=== PATIENT | male | born 1965 | race Caucasian/White ===

== ENCOUNTER 2018-08-31 18:12 | Emergency (ER) | payer BC, SELFPAY ==
[2018-08-31 18:13] VITALS: BP 162/109; PULSE 82; RESP 14; TEMP 36.7; O2SAT 95; BMI 36.6
[2018-08-31 18:22] VITALS: BP 170/96; PULSE 80; RESP 16; O2SAT 96
--- NOTE | 2018-08-31 18:32 | CT_ITS ---
STUDY: CT ABDOMEN AND PELVIS WITHOUT CONTRAST REASON FOR EXAM: Male, 53 years old. Right flank pain, history of kidney stones RADIATION DOSAGE (If Supplied By Facility): CTDIvol = ( 23.56 ) mGy, DLP = ( 1394.97 ) mGycm TECHNIQUE: Transaxial images were obtained from the dome of the diaphragm to the symphysis pubis without oral contrast, and without intravenous contrast. Sagittal and coronal images were reconstructed. Individualized dose optimization techniques were used for this CT. COMPARISON: Prior comparison studies are not available for review at this time. FINDINGS: The visualized lung bases are unremarkable. The visualized portions of the heart are within normal limits. Normal liver. Normal gallbladder and extrahepatic biliary system. Normal spleen. Normal pancreas. Normal bilateral adrenal glands. There are calcifications of each kidney with the largest on the left side measuring up to 6.4 mm. No hydronephrosis or urinary calculi. Mild periureteral stranding on the right side. Normal visualized stomach. Normal small intestine. Normal colon. The appendix is visualized and appears normal. Normal abdominal aorta. Normal inferior vena cava. Normal retroperitoneum. There is a calculus layering dependently in the urinary bladder on axial image 150 measuring 3.6 mm. Normal abdominal wall. Normal osseous structures. CT/Abdomen/Pelvis without Cont IMPRESSION: 1. Urinary bladder calculus (3.6 mm) likely passed from the right ureter. No hydronephrosis. Electronically Signed: Osmin Chris MD at 19:29 EST , Service support ,
[2018-08-31 18:43] LABS: Bacteria 0 SEEN /hpf (None Seen); Red Blood Cells-Urine 0 SEEN /hpf (0-5); Squamous Epithelial Cells - UA 0 SEEN /hpf (0-5)
[2018-08-31 18:49] LABS: Color, Urine Yellow (Yellow); Glucose, Dipstick Normal (Normal); Ketone-Dipstick 5 mg/dl (Negative); Leukocyte Esterase-Dipstick 25 /ul (Negative); Nitrite-Dipstick Negative (Negative); Occult Blood-Urine 150 /ul (Negative); Protein-Dipstick 15 mg/dl (Negative); Urine Bilirubin Dipstick Negative (Negative); Urine Clarity Clear (Clear); Urine Urobilinogen Normal (Normal)
[2018-08-31 18:56] LABS: White Blood Cells 0-5 SEEN /hpf (0-5)
[2018-08-31 18:57] LABS: Mucous, Urine 1+ /hpf (<or=2+)
--- NOTE | 2018-08-31 19:42 | ED.VISSUMM ---
- ER Visit Summary Date of Service: 08/31/18 Chief Complaint: Right flank pain History of Present Illness: The patient is a 53 M who presents with right flank pain that began approximately 2-1/2 hours prior to arrival. Patient states he has a history of kidney stones and states this feels similar to prior kidney stones. Patient denies any dysuria or hematuria. Patient denies any nausea or vomiting. Patient denies any diarrhea, melena, or hematochezia. Patient does admit to some urinary urgency. Patient denies any fevers or chills. Patient states he did take 20 mg of Toradol prior to arrival. Physical Examination: Vital signs are stable. Patient is afebrile. Patient is in no acute distress. Oral mucosa is pink and moist. Neck is supple. Trachea is midline. There is no JVD noted. Heart was regular rate and rhythm. Lungs are clear and equal bilaterally. Abdomen is soft. Bowel sounds are normal. There is no tenderness. There is no flank or CVA tenderness noted. Cranial nerves II through XII are intact. There are no focal motor or sensory deficits noted. The remaining physical exam is within normal limits. Test Results: Urinalysis showed leukocyte esterase of 25, occult blood 150, and ketones of 5. There were no white blood cells or red blood cells noted. CT scan of the abdomen and pelvis shows a calculus in the urinary bladder but no ureteral calculus. Emergency Department Course and Treatment: Patient felt better on reevaluation. Patient was instructed to follow-up with his primary care physician in 5-7 days. Patient was instructed to strain his urine. Patient was instructed to take Toradol that he has at home as needed for pain. Patient understood and was agreeable with the plan. All questions were answered. Disposition: Discharged home Impression: Urolithiasis This note was generated with [employer] dictation software. It may contain incorrect words, spelling, and punctuation that were not noted in review of the chart prior to signing ED Disposition - Plan for ED Patient: Disposition: Home or Assisted Living Chief Complaint: Flank Pain Diagnosis: Urolithiasis Instructions: ED Stone Renal W Colic Referrals: Mynor Robertson MD [Primary Care Provider] -
[2018-08-31 20:01] VITALS: PULSE 82; RESP 14; O2SAT 95
== END 2018-08-31 20:02 | disposition home or self-care (01) ==
PROVIDERS: Emergency Provider Emergency Medicine; Family Provider Family Medicine; PCP Family Medicine
DX: N21.0 Calculus in bladder (principal); Z87.442 Personal history of urinary calculi
CPT/HCPCS: 74176; 81001; 99282

== ENCOUNTER → 2019-04-07 | Outpatient (CLI) | payer BC, SELFPAY ==
[2019-04-07 13:15] LABS: ALB/GLOB Ratio 1.2 RATIO (0.9-2.4); AST(SGOT) 18 U/L (15-37); Alanine Aminotransfer ALT/SGPT 30 U/L (16-61); Albumin, Serum 3.5 g/dL (3.2-5.0); Alkaline Phosphatase 84 U/L (45-117); Anion Gap 9 (5-15); BUN 24 mg/dL (7-18); BUN/Creat Ratio 26.5 RATIO (10-20); Calcium,Total 8.6 mg/dL (8.5-10.1); Chloride 109 mmol/L (98-107); Cholesterol 194 mg/dL (200); EST Glomerular Filtration Rate 93 mL/min (>60); Est Glom Filt Rate - Afr Amer 112 mL/min (>60); Glucose 103 mg/dL (74-106); High Density Lipoprotein 57 mg/dL; Potassium 4.2 mmol/L (3.5-5.1); Protein, Total 6.5 g/dL (6.4-8.2); Sodium Level 144 mmol/L (136-145); Thyroid Stim Hormone (TSH) 1.18 uIU/mL (0.358-3.74); Triglycerides 127 mg/dL; Very Low Density Lipoprotein 25 mg/dL (5-40)
== END | disposition home or self-care (01) ==
LOC: MFPLAB 10:43
PROVIDERS: Family Provider Family Medicine; PCP Family Medicine; Referring Provider Family Medicine; Visit Provider Family Medicine
DX: Z00.00 Encounter for general adult medical examination without abnormal findings (principal); E66.9 Obesity, unspecified
CPT/HCPCS: 36415; 80053; 80061; 84153; 84443; G0103

== ENCOUNTER → 2020-04-11 09:20 | Outpatient (CLI) | payer BC, SELFPAY ==
--- NOTE | 2020-04-11 09:24 | RAD_ITS ---
STUDY: X-RAY - PELVIS AND RIGHT HIP REASON FOR EXAM: Male, 55 years old. right hip pain for years-not getting any better, no injury TECHNIQUE: 3 views of the pelvis and hip. COMPARISON: None. FINDINGS: There is a non-specific bowel gas pattern. Normal visualized soft tissue structures. Normal bilateral iliac wings, sacroiliac joints and visualized sacrum. Normal bilateral superior and inferior pubic rami. Normal pubic symphysis. Normal bilateral ischial tuberosities. Normal visualized femoral head. Normal acetabulum. Normal hip joint. RAD/HIP, UNI W/ Pelvis 2-3 Views IMPRESSION: Normal x-ray examination of the pelvis and hip. Electronically Signed: Jared Dickey MD at 9:44 EDT , Service support ,
[2020-04-11 12:45] LABS: ALB/GLOB Ratio 1.3 RATIO (0.9-2.4); AST(SGOT) 22 U/L (15-37); Alanine Aminotransfer ALT/SGPT 33 U/L (16-61); Albumin, Serum 3.9 g/dL (3.2-5.0); Alkaline Phosphatase 73 U/L (45-117); Anion Gap 5 (5-15); BUN 20 mg/dL (7-18); BUN/Creat Ratio 20.1 RATIO (10-20); Calcium,Total 8.3 mg/dL (8.5-10.1); Chloride 107 mmol/L (98-107); Cholesterol 194 mg/dL (200); Creatinine, Serum 0.99 mg/dL (0.70-1.30); EST Glomerular Filtration Rate 83 mL/min (>60); Est Glom Filt Rate - Afr Amer 100 mL/min (>60); Globulin 2.9 g/dL (2.2-4.2); Glucose 89 mg/dL (74-106); High Density Lipoprotein 60 mg/dL; Protein, Total 6.8 g/dL (6.4-8.2); Sodium Level 140 mmol/L (136-145); Triglycerides 88 mg/dL; Very Low Density Lipoprotein 18 mg/dL (5-40)
== END ==
PROVIDERS: PCP Family Medicine; Referring Provider Family Medicine; Visit Provider Family Medicine
DX: Z00.00 Encounter for general adult medical examination without abnormal findings (principal); N20.0 Calculus of kidney; M25.551 Pain in right hip
CPT/HCPCS: 36415; 73502; 80053; 80061

== ENCOUNTER → 2020-04-19 08:51 | Outpatient (CLI) | payer BC, SELFPAY ==
--- NOTE | 2020-04-19 08:55 | US_ITS ---
STUDY: RENAL ULTRASOUND - COMPLETE REASON FOR EXAM: Male, 55 years old. Left flank pain. Question kidney stone. TECHNIQUE: Ultrasound evaluation of the kidneys was performed with real-time and static ortiz-scale imaging. COMPARISON: CT the abdomen and pelvis, 08/31/2018. FINDINGS: RIGHT KIDNEY: Normal location of the right kidney, which is normal in size. The right kidney measures 12.4 cm. There is a normal cortex of the right kidney. The renal cortex measures 2.2 cm. There is no right renal mass or cyst. There is scattered area of hyperechogenicity within the central sinus fat. The possibility of small nonobstructing calculi in considered. The largest area measures 1.6 x 1.1 x 0.5 cm in lies in the mid to lower kidney. There is no right hydronephrosis. DISTAL RIGHT URETER: There is non-visualization of the distal right ureter. There is no demonstrated right ureterovesical junction calculus. There is no demonstrated right ureteral jet. LEFT KIDNEY: Normal location of the left kidney, which is normal in size. The left kidney measures 12.8 cm. There is a normal cortex of the left kidney. The renal cortex measures 1.3 cm. There is no left renal mass or cyst. There is focal area of hyperechogenicity within the central sinus fat. Question nonobstructing renal calculi. The largest area measures 0.7 x 1.5 x 0.6 cm and lies in the lower pole of the left kidney.. There is mild hydronephrosis of the left kidney. DISTAL LEFT URETER: There is non-visualization of the distal left ureter. There is no demonstrated left ureterovesical junction calculus. There is no demonstrated left ureteral jet. BLADDER: The distended urinary bladder has a volume of 122 ml. There is a normal wall thickness of the distended urinary bladder. There is no demonstrated mass within the urinary bladder. There are no demonstrated bladder calculi. US/Kidney and Bladder IMPRESSION: 1. Focal areas of hyperechogenicity within the bilateral central sinus fat suggesting nonobstructing renal calculi. Diffuse renal calculi are seen throughout both kidneys on the prior CT. 2. Mild left hydronephrosis. 3. Normal urinary bladder. The ureteral jets were not visualized. Electronically Signed: Omar Gautam DO at 17:04 EDT Tel [phone], Service support ,
== END ==
PROVIDERS: PCP Family Medicine; Referring Provider Family Medicine; Visit Provider Family Medicine
DX: N20.0 Calculus of kidney (principal)
CPT/HCPCS: 76770

== ENCOUNTER → 2020-04-22 | Outpatient (CLI) | payer BC, SELFPAY | END | disposition home or self-care (01) | LOC: LABSPEC 15:15 | PROVIDERS: PCP Family Medicine; Referring Provider Family Medicine; Visit Provider Family Medicine | DX: N20.0 Calculus of kidney (principal) | CPT/HCPCS: 82360 ==

== ENCOUNTER 2020-05-16 19:10 | Emergency (ER) | payer BC, SELFPAY ==
[2020-05-16 19:10] VITALS: BP 179/99; PULSE 84; RESP 17; TEMP 35.6; O2SAT 94; BMI 39.8
--- NOTE | 2020-05-16 20:26 | CT_ITS ---
STUDY: CT ABDOMEN AND PELVIS WITHOUT CONTRAST REASON FOR EXAM: Male, 55 years old. Left flank pain. History of kidney stones. RADIATION DOSAGE (If Supplied By Facility): CTDIvol = ( 14.76 ) mGy, DLP = ( 753.59 ) mGycm TECHNIQUE: Transaxial images were obtained from the dome of the diaphragm to the symphysis pubis without oral contrast, and without intravenous contrast. Sagittal and coronal images were reconstructed. Individualized dose optimization techniques were used for this CT. COMPARISON: CT of the abdomen and pelvis, 08/31/2018. Renal ultrasound, 04/19/2020. FINDINGS: The visualized lung bases are unremarkable. The visualized portions of the heart are within normal limits. Normal liver. Normal gallbladder and extrahepatic biliary system. Normal spleen. Normal pancreas. Normal bilateral adrenal glands. The right kidney is of normal size and cortical thickness. There are multiple renal cysts. The largest, in the mid kidney, measures 6 mm. No visualized mass or cyst. There is no hydronephrosis. Normal right ureter. There is mild stranding of the left perinephric fat. The kidney is mildly enlarged when compared to the right with normal cortical thickness. There are multiple nonobstructing renal calculi. The largest, in the lower pole, measures 9 mm. There is mild hydronephrosis and ureteral dilatation to the pelvic side wall where there is nonobstructing 7 mm calculus (image 139, series 1002) the distal left ureter is unremarkable. Normal visualized stomach. Normal small intestine. Normal colon. There is non-visualization of the appendix. Normal abdominal aorta. Normal inferior vena cava. Normal retroperitoneum. Normal urinary bladder. The prostate is normal in size. There is a calcification in the mid prostate. There are phleboliths in the pelvis without lymphadenopathy. No free air or free fluid is seen within the peritoneal cavity. Normal abdominal wall. There are diffuse degenerative changes of the visualized lumbar spine. CT/Abdomen/Pelvis without Cont IMPRESSION: 1. Distal left ureteral calculus with moderate obstructive uropathy. 2. Multiple bilateral nonobstructing renal calculi. 3. Absence of the calculus seen within the urinary bladder on the previous study. 4. No other major interval change. Electronically Signed: Omar Gautam DO at 21:17 EDT Tel [phone], Service support ,
[2020-05-16] MEDS: Ondansetron 4 MG/2 ML Vial IV (20:38)
[2020-05-16] MEDS: Morphine 4 MG/ML Syringe IV (20:38)
[2020-05-16 21:30] LABS: Bacteria 0 SEEN /hpf (None Seen); Mucous, Urine 0 SEEN /hpf (<or=2+); Red Blood Cells-Urine 0 SEEN /hpf (0-5); Squamous Epithelial Cells - UA 0 SEEN /hpf (0-5); White Blood Cells 0 SEEN /hpf (0-5)
[2020-05-16 21:45] LABS: Color, Urine Yellow (Yellow); Glucose, Dipstick Normal (Normal); Ketone-Dipstick Negative (Negative); Leukocyte Esterase-Dipstick Negative /ul (Negative); Nitrite-Dipstick Negative (Negative); Occult Blood-Urine Negative /ul (Negative); Protein-Dipstick 30 mg/dl (Negative); Urine Bilirubin Dipstick Negative (Negative); Urine Clarity Sl. Cloudy (Clear); Urine Urobilinogen Normal (Normal)
[2020-05-16 22:03] LABS: Amorphous Sediment 1+
[2020-05-16 22:27] VITALS: RESP 16
--- NOTE | 2020-05-16 22:56 | ED.DEP ---
ED Disposition - Plan for ED Patient: Prescriptions: Oxycodone HCl/Acetaminophen [Percocet 5/325] 1 tablet PO Q6H PRN PRN 3 Days #12 tablet PRN Reason: Pain Ondansetron [Zofran Odt] 4 mg PO Q8H PRN PRN #10 tablet PRN Reason: Nausea Referrals: Mynor Robertson MD [Primary Care Provider] - Sanford Jacobs MD [STAFF PHYSICIAN] -
--- NOTE | 2020-05-16 23:04 | ED.RN ---
[facility] pharmacy bringing prescription meds to waiting room.
--- NOTE | 2020-05-16 23:50 | ED.DCSUM_ITS ---
- ER Visit Summary Date of Service: 05/16/20 Chief Complaint: Left flank pain History of Present Illness: The patient is a 55 M presenting with left flank pain. Patient states this started today suddenly at 3:30 PM. He states it feels similar to his previous kidney stones. He tried ibuprofen and Tylenol at home with minimal improvement. He complains of left lower back pain. He denies urinary complaints. Denies nausea or vomiting. Denies fever. Physical Examination: Vitals are stable. Patient is afebrile. Alert no acute distress. HEENT exam is unremarkable. Lungs are clear and equal bilaterally. Heart is regular rate and rhythm. Abdomen is soft nontender nondistended. No guarding or rebound Back: Left CVA tenderness Extremities are unremarkable. Skin is warm and dry. No rash Remainder of exam is unremarkable. Emergency Department Course and Treatment: Patient given morphine, Zofran IV. Urinalysis shows 0 white cells, [address] abdomen pelvis shows distal left ureteral calculus with moderate obstructive uropathy. Multiple bilateral nonobstructing renal calculi. Absence of the calculus seen within the urinary bladder on the previous study. No other major interval change. On reevaluation, patient states his pain has resolved. Discussed with Dr. Jacobs. Patient will follow-up in the office. He is advised to return to the ED for worsening complaints. He was given prescription for Percocet and Zofran. Disposition: Discharge home Impression: Urolithiasis This note was generated with [employer] dictation software. It may contain incorrect words, spelling, and punctuation that were not noted in review of the chart prior to signing ED Disposition - Plan for ED Patient: Disposition: Home or Assisted Living Prescriptions: Oxycodone HCl/Acetaminophen [Percocet 5/325] 1 tab PO Q6H PRN PRN 3 Days #12 tab PRN Reason: Pain Prescription Printed Ondansetron [Zofran Odt] 4 mg PO Q8H PRN PRN #10 tab PRN Reason: Nausea Prescription Printed Referrals: Mynor Robertson MD [Primary Care Provider] - Sanford Jacobs MD [STAFF PHYSICIAN] -
== END 2020-05-16 23:05 | disposition home or self-care (01) ==
LOC: ED 20:30
PROVIDERS: Emergency Provider Emergency Medicine; PCP Family Medicine
DX: N20.2 Calculus of kidney with calculus of ureter (principal); N13.9 Obstructive and reflux uropathy, unspecified; Z79.899 Other long term (current) drug therapy; Z87.442 Personal history of urinary calculi
CPT/HCPCS: 74176; 81001; 96374; 96375; 99283; A4216; J2405

== ENCOUNTER → 2020-05-17 14:05 | Outpatient (CLI) | payer BC, SELFPAY ==
[2020-05-16 19:10] VITALS: BMI 39.8
--- NOTE | 2020-05-17 14:16 | EKG12_ITS ---
Test Reason : PRE-OP Blood Pressure : / mmHG Vent. Rate : 105 BPM Atrial Rate : 105 BPM P-R Int : 158 ms QRS Dur : 092 ms QT Int : 338 ms P-R-T Axes : 041 016 018 degrees QTc Int : 446 ms Sinus tachycardia Otherwise normal ECG Confirmed by SEGUN HARPER, VITOR ([id number]), brands editor DARY ARCOS ([id number]) on 05/18/2020 1:06:45 PM Referred By: Sanford Jacobs Confirmed By:VITOR CAST MD
[2020-05-17 15:02] LABS: Hematocrit 44.6 % (40-54); Hemoglobin 14.9 g/dL (13.0-16.5); Mean Corp Hgb Conc 33.4 g/dL (32-36); Mean Corpuscular Hgb 30.6 pg (27.0-32.0); Mean Corpuscular Volume 91.6 fL (80-94); Platelet Count 213 K/mm3 (150-450); RBC Distribution Width CV 12.2 % (11.6-14.6); RBC Distribution Width SD 41.1 fl (35.1-43.9); Red Blood Count 4.87 M/mm3 (4.6-6.2); White Blood Count 8.5 K/mm3 (4.4-11.0)
[2020-05-17 15:24] LABS: AST(SGOT) 27 U/L (15-37); Alanine Aminotransfer ALT/SGPT 39 U/L (16-61); Albumin, Serum 3.7 g/dL (3.2-5.0); Alkaline Phosphatase 82 U/L (45-117); Anion Gap 7 (5-15); BUN 27 mg/dL (7-18); BUN/Creat Ratio 17.3 RATIO (10-20); Calcium,Total 8.5 mg/dL (8.5-10.1); Chloride 110 mmol/L (98-107); Creatinine, Serum 1.56 mg/dL (0.70-1.30); EST Glomerular Filtration Rate 49 mL/min (>60); Est Glom Filt Rate - Afr Amer 60 mL/min (>60); Globulin 3.6 g/dL (2.2-4.2); Glucose 116 mg/dL (74-106); Protein, Total 7.3 g/dL (6.4-8.2); Sodium Level 141 mmol/L (136-145)
== END ==
PROVIDERS: PCP Family Medicine; Referring Provider Urology; Visit Provider Urology
DX: I51.9 Heart disease, unspecified (principal)
CPT/HCPCS: 36415; 80053; 85027; 87635; 93005; U0003

== ENCOUNTER 2020-06-03 05:32 | Day surgery (SDC) | payer BC, SELFPAY ==
[2020-06-03 05:55] VITALS: BP 163/96; PULSE 92; RESP 16; TEMP 36.6; O2SAT 97; BMI 37.8
[2020-06-03] MEDS: Lactated Ringers 1,000 ML 100 ML IV (06:18)
--- NOTE | 2020-06-03 07:30 | CALC_PTH ---
PATIENT: YONY ROBERTSON [place] [facility] [place][id number] AGE/SX: 55/M ROOM: RE06/03/[address]: Dr. Sanford Jacobs MD : 1965 BED: DIS: 06/03/2020 SPEC #: [id number] RECD: 06/03/20 09:14 STATUS: BOLIVAR PEDRITO #: [id number] DAYO: 06/03/20 07:[address]: Sanford Jacobs DEPT: SURGICAL PATHOLOGY RECD BY: Scarlet Lundberg ENTERED: 06/03/20 12:45 SP TYPE: Calculi OTHR DR: Dr. Mynor Robertson MD Tissues: CALCULI Procedures: Surgery Specimen Level I HEADER OPERATION: Cysto, ureteroscopy, laser, stent PRE-OP DIAGNOSIS: Left ureteral calculus TISSUE SUBMITTED: Left ureteral calculi GROSS DIAGNOSIS Fragments of stone, clinically left ureteral calculi, submitted for analysis. UMU:pavan 06/03/20 COMMENT The calculus is submitted in its entirety for chemical stone analysis. The results from this study will be reported separately. GROSS DESCRIPTION Received in fixative is one container labeled with the patient's name and designated left ureteral calculi. The specimen consists of multiple irregular fragments of brownish-black stone that in aggregate measure 0.3 x 0.3 x 0.1 cm. The entire specimen is submitted for stone analysis. / UMU:pavan 06/03/20 CPT: 94391
--- NOTE | 2020-06-03 08:38 | PCM.HP.STD ---
Problem List (1) Left ureteral calculus Status: Acute History of Present Illness Date of Admission: 06/03/20 Chief Complaint: Left ureteral and renal calculi The patient is a 55 year old male who has an obstructing stone in distal left ureter also has a stone in the upper pole of the left kidney plan to proceed with laser lithotripsy and treatment of stones. Past Medical History Past Medical History (Chronic Problems): Chronic Problems History of supraventricular tachycardia (Chronic) Allergies No Known Allergies Allergy (Verified 05/25/20 15:01) Home Medications: Ambulatory Orders Medication Instructions Recorded Ciprofloxacin [Cipro] 500 mg PO BID #6 tab 06/03/20 Doterra 06/03/20 Oxycodone HCl/Acetaminophen 1 tablet PO Q4H PRN PRN 5 Days #20 06/03/20 [Percocet 5/325] tablet Valarian Root 06/03/20 Vitamin B Complex 1 ea PO 06/03/20 Vitamin D3/Vitamin K2 (Mk4) 06/03/20 Surgical History: arthroscopy, knee Smoking Status: Never smoker Tobacco Use: Non-smoker Review of Systems Constitutional: Denies: Chills, Fever, Weight Change HEENT: Denies: Head Aches, Sinus Congestion, Sinus Drainage Cardiovascular: Denies: Chest Pain, Palpitations Respiratory: Denies: Cough, Shortness of breath at rest, Sputum production Gastrointestinal: Denies: Abdominal Pain, Nausea, Vomiting Genitourinary: Denies: Dysuria Musculoskeletal: Denies: Joint Pain, Joint Tenderness Skin: Denies: Rash, Wounds Neurological: Denies: Numbness, Tingling, Focal weakness Psychiatric: Denies: Anxiety, Depression, Homicidal Ideations, Suicidal Ideations Hematologic/ Lymphatic: Denies: Easy Bruising, Easy Bleeding VTE Information - Inpt Only VTE Present on Admission: No VTE Mechan Device Prophylaxis: SCD's Patient Problems: Active and Suspected Problems Left ureteral calculus (Acute) - Physical Exam Vitals/I&O's: Vital Signs Temp Pulse Resp BP Pulse Ox 97.9 F 92 16 163/96 H 97 06/03/20 05:55 06/03/20 05:55 06/03/20 05:55 06/03/20 05:55 06/03/20 05:55 Oxygen Delivery Method Room Air Weight: 123.2 kg Body Mass Index (BMI) 37.8 Intake and Output for Last 24 Hours 06/01/20 06/02/20 06/03/20 23:59 23:59 23:59 Intake Total 115 / 115 Balance 115 / 115 General: Alert, Oriented x3, Cooperative HEENT: Atraumatic, PERRLA, EOMI, Normocephalic Neck: Supple, No JVD, Negative Carotid Bruits Lungs: Clear to auscultation, Normal air movement Cardiovascular: Regular rate, No murmurs Abdomen: Bowel Sounds Present, Soft, Non Tender Extremities: No edema, Capillary Refill Less than 3 Seconds Skin: No rashes, No breakdown Musculoskeletal: No Tenderness to Palpation of Joints or Extremities Neurological: Cranial nerves II-XII grossly intact Psych/Mental Status: Normal Affect, Appropriate Current Medications Hydrocodone Bitart/Acetaminophen ([place] 5mg-325mg) 1 - 2 tablet PO Q6H PRN PRN PRN Reason: Pain Score 1-5/10 Lactated Ringer's () 1,000 mls @ 100 mls/hr IV .Q10H WILLIE Last Admin: 06/03/20 06:18 Dose: 100 mls/hr Documented by: Ketorolac Tromethamine (Toradol (Bkc)) 15 mg IV X1 ONE Stop: 06/03/20 08:35 Metoclopramide HCl (Reglan) 10 mg IV X1 PRN PRN Reason: NAUSEA/VOMITING Ondansetron HCl (Zofran) 4 mg IV X1 PRN PRN Reason: NAUSEA Oxycodone HCl (Oxyir) 5 - 10 mg PO Q6H PRN PRN PRN Reason: Pain Score 4-10/10 Assessment/Plan All Active Problems Left ureteral calculus (Acute) Plan for left ureteroscopy laser and stent.
--- NOTE | 2020-06-03 08:39 | DCINST_ITS ---
Discharge Diet: No Restrictions Discharge Activity: Return to Normal Activity, May Not Drive - for 2 days. Additional Activity Instructions:: Please be aware that pain medications may cause nausea. You should typically eat light foods as you take your pain medication. Pain medication may cause constipation, if this is a problem for you, please discuss with your doctor. Allergies/Adverse Reactions: Allergies No Known Allergies Allergy (Verified 05/25/20 15:01) Medications to take at Discharge Ciprofloxacin [Cipro] 500 mg PO BID #6 tab 06/03/20 Doterra 06/03/20 Oxycodone HCl/Acetaminophen [Percocet 5/325] 1 tablet PO Q4H PRN PRN 5 Days #20 tablet 06/03/20 Valarian Root 06/03/20 Vitamin B Complex 1 ea PO 06/03/20 Vitamin D3/Vitamin K2 (Mk4) 06/03/20 The following prescriptions were given: Ciprofloxacin [Cipro] 500 mg PO BID #6 tab Transmission Status: Pending to [facility] Oxycodone HCl/Acetaminophen [Percocet 5/325] 1 tablet PO Q4H PRN PRN 5 Days #20 tablet PRN Reason: Pain Transmission Status: Received by [facility] Primary Care Physician: Mynor Robertson MD [Primary Care Provider] - Test Results: Test results from this visit will be discussed in further detail at your follow- up appointment, if applicable. Please Follow Up With: Sanford Jacobs MD When: in 2 weeks, please call to make an appointment to remove stent
--- NOTE | 2020-06-03 08:40 | OP.PCM_ITS ---
Problem List (1) Left ureteral calculus Status: Acute Report of Operation Date of Procedure: 06/03/20 Pre-Operative Diagnosis: Left ureteral and renal calculi Post-Operative Diagnosis: The same Surgery/Procedure Performed:: Cystoscopy balloon dilation of the left ureter, left ureteroscopy laser of stone in the left ureter and left ureteroscopy and laser of stone in the left kidney 2 different locations. Left retrograde pyelogram and interpretation fluoroscopic images. Description of Surgical Findings:: 55-year-old male was taken back to the operating room after smooth induction of general anesthesia he was placed in dorsolithotomy position. The penis and testicles were prepped and draped in usual sterile fashion. We then went into the bladder with a 21 Brazilian rigid cystourethroscope, I advanced a Glidewire up the left ureter. I advanced a second Glidewire up the left ureter as a safety wire. I then advanced a 15 Brazilian balloon dilator with a 10 cm and advance it up to the stone and balloon dilated the distal left ureter as it was stenotic and narrowed. I then went over the working wire with the flexible ureteroscope was able to get to the stone and started lasering the stone in the distal left ureter it was a fairly large stone as I was lasering the stone stone broke up with a little pieces start coming down the ureter once I got the stone broke up with little pieces then it was very difficult to laser further at the stone was so distal to the ureter it was hard to use a flexible ureteroscope so at this point I left the safety wire in place I backed out with the flexible ureteroscope and I went with a SlimLine ureteroscope went up the ureter and then lasered the stones one by 1 as they were passed into the bladder were quite way up the ureter. Finally had laser that distal stone and most of the fragments are passed into the bladder. I put a wire back up through this ureteroscope up to the left kidney and then over the wire I went in with a flexible ureteroscope went all the way to the kidney inspected lower pole midpole and upper pole the kidney and found the stone in the upper pole the kidney a second location of the different stone. In this point I lasered the stone again with a 200 ?m laser fiber and lasered the stone and little tiny pieces using laser energy fibers of 20 Hz and 0.4 J and dusting the stone little tiny pieces after this large stone was dusted little tiny pieces then I performed a retrograde pyelogram see contrast in the kidney contrast drain in the kidney no extravasation of contrast. I then worked my way down the ureter and out the bladder there were a lot of stone fragments in the bladder these were drained out and a fragment was sent off as a specimen. I then went back into the bladder over the safety wire and there was a safety wire which was in the entire case I placed a stent it was a 6 Brazilian by 26 cm stent left the stent in place will leave the stent in for 2 weeks the lateral these fragments passing a lot of fragments in the kidney and the ureter. Patient will follow-up for cystoscopy stent removal in the office in about 10 to 14 days. Type of Anesthesia:: General Drains: stent L - Admit VTE Documentation VTE Present on Admission: No VTE Mechan Device Prophylaxis: SCD's
[2020-06-03 08:46] VITALS: BP 140/100; BP 163/96; PULSE 90; RESP 16; TEMP 36.5; O2SAT 96
[2020-06-03] MEDS: Ketorolac 15 MG/ML Vial IV (08:59)
[2020-06-03 09:01] VITALS: BP 144/98; BP 163/96; PULSE 77; RESP 18; O2SAT 96
[2020-06-03 09:09] VITALS: BP 139/97; BP 163/96; PULSE 81; RESP 18; TEMP 36.2; O2SAT 96
[2020-06-03 09:53] VITALS: BP 133/86; BP 163/96; PULSE 76; RESP 16; TEMP 36.1; O2SAT 94
[2020-06-17 09:58] LABS: Ca Oxalate, Monohydrate 100; Source LEFT URETER
== END 2020-06-03 10:30 | disposition home or self-care (01) ==
LOC: SDC 05:32 → AC 05:33
PROVIDERS: Anesthesiology; PCP Family Medicine; Referring Provider Urology; Visit Provider Urology
PROC: 0TJ98ZZ Inspection of Ureter, Via Natural or Artificial Opening Endoscopic (ICD-10-PCS; CPT 52352; principal; 2020-06-03 07:20)
DX: N20.2 Calculus of kidney with calculus of ureter (principal); Z11.59 Encounter for screening for other viral diseases; M19.90 Unspecified osteoarthritis, unspecified site; Z79.899 Other long term (current) drug therapy
CPT/HCPCS: 52356; 76000; 82360; 87635; 88300; C9803; J7120; C1726; C1769; C2617; J2405; U0003

== ENCOUNTER → 2020-06-13 08:08 | Outpatient (CLI) | payer BC, SELFPAY ==
[2020-06-03 05:55] VITALS: BMI 37.8
--- NOTE | 2020-06-13 08:09 | RAD_ITS ---
STUDY: X-RAY - ABDOMEN/PELVIS REASON FOR EXAM: Male, 55 years old. LEFT SIDE KIDNEY STONE/STENT TECHNIQUE: Single AP view of the abdomen / pelvis. COMPARISON: Comparison is made with prior study dated 04/23/2016. FINDINGS: There is an unremarkable bowel gas pattern. A left-sided double-J stent catheter is seen with the proximal tip in the left renal pelvis and the distal tip in the left side of the bladder. Multiple bilateral intrarenal calculi. There is a 7.1 mm x 2 mm calculus in the distal portion of the left ureter just proximal to the ureterovesical junction. There are calcified phleboliths in the pelvis. Normal visualized osseous structures. RAD/Abdomen Single View IMPRESSION: Left-sided double-J stent catheter is in situ. There is evidence of a 7.1 mm x 2 mm calculus in the distal portion of the left ureter just proximal to the ureterovesical junction. Multiple bilateral intrarenal calculi. Electronically Signed: Lio Lagunas, at 13:06 EDT , Service support ,
== END ==
PROVIDERS: PCP Family Medicine; Referring Provider Urology; Visit Provider Urology
DX: N20.0 Calculus of kidney (principal)
CPT/HCPCS: 74018

== ENCOUNTER → 2020-07-18 16:42 | Outpatient (CLI) | payer BC, SELFPAY | PROVIDERS: PCP Family Medicine; Visit Provider Nurse Practitioner Family | DX: U07.1 COVID-19 (principal) | CPT/HCPCS: 87633; 87635; U0003 ==

== ENCOUNTER → 2020-08-05 15:26 | Outpatient (CLI) | payer BC, SELFPAY ==
--- NOTE | 2020-08-05 15:28 | RAD_ITS ---
STUDY: X-RAY CHEST REASON FOR EXAM: Male, 55 years old. recent covid, sob now again TECHNIQUE: PA and lateral views of the chest. COMPARISON: 05/22/2013 FINDINGS: Poor inspiration with some bibasilar atelectasis. There is no demonstrated pleural abnormality. Normal size heart. Normal mediastinum and wilmer. Normal visualized pulmonary arteries. Normal visualized aortic arch and descending thoracic aorta. Normal visualized thoracic spine. Normal visualized ribs, clavicles, and shoulders. There is no demonstrated abnormality of the visualized soft tissue structures of the upper abdomen. RAD/Chest PA and Lateral IMPRESSION: Poor inspiration with some bibasilar atelectasis. Electronically Signed: Pierce Briscoe MD at 15:50 EST Tel , Service support ,
== END ==
PROVIDERS: PCP Family Medicine; Referring Provider Family Medicine; Visit Provider Family Medicine
DX: J15.9 Unspecified bacterial pneumonia (principal)
CPT/HCPCS: 71046; 87633

== ENCOUNTER → 2021-08-01 08:17 | Outpatient (CLI) | payer BC, SELFPAY ==
--- NOTE | 2021-08-01 08:31 | RAD_ITS ---
STUDY: X-RAY - ABDOMEN/PELVIS REASON FOR EXAM: Male, 56 years old. Renal calculi. One year follow-up. History of kidney stones. TECHNIQUE: Two AP supine views of the abdomen and pelvis. COMPARISON: 06/13/2020 FINDINGS: The lung bases are not included. There is an unremarkable bowel gas pattern. There is no demonstrated free abdominal air. The visualized liver and spleen are grossly normal in size and morphology. There is absence of the left ureteral stent present on the prior study. Again seen are at least 3 small calcifications within the left kidney which appear unchanged. Stable calcifications are also seen in the right kidney. The kidneys appear grossly normal in size. Phleboliths are seen in the pelvis. The left distal ureteral calculus , seen on the prior study is no longer present. Normal visualized osseous structures. RAD/Abdomen Single View IMPRESSION: 1. Absence of the left ureteral stent in distal ureteral calculus seen on the prior study. 2. Stable bilateral renal calculi. Electronically Signed: Omar Gautam DO at 22:42 EST Tel [phone], Service support ,
== END ==
PROVIDERS: PCP Family Medicine; Referring Provider Urology; Visit Provider Urology
DX: N20.0 Calculus of kidney (principal)
CPT/HCPCS: 74018

== ENCOUNTER → 2023-09-26 | Outpatient (CLI) | payer BC, SELFPAY ==
--- NOTE | 2023-09-26 15:07 | RAD_ITS ---
STUDY: X-RAY - ABDOMEN/PELVIS REASON FOR EXAM: Male, 58 years old. KIDNEY CALCULUS TECHNIQUE: Single AP view of the abdomen / pelvis. COMPARISON: None. FINDINGS: Lung bases not included in the [id number]. There is an unremarkable bowel gas pattern. There is no demonstrated free abdominal air. There are multiple calcifications projecting over the bilateral kidneys scattered within the upper middle and lower poles, largest on the right measuring 6.7 mm and largest on the left measuring 5.6 mm, unchanged in the interval. Otherwise the visualized liver, spleen and kidneys are grossly normal in size and morphology. There are calcified phleboliths in the pelvis. Degenerative disease of the spine, bilateral SI joints and right hip. There is a left-sided hip prosthesis in place. RAD/Abdomen Single View IMPRESSION: Unchanged calcifications projecting over the kidneys, likely renal stones. Electronically Signed: Pita Hayes MD at 16:52 EST ,
[2023-09-26 15:49] LABS: PSA,Total - Annual Screen 0.83 ng/mL (0.00-4.00)
--- OUTSIDE RECORDS SUMMARY | 2023-09-26 17:26 | XMS RPT_ITS | CCD ---
Author Name Unknown Address [address] [place] [address] Organization [facility] Care Team Providers Care Hadoop Engineer Name Role Phone Cristian Robertson Primary Care Provider Cristian Robertson MD Primary Care Provider Jaky CAMPOS, Nikhil Unavailable Unavailable Netta Hoff MD Unavailable Grater EQUIPMENT OPERATOR WAGE HAND.Hubert MCMILLAN Unavailable Cristian Robertson MD Primary Care Provider Netta Hoff MD Unavailable Grater EQUIPMENT OPERATOR WAGE HAND.DEYANIRA, Hubert Unavailable Sissen PSS, Nikhil Unavailable Unavailable Netta Hoff MD Unavailable Cristian Robertson MD Primary Care Provider Cristian Robertson MD Primary Care Provider Netta Hoff MD Unavailable Grater EQUIPMENT OPERATOR WAGE HAND.DEYANIRA Hubert Unavailable Giulia RODRIGUES, Carlene Unavailable Cristian Robertson MD Primary Care Provider Sissen PSS, Nikhil Unavailable Unavailable Netta Hoff MD Unavailable Grater EQUIPMENT OPERATOR WAGE HAND.DEYANIRA, Hubert Unavailable Giulia RODRIGUES, Carlene Unavailable Cristian Robertson MD Primary Care Provider CRISTIAN ROBERTSON Primary Care Unavailable SURACE, NETTA Referring Unavailable ROBERTSON, CRISTIAN A Primary Care Unavailable GRATER, HUBERT Referring Unavailable ROBERTSON, CRISTIAN A Primary Care Unavailable SURACE, NETTA Attending Unavailable SURACE, NETTA Referring Unavailable ROBERTSON, CRISTIAN A Primary Care Unavailable SURACE, NETTA Attending Unavailable ROBERTSON, CRISTIAN A Primary Care Unavailable SURACE, NETTA Attending Unavailable ROBERTSON, CRISTIAN A Primary Care Unavailable GRATER, HUBERT Attending Unavailable ROBERTSON, CRISTIAN A Primary Care Unavailable GRATER, HUBERT Referring Unavailable ROBERTSON, CRISTIAN A Primary Care Unavailable MINAL LEIVA Referring Unavailable GRATER, HUBERT Referring Unavailable ROBERTSON, CRISTIAN A Primary Care Unavailable GRATER, HUBERT Referring Unavailable ROBERTSON, CRISTIAN A Primary Care Unavailable ROBERTSON, CRISTIAN A Primary Care Unavailable GRATER, HUBERT Referring Unavailable JO MCKEON Consulting Unavailable SURACE, NETTA Attending Unavailable SURACE, NETTA Admitting Unavailable ROBERTSON, CRISTIAN A Primary Care Unavailable ROBERTSON, CRISTIAN A Primary Care Unavailable SURACE, NETTA A Referring Unavailable Medications Current Medications Medication Drug Class(es) Dates Sig (Normalized) Sig (Original) docusate sodium 100 mg oral capsule (16 sources) Start: 06-26-2022 End: 07-26-2022 take 1 capsule by mouth every twelve hours as needed docusate sodium (COLACE) 100 mg capsule Take 1 capsule by mouth twice daily as needed for constipation. 60 capsule 0 06/26/2022 07/26/2022 Active Completed/Discontinued Medications Medication Drug Class(es) Dates Sig (Normalized) Sig (Original) acetaminophen 500 mg oral tablet (20 sources) Start: 06-26-2022 take 2 tablets by mouth every eight hours as needed acetaminophen (TYLENOL) 500 mg tablet Take 2 tablets by mouth every 8 hours as needed for pain. 90 tablet 0 06/26/2022 Active Problems Active Problems Problem Classification Problem Date Documented Date Episodic/Chronic Cardiac dysrhythmias (20 sources) Supraventricular tachycardia; Translations: [Supraventricular tachycardia] Onset: 06-06-2012 11-13-2021 Chronic Osteoarthritis (20 sources) Arthropathy of joint of hand; Translations: [Primary osteoarthritis, unspecified hand] Onset: 07-31-2021 Chronic Other connective tissue disease (20 sources) History of total knee arthroplasty; Translations: [Presence of right artificial knee joint] Onset: 12-11-2021 Chronic Other connective tissue disease (1 source) Hip joint prosthesis present; Translations: [Presence of left artificial hip joint] Chronic Other connective tissue disease (2 sources) History of total hip arthroplasty; Translations: [Presence of left artificial hip joint] Chronic Other connective tissue disease (1 source) History of repair of hip joint; Translations: [Presence of left artificial hip joint] Chronic Other connective tissue disease (2 sources) Presence of left artificial hip joint; Translations: [S/P total left hip arthroplasty] Onset: 06-08-2022 Chronic Other connective tissue disease (1 source) Pain of left hand; Translations: [Pain in left hand] Episodic Other connective tissue disease (1 source) Tendonitis of left wrist; Translations: [Other enthesopathies, not elsewhere classified] Episodic Other connective tissue disease (1 source) Pain of left thigh; Translations: [Pain in left thigh] 05-02-2023 Episodic Other nervous system disorders (13 sources) Neuropathy; Translations: [Polyneuropathy, unspecified] Chronic Other non-traumatic joint disorders (1 source) Pain in right knee; Translations: [Pain in right knee] Episodic Other non-traumatic joint disorders (2 sources) Pain in right knee; Translations: [Pain in joint, lower leg] Episodic Other non-traumatic joint disorders (6 sources) Hip pain; Translations: [Pain in unspecified hip] Episodic Other non-traumatic joint disorders (2 sources) Pain in left knee; Translations: [Pain in joint, lower leg] Onset: 05-02-2023 04-10-2023 Episodic Other nutritional; endocrine; and metabolic disorders (20 sources) Body mass index 30+ - obesity; Translations: [Body mass index (BMI) 39.0-39.9, adult] Onset: 11-13-2021 11-13-2021 Chronic Other screening for suspected conditions (not mental disorders or infectious disease) (2 sources) Patient encounter status; Translations: [Encounter for observation for other suspected diseases and conditions ruled out] 05-02-2023 Episodic Residual codes; unclassified (2 sources) Pain; Translations: [Pain, unspecified] Episodic Sprains and strains (1 source) Sprain of lateral collateral ligament of knee; Translations: [Sprain of lateral collateral ligament of right knee, initial encounter] Episodic Unclassified (1 source) S/P Robotic L KASSIE Onset: 10-18-2022 Past or Other Problems Problem Classification Problem Date Documented Da te Episodic/Chronic Other non-traumatic joint disorders (20 sources) Stiffness of right knee; Translations: [Stiffness of right knee, not elsewhere classified] Onset: 12-11-2021 12-11-2021 Episodic Other non-traumatic joint disorders (2 sources) Pain in left hip; Translations: [Pain in left hip] Onset: 05-15-2022 Episodic Results Test Name Value Interpretation Reference Range Facil ity Vital Signs Date Time Vital Sign Value Performing Clinician Faci lity 05-02-2023 09:49-0400 Body height 177.8 cm Netta Hoff MD Work Phone: [facility] 05-02-2023 09:49-0400 Body weight 110.22 kg Netta Hoff MD Work Phone: [facility] 07-13-2022 15:11-0400 Body temperature 98.4 [degF] Carlene Platt PT Work Phone: [facility] 07-13-2022 15:11-0400 Diastolic blood pressure 80 mm[Hg] Carlene Platt PT Work Phone: [facility] 07-13-2022 15:11-0400 Heart rate 92 /min Carlene Platt PT Work Phone: [facility] 07-13-2022 15:11-0400 Respiratory rate 16 /min Carlene Platt PT Work Phone: [facility] 07-13-2022 15:11-0400 SaO2% (BldA) [Mass fraction] 96 % Carlene Platt PT Work Phone: [facility] 07-13-2022 15:11-0400 Systolic blood pressure 148 mm[Hg] Carlene Platt PT Work Phone: [facility] 07-11-2022 15:18-0400 Diastolic blood pressure 86 mm[Hg] Victorina Aria DAIRY TESTER Work Phone: [facility] 07-11-2022 15:18-0400 Heart rate 92 /min Victorina Aria DAIRY TESTER Work Phone: [facility] 07-11-2022 15:18-0400 SaO2% (BldA) [Mass fraction] 97 % Victorina Aria DAIRY TESTER Work Phone: [facility] 07-11-2022 15:18-0400 Systolic blood pressure 146 mm[Hg] Victorina Aria DAIRY TESTER Work Phone: [facility] 07-11-2022 14:47-0400 Body temperature 98.2 [degF] Victorina Aria DAIRY TESTER Work Phone: [facility] 07-11-2022 14:47-0400 Respiratory rate 18 /min Victorina Aria DAIRY TESTER Work Phone: [facility] 07-10-2022 12:48-0400 Body height 175.3 cm Hubert Grater EQUIPMENT OPERATOR WAGE HAND.[employer] Work Phone: [facility] 07-10-2022 12:48-0400 Body weight 119.75 kg Hubert Grater EQUIPMENT OPERATOR WAGE HAND.[employer] Work Phone: [facility] 07-04-2022 12:15-0400 Body temperature 98.01 [degF] Carlene Platt PT Work Phone: [facility] 07-04-2022 12:15-0400 Diastolic blood pressure 96 mm[Hg] Carlene Platt PT Work Phone: [facility] 07-04-2022 12:15-0400 Heart rate 108 /min Carlene Platt PT Work Phone: [facility] 07-04-2022 12:15-0400 Respiratory rate 16 /min Carlene Platt PT Work Phone: [facility] 07-04-2022 12:15-0400 SaO2% (BldA) [Mass fraction] 99 % Carlene Platt PT Work Phone: [facility] 07-04-2022 12:15-0400 Systolic blood pressure 140 mm[Hg] Carlene Platt PT Work Phone: [facility] 07-02-2022 08:45-0400 Body temperature 98.71 [degF] Victorina Aria DAIRY TESTER Work Phone: [facility] 07-02-2022 08:45-0400 Diastolic blood pressure 88 mm[Hg] Victorina Aria DAIRY TESTER Work Phone: [facility] 07-02-2022 08:45-0400 Heart rate 97 /min Victorina Aria DAIRY TESTER Work Phone: [facility] 07-02-2022 08:45-0400 Respiratory rate 18 /min Victorina Aria DAIRY TESTER Work Phone: [facility] 07-02-2022 08:45-0400 SaO2% (BldA) [Mass fraction] 99 % Victorina Aria DAIRY TESTER Work Phone: [facility] 07-02-2022 08:45-0400 Systolic blood pressure 140 mm[Hg] Victorina Aria DAIRY TESTER Work Phone: [facility] 06-27-2022 09:50-0400 Body temperature 97.81 [degF] Carlene Platt PT Work Phone: [facility] 06-27-2022 09:50-0400 Diastolic blood pressure 90 mm[Hg] Carlene Platt PT Work Phone: [facility] 06-27-2022 09:50-0400 Heart rate 80 /min Carlene Platt PT Work Phone: [facility] 06-27-2022 09:50-0400 Respiratory rate 16 /min Carlene Platt PT Work Phone: [facility] 06-27-2022 09:50-0400 SaO2% (BldA) [Mass fraction] 97 % Carlene Platt PT Work Phone: [facility] 06-27-2022 09:50-0400 Systolic blood pressure 148 mm[Hg] Carlene Platt PT Work Phone: [facility] 06-06-2022 15:51-0400 Diastolic blood pressure 94 mm[Hg] Pacc 1 Work Phone: [facility] 06-06-2022 15:51-0400 Systolic blood pressure 142 mm[Hg] Pacc 1 Work Phone: [facility] 06-06-2022 15:03-0400 Body height 177.8 cm Pacc 1 Work Phone: [facility] 06-06-2022 15:03-0400 Body temperature 98.49 [degF] Pacc 1 Work Phone: [facility] 06-06-2022 15:03-0400 Body weight 119.75 kg Pacc 1 Work Phone: [facility] 06-06-2022 15:03-0400 Heart rate 97 /min Pacc 1 Work Phone: [facility] 06-06-2022 15:03-0400 Respiratory rate 18 /min Pacc 1 Work Phone: [facility] 06-06-2022 15:03-0400 SaO2% (BldA) [Mass fraction] 97 % Pacc 1 Work Phone: [facility] 02-06-2022 14:14-0400 Body height 177.8 cm Hubert Grater EQUIPMENT OPERATOR WAGE HAND.[employer] Work Phone: [facility] 02-06-2022 14:14-0400 Body weight 95.25 kg Hubert Grater EQUIPMENT OPERATOR WAGE HAND[employer] Work Phone: [facility] 01-18-2022 11:01-0400 Body height 177.8 cm Hubert Grater EQUIPMENT OPERATOR WAGE HAND[employer] Work Phone: [facility] 01-18-2022 11:01-0400 Body weight 95.25 kg Hubert Grater EQUIPMENT OPERATOR WAGE HAND[employer] Work Phone: [facility] 06-30-2021 10:12-0400 Body height 177.8 cm Michell Tabor DO Work Phone: [facility] 06-30-2021 10:0400 Body weight 121.56 kg Michell Tabor DO Work Phone: [facility] Encounters Encounter Date Encounter Type Care Provider Facility Start: 08-27-2023 Refill Hubert Ulloa EQUIPMENT OPERATOR WAGE HAND.[employer] Work Phone: Orthopaedics Procedures Date Procedure Procedure Detail Performing Clinician Start: 07-10-2022 Radex hip unilateral with pelvis 2-3 views Hubert Gratenanci EQUIPMENT OPERATOR WAGE HAND[employer] Work Phone: Start: 06-08-2022 Ct lower extremity w /o contrast material Hubert Ulloa EQUIPMENT OPERATOR WAGE HAND[employer] Work Phone: Start: 06-07-2022 Antibody screen Pacc 1 Work Phone: Start: 06-06-2022 Antibody screen CRISTIAN EMMETT BRADY Plan of Treatment Date Care Activity Detail Author Start: 06-26-2025 DIABETES SCREEN DIABETES SCREEN [facility] Start: 06-26-2025 Diabetes Screening Diabetes Screening [facility] Start: 06-06-2025 DIABETES SCREEN DIABETES SCREEN [facility] Start: 11-23-2024 DIABETES SCREEN DIABETES SCREEN [facility] Start: 04-27-2024 Colonoscopy COLONOSCOPY [facility] Start: 04-27-2024 COLORECTAL CANCER SCREENING COLORECTAL CANCER SCREENING [facility] Start: 04-27-2024 Screening for malignant neoplasm of colon COLORECTAL CANCER SCREENING [facility] Start: 05-24-2023 Influenza vaccination [facility] Start: 09-23-2022 DEPRESSION ASSESSMENT DEPRESSION ASSESSMENT [facility] Start: 05-24-2022 Influenza vaccination [facility] Start: 03-11-2022 Urine microalbumin profile DTaP,Tdap,Td Vaccine (2 - Td or Tdap) [facility] Start: 09-23-2021 DEPRESSION ASSESSMENT DEPRESSION ASSESSMENT [facility] Start: 05-24-2021 Influenza vaccination INFLUENZA (#1) [facility] Start: 2019 PROSTATE CANCER SCREENING DISCUSSION PROSTATE CANCER SCREENING DISCUSSION [facility] Start: 2014 SHINGRIX VACCINE (1 of 2) SHINGRIX VACCINE (1 of 2) [facility] Start: 2009 COLOGUARD (FIT-DNA) COLOGUARD (FIT-DNA) [facility] Start: [address] COLONOGRAPHY [facility] Start: 2009 DIABETES SCREEN DIABETES SCREEN [facility] Start: 2009 FECAL OCCULT BLOOD FECAL OCCULT BLOOD [facility] Start: 2009 SIGMOIDOSCOPY SIGMOIDOSCOPY [facility] Start: 1999 Lipid 1996 panel - Serum or Plasma Lipid Screening [facility] Start: 1999 LIPID SCREEN LIPID SCREEN [facility] Start: 1983 Urine microalbumin profile [facility] Start: 1982 HEPATITIS C SCREENING HEPATITIS C SCREENING [facility] Start: 1982 HIV SCREENING HIV SCREENING [facility] Start: 1976 Adult depression screening assessment DEPRESSION SCREENING [facility] Start: 1976 COVID-19 VACCINE (1) COVID-19 VACCINE (1) [facility] Start: 1969 COVID-19 VACCINE (#1) COVID-19 VACCINE (#1) [facility] Start: 1969 COVID-19 VACCINE (1) COVID-19 VACCINE (1) [facility] Start: 1964 COVID-19 VACCINE (#1) COVID-19 VACCINE (#1) [facility] Start: 1964 HEPATITIS B (1 of 3 - 3-dose series) HEPATITIS B (1 of 3 - 3-dose series) [facility] End: 09-06-2023 Ct lower extremity w/o contrast material CT KNEE WO IVCON LT Radiology Routine Chronic pain of left knee 1 Occurrences starting 08/07/2022 until 09/06/2023 [facility] Work Phone: Payers Date Payer Category Payer Unknown [id number] 2021 Unknown [id number] [id number] 2021 Unknown [id number] 2021 Unknown [id number] Social History Date Type Detail Facility Start: 04-27-2014 End: 06-06-2022 Tobacco smoking status NHIS Never smoker [facility] Start: 04-27-2014 End: 05-02-2023 Alcohol intake Current drinker of alcohol (finding) [facility] Start: 04-08-2014 Alcohol Comment socially/ occa sional glass of wine in the evening [facility] Start: 1965 Sex Assigned At Not on file [facility] Start: 10-14-2021 End: 06-26-2022 Exposure to SARS-CoV-2 (event) Not sure [facility] Start: 04-08-2014 End: 06-06-2022 Tobacco use and exposure Smokeless tobacco non-user [facility] Start: 11-13-2021 History SDOH Alcohol Comment socially/ occasional beer/wine in the evening [facility] Start: 05-25-2022 End: 06-04-2022 Exposure to SARS-CoV-2 (event) Unable to assess [facility] Start: 08-07-2022 End: 05-02-2023 History of Social function [facility] Start: 08-07-2022 End: 05-02-2023 Tobacco use panel [facility] National Score (1-10 0), lower number is lower risk 51 [facility] Medical Equipment Procedure Code Equipment Code Equipment Origin al Text Equipment Identifier Dates Cement Simplex P Bone Radiopaque Full Dose Sterile - [id number] Start: 11-22-2021 Cement Simplex P Bone Radiopaque Full Dose Sterile - [id number] Start: 11-22-2021 Component Triath deedee 5 Femoral Cruciate Retain Cemented Knee Right - [id number] Start: 11-22-2021 Insert Triathlon 5 9mm Tibial Bearing Condylar Stabilize Sterile Knee - [id number] Start: 11-22-2021 Component Triath deedee 38mm 11mm Patellar Asymmetric - [id number] Start: 11-22-2021 Baseplate Triath deedee 5 Tibial Primary Cement Knee - [id number] Start: 11-22-2021 Trident X3 Polyethylene Insert 0deg 36mm Sz [id number] Start: 06-25-2022 Head V40 36mm -2 .5mm Offset Taper Biolox Delta Femoral Hip - [id number] Start: 06-25-2022 Stem Accolade Ii 6 127d Femoral - [id number] Start: 06-25-2022 Screw Trident Ii 6.5mm 25mm Bone Low Profile Hexagonal Sterile - [id number] Start: 06-25-2022 Clinical Notes 06-30-2021 to 06-06-2023 Telephone Encounter - Sharri Madera MA - 06/06/2023 7:56 AM Johnny Ga RT(R) - 05/20/2023 5:00 PM Netta Banerjee MD - 05/02/2023 11:12 AM EDTPatient Instructions Note Date & Type Note Facility 06-06-2023 Miscellaneous Notes Last OV 05/02/2023- [facility] Next OV none scheduled Patient electronically sent a request for the following prescription(s) Requested Prescriptions Pending Prescriptions Disp Refills gabapentin (NEURONTIN) 300 mg capsule 60 capsule 0 Sig: Take 1 capsule by mouth twice daily for 30 days. Patient aware RX will be sent to pharmacy. No need to notify patient. Please review. Sharri Madera MA documented in this encounter [facility] 05-20-2023 Note HNO ID: [id number] Author: Johnny Paz RT(Nanci) Service: ? Author Type: Technologist Type: Progress Notes Filed: 05/20/2023 4:57 PM Note Text: Radiology Service Progress Note PATIENT NAME: Johnny Robertson DATE OF SERVICE: May 20, 2023 TIME: 4:56 PM PATIENT IDENTITY VERIFICATION COMPLETED USING TWO (2) IDENTIFIERS: Name and Date of confirmed by patient verbally. FALL SCREENING: Has the patient had 2 falls in the last year or 1 fall with injury or currently using an Ambulatory Assistive Device (Walker, Cane, Wheelchair, Crutches, etc.)? No PATIENT GENDER DATA: Male PATIENT RELEVANT IMPLANT DATA REVIEWED: Yes RADIOLOGY DEPARTMENT: MR; Exam(s) Completed: Lower MSK: Femur, left PERIPHERAL IV DATA: Not applicable SIGNED BY: RT Dionte(R) May 20, 2023 4:56 PM [facility] 05-20-2023 History of Presen t illness Narrative Radiology Service Progress Note PATIENT NAME: Johnny Robertson DATE OF SERVICE: May 20, 2023 TIME: 4:56 PM PATIENT IDENTITY VERIFICATION COMPLETED USING TWO (2) IDENTIFIERS: Name and Date of confirmed by patient verbally. FALL SCREENING: Has the patient had 2 falls in the last year or 1 fall with injury or currently using an Ambulatory Assistive Device (Walker, Cane, Wheelchair, Crutches, etc.)? No PATIENT GENDER DATA: Male PATIENT RELEVANT IMPLANT DATA REVIEWED: Yes RADIOLOGY DEPARTMENT: MR; Exam(s) Completed: Lower MSK: Femur, left PERIPHERAL IV DATA: Not applicable SIGNED BY: RT Dionte(R) May 20, 2023 4:56 PM documented in this encounter [facility] 05-02-2023 Note HNO ID: [id number] Author: Netta Hoff MD Service: ? Author Type: Physician Type: Progress Notes Filed: 05/02/2023 11:24 AM Note Text: Orthopaedic Office Note: May 02, 2023 11:12 AM Johnny Robertson 58 year old History: Johnny is a 58-year-old man who I previously did a left total hip replacement on approximately 10 months ago. He has been having some ongoing issues with thigh pain. This happens about 60% of the time when he is walking. He is particularly active. He has been doing a lot of weight lifting in the gym. He is here for discussion of this. It does not start up pain. There is no particular activity other than walking that bothers it. He denies any trauma or recent infections. He has no pain at rest or when sleeping. Subjective: See above Updated ROS: No changes Updated Exam: Left lower Extremity Well-healed incision Excellent arcs of motion which are fluid and pain-free No pain with palpation over the front of the thigh Updated Imaging: Well-appearing hip replacement appropriate position alignment Careful examination compared to previous x-rays, no evidence of subsidence Does have bony remodeling around the tip of the stem Assessment and Plan: The long discussion with Johnny about his left hip today. It is very plausible that his pain is secondary to the high levels of activity, exercise, as well as the bony remodeling which certainly is not complete at this point. However, based on his symptoms, I do believe we need to rule out a stress fracture at the tip of the stem. For this reason I have ordered an MRI. I will follow-up with him afterwards via telephone I spent a total of approximately 15 minutes on the date of the service which included preparing to see the patient, [id number] patient care, completing clinical documentation, obtaining and/or reviewing separately obtained history, performing a medically appropriate examination, counseling and educating the patient/family/caregiver, and care coordination (not separately reported). Netta Hoff MD Orthopaedic Surgery [facility] 05-02-2023 Note HNO ID: [id number] Author: Coretta Dixon Tech Service: Radiology Author Type: Biazzi Nitrator Operator Type: Progress Notes Filed: 05/02/2023 9:33 AM Note Text: Radiology Service Progress Note PATIENT NAME: Johnny Robertson DATE OF SERVICE: May 02, 2023 TIME: 9:32 AM PATIENT IDENTITY VERIFICATION COMPLETED USING TWO (2) IDENTIFIERS: Name and Date of confirmed by patient verbally. FALL SCREENING: Has the patient had 2 falls in the last year or 1 fall with injury or currently using an Ambulatory Assistive Device (Walker, Cane, Wheelchair, Crutches, etc.)? No PATIENT GENDER DATA: Male PATIENT RELEVANT IMPLANT DATA REVIEWED: Not Applicable RADIOLOGY DEPARTMENT: General X-ray: Exam(s) Completed: Pelvis X-Ray: Pelvis with Hip Left and Wt. Bearing Lower Extremity X-Ray(s): Knee, AP / Lat / Tunne / Merchant Left and Wt. Bearing PERIPHERAL IV DATA: Not applicable SIGNED BY: Nevin Godwin May 02, 2023 9:32 AM [facility] 05-02-2023 History of Presen t illness Narrative Orthopaedic Office Note: May 02, 2023 11:12 AM Johnny Robertson 58 year old History: Johnny is a 58-year-old man who I previously did a left total hip replacement on approximately 10 months ago. He has been having some ongoing issues with thigh pain. This happens about 60% of the time when he is walking. He is particularly active. He has been doing a lot of weight lifting in the gym. He is here for discussion of this. It does not start up pain. There is no particular activity other than walking that bothers it. He denies any trauma or recent infections. He has no pain at rest or when sleeping. Subjective: See above Updated ROS: No changes Updated Exam: Left lower Extremity Well-healed incision Excellent arcs of motion which are fluid and pain-free No pain with palpation over the front of the thigh Updated Imaging: Well-appearing hip replacement appropriate position alignment Careful examination compared to previous x-rays, no evidence of subsidence Does have bony remodeling around the tip of the stem Assessment and Plan: The long discussion with Johnny about his left hip today. It is very plausible that his pain is secondary to the high levels of activity, exercise, as well as the bony remodeling which certainly is not complete at this point. However, based on his symptoms, I do believe we need to rule out a stress fracture at the tip of the stem. For this reason I have ordered an MRI. I will follow-up with him afterwards via telephone I spent a total of approximately 15 minutes on the date of the service which included preparing to see the patient, [id number] patient care, completing clinical documentation, obtaining and/or reviewing separately obtained history, performing a medically appropriate examination, counseling and educating the patient/family/caregiver, and care coordination (not separately reported). Netta Hoff MD Orthopaedic Surgery documented in this encounter [facility] 12-20-2022 Miscellaneous Notes Spoke with pt He has 1 refill left and will call [facility] to [facility] refilled documented in this encounter [facility] 08-07-2022 Note HNO ID: [id number] Author: Netta Hoff MD Service: ? Author Type: Physician Type: Progress Notes Filed: 08/07/2022 12:14 PM Note Text: Post-op Office Visit Johnny Robertson 57 year old August 07, 2022 11:51 AM Surgery Date: 06/25/22 History: Johnny Robertson Is now 6 weeks out from left /Posterior KASSIE. Post-operative course has been without complication. No readmission/complications Subjective: Patient reports minimal pain. Overall is doing well. weaning ambulatory aid off opioid pain medication At this point left knee is giving him substantial trouble. We previously discussed a knee replacement on that side. He would like to proceed. Objective: Ambulates with slight limp Incision well-approximated, no drainage, normal denise-incisional erythema Arcs of motion at hip are comfortable and fluid Distally DP/PT palpable Distally S/S/SP/DP/T intact at baseline Distally DF/EHL/PF intact at baseline Negative marlin/calf tenderness Left knee exam: Varus alignment, partly correctable Mild effusion Tender palpation medial joint line medial femoral condyle lateral joint line Crepitance with range of motion Painful patellar grind Range of motion is 5 to 110 degrees Xrays: No new today Assessment and Plan: Johnny Robertson Is here for a second post-op appointment, overall doing well -continued ice, rest, and use of non-narcotic analgesia as needed -wean off ambulatory aids -discussed home exercises and therapy -WBAT on operative extremity -reinforced posterior precautions through 8 weeks: avoid extremes of flexion, internal rotation, and adduction -continue ankle pumps and dvt ppx through 4 weeks -discussed driving requirement: 4 weeks post-op, off narcotic pain medication, adequate brake time -Reviewed previously outlined risks and benefits of left knee replacement at long length today. Discussed potential complications, expected outcomes, and recovery. He has done well from a right knee replacement. He would like to proceed at this point and his x-rays and symptoms warrant it. All questions answered and informed consent signed. -discussed red flag symptoms of acutely increasing pain, new erythema, new swelling, drainage, shortness of breath Netta Hoff MD Orthopaedic Surgery [facility] 08-07-[address] order is in, called and scheduled patient. Please watch for order for [place] CT scan and call patient to schedule documented in this encounter [facility] 08-07-2022 History of Presen t illness Narrative Post-op Office Visit Johnny Robertson 57 year old August 07, 2022 11:51 AM Surgery Date: 06/25/22 History: Johnny Robertson Is now 6 weeks out from left /Posterior KASSIE. Post-operative course has been without complication. No readmission/complications Subjective: Patient reports minimal pain. Overall is doing well. weaning ambulatory aid off opioid pain medication At this point left knee is giving him substantial trouble. We previously discussed a knee replacement on that side. He would like to proceed. Objective: Ambulates with slight limp Incision well-approximated, no drainage, normal denise-incisional erythema Arcs of motion at hip are comfortable and fluid Distally DP/PT palpable Distally S/S/SP/DP/T intact at baseline Distally DF/EHL/PF intact at baseline Negative marlin/calf tenderness Left knee exam: Varus alignment, partly correctable Mild effusion Tender palpation medial joint line medial femoral condyle lateral joint line Crepitance with range of motion Painful patellar grind Range of motion is 5 to 110 degrees Xrays: No new today Assessment and Plan: Johnny Robertson Is here for a second post-op appointment, overall doing well -continued ice, rest, and use of non-narcotic analgesia as needed -wean off ambulatory aids -discussed home exercises and therapy -WBAT on operative extremity -reinforced posterior precautions through 8 weeks: avoid extremes of flexion, internal rotation, and adduction -continue ankle pumps and dvt ppx through 4 weeks -discussed driving requirement: 4 weeks post-op, off narcotic pain medication, adequate brake time -Reviewed previously outlined risks and benefits of left knee replacement at long length today. Discussed potential complications, expected outcomes, and recovery. He has done well from a right knee replacement. He would like to proceed at this point and his x-rays and symptoms warrant it. All questions answered and informed consent signed. -discussed red flag symptoms of acutely increasing pain, new erythema, new swelling, drainage, shortness of breath Netta Hoff MD Orthopaedic Surgery documented in this encounter [facility] 07-16-2022 Miscellaneous Notes Addended by: HUBERT ULLOA on: 07/16/2022 02:43 PM Modules accepted: Orders documented in this encounter [facility] 07-13-2022 Miscellaneous Notes SITUATION: only patient present during today's visit. patient reports the following since the last homecare visit: medications/allergies--no changes, no fall. patient reports he is doing well on the cane and is going back and forth based on how he is feeling BACKGROUND: Diagnoses (reason for Home Care): L THR Weight Bearing/Precaution Changes: notified care team WBAT ASSESSMENT: Focus of visit: reassessment /discharge Physical therapy discharged: goals achieved. Functional performance at discharge - bed mobility independent, transfers independent, ambulation independent and stairs independent. Plan of care, goals, and discharge reviewed and agreed upon with patient and/or caregiver. RECOMMENDATION: Patient discharged from home health services. Instructions to include:home exercise program as directed See intervention summary for intervention/education details. documented in this encounter [facility] 07-11-2022 Miscellaneous Notes SITUATION: only patient present during today's visit. patient reports the following since the last homecare visit: medications/allergies--no changes, no fall. patient reports was pleased with progress. Able to do WBAT and use cane. Does notneed to go to OP PT. told him to just continue w/ walking anf=d HEP. BACKGROUND: Diagnoses (reason for Home Care): L THR Weight Bearing/Precaution Changes: notified care team WBAT ASSESSMENT: Focus of visit progression of standig exercises to bilateral abd cane training Plan of care, goals, and visit frequency reviewed and agreed upon with patient and/or caregiver. Current Discharge Plan: independent with home exercise program Anticipate discharge by 07/13/22 RECOMMENDATION: Next visit to focus on PT to see for DC See intervention summary for intervention/education details. documented in this encounter [facility] 07-10-2022 Miscellaneous Notes Message from [employer]: SHARMILA Sun Jul 10, 2022 3:27 PM ----- Message ----- From: Johnny Robertson Sent: 07/10/2022 3:19 PM EDT To: Beverley cSott Renew Rx Subject: Medication Renewal Request Refills have been requested for the following medications: oxyCODONE IR (ROXICODONE) 5 mg immediate release tablet [Hubert Ulloa] Patient Comment: Checked when I got home and am almost out. Preferred pharmacy: [facility] [address] [place] [id number] - [address] - [phone] Delivery method: Pickup documented in this encounter [facility] 07-10-2022 Note HNO ID: [id number] Author: Hubert Ulloa APRN.DEYANIRA Service: ? Author Type: Nurse Practitioner Type: Progress Notes Filed: 07/10/2022 1:24 PM Note Text: Post-op Office Visit Johnny Robertson 57 year old July 10, 2022 12:47 PM Surgery Date:06/25/22 History: Johnny Robertson Is now 2 weeks and 1 day out from Left Anterior-Based/Posterior KASSIE. Post-operative course has been without complication. No readmission/complications Subjective: Patient reports sharp achy pain with movement for the most part around a level 5, no pain at rest. Overall is doing well. Using walker ambulatory aid Oxycodone opioid and Tylenol to help control pain for medication Objective: Ambulates with walker Incision well-approximated, no drainage, normal denise-incisional erythema Full ROM not tested do to early post-operative period, but smaller arcs of motion fluid and comfortable Distally DP/PT palpable Distally S/S/SP/DP/T intact at baseline Distally DF/EHL/PF intact at baseline Negative marlin/calf tenderness Xrays: Well aligned total hip replacement in appropriate position with no evidence of loosening Assessment and Plan: Johnny Robertson Is here for a first post-op appointment, overall doing well -continued ice, rest, and use of non-narcotic analgesia as needed -wean off ambulatory aids -discussed home exercises and therapy -WBAT on operative extremity -reinforced posterior precautions through 8 weeks: avoid extremes of flexion, internal rotation, and adduction -continue ankle pumps and dvt ppx through 4 weeks -discussed driving requirement: off narcotic pain medication, adequate brake time -will see back at 6 week appointment for clinical exam -discussed red flag symptoms of acutely increasing pain, new erythema, new swelling, drainage, shortness of breath Hubert Ulloa APRN.CNP Orthopaedic Surgery [facility] 07-10-2022 Note HNO ID: [id number] Author: KAILA Esposito Service: Radiology Author Type: Technologist Type: Progress Notes Filed: 07/10/2022 1:26 PM Note Text: Radiology Service Progress Note PATIENT NAME: Johnny Robertson DATE OF SERVICE: July 10, 2022 TIME: 1:26 PM PATIENT IDENTITY VERIFICATION COMPLETED USING TWO (2) IDENTIFIERS: Name and Date of confirmed by patient verbally. FALL SCREENING: Has the patient had 2 falls in the last year or 1 fall with injury or currently using an Ambulatory Assistive Device (Walker, Cane, Wheelchair, Crutches, etc.)? Yes, Patient High Risk for Falls What interventions were put in place to prevent falls during this visit? Offered Assistance with Transfers/Clothing and Increased Observations by Caregivers PATIENT GENDER DATA: Male PATIENT RELEVANT IMPLANT DATA REVIEWED: Not Applicable RADIOLOGY DEPARTMENT: General X-ray: Exam(s) Completed: Pelvis X-Ray: Pelvis with Hip Left PERIPHERAL IV DATA: Not applicable SIGNED BY: KAILA Esposito July 10, 2022 1:26 PM [facility] 07-10-2022 History of Presen t illness Narrative Post-op Office Visit Johnny Robertson 57 year old July 10, 2022 12:47 PM Surgery Date:06/25/22 History: Johnny Robertson Is now 2 weeks and 1 day out from Left Anterior-Based/Posterior KASSIE. Post-operative course has been without complication. No readmission/complications Subjective: Patient reports sharp achy pain with movement for the most part around a level 5, no pain at rest. Overall is doing well. Using walker ambulatory aid Oxycodone opioid and Tylenol to help control pain for medication Objective: Ambulates with walker Incision well-approximated, no drainage, normal denise-incisional erythema Full ROM not tested do to early post-operative period, but smaller arcs of motion fluid and comfortable Distally DP/PT palpable Distally S/S/SP/DP/T intact at baseline Distally DF/EHL/PF intact at baseline Negative marlin/calf tenderness Xrays: Well aligned total hip replacement in appropriate position with no evidence of loosening Assessment and Plan: Johnny Robertson Is here for a first post-op appointment, overall doing well -continued ice, rest, and use of non-narcotic analgesia as needed -wean off ambulatory aids -discussed home exercises and therapy -WBAT on operative extremity -reinforced posterior precautions through 8 weeks: avoid extremes of flexion, internal rotation, and adduction -continue ankle pumps and dvt ppx through 4 weeks -discussed driving requirement: off narcotic pain medication, adequate brake time -will see back at 6 week appointment for clinical exam -discussed red flag symptoms of acutely increasing pain, new erythema, new swelling, drainage, shortness of breath Hubert Ulloa APRN.CNP Orthopaedic Surgery documented in this encounter [facility] 07-10-2022 History of Presen t illness Narrative Radiology Service Progress Note PATIENT NAME: Johnny Robertson DATE OF SERVICE: July 10, 2022 TIME: 1:26 PM PATIENT IDENTITY VERIFICATION COMPLETED USING TWO (2) IDENTIFIERS: Name and Date of confirmed by patient verbally. FALL SCREENING: Has the patient had 2 falls in the last year or 1 fall with injury or currently using an Ambulatory Assistive Device (Walker, Cane, Wheelchair, Crutches, etc.)? Yes, Patient High Risk for Falls What interventions were put in place to prevent falls during this visit? Offered Assistance with Transfers/Clothing and Increased Observations by Caregivers PATIENT GENDER DATA: Male PATIENT RELEVANT IMPLANT DATA REVIEWED: Not Applicable RADIOLOGY DEPARTMENT: General X-ray: Exam(s) Completed: Pelvis X-Ray: Pelvis with Hip Left PERIPHERAL IV DATA: Not applicable SIGNED BY: KAILA Esposito July 10, 2022 1:26 PM documented in this encounter [facility] 07-06-2022 Miscellaneous Notes SITUATION: son present during today's visit. patient reports the following since the last homecare visit: medications/allergies--no changes, no fall. patient reports he was pretty sore wed from over doing it with working at desk. Better today. BACKGROUND: Diagnoses (reason for Home Care): LTHA Weight Bearing/Precaution Changes: no changes PWB ASSESSMENT: Focus of visit progression of reps and exercises for HEP. transfers and gait training w/ww to maintain PWB. reports of fatigue after, no increased pain Plan of care, goals, and visit frequency reviewed and agreed upon with patient and/or caregiver. Current Discharge Plan: independent with home exercise program Anticipate discharge by 07/13/22 RECOMMENDATION: Next visit to focus on progress standing exercises per Dr appointment and possibly progression of WB status See intervention summary for intervention/education details. documented in this encounter [facility] 07-05-2022 Note HNO ID: [id number] Author: Angelo Balbuena PT Service: ? Author Type: Physical Therapist Type: Progress Notes Filed: 07/05/2022 11:03 AM Note Text: 07/05/2022 [facility] PHYSICAL THERAPY DISCONTINUANCE OF CARE Plan of Care Period: Start of Care Date: 12/11/21 Last Visit Date: 03/06/2022 Therapy Program: The following is a summary of the interventions provided for this episode of care; Therapeutic exercise, Manual therapy, and Self-detention management Assessment: The following is the goal status: Goals updated on 03/06/2022. Goals for Episode of Care: created on 12/11/21 through 03/13/22 [place] in home exercise program. - Met for knee Patient will decrease pain rating by 2 points to meet minimal clinical important difference for numeric pain rating scale. - Met. Patient will increase active ROM of the Rt. Knee to 0-120 degrees to allow pt to to improve performance of ADLs and to improve gait mechanics / gait Pattern. Partially met. Patient will Improve Timed Up and Go to less than 10 seconds without the use of an assistive device to demonstrate decreased risk of falling and [place].- MET Patient will improve 5 time sit to stand duration to demonstrate improvement in functional lower extremity strength. - MET Normal gait. - Met Reciprocal stair negotiation. - Met Patient will complete ascending and descending of 10-12 stairs with reciprocal pattern mechanics on 6 inch steps. Met Strength symmetry testin% symmetry using any of the following methods: Dynamometer testing. Met Patient will be able to sleep throughout the night without awakening due to R knee pain. Met Added goals 03/06/2022: Independent in home exercise program Patient will demonstrate walking, standing, rising from a chair, and transitional movement with no pain. Patient will improve L hip PROM to WNL to demonstrate decreased pain and improved functional mobility. Based on the most recent progress report, patient was progressing slower than expected toward functional goals based on pain levels and new left hip pain, which has since resulted in a L KASSIE . Reason for Discontinuation of Care: Patient has not returned to therapy or scheduled additional follow-up appointments. Angelo Balbuena PT [facility] 07-04-2022 Miscellaneous Notes SITUATION: no one present during today's visit. patient reports the following since the last homecare visit: medications/allergies--no changes, no fall. patient reports he was ok when he woke up this morning but he sat in on a zoom meeting at work that lasted almost 3 hours and when he got up he was in considerable pain - he just took 2 pain pills prior to my arrival BACKGROUND: Diagnoses (reason for Home Care): LTHA Weight Bearing/Precaution Changes: no changes posterior precaurions, 50% WB ASSESSMENT:Pt was able to increase reps to 15 despite his discomfort . Review and performed exercises for HEP, gait training w/ww maintainig 50% WB. Plan of care, goals, and visit frequency reviewed and agreed upon with patient and/or caregiver. Current Discharge Plan: outpatient rehab Anticipate discharge by 07/22/22 RECOMMENDATION: Next visit to focus on increase reps if able See intervention summary for intervention/education details. documented in this encounter [facility] 07-02-2022 Miscellaneous Notes Removed surgical bandage today. No concerns. Picture obtained and uploaded to chart. Thanks documented in this encounter [facility] 07-02-2022 Miscellaneous Notes SITUATION: son present during today's visit. patient reports the following since the last homecare visit: medications/allergies--no changes, no fall. patient reports he is doing ok, cant sleepvery well. BACKGROUND: Diagnoses (reason for Home Care): LTHA Weight Bearing/Precaution Changes: no changes posterior precaurions, 50% WB ASSESSMENT: Focus of visit bandage removal, no concerns. Review and performed exercises for HEP, gait training w/ww maintainig 50% WB. Plan of care, goals, and visit frequency reviewed and agreed upon with patient and/or caregiver. Current Discharge Plan: outpatient rehab Anticipate discharge by 07/22/22 RECOMMENDATION: Next visit to focus on increase reps if able See intervention summary for intervention/education details. documented in this encounter [facility] 07-02-2022 Miscellaneous Notes OARRS reviewed. Patient has been compliant and taking medication appropriately without evidence of suspicious activity. Will refill rx. Hubert Ulloa APRN.CNP July 02, 2022 7:55 AM Message from [employer]: Refills have been requested for the following medications: oxyCODONE IR (ROXICODONE) 5 mg immediate release tablet [Brennon Bacon] Preferred pharmacy: [facility] [address] [place] [id number] - [address] - [phone] Delivery method: Pickup documented in this encounter [facility] 06-27-2022 Miscellaneous Notes SITUATION: spouse present during today's visit. patient reports im not too bad . BACKGROUND: Diagnoses (reason for Home Care): Pain in left hip [M25.552] s/p ROBOTIC ASSIST ED TOTAL HIP ARTHROPLASTY (Left) on 06/25/2022 PMH: Primary Osteoarthritis of Both Knees Svt (Supraventricular Tachycardia) (Hcc) Bmi 39.0-39.9,Adult Stiffness of Right Knee Status Post Right Knee Replacement 12/13 pt was to have L TKR in Aug 14 but in the meantime his L hip flared up Weight Bearing or Surgical Precautions: 50%wt bearing left posterior precautions dressign removal POD 7 ( 07/04) ASSESSMENT: Patient evaluated by [facility] physical therapy. Reviewed and explained homecare services. Plan of care, goals, and visit frequency developed, reviewed, and agreed upon with patient and/or caregiver. Patient Goal: walk without pain - get my L knee done Patient will benefit from continued physical therapy to address the following deficits: strength, balance, gait, endurance, transfers, stair negotiation and bed mobility. Current Discharge Plan: outpatient rehab. Anticipate discharge by 07/14/22 RECOMMENDATION: Next visit to focus on review hep, gait , transfers Agreeable to PT; See intervention summary for intervention/education details. documented in this encounter [facility] 06-26-2022 Note HNO ID: [id number] Author: Alejandra Pritchett (Well Surveying Engineer) Service: Pharmacy Author Type: ? Type: Plan of Care Filed: 06/27/2022 9:02 AM Note Text: PHARMACY BEDSIDE DELIVERY SERVICE Patient Name: Johnny Robertson The marked outpatient medications were Filled at: [facility] and delivered to the patient's bedside to 274 Medication List START taking these medications docusate sodium 100 mg capsule Commonly known as: COLACE Take 1 capsule by mouth twice daily as needed for constipation. X doxycycline hyclate 100 mg capsule Commonly known as: VIBRAMYCIN Take 1 capsule by mouth every 12 hours 6am/6pm for 13 doses. X meloxicam 15 mg tablet Commonly known as: MOBIC Take 1 tablet by mouth once daily for 14 days. X oxyCODONE IR 5 mg immediate release tablet Commonly known as: ROXICODONE Take 1-2 tablets by mouth every 6 hours as needed for pain. X pantoprazole DR 20 mg tablet Commonly known as: PROTONIX Take 1 tablet by mouth every morning. X polyethylene glycol 3350 17 gram/dose powder Commonly known as: MIRALAX, GLYCOLAX Take 17 g by mouth once daily as needed for constipation for up to 10 days. Dissolve dose in 4 - 8 ounces of liquid and take as directed. X CHANGE how you take these medications VITAMIN C 500 mg tablet Generic drug: ascorbic acid (vitamin C) Take 1 tablet by mouth twice daily for 14 days. What changed: when to take this X CONTINUE taking these medications acetaminophen 500 mg tablet Commonly known as: TYLENOL Take 2 tablets by mouth every 8 hours as needed for pain. X amoxicillin 500 mg capsule Commonly known as: POLYMOX, AMOXIL Take 4 capsules by mouth one hour prior to dental cleaning/procedure aspirin, enteric coated 81 mg EC tablet Commonly known as: ECOTRIN LOW STRENGTH Take 1 tablet by mouth twice daily for 28 days. X cholecalciferol 5,000 unit Tab Commonly known as: VITAMIN D3 MEDICATION, NON-DATABASE MEDICATION, NON-DATABASE MEDICATION, NON-DATABASE MEDICATION, NON-DATABASE MEDICATION, NON-DATABASE MEDICATION, NON-DATABASE MEDICATION, NON-DATABASE melatonin 10 mg Tab VITAMIN B COMPLEX ORAL You might also be taking other medications not listed above. If you have questions about any of your other medications, talk to the person who prescribed them or your Primary Care Provider. STOP taking these medications mupirocin 2 % ointment Commonly known as: BACTROBAN Alejandra Pritchett (Joonto) PAGER: [phone] June 27, 2022 9:02 AM [facility] 06-26-2022 Note HNO ID: [id number] Author: Jo Mckeon MD Service: General Internal Medicine Author Type: Physician Type: Progress Notes Filed: 06/26/2022 11:07 AM Note Text: INPATIENT CONSULT PROGRESS NOTES Patient Name: Johnny Robertson DATE of SERVICE: 06/26/22 TIME of SERVICE: 8:39 CONSULTING SERVICE: Medicine Plan of care discussed with: Provider, RN, Patient. INTERVAL HPI: Uneventful night, pain is fairly controlled. Patient seen and examined: Discussed with RN. Vitals/Meds/Labs/U/O reviewed Alert AND Oriented NO nausea, vomiting YES light headedness With therapy, NO shortness of breathe Dry oral mucosa CVS - RRR Lungs - Clear to auscultation Abdomen - soft,Normal bowel sounds, nontender LLE - Ankle No edema RLE - Ankle No edema MEDICATIONS: Current Facility-Administered Medications Medication Dose Route Frequency scopolamine - VERIFY patch OTHER q 8 H scopolamine - REMOVE PATCH OTHER ONCE melatonin 9 mg tab(s) 9 mg ORAL AT BEDTIME PRN lactated ringers iv infusion 75 mL/hr INTRAVENOUS CONTINUOUS acetaminophen 1,000 mg tab(s) (TYLENOL) 1,000 mg ORAL q 8 H keTORolac 15 mg injection (TORADOL) 15 mg INTRAVENOUS q 6 H oxyCODONE IR 5-10 mg tab(s) (ROXICODONE) 5-10 mg ORAL q 3 H PRN HYDROmorphone 0.2 mg injection (DILAUDID) 0.2 mg INTRAVENOUS q 2 H PRN ondansetron orally disintegrating 4 mg tab(s) (ZOFRAN ODT) 4 mg ORAL q 6 H PRN Or ondansetron (PF) 4 mg injection (ZOFRAN) 4 mg INTRAVENOUS q 6 H PRN polyethylene glycol 3350 17 g packet (MIRALAX, GLYCOLAX) 17 g ORAL DAILY aluminum-magnesium hydroxide-simethicone 200-200-20 mg/5 mL 30 mL (MAALOX,MYLANTA,MAG-AL PLUS) 30 mL ORAL q 2 H PRN ferrous sulfate 325 mg tab(s) 325 mg ORAL DAILY wLUNCH ascorbic acid (vitamin C) 500 mg tab(s) (VITAMIN C) 500 mg ORAL BID w MEALS docusate sodium 100 mg cap(s) (COLACE) 100 mg ORAL BID aspirin, enteric coated 81 mg tab(s) 81 mg ORAL BID NaCl 0.9% iv flush bag 20 mL INTRAVENOUS PRN sodium chloride 0.9 % (flush) 3-5 mL (BD POSIFLUSH) 3-5 mL INTRAVENOUS q 12 H doxycycline hyclate 100 mg cap(s) (VIBRAMYCIN) 100 mg ORAL q 12 H 6a/6p PHYSICAL EXAM: Patient Vitals for the past 24 hrs: BP Temp Temp src Pulse Resp SpO2 Height Weight 06/26/22 0750 121/71 36.5 ?C (97.7 ?F) Axillary 92 16 95 % -- -- 06/26/22 0451 116/62 37 ?C (98.6 ?F) Oral 78 14 94 % -- -- 06/26/22 0017 104/64 36.8 ?C (98.2 ?F) Oral 70 14 97 % -- -- 06/25/222025 132/73 36.8 ?C (98.2 ?F) Oral 79 14 97 % -- -- 06/25/22 1635 127/78 -- Oral (!) 52 20 100 % -- -- 06/25/22 1601 135/71 -- -- (!) 51 20 100 % -- -- 06/25/22 1534 -- -- -- -- -- -- 177 cm (5' 9.69 ) 119.7 kg (264 lb) 06/25/22 1533 133/82 -- Oral (!) 55 16 98 % -- -- 06/25/22 1515 130/86 -- -- 60 16 97 % -- -- 06/25/22 1500 133/93 -- -- 65 14 98 % -- -- 06/25/22 1445 122/64 -- -- 75 20 95 % -- -- 06/25/22 1429 114/76 36 ?C (96.8 ?F) -- 81 23 94 % -- -- Body mass index is 38.22 kg/m?. DATA: CBC: Recent Labs 06/26/22 0614 WBC 6.73 RBC 3.99* HB 12.3* HCT 36.8* PLT 171 MCV 92.2 MCH 30.8 MPV 10.6 Coags: No results for input(s): PT, INR, APTT in the last 24 hours. CMP: Recent Labs 06/26/22 0614 NA 134* K 4.1 CHLOR 103 CO2 25 BUN 17 CREAT 0.83 GLUC 103* CA 7.9* ANION 6* ASSESSMENT AND PLAN: A. OA S/P - Total Hip Unilateral: left,VT prophylaxis with aspirin Continue PT/OT Arrhythmia status post ablation therapy in 2011 Hypertension, IV fluid bolus Possible discharge today Home-going meds reviewed SIGNATURE: Jo Mckeon MD [facility] 06-26-2022 Miscellaneous Notes Welcome Home Call: a. Date and Time: 10:59 AM 06/26/2022 b. Contact name/relationship: patient c. Have you been active with any Home Care company in the last 60 days(such as help with bathing, filling medications, checking your blood pressure) ? No. d. Was patient given Flu shot this Season (After May,): No: Patient refused e. [facility] will be providing your care, are you agreeable to starting these services? yes (yes or no) f. Do you have any upcoming appointments in the next few days, or restrictions to your schedule? No g. Caregiver: Patient is able to manage care independently Please keep our your medications both over the counter and prescribed out for the home care to review, your hospital discharge instructions and write down any questions you might have. In order to maintain a safe environment for our caregivers, [facility] requires any animals or weapons present in the home be located in a secured location. Our clinicians will call you the night before or the morning of the appointment. Their # may come up restricted but they'll leave a VM for you. In case you have any questions or concerns in the meantime, our # is [phone], option 1 Thank you for your time and have a great day. - Patient states No travel or COVID contact and has all DME already BETH Hollingsworth documented in this encounter [facility] 06-26-2022 Note HNO ID: [id number] Author: Brennon Bacon PA-C Service: Orthopaedic Surgery Author Type: Physician Marine Geologist Type: Progress Notes Filed: 06/26/2022 7:56 AM Note Text: POSTOP NOTE ORTHOPAEDIC SURGERY SERVICE DATE: 06/26/2022 SERVICE TIME: 7:55 AM IMPRESSION/PLAN: S/P Procedure(s) (LRB): ROBOTIC ASSISTED TOTAL HIP ARTHROPLASTY (Left) on 06/25/2022 Physical Therapy evaluation PWB 50% LLE Posterior hip precautions DVT prophylaxis: with aspirin, additional anticoagulant is contraindicated due to bleeding risk and Intermittent pneumatic compression device (IPCD) Pain control Case Management for discharge planning Plan of care discussed with: Provider, RN, Patient. Patient Active Hospital Problem List: No active hospital problems. POST OPERATIVE COMPLICATIONS: Complicated by uneventful/none SUBJECTIVE: Patient states that they are comfortable Well Controlled hip pain. Denies incisional pain. OBJECTIVE: VITAL SIGNS: BP 121/71 Pulse 92 Temp 36.5 ?C (97.7 ?F) (Axillary) Resp 16 Ht 177 cm (5' 9.69 ) Wt 119.7 kg (264 lb) SpO2 95% BMI 38.22 kg/m? INTAKE AND OUTPUT: Intake/Output Summary (Last 24 hours) at 06/26/2022 0755 Last data filed at 06/26/2022 0430 Gross per 24 hour Intake 2990 ml Output 1125 ml Net 1865 ml LABS: Hemoglobin Date Value Ref Range Status 06/26/2022 12.3 (L) 13.0 - 17.0 g/dL Final 06/06/2022 15.0 13.0 - 17.0 g/dL Final Hematocrit Date Value Ref Range Status 06/26/2022 36.8 (L) 39.0 - 51.0 % Final 06/06/2022 44.5 39.0 - 51.0 % Final Platelet Count Date Value Ref Range Status 06/26/2022 171 150 - 400 k/uL Final 06/06/2022 240 150 - 400 k/uL Final WBC Date Value Ref Range Status 06/26/2022 6.73 3.70 - 11.00 k/uL Final 06/06/2022 7.19 3.70 - 11.00 k/uL Final Creatinine Date Value Ref Range Status 06/26/2022 0.83 0.73 - 1.22 mg/dL Final 06/06/2022 1.02 0.73 - 1.22 mg/dL Final Potassium Date Value Ref Range Status 06/26/2022 4.1 3.7 - 5.1 mmol/L Final 06/06/2022 4.1 3.7 - 5.1 mmol/L Final VTE Prophylaxis: Active VTE Risk Category Order: 06/25/221529 VTE RISK CATEGORY: SURGICAL HIGH RISK ([place], [place]) Active VTE Medication Orders: Anticoagulant AND Antiplatelet Medications (From admission, onward) Start Dose Route Frequency Last Action Ordered Stop 06/26/22 0900 aspirin, enteric coated 81 mg tab(s) (Surgical Risk Categories) 81 mg ORAL 2 TIMES DAILY Ordered 06/25/22 1529 -- Active VTE Prophylaxis Orders: 06/25/221529 PNEUMATIC COMPRESSION STOCKINGS ([place], [place]) 06/25/221529 ACTIVITY - MOBILIZE PATIENT ([place], [place]) PHYSICAL EXAMINATION: Left Lower Extremity: Dorsalis pedis pulses palpable. Posterior tibial pulses palpable. Dorsi flexion 5/5. Plantar flexion 5/5. Extensor hallucis extension: 5/5. Sensory intact to light touch L1-S1. Dressing clean, dry, and intact. Surgical site no drainage and Silverlon intact. Thigh is not swollen, calf is not tender, no signs of DVT or infection Problem Review and Assessment: Skin and Abdominal Wall: Patient monitored, no new events overnight Cardiovascular and Vascular: Patient monitored, no new events overnight Respiratory: Patient monitored, no new events overnight Endocrine and Metabolic: Patient monitored, no new events overnight Gastrointestinal: Patient monitored, no new events overnight Genitourinary and Nephrology: Patient monitored, no new events overnight Behavioral, Cerebrovascular and Nervous: Patient monitored, no new events overnight Infectious: Patient monitored, no new events overnight DATA: Diagnostic tests reviewed for today's visit: Most recent labs and imaging results. SIGNATURE: Brennon Bacon PA-C PATIENT NAME: Johnny Robertson DATE: June 26, 2022 TIME: 7:55 AM The patient has undergone major orthopedic surgery and participating in therapy. Pain cannot be managed within an average of 30 MED per day. Patient requiring average of higher than 30 MED per day in order to control pain and allow patient to actively and safely participate in therapy and this is the lowest dose consistent with patient's medical condition. Non-narcotic medication options have been discussed. In addition, the patient has been advised of the benefits and risks of the opioid (including the potential for addiction). Patient demonstrated understanding of risks versus benefits. [facility] 06-25-2022 Note HNO ID: [id number] Author: Carol Kearns MD Service: Anesthesiology Author Type: Anesthesiologist Type: Anesthesia Procedure Notes Filed: 06/25/2022 4:34 PM Note Text: ANESTHESIOLOGY PROCEDURE NOTE Spinal Block General Information Procedure Start Time/Medication Administration: 06/25/2022 11:17 AM Patient location during procedure: OR Timeout Performed Pre-procedure: timeout performed Consent Obtained: Yes Patient identity confirmed: arm band and patient Reason for Block: primary surgical anesthetic Staffing SRNA: SO Nuñez Performed by: SO Preparation Sterility Preparation: hand hygiene performed prior to procedure, sterile gloves, drapes, and procedure tray, surgical cap used, mask used, sterile drape used during line insertion, skin prep agent completely dried prior to procedure Sterility Technique Not Completely Performed Due to Extreme Emergency: Yes Site Prep: Betadine Procedure Details Patient Position: sitting Ultrasound Guided: No Monitoring: Pulse Ox, EKG and NIBP Approach: Midline Location: L2-3 Injection Technique: single-shot Needle Needle Type: cutting Needle Gauge: 22 G Needle Length: 3.5 in Needle Insertion Depth: 9 cm Assessment Events: tolerated well Comments 1st attempt at spinal in PACU, Pt vagal, HR 19 - atropine IV, 100% 02, VSS. To OR, monitors on - pt sitting, VSS, sterile prep/drape 3-4, #25 kacey, + CSF, 15mg macaine without incident SIGNATURE: Merry Bro APRN.CRNA PATIENT NAME: Johnny Robertson DATE: June 25, 2022 TIME: 12:09 PM CSN: [id number] [facility] 06-08-2022 Note HNO ID: [id number] Author: RT Anderson(R) Service: Radiology Author Type: Technologist Type: Progress Notes Filed: 06/25/2022 2:52 PM Note Text: Radiology Service Progress Note PATIENT NAME: Johnny Robertson DATE OF SERVICE: June 25, 2022 TIME: 2:51 PM PATIENT IDENTITY VERIFICATION COMPLETED USING TWO (2) IDENTIFIERS: Name and Date of confirmed by patient verbally. FALL SCREENING: Has the patient had 2 falls in the last year or 1 fall with injury or currently using an Ambulatory Assistive Device (Walker, Cane, Wheelchair, Crutches, etc.)? Inpatient: Screened on floor PATIENT GENDER DATA: Male PATIENT RELEVANT IMPLANT DATA REVIEWED: Not Applicable RADIOLOGY DEPARTMENT: General X-ray: Exam(s) Completed: Pelvis X-Ray: Pelvis General AP PERIPHERAL IV DATA: Not applicable SIGNED BY: RT Anderson(R) June 25, 2022 2:51 PM [facility] 06-08-2022 Miscellaneous Notes Radiology Service Progress Note PATIENT NAME: Johnny Robertson DATE OF SERVICE: June 08, 2022 TIME: 3:26 PM PATIENT IDENTITY VERIFICATION COMPLETED USING TWO (2) IDENTIFIERS: Name and Date of confirmed by patient verbally and Name and Date of confirmed by identification band. FALL SCREENING: Has the patient had 2 falls in the last year or 1 fall with injury or currently using an Ambulatory Assistive Device (Walker, Cane, Wheelchair, Crutches, etc.)? No PATIENT GENDER DATA: Male PATIENT RELEVANT IMPLANT DATA REVIEWED: Not Applicable RADIOLOGY DEPARTMENT: CT; Exam(s) Completed: [place] HIP PERIPHERAL IV DATA: Not applicable SIGNED BY: RT Suha(R) June 08, 2022 3:26 PM documented in this encounter [facility] 06-06-2022 Instructions Minal Leiva APRN.[employer] - 06/06/2022 3:23 PM EDT PATIENT PREOPERATIVE INSTRUCTIONS Netta Hoff MD has scheduled you for your procedure at this surgery center: [facility]: [phone] -- [address] [facility] [address]. Please read below carefully for your personalized instructions. Dietary Restrictions: - No solid food after midnight. - You may have 12 ounces of clear liquids (water, clear juices such as apple juice or gatorade, carbonated beverages, clear tea, black coffee, jello) until 2 hours before scheduled arrival at facility. Medications: Unless instructed differently below, stay on all of your medications until your surgery. Approved medications to take the morning of surgery with a sip of water: NONE If you start any new medications after today's visit, please contact the surgeon's office. Blood Thinning Medications: - Stop NSAIDS (Ibuprofen, Advil, Aleve, Motrin, Celebrex, Mobic, etc.) 7 days before surgery, as directed by your surgeon. - Stop Aspirin 7 days before surgery, as directed by your surgeon. - Stop Vitamin E, ALL multi-vitamins, herbals and dietary supplements 7 days before surgery. - You may take Tylenol (Acetaminophen) or any of your pain medications that do not contain aspirin or NSAIDS as needed. Important Reminders: - If you use CPAP/BIPAP, bring the machine with you to the surgery center. - If you are prescribed inhalers for breathing, continue using them. - Candy, mints, and tobacco products are NOT permitted the morning of surgery. - Hearing aids, dentures and glasses may be worn the morning of surgery. - NO jewelry, body piercings, makeup, hairpins or contacts are to be worn the day of surgery. If you develop symptoms such as a fever, cold, or flu, or have other changes to your health within TWO DAYS of scheduled surgery or the morning of surgery, please contact the surgery center above. Personal Belongings: -Please have photo ID and insurance cards. -If you do not have a copy of advance directives on file with us, please bring a copy with you on the day of surgery. - Leave ALL valuables and money at home or with family members. For Outpatient Procedures: - YOU MUST HAVE A RESPONSIBLE HI LIFT OPERATOR TAKE YOU HOME. A NOZZLE WORKER OR VALUE ENGINEER CANNOT BE MADE A RESPONSIBLE HI LIFT OPERATOR. - We recommend that a responsible person stays with you overnight to take care of you. - You cannot stay in a hotel alone after outpatient surgery. You will not be permitted to have your surgery, if you do not have someone to take care of you. Arrival Time for Surgery: - The Surgery Center or hospital where you are having surgery will call the afternoon before surgery (or Saturday for Saturday surgery) with a scheduled arrival time. - If you have not heard by 4 pm, please contact the surgery center above. Please be aware that emergency situations arise, which may delay or change your surgical time. If this happens, we will notify you as soon as possible and regret any inconvenience. If you already have an Advance Directive, please fax a copy to [phone] or email to for it to be added to your chart. If you do not have an Advance Directive, you can find the appropriate form and more information at [email or web address]. We recommend that you complete the Advance Directive form found on the website and bring it with you the day of your surgery. It can be witnessed and scanned into your chart that day. Minal Leiva APRN.CNP documented in this encounter [facility] 06-06-2022 History and physical note Images from the original note were not included. HISTORY AND PHYSICAL EXAMINATION SERVICE DATE: 06/06/2022 SERVICE TIME: 3:22 PM PRIMARY CARE PHYSICIAN: Cristian Robertson MD, MD REASON FOR VISIT: Johnny Robertson is a 57 year old male who is scheduled for Procedure(s): ROBOTIC ASSISTED TOTAL HIP ARTHROPLASTY (Left) at the request of Dr. Netta Hoff for consultation. My final recommendation will be communicated back to the requesting physician by way of shared medical record or letter. Subjective The patient has the following: ACTIVE PROBLEM LIST Primary Osteoarthritis of Both Knees Svt (Supraventricular Tachycardia) (Hcc) Bmi 39.0-39.9,Adult Stiffness of Right Knee Status Post Right Knee Replacement COVID-19 Immunization Status Overdue - COVID-19 VACCINE (1) Overdue - never done No completion, postpone, frequency change, or communication history exists for this topic. CHIEF COMPLAINT: Pre-op exam HPI: AKIRA is a 57 yo seen for PAC due to scheduled above surgery because of OA left hip. 04/17/2022 Dr. Hoff History: Mr. Robertson is status post a right knee replacement that I did for posttraumatic arthritis. He is doing well for that. He has have left knee arthritis as well. However he has had worsening left hip pain over the past couple of months. This is deep groin pain worse with activity he is here for follow-up on that Subjective: Left deep hip pain, primarily in the groin and buttock Updated ROS:No changes Updated Exam: Left lower Extremity Pain with flexion internal rotation and adduction which are limited Positive FADIR Positive Stinchfield Nontender to palpation Updated Imaging: Mild degenerative changes of the left hip Assessment and Plan: Mr. Robertson has a previous x-ray of his left hip that shows only mild degenerative changes, however now he has acute significantly worsening left intra-articular hip pain on exam and with daily functional living. I would like to get an MRI to rule out labral pathology or avascular necrosis. This is ordered today. We will follow-up with him after this is completed. REVIEW OF SYSTEMS: General: No weight loss, malaise or fevers. Neurological: Denies dizziness or lightheadedness Negative for: cerebral palsy, dementia, headaches, multiple sclerosis, Parkinson's disease, peripheral neuropathy, seizures, TIA and strokes. Respiratory: Negative for: asthma, COPD, dyspnea, home oxygen, pneumonia within 6 weeks, tobacco use, URI < 2 weeks and obstructive sleep apnea. Cardiovascular: Positive for: arrhythmia (h/o SVT s/p ablation 2011) Negative for: anticoagulation therapy, atrial fibrillation, CAD, chest pain, CHF, congenital heart defect, DVT/PE, hyperlipidemia, hypertension, recent [place], murmur/valvular heart disease, open heart surgery and valve surgery. GI: Negative for: abdominal pain, dysphagia, GERD, heartburn, hepatitis, irritable bowel syndrome, inflammatory bowel disease, liver disease, nausea, pancreatitis, vomiting and ETOH >2 drinks/day. : Positive for: nephrolithiasis (recurrent, following urology). Negative for: frequent urination, hematuria, renal failure and urinary tract infection. Endocrine: Negative for: diabetes mellitus, hyperthyroidism and hypothyroidism. Hematology: No history of bleeding or clotting disorder. Patient is not taking anti-coagulation or platelet medications. No history of hematological symptoms or problems. Oncology: No history of CA metastasis, chemo within 30 days, or radiotherapy within 90 days. No history of oncological symptoms or problems. Psych: No history of psychiatric symptoms or problems. Musculoskeletal: See HPI +s/p right TKA +chronic left knee pain, pending TKA Skin: Negative for lesions, rash and itching. PAST MEDICAL HISTORY Diagnosis Date Rapid heartbeat PAST SURGICAL HISTORY Procedure Laterality Date APPENDECTOMY HX 1986 COLONOSCOPY FLX DX W/COLLJ SPEC WHEN PFRMD 04/27/2014 normal colonoscopy EGD TRANSORAL BIOPSY SINGLE/MULTIPLE 04/27/2014 H pylori duodenitis, small hiatal hernia KNEE ARTHROSCOPY left PAST SURGICAL HISTORY OF 09/23/2011 heart ablation PAST SURGICAL HISTORY OF 09/23/1990 Right ACL Reconstruction PAST SURGICAL HISTORY OF Right 09/23/2005 Repair torn labrium PAST SURGICAL HISTORY OF N/A Kidney stones PAST SURGICAL HISTORY OF left shoulder arthroscopy TOTAL KNEE REPLACEMENT Right 11/2021 FAMILY HISTORY Problem Relation Age of Onset No Known Problems Mother Alcohol/Drug Father No Known Problems Maternal Grandmother No Known Problems Maternal Grandfather No Known Problems Paternal Grandmother No Known Problems Paternal Grandfather Social History Tobacco Use Smoking status: Never Smokeless tobacco: Never Vaping Use Vaping Use: Never used Substance Use Topics Alcohol use: Yes Comment: socially/ occasional beer/wine in the evening Drug use: No Prior to Admission medications as of 06/06/22 1503 Medication Sig Last Dose Taking amoxicillin (POLYMOX, AMOXIL) 500 mg capsule Take 4 capsules by mouth one hour prior to dental cleaning/procedure Taking Yes acetaminophen (TYLENOL) 500 mg tablet Take 2 tablets by mouth every 8 hours as needed for pain. Taking Yes ascorbic acid, vitamin C, (VITAMIN C) 500 mg tablet Take 1 tablet by mouth twice daily with meals for 27 doses. Yes MEDICATION, NON-DATABASE Take 1 capsule by mouth once daily. John MicroPlex VMz Taking Yes MEDICATION, NON-DATABASE Take 1 capsule by mouth once daily. John Alpha CRS+ Taking Yes MEDICATION, NON-DATABASE Take 1 capsule by mouth once daily. John xEo Terrence Taking Yes MEDICATION, NON-DATABASE Take 1 capsule by mouth twice daily. Kidney C.O.P.- Calcium Oxalate Protector Taking Yes cholecalciferol (VITAMIN D3) 5,000 unit tab Take 5,000 Units by mouth once daily. Taking Yes MEDICATION, NON-DATABASE Take 1 capsule by mouth as needed (any illness). Elderberry Vitamin C + Zinc Taking Yes melatonin 10 mg tab Take 10 mg by mouth every evening. Taking Yes MEDICATION, NON-DATABASE Take 1 capsule by mouth every evening. Valarian Root Taking Yes MEDICATION, NON-DATABASE Take 1 capsule by mouth every evening. Kelya Deep Blue Taking Yes VITAMIN B COMPLEX ORAL Take 1 capsule by mouth once daily. Taking Yes methylPREDNISolone (MEDROL, EDWARD,) 4 mg Dose-Pack As Instructed per package oxyCODONE IR (ROXICODONE) 5 mg immediate release tablet Take 1-2 tablets by mouth every 6 hours as needed for pain. Patient not taking: Reported on 06/06/2022 Not Taking aspirin, enteric coated (ASPIRIN, ENTERIC COATED) 81 mg EC tablet Take 1 tablet by mouth twice daily. Omeprazole (PRILOSEC) 40 mg capsule Take 1 capsule by mouth once daily. Patient not taking: Reported on 06/30/2021 No medication comments found. ALLERGIES No Known Allergies Objective PHYSICAL EXAM: General: alert and oriented (x3) and healthy appearance. Pertinent negatives noted - not distressed. Skin: normal color, no rash or lesions. HEENT: EOM intact and pupils equal round. Pertinent negatives noted - no carotid bruit. Cardiovascular: regular rate and rhythm, normal S1 and S2, no rub, murmurs, or gallop. Respiratory: normal breath sounds, no wheezes or crackles. No chest wall deformity or tenderness. Abdomen: soft. Pertinent negatives noted - not tender. Extremities: no deformity, no edema or tenderness, no joint swelling or clubbing. Neurological: normal cognition and motor skills. Gait normal. No weakness or sensory deficit. PAIN ASSESSMENT: Pain Pain Level: 6 Pain Location: Hip-Left Description: Aching;Dull;Sharp Duration Amount of Time: 3.5 Duration Units: Months Frequency: Continuous Intervention/Comfort measure: Medication VITALS: BP 142/92 Pulse 97 Temp (Src) 98.5 (Temporal) Resp 18 Ht 5' 10 (1.78m) Wt 264 lb (119.8kg) SpO2 97% BMI 37.88 kg/(m^2). Diagnostic tests reviewed for today's visit: Lab Value Units Date High Low HB No results within date range. HCT No results within date range. WBC No results within date range. PLT No results within date range. NA No results within date range. K No results within date range. GLUC No results within date range. BUN No results within date range. CREAT No results within date range. PTSEC No results within date range. INR No results within date range. APTT No results within date range. ALT No results within date range. AST No results within date range. TBILI No results within date range. TSH No results within date range. Lab Value Units Date High Low HCGQT No results within date range. UHCG No results within date range. HCG, BODY* No results within date range. Lab Value Units Date High Low ABORHD No results within date range. ABSCREEN No results within date range. No results found for: HBA1C Recent Results (from the past 8760 hour(s)) ECG COMPLETE Collection Time: 11/13/21 9:48 AM Result Value Ventricular Rate 85 Atrial Rate 85 P-R Interval 160 QRS Duration 98 QT Interval 372 QTC Calculation (Bazett) 442 Calculated P [place] 38 Calculated R [place] 12 Calculated T [place] 14 Impression NORMAL SINUS RHYTHM POSSIBLE LEFT ATRIAL ENLARGEMENT BORDERLINE ECG No results found for this or any previous visit (from the past 74953 hour(s)). Assessment SVT (supraventricular tachycardia) (HCC) Assessment: remote hx, s/p ablation in 2011 with resolution of symptoms Status post right knee replacement Assessment: hx Primary osteoarthritis of both knees Assessment: continues with chronic left knee pain, pending TKA per pt [place] Activity Status Index: METS: Climb a flight of stairs or walk up a hill (5.50 METs) DASI Score: 5.5 Patient denies any chest pain or undue shortness of breath with the above physical activity. Clinical Frailty Scale: 3. Well, with treated comorbid disease STOP-Bang Score: BMI greater than 35 kg/m^2 Patient over 50 years old Male patient Denies snoring loudly Denies feeling tired, fatigued, or sleepy during the daytime Has not been observed to stop breathing or choking/gasping during sleep Denies having high blood pressure Does not have a large neck STOP-Bang Score: 3 [id number] Score: Age: <65 Sex: male CHF history: No Hypertension history: No Stroke/TIA/thromboembolism history: No Vascular disease history: No Diabetes history: No [id number] Score: 0 ARISCAT Score: Age: 51-80 ARISCAT Score: ASA Class: 2 ANESTHESIA FINDINGS: Intubation History: No history of difficult intubation Significant Anesthesia Considerations: none Airway History: No history of difficult airway I - PHYSICAL EVALUATION AIRWAYTracheostomy tube not present Mallampati: I. TM distance: >3 FB. Neck ROM: full ROM without neurological symptoms. Mouth opening: adequate. Short neck: no. Thick neck: yes DENTAL Dental findings: teeth intact. Additional comments: +caps/crowns +few chipped teeth. II - ANESTHESIA PLAN ASA Score: 2 Anesthetic Plan: other Anesthetic plan additional comments: *PACC - anesthesia choice. Informed Consent Anesthetic risks, benefits, alternatives, personnel and consent discussed: yes. Patient / Responsible Democrat agrees to proceed: yes Patient / Surrogate agrees to blood products: Yes Prepared for Surgery: optimally prepared for surgery, pending [see comment]. labs CONSULTS: Patient does not require consults for optimization at this time Planned Anesthetic: other anesthesia choice The Following Tests/Procedures Have Been Initiated: Orders Placed This Encounter >CBC + AUTO DIFF Standing Status: Future Number of Occurrences: 1 Standing Expiration Date: 08/06/2022 >CMP Standing Status: Future Number of Occurrences: 1 Standing Expiration Date: 08/06/2022 Type and Screen, 30 day Standing Status: Future Number of Occurrences: 1 Standing Expiration Date: 08/06/2022 Order Specific Question: [facility] Planned Surgery or Procedure: Answer: Beverley DISCONTD: mupirocin (BACTROBAN) 2 % ointment Sig: Apply 0.5 inch with cotton swab (Q-tip) to each nostril in the morning and evening for 5 days prior to and including day of surgery. Dispense: 22 g Refill: 0 mupirocin (BACTROBAN) 2 % ointment Sig: Apply 0.5 inch with cotton swab (Q-tip) to each nostril in the morning and evening for 5 days prior to and including day of surgery. Dispense: 22 g Refill: 0 Instructions Given to Patient: Instructions located in the after visit summary. Patient given verbal and written preop instructions and voices comprehension and compliance. SIGNATURE: Minal Leiva APRN.CNP PATIENT NAME: Johnny oRbertson DATE: June 06, 2022 TIME: 3:22 PM PAGER/CONTACT #: documented in this encounter [facility] 06-05-2022 Miscellaneous Notes Called and scheduled patient for CT. Thanks Patient is scheduled for a L KASSIE on 06-25-2022. Please call patient and schedule for a CT scan for [place]. Thank you. Sarah Walker Sedc documented in this encounter [facility] 06-05-2022 Miscellaneous Notes TOTAL JOINT COMPLETE CARE PROGRAM PRE-OPERATIVE TEACHING Service Date: 06/05/2022 Service Time: 10:04 AM Date of : 1965 Gender: male Date of Surgery: 06/25/22 Procedure: Left Total Hip Replacement Complete Care Program was discussed with the patient: Marketing Production Specialist Identification: Patient identified a wound care center consultant to help when discharged to home: Home Environment: Home Layout: 2 story, Entry Steps: 3 no rails, Bedroom Location: 1st floor, Bathroom Location: 1st floor, and tub shower. Pt owns walker, crutches. Discussed equipment. Discussed with patient importance of attending joint education class and provided date and times of class: YES paper copy. Patient received Joint Education Binder: Yes Patient plans discharge home with [facility]. SIGNATURE: BETH Lisa PATIENT NAME: Johnny Robertson DATE: June 05, 2022 TIME: 10:04 AM documented in this encounter [facility] 05-22-2022 Miscellaneous Notes Spoke to patient. We will schedule him for Monday, July 11, 2022. I offered him earlier but he couldn't do that date. This will be for a L KASSIE. Sarah Duran documented in this encounter [facility] 05-15-2022 Note HNO ID: [id number] Author: RT Yarelis(R) Service: ? Author Type: Technologist Type: Progress Notes Filed: 05/15/2022 4:15 PM Note Text: Radiology Service Progress Note PATIENT NAME: Johnny Robertson DATE OF SERVICE: May 15, 2022 TIME: 4:10 PM PATIENT IDENTITY VERIFICATION COMPLETED USING TWO (2) IDENTIFIERS: Name and Date of confirmed by patient verbally. FALL SCREENING: Has the patient had 2 falls in the last year or 1 fall with injury or currently using an Ambulatory Assistive Device (Walker, Cane, Wheelchair, Crutches, etc.)? No PATIENT GENDER DATA: Male PATIENT RELEVANT IMPLANT DATA REVIEWED: Not Applicable RADIOLOGY DEPARTMENT: General X-ray: Exam(s) Completed: Pelvis X-Ray: Pelvis General AP PERIPHERAL IV DATA: Not applicable SIGNED BY: RT Yarelis(R) May 15, 2022 4:10 PM [facility] 05-10-2022 Note HNO ID: [id number] Author: Netta Hoff MD Service: ? Author Type: Physician Type: Progress Notes Filed: 05/17/2022 8:05 AM Note Text: This is a telephone appointment for Mr. Robertson He has done well from a right knee replacement. I saw him also for his left hip. He is having significant groin pain. His x-ray showed mild degenerative changes. I obtained an MRI. 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 Have discussed this with him at length. We discussed hip replacement, hip arthroscopy, as well as a hip injection. He is not interested in pursuing an injection is a temporary fix. He has expressed interest in least having a second opinion from my partner who is a sports surgeon and expert hip arthroscopist, Dr. Jose Oliva. I will review the imaging with him. If an appropriate candidate for hip arthroscopy, I will arrange follow-up with my partner. If it is deemed that his arthritis is too far gone for that, we will consider hip arthroplasty. Telephone conversation and documentation approximately 8 minutes. Netta Hoff MD Orthopaedic Surgery [facility] 05-02-2022 Miscellaneous Notes Rx e-scripted Hubert Ulloa APRN.CNP May 02, 2022 3:46 PM documented in this encounter [facility] 04-17-2022 History of Presen t illness Narrative Orthopaedic Office Note: April 17, 2022 1:12 PM Johnny Robertson 57 year old History: Mr. Robertson is status post a right knee replacement that I did for posttraumatic arthritis. He is doing well for that. He has have left knee arthritis as well. However he has had worsening left hip pain over the past couple of months. This is deep groin pain worse with activity he is here for follow-up on that Subjective: Left deep hip pain, primarily in the groin and buttock Updated ROS:No changes Updated Exam: Left lower Extremity Pain with flexion internal rotation and adduction which are limited Positive FADIR Positive [place]inchfield Nontender to palpation Updated Imaging: Mild degenerative changes of the left hip Assessment and Plan: Mr. Robertson has a previous x-ray of his left hip that shows only mild degenerative changes, however now he has acute significantly worsening left intra-articular hip pain on exam and with daily functional living. I would like to get an MRI to rule out labral pathology or avascular necrosis. This is ordered today. We will follow-up with him after this is completed. I spent a total of 15 minutes on the date of the service which included preparing to see the patient, [id number] patient care, completing clinical documentation, obtaining and/or reviewing separately obtained history, performing a medically appropriate examination, counseling and educating the patient/family/caregiver, ordering medications, tests, or procedures and communicating results to the patient/family/caregiver. Netta Hoff MD Orthopaedic Surgery documented in this encounter [facility] 04-17-2022 Miscellaneous Notes Radiology Service Progress Note PATIENT NAME: Johnny Robertson DATE OF SERVICE: April 17, 2022 TIME: 10:53 AM PATIENT IDENTITY VERIFICATION COMPLETED USING TWO (2) IDENTIFIERS: Name and Date of confirmed by patient verbally. FALL SCREENING: Has the patient had 2 falls in the last year or 1 fall with injury or currently using an Ambulatory Assistive Device (Walker, Cane, Wheelchair, Crutches, etc.)? No PATIENT GENDER DATA: Male PATIENT RELEVANT IMPLANT DATA REVIEWED: Not Applicable RADIOLOGY DEPARTMENT: General X-ray: Exam(s) Completed: Lower Extremity X-Ray(s): Knee, AP / Lat / Tunne / Merchant Left PERIPHERAL IV DATA: Not applicable SIGNED BY: RT Aurelio(Nanci) April 17, 2022 10:53 AM documented in this encounter [facility] 02-07-2022 History of Presen t illness Narrative Episode Visit Count: 9 Therapist That Will Oversee The Plan Of Care: Angelo Balbuena Start of Care Date: 12/11/21 REHABILITATION AND SPORTS THERAPY PHYSICAL THERAPY PROGRESS REPORT PLAN OF CARE UPDATE: Assessment: Johnny Robertson demonstrates significant improvement in rising from a chair, standing, walking, stair negotiation, bending, physical activities and recreational activities . He hasprogressed toward goals. Patient continues to present with impairments in overall function and range of motion that interfere with lifting;physical activities;recreational activities;kneeling;heavy exertion . Current prognosis is Excellent due to: current objective clinical presentation;good overall health status;positive past response to therapy;within-session changes;good support system/ coping skills . He will benefit from continued skilled therapy services to meet the updated goals for this plan of care as noted below. Goals updated on 02/06/2022. Goals for Episode of Care: created on 12/11/21 through 03/13/22 [place] in home exercise program. - Currently Met, continuing. Patient will decrease pain rating by 2 points to meet minimal clinical important difference for numeric pain rating scale. - Currently Met, continuing. Patient will increase active ROM of the Rt. Knee to 0-120 degrees to allow pt to to improve performance of ADLs and to improve gait mechanics / gait Pattern. Not Met, Progressing Towards. Patient will Improve Timed Up and Go to less than 10 seconds without the use of an assistive device to demonstrate decreased risk of falling and [place].- MET Patient will improve 5 time sit to stand duration to demonstrate improvement in functional lower extremity strength. - MET Normal gait. - Met Reciprocal stair negotiation. - Met Patient will complete ascending and descending of 10-12 stairs with reciprocal pattern mechanics on 6 inch steps. Met Strength symmetry testin% symmetry using any of the following methods: Dynamometer testing. Met Patient will be able to sleep throughout the night without awakening due to R knee pain. Met Patient Goals: Reciprocal Steps, Prolonged Distance Walking (1 Mile), Greater Mobility, Ballroom Dancing Planned Interventions, Frequency, and Duration: 1 visit, 4 weeks Total Number of Visits Planned: 1 Patient to be seen for Therapeutic exercise (63610);Neuromuscular re-education (17932);Manual therapy (10838);Therapeutic activities (85408);Self-detention management (24765);Gait Training (27226);Patient/Family/Caregiver Education;Body Mechanics Training PLAN FOR NEXT VISIT: [place] SUBJECTIVE: Patient Reason for Visit: Pt overall doing much better. Notes that functionally, he doesn't feel limited anymore. He feels held back by some of the tightness and a mental hesitancy to push it with the prior tweak of the knee a few weeks ago. Functional Limitations: lifting;physical activities;recreational activities;kneeling;heavy exertion Pain: Pain Pain Level: 2 Pain Location: Knee - Right Description: Tightness Frequency: Intermittent PROMIS Scales Higher is Better 12/08/2021 01/08/2022 02/03/2022 Phys Func - Score 24 (severe dysfunction) 34 (moderate dysfunction) 39 (moderate dysfunction) Phys Func - Percentile 0 % 5 % 14 % Social Roles - Score 37 (moderate dysfunction) 48 (within normal limits) 43 (mild dysfunction) Social Role - Percentile 10 % 42 % 24 % GH Physical - Score - - 42.3 (Good) GH Physical - Percentile - - 22 % GH Mental - Score - - 43.5 (Good) GH Mental - Percentile - - 26 % Self-Eff Symptom - Score 41 (Average) 50 (Average) 48 (Average) Self-Eff Symptom - Percentile 18 % 50 % 42 % T-scores: mean of general population = 50. 5 points is clinically meaningfully difference Percentiles provide an indication of how the patient's score ranks in relation to the general population. Higher percentile rankings indicate better function/quality of life. 50th percentile is the average of the general population and indicates half of respondents had a worse score. Lower is Better 12/08/2021 01/08/2022 02/03/2022 Fatigue - Score 64 (moderate) 57 (mild) 51 (within normal limits) Fatigue - Percentile 8 % 24 % 46 % T-scores: mean of general population = 50. 5 points is clinically meaningfully difference Percentiles provide an indication of how the patient's score ranks in relation to the general population. Higher percentile rankings indicate better function/quality of life. 50th percentile is the average of the general population and indicates half of respondents had a worse score. OBJECTIVE MEASURES WITH LEVEL OF FUNCTION: LE AROM R Knee Extension: 3 Degrees R Knee Flexion: 110 Degrees Dynamometer Strength Right Quadriceps Strength (lbs): 79.3 Left Quadriceps Strength (lbs): 76.6 Quad Strength Limb Symmetry Index (%): 103.52 Right Hamstring Strength (lbs): 59.3 Left Hamstring Strength (lbs): 62.7 Hamstring Strength Limb Symmetry Index(%): 94.58 Functional Performance Test Results 5 Times Sit to Stand Test : 7.89 sec TREATMENT: Therapeutic Exercise: 1: SciFit x5 min, setting 15 2: Quad sets x10, 5 sec holds 3: Heel slides x10, 5 sec holds 4: LLLD flexion stretch on therapist arm x3 min 5: SLR 2x20 (no lag noted) 6: Wrote out a walking progression for pt that covers up to 12 weeks worth of progressions 7: Recheck Skilled Intervention: Patient was educated in proper exercise technique and purpose for exercises. Skilled judgment was provided in selection of appropriate interventions. Provided written instruction for home exercise program to facilitate proper performance and compliance. Correct performance of therapeutic exercises was facilitated with verbal, visual and tactile cuing. Billing Therapeutic Exercise Treatment Minutes: 40 Total Treatment Time Minutes (timed/untimed): 40 Angelo Balbuena PT documented in this encounter [facility] 02-06-2022 History of Presen t illness Narrative Post-op Office Visit Johnny Robertson 56 year old February 06, 2022 2:40 PM Surgery Date: 11/22/21 History: Johnny Robertson Is now 10 weeks out from S/P R TKA. Post-operative course has been with minor complication. He was last seen on 01/18/22. He was seen acutely for twisting injury when getting out of his car. He was diagnosed with a LCL strain and placed in a hinged knee brace and provided a hinged knee brace. He reports his pain has resolved. He stopped utilizing the knee brace on Saturday. He is here today for follow up for this issue. Subjective: Patient reports decreasing pain. Overall is doing well. No ambulatory aid No opioid pain medication Objective: Ambulates with none Incision well-approximated, no drainage, normal denise-incisional erythema ROM 0 - 105 Distally DP/PT palpable Distally S/S/SP/DP/T intact at baseline Distally DF/EHL/PF intact at baseline Negative marlin/calf tenderness Xrays: No new today Assessment and Plan: Johnny Robertson Is here for a second post-op appointment, overall doing well -continued ice, rest, and use of non-narcotic analgesia as needed -discussed home exercises and continued therapy -WBAT on operative extremity, okay to d/c hinged knee brace -discussed red flag symptoms of acutely increasing pain, new erythema, new swelling, drainage, shortness of breath - Will see back in April to discuss left total knee arthroplasty. Follow up sooner as needed Hubert Ulloa APRN.CNP February 06, 2022 2:43 PM documented in this encounter [facility] 01-31-2022 History of Presen t illness Narrative Episode Visit Count: 8 Therapist That Will Oversee The Plan Of Care: Angelo Balbuena Start of Care Date: 12/11/21 REHABILITATION AND SPORTS THERAPY PHYSICAL THERAPY TREATMENT NOTE ASSESSMENT: Johnny Robertson tolerated the session with fatigue and expected muscle soreness. He demonstrated improvements in exercise tolerance. The patient will continue to benefit from ongoing skilled physical therapy to progress toward set goals. PLAN FOR NEXT VISIT: Assess addition of mini squats SUBJECTIVE: Patient Reason for Visit: Pt doing well tonight. Knee still has ocassional pain with twisting motions, but much better than last week Pain: Pain Pain Level: 2 Pain Location: Knee - Right Description: Tightness Frequency: Intermittent OBJECTIVE MEASURES WITH LEVEL OF FUNCTION: LE AROM R Knee Extension: 2 Degrees R Knee Flexion: 106 Degrees TREATMENT: Therapeutic Exercise: 1: SciFit x5 min, setting 15 (subjective taken) 2: Quad sets 2x10, 5 sec holds 3: Heel slides 3x10, 5 sec holds 4: LLLD flexion stretch on therapist arm x3 min 5: SLR 2x20 3# ankle weight 6: SLR hip abduction 2x17 3# 7: Step ups onto 1 blue and green step 2x15 on R 8: TRX squats to tolerated depth x10 (L knee pain at bottom of motion) Skilled Intervention: Patient was educated in proper exercise technique and purpose for exercises. Skilled judgment was provided in selection of appropriate interventions. Correct performance of therapeutic exercises was facilitated with verbal, visual and tactile cuing. Manual Therapy: 1: STM to R quad with lacrosse ball x10 min with push to tolerance Skilled Intervention: Manual skills to improve joint mobility, ROM, and decrease pain. Utilized anatomy knowledge of the therapist, and assessment of patient's response to intervention. Billing Therapeutic Exercise Treatment Minutes: 32 Manual TherapyTreatment Minutes: 10 Total Treatment Time Minutes (timed/untimed): 42 Angelo Balbuena PT documented in this encounter [facility] 01-23-2022 History of Presen t illness Narrative Episode Visit Count: 7 Therapist That Will Oversee The Plan Of Care: Angelo Balbuena Start of Care Date: 12/11/21 REHABILITATION AND SPORTS THERAPY PHYSICAL THERAPY TREATMENT NOTE ASSESSMENT: Johnny Robertson tolerated the session with fatigue. He demonstrated improvements in knee range of motion. The patient will continue to benefit from ongoing skilled physical therapy to progress toward set goals and to continue with post-operative protocol . PLAN FOR NEXT VISIT: progress strengthening per tolerance to LCL strain SUBJECTIVE: Patient Reason for Visit: Pt had an intense, sharp pain turning to get out of his truck last week. Rechecked by surgeon and everything looks good, simply strained his LCL Pain: Pain Pain Level: 3 Pain Location: Knee - Right Description: Sore;Aching Frequency: Intermittent OBJECTIVE MEASURES WITH LEVEL OF FUNCTION: LE AROM R Knee Extension: 3 Degrees R Knee Flexion: 104 Degrees TREATMENT: Therapeutic Exercise: 1: SciFit x5 min, setting 14 2: Quad sets 2x10, 5 sec holds 3: Heel slides 3x10, 5 sec holds 4: LLLD flexion stretch on therapist arm x5 min 5: SLR 1x20, 2x15 3# ankle weight 6: SLR hip abduction 1x15, 1x12 3# Skilled Intervention: Patient was educated in proper exercise technique and purpose for exercises. Skilled judgment was provided in selection of appropriate interventions. Provided written instruction for home exercise program to facilitate proper performance and compliance. Correct performance of therapeutic exercises was facilitated with verbal, visual and tactile cuing. Manual Therapy: 1: STM to R quad with foam roller x10 min with push to tolerance Skilled Intervention: Manual skills to improve joint mobility, ROM, and decrease pain. Utilized anatomy knowledge of the therapist, and assessment of patient's response to intervention. Billing Therapeutic Exercise Treatment Minutes: 30 Manual TherapyTreatment Minutes: 10 Total Treatment Time Minutes (timed/untimed): 40 Angelo Balbuena PT documented in this encounter [facility] 01-18-2022 Miscellaneous Notes Addended by: HUBERT ULLOA on: 01/18/2022 12:29 PM Modules accepted: Orders documented in this encounter [facility] 01-18-2022 History of Presen t illness Narrative Post-op Office Visit Johnny Robertson 56 year old January 18, 2022 12:17 PM Surgery Date: 11/22/21 History: Johnny Robertson Is now 8 weeks out from S/P R TKA. Post-operative course has been without complication. He contacted the office yesterday after he reports pivoting to get out of his car and developed sudden onset of lateral knee pain. He is here today for evaluation Subjective: Patient reports increased pain. Overall is doing well. No ambulatory aid Took opioid pain medication yesterday due to severe pain. Objective: Ambulates with walker Incision well-approximated, no drainage, normal denise-incisional erythema ROM 0 - 95 TTP over LCL Distally DP/PT palpable Distally S/S/SP/DP/T intact at baseline Distally DF/EHL/PF intact at baseline Negative marlin/calf tenderness Xrays: X-rays today right total knee arthroplasty in satisfactory position without evidence for loosening or osteolysis. No fractures Assessment and Plan: Johnny Robertson Is here for a second post-op appointment, overall doing well -continued ice, rest, and use of non-narcotic analgesia as needed -discussed home exercises -WBAT on operative extremity - Hinged knee brace for LCL strain - Medrol dose pack for inflammation -discussed red flag symptoms of acutely increasing pain, new erythema, new swelling, drainage, shortness of breath - Will see back in 2-3 weeks Hubert Ulloa APRN.CNP January 18, 2022 12:25 PM documented in this encounter [facility] 01-18-2022 Miscellaneous Notes Radiology Service Progress Note PATIENT NAME: Johnny Robertson DATE OF SERVICE: January 18, 2022 TIME: 10:55 AM PATIENT IDENTITY VERIFICATION COMPLETED USING TWO (2) IDENTIFIERS: Name and Date of confirmed by patient verbally. FALL SCREENING: Has the patient had 2 falls in the last year or 1 fall with injury or currently using an Ambulatory Assistive Device (Walker, Cane, Wheelchair, Crutches, etc.)? No PATIENT GENDER DATA: Male PATIENT RELEVANT IMPLANT DATA REVIEWED: Not Applicable RADIOLOGY DEPARTMENT: General X-ray: Exam(s) Completed: Lower Extremity X-Ray(s): Knee, AP / Lat / Merchant Right PERIPHERAL IV DATA: Not applicable SIGNED BY: RT Aurelio(R) January 18, 2022 10:55 AM documented in this encounter [facility] 01-17-2022 History of Presen t illness Narrative Episode Visit Count: 6 Therapist That Will Oversee The Plan Of Care: Angelo Balbuena Start of Care Date: 12/11/21 REHABILITATION AND SPORTS THERAPY PHYSICAL THERAPY TREATMENT NOTE ASSESSMENT: Johnny Robertson tolerated the session with decreased pain and improved knee range of motion. He demonstrated improvements in knee range of motion and tolerance for exercises today. The patient will continue to benefit from ongoing skilled physical therapy to progress toward set goals. PLAN FOR NEXT VISIT: continue manual as needed for pain relief and to improve range of motion, continue progressing exercises per tolerance SUBJECTIVE: Patient Reason for Visit: Pt a little stiff and sore tonight. Notes some sharp aches from time to time. Pain: Pain Pain Level: 4 Pain Location: Knee - Right Description: Aching;Sharp Frequency: Intermittent OBJECTIVE MEASURES WITH LEVEL OF FUNCTION: LE AROM R Knee Extension: 2 Degrees R Knee Flexion: 102 Degrees TREATMENT: Therapeutic Exercise: 1: SciFit x5 min, setting 14 (Subjective taken and discussed reasons for his pain today) 2: Quad sets 2x10, 5 sec holds 3: Heel slides 3x10, 5 sec holds 4: Long discussion on nightly routine to decrease swelling and improve ROM prior to bed or after long day 5: SLR 2x10 6: Discussed stairs for HEP Skilled Intervention: Patient was educated in proper exercise technique and purpose for exercises. Skilled judgment was provided in selection of appropriate interventions. Provided written instruction for home exercise program to facilitate proper performance and compliance. Correct performance of therapeutic exercises was facilitated with verbal, visual and tactile cuing. Manual Therapy: 1: STM to R quad with foam roller x10 min with push to tolerance 2: Superfifical effleurage x5 min with legs elevated on 2 bolsters Skilled Intervention: Manual skills to improve joint mobility, ROM, and decrease pain. Utilized anatomy knowledge of the therapist, and assessment of patient's response to intervention. Billing Therapeutic Exercise Treatment Minutes: 25 Manual TherapyTreatment Minutes: 15 Total Treatment Time Minutes (timed/untimed): 40 Angelo Balbuena PT documented in this encounter [facility] 01-02-2022 History of Presen t illness Narrative Episode Visit Count: 4 Therapist That Will Oversee The Plan Of Care: Angelo Balbuena Start of Care Date: 12/11/21 REHABILITATION AND SPORTS THERAPY PHYSICAL THERAPY TREATMENT NOTE ASSESSMENT: Johnny Robertson tolerated the session with fatigue, expected muscle soreness and no issues. He demonstrated improvements in knee ROM during initial set progressions. The patient will continue to benefit from ongoing skilled physical therapy to progress toward set goals and to continue with post-operative protocol . PLAN FOR NEXT VISIT: SC -- Progress Rt. Knee strengthening and mobility. Possible light weight on LAQ. SUBJECTIVE: Patient Reason for Visit: Pt. reports complaining of slight sharp ache on the medial knee, with inconsistent reproduction. Morning have been better for the patient with reduction of tightness, throughout the day tightness increases. Morning exercises go the best for the pt. Reports continued trouble sleeping. Has gone without the cane for the past 3 days. Pain: Pain Pain Level: 3 Pain Location: Knee - Right Description: Sore;Aching Frequency: Intermittent Post Treatment Pain Post Treatment Pain Level: No Change Post Treatment Pain Location: Knee - Right Post Treatment Symptoms: Appropriate workout OBJECTIVE MEASURES WITH LEVEL OF FUNCTION: TTP around medial joint line and Semitendinous - Rt. Knee. Knee Observations R Circumference 6 inches above mid-patella (inches): 23 inches R Circumference mid patella (inches): 19 inches R Circumference 6 inches below mid-patella (inches): 17.5 inches LE AROM R Knee Extension: 2 Degrees R Knee Flexion: 97 Degrees (100 degree with strap assist) TREATMENT: Therapeutic Exercise: 1: Supine RLE Quad Set 2x12, 5 sec hold 2: Supine RLE SLR, 3x15 3: Side Lying RLE Hip Abduction, 2x15 4: Supine RLE Heel Slides, 3x12 (strap added for 1 set) 5: Seated LAQ w/ eccentric 3 second count decline: 3x12 6: Seated Knee Ext ISO into physioball - 2x10 7: Seated Knee Flex Iso into physioball - 2x10 9: Sci-Fit x5 minutes (Completed subjective during this time. Used to facilitate ROM improvements) Skilled Intervention: Patient was educated in proper exercise technique and purpose for exercises. Skilled judgment was provided in selection of appropriate interventions. Correct performance of therapeutic exercises was facilitated with verbal, visual and tactile cuing. Billing Therapeutic Exercise Treatment Minutes: 44 Total Treatment Time Minutes (timed/untimed): 44 OG Gibbs Supervising therapist was present and guided the care of the patient for the entire session on this date. All documentation was reviewed and agreed upon. Angelo Balbuena PT documented in this encounter [facility] 12-28-2021 Miscellaneous Notes OARRS reviewed. Patient has been compliant and taking medication appropriately without evidence of suspicious activity. Will refill rx. Hubert Ulloa APRN.CNP December 28, 2021 3:36 PM documented in this encounter [facility] 06-30-2021 History of Presen t illness Narrative Reason for Visit/Chief Complaint Johnny Robertson is a 56 year old male who presents today for a new evaluation of following complaint: Patient presents with: Left Hand - Established Patient, Pain History of Present Illness: PAIN EVALUATION 06/30/2021 1010 Pain Level: 9 Pain Location: L Hand Description: Dull;Sharp Duration Amount of Time: 4 Duration Units: Weeks Frequency: Intermittent Intervention/Comfort measure: Reposition;Relaxation HPI: Johnny Robertson is a 56 year old male presenting today with Left hand pain. Pain history is noted as above. Denies calf pain, numbness, tingling, fever, chills or other constitutional symptoms. Pain started in 06/2019 Previous Treatments: Ice: No Heat: No Brace: No NSAIDs: No Injections: No Surgeries: No Physical Therapy: No Review of Systems: Patient did not have, and does not currently have, any weight loss, malaise, fever, chills, headache, chest pain, chest pressure, palpitations, cough, shortness of breath, orthopnea, paroxsymal nocturnal dyspnea, nausea, vomiting, diarrhea, constipation, melena, hematochezia, urinary difficulties, prolonged bleeding, easily bruising, heat or cold intolerance, new onset joint pain or swelling, new onset extremity weakness or numbness, new onset auditory or visual disturbances, lightheadedness, dizziness, partial loss of consciousness or full loss of consciousness. Current Outpatient Medications on File Prior to Visit Medication Sig aspirin 81 mg chewable tablet Take 81 mg by mouth once daily. Omeprazole (PRILOSEC) 40 mg capsule Take 1 capsule by mouth once daily. (Patient not taking: Reported on 06/30/2021 ) Uatghovjl-Lhkqiuzhg-Mqujauukp (PREVPAC) 500-500-30 mg combo pack Follow package directions. (Patient not taking: Reported on 06/30/2021 ) No current facility-administered medications on file prior to visit. ALLERGIES No Known Allergies Physical Exam: Vitals: Ht 5' 10 (1.78m) Wt 268 lb (121.6kg) BMI 38.45 kg/(m^2). Psych: Pleasant, good affect and mood General Appearance: Well appearing, alert, in no acute distress, well-hydrated, well nourished.. Skin: Skin color, texture, turgor normal, no suspicious rashes or lesions. Peripheral Pulses: Normal. Neurologic: Gait normal. Reflexes normal and symmetric. Sensation grossly intact.. Lymph Nodes: No cervical lymphadenopathy, No supraclavicular lymphadenopathy, No axillary lymphadenopathy. and No inguinal lymphadenopathy.. Respiratory: No recent pulmonary infection, hemoptysis, chronic cough, or shortness of breath at rest Rheumatologic: Joint deformities: Left hand pain Right Hand Exam Right hand exam is normal. Tenderness The patient is experiencing no tenderness. Range of Motion The patient has normal right wrist ROM. Wrist Extension: normal Flexion: normal Pronation: normal Supination: normal Muscle Strength The patient has normal right wrist strength. Tests Phalen s Sign: negative Tinel's sign (median nerve): negative Carlos's test: negative Other Erythema: absent Sensation: normal Pulse: present Left Hand Exam Left hand exam is normal. Tenderness The patient is experiencing no tenderness. Range of Motion The patient has normal left wrist ROM. Wrist Extension: normal Flexion: normal Pronation: normal Supination: normal Muscle Strength The patient has normal left wrist strength. Tests Phalen s Sign: negative Tinel's sign (median nerve): negative Carlos's test: negative Other Erythema: absent Sensation: normal Pulse: present Comments: Neg archer, Uln/rad/med nerves intact Imaging: Last XR Hand/Finger - Impression Only XR HAND GENERAL 3V PA/LAT/OBL LT Exam End: 06/30/2021 9:59 AM (Final result) Impression: IMPRESSION: No acute bony abnormality. 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 Auto Repair Technician: LESLIE Mcfadden.Bogdan Complete Results Assessment and Plan: Impression: Encounter Diagnosis ICD-10-CM 1. 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 Left wrist tendinitis M77.8 3. CMC arthritis M19.049 Last XR Hand/Finger - Impression Only XR HAND GENERAL 3V PA/LAT/OBL LT Exam End: 06/30/2021 9:59 AM (Final result) Impression: IMPRESSION: No acute bony abnormality. 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 Auto Repair Technician: LESLIE Hernandez Complete Results Plan: Ice otc sleeve/ vs brace Nothing on xray today but if cont pain would consider adv imaging Swelling dorsum of hand at wrist joint, would consider injection but patient denies today OT- denies today Today, in detail, through a thorough evaluation, we discussed possible etiologies of pain and our plans for further diagnostic and therapeutic interventions. We discussed strategies for decreasing pain and improving strength, stability and motion. Patient's questions were answered in detailed. Patient verbalizes understanding and agrees with the treatment plan as discussed. Michell Tabor DO documented in this encounter [facility] Pain of left hand- Primary Pain in limb Left wrist tendinitis CMC arthritis Unspecified arthropathy, hand [facility] Diagnosis Status post right knee replacement Primary osteoarthritis of both knees Primary localized osteoarthrosis, lower leg [facility] Diagnosis Status post right knee replacement- Primary Stiffness of right knee [facility] Diagnosis Status post right knee replacement- Primary Stiffness of right knee [facility] Chronic pain of right knee- Primary [facility] Diagnosis Status post right knee replacement- Primary Sprain of lateral collateral ligament of right knee, initial encounter [facility] Diagnosis Status post right knee replacement- Primary Stiffness of right knee [facility] Diagnosis Status post right knee replacement- Primary Stiffness of right knee [facility] Diagnosis Status post right knee replacement- Primary [facility] Diagnosis Status post right knee replacement- Primary Stiffness of right knee [facility] Diagnosis Status post right knee replacement Primary osteoarthritis of both knees Primary localized osteoarthrosis, lower leg documented in this encounter [facility] note* Diagnosis Pain- Primary Generalized pain documented in this encounter [facility] note* Diagnosis Primary osteoarthritis of left hip- Primary Primary localized osteoarthrosis, pelvic region and thigh Pain in hip Pain in joint, pelvic region and thigh [facility] Diagnosis Pain Generalized pain [facility] Diagnosis Pain in left hip- Primary Pain in joint, pelvic region and thigh documented in this encounter [facility] note* Diagnosis Primary osteoarthritis of left hip- Primary Primary localized osteoarthrosis, pelvic region and thigh Pain in left hip Pain in joint, pelvic region and thigh [facility] Diagnosis Pre-operative examination- Primary Preoperative examination, unspecified SVT (supraventricular tachycardia) ([facility]) Other specified cardiac dysrhythmias Status post right knee replacement Primary osteoarthritis of both knees Primary localized osteoarthrosis, lower leg Primary osteoarthritis of left hip Primary localized osteoarthrosis, pelvic region and thigh Pain in left hip Pain in joint, pelvic region and thigh [facility] Diagnosis Presence of left artificial hip joint Hip joint replacement by other means Preop examination Preoperative examination, unspecified Primary osteoarthritis of left hip Primary localized osteoarthrosis, pelvic region and thigh Pain in left hip Pain in joint, pelvic region and thigh [facility] Diagnosis S/P total left hip arthroplasty [facility] Diagnosis Pain in left hip- Primary Pain in joint, pelvic region and thigh [facility] Diagnosis Status post left hip replacement- Primary Hip joint replacement by other means [facility] Diagnosis S/P total left hip arthroplasty [facility] Diagnosis Pain in left hip Pain in joint, pelvic region and thigh [facility] Diagnosis Neuropathy- Primary Mononeuritis of unspecified site [facility] Diagnosis Chronic pain of left knee- Primary Pain in joint, lower leg [facility] Diagnosis Primary osteoarthritis of left knee- Primary Primary localized osteoarthrosis, lower leg Encounter for screening for COVID-19 Primary osteoarthritis of left knee Primary localized osteoarthrosis, lower leg [facility] Diagnosis Neuropathy Mononeuritis of unspecified site Encounter for screening for COVID-19 Primary osteoarthritis of left knee Primary localized osteoarthrosis, lower leg [facility] Diagnosis Neuropathy Mononeuritis of unspecified site [facility] Diagnosis Neuropathy Mononeuritis of unspecified site [facility] Diagnosis Neuropathy Mononeuritis of unspecified site [facility] Diagnosis Left knee pain, unspecified chronicity- Primary Pain in left hip Pain in joint, pelvic region and thigh [facility] Diagnosis Encounter for observation for other suspected diseases and conditions ruled out- Primary Pain of left thigh Pain in limb [facility] Diagnosis Neuropathy Mononeuritis of unspecified site [facility] Diagnosis Encounter for observation for other suspected diseases and conditions ruled out [facility] Diagnosis Neuropathy Mononeuritis of unspecified site [facility] Diagnosis Neuropathy Mononeuritis of unspecified site [facility] Diagnosis Neuropathy Mononeuritis of unspecified site documented in this encounter [facility] home Plan of care note* Visit Details Visit Type -PT SOC Discipline -Physical Therapy Problems Problem Description Start Date Status Goals Interve ntions Medication Education Disciplines: Skilled Services 06/27/2022 Active 1 goal linked to scheduled/documen cayla intervention 1 goal intervention scheduled/document ed in this visit Sepsis Disciplines: Skilled Services 06/27/2022 Active 1 goal linked to scheduled/documen cayla intervention 1 goal intervention scheduled/document ed in this visit Physician Specific Parameters Disciplines: Skilled Services 06/27/2022 Active 1 goal linked to scheduled/documen cayla intervention 1 goal intervention scheduled/document ed in this visit Risk for Falls Disciplines: Skilled Services 06/27/2022 Active 1 goal linked to scheduled/documen cayla intervention 1 goal intervention scheduled/document ed in this visit Pain Disciplines: Skilled Services 06/27/2022 Active 1 goal linked to scheduled/documen cayla intervention 1 goal intervention scheduled/document ed in this visit High Risk Medications Disciplines: Skilled Services 06/27/2022 Active 1 goal linked to scheduled/documen cayla intervention 1 goal intervention scheduled/document ed in this visit Advance Directives Disciplines: Skilled Services 06/27/2022 Resolved on 06/27/2022 1 goal linked to scheduled/documen cayla intervention 1 goal intervention scheduled/document ed in this visit PT Impaired muscle performance and/or ROM Disciplines: PT 06/27/2022 Active 1 goal linked to scheduled/documen cayla intervention 1 goal intervention scheduled/document ed in this visit PT Orthopedic Condition Disciplines: PT 06/27/2022 Active 1 goal linked to scheduled/documen cayla intervention 3 goal interventions scheduled/document ed in this visit PT Learning Assessment Disciplines: PT 06/27/2022 Active 1 goal linked to scheduled/documen cayla intervention 1 goal intervention scheduled/document ed in this visit Goals Goal Associated Problem Outcome Goal Met? Visit Notes Patient/caregiver will demonstrate ability to obtain, store, identify and administer ordered medications, keep accurate medication list in home, and adhere to medication schedule Description: Patient/caregiver will demonstrate ability to obtain, store, identify and administer ordered medications, keep accurate medication list in home, and adhere to medication schedule by 08/25/22. Medication Education No Patient/caregiver will be able to identify and report symptoms of sepsis Description: Patient/caregiver will be able to identify signs/symptoms of sepsis infection and will verbalize actions to take if suspected by 08/25/22. . Sepsis No Patient to maintain parameters within physician-specified ranges throughout certification period Physician Specific Parameters No Manage Risk for falls Description: Patient/caregiver will verbalize knowledge of individualized fall prevention strategies by 08/25/22. . Risk for Falls No Manage Pain Description: Patient/caregiver will verbalize knowledge and understanding of appropriate techniques to control pain, including pain medication and non-pharmacological techniques. Patient will verbalize or demonstrate an acceptable level of pain as evidenced by a pain score of <5/10 and improvement in ability to perform activities of daily living to be achieved by 08/25/22. . Pain No Patient/caregiver will teach back high risk medication side effect and precaution education High Risk Medications No Patient/caregiver will make healthcare providers aware of and any changes to Advance Directives throughout certification period Advance Directives Completed Yes Improved Muscle Performance and/or ROM Description: LTG: Patient will demonstrate improved muscle performance to meet functional goals as evidenced by ability to tolerate 10 min of standing activity, to be achieved by 07/14/22. STG: Patient and/or caregiver will verbalize/demonstrate independence with home exercise program, to improve functional mobility, to be achieved by 06/30/22. PT Impaired muscle performance and/or ROM No Manage Orthopedic Condition Description: Improve patient and/or caregiver understanding of post surgical and/or non-surgical orthopedic intervention management as evidenced by patient and/or caregiver able to verbalize, demonstrate, and teach back instruction, to be achieved by 07/14/22. PT Orthopedic Condition No Demonstrate understanding of education Description: Patient and/or caregiver will understand educational instruction to be achieved by 07/14/22. PT Learning Assessment No Interventions Intervention Associated Problem/Goal Status Variance Visit Notes Medication Education Description: Evaluate/instruct patient/caregiver on obtaining, storing, identifying and administering ordered medications as well as keeping accurate medication list in the home and adhereing to medication schedule Problem:Medication Education Goal:Patient/caregive r will demonstrate ability to obtain, store, identify and administer ordered medications, keep accurate medication list in home, and adhere to medication schedule Completed Patient and Caregiver instructed on importance of keeping accurate medication list in home and adhering to medication schedule. Risk of Sepsis Description: Patient is at risk for sepsis. Monitor closely for s/s of sepsis. Problem:Sepsis Goal:Patient/caregive r will be able to identify and report symptoms of sepsis Completed SPO2 Description: Notify Dr. hoff if pulse ox is <92% at rest. Problem:Physician Specific Parameters Goal:Patient to maintain parameters within physician-specified ranges throughout certification period Completed Instruct on individual fall risk factors and strategies to prevent falls and injuries caused by falls. Problem:Risk for Falls Goal:Manage Risk for falls Completed PT: Patient and Caregiver instructed on Eliminating Environmental Hazards: Keep pathways clear, Keep pets out of pathways, Remove unsafe rugs, Move furniture from pathways and Wear supportive shoes or non-skid socks Managing Impaired Functional Mobility: Use assistive device(s): front wheeled walker Managing Pain Instruct on pain and instruct on strategies to control pain Problem:Pain Goal:Manage Pain Completed patient instructed on techniques to control pain including Pharmacological measures and Non-Pharmacological measures; rest and positioning/elevation. Opioids- Instruct on high risk medication Problem:High Risk Medications Goal:Patient/caregive r will teach back high risk medication side effect and precaution education Completed patient instructed on the following: Possible side effects of opioid medication including sedation, decreased rate of breathing, and constipation. Instructed on reporting over sedation to prescribing physician, practice deep breathing techniques every hour while awake, and prevention of constipation by increasing water and fiber intake, increase activity as tolerated, and use stool softener as prescribed. Only take opioids as prescribed, do not share your medications, and take proper precautions in storing and properly disposing of opioids once no longer needed. Follow providers guidelines for driving and weaning from prescribed opioid. Determine patient's Advance Directive Status Description: Patient does not have advance directives. Patient/Caregiver declined Advance Directive information. Problem:Advance Directives Goal:Patient/caregive r will make healthcare providers aware of and any changes to Advance Directives throughout certification period Completed Discussed Advance Directives with Patient and/or Caregiver. Referred patient to Home Care handbook for further information on Healthcare DPOA & Living Will. Physical Therapy Therapeutic Exercises Problem:PT Impaired muscle performance and/or ROM Goal:Improved Muscle Performance and/or ROM Completed patient and caregiver instructed on strengthening exercises including Supine : GS,QS,HS, HIPADD, HIP BD, HEEL SLIDES, SAQ, X 10 with verbal, tactile and written cues for TECHNIQUE/REPS/FREQUEN CY. patient instructed to perform home exercise program twice a day which included HOURLY AMBULATION . Instruct on orthopedic precautions and weight bearing restrictions Description: Orthopedic precautions including left posterior hip: no hip flexion > 90 degrees, no adduction and no IR/ER rotation of involved extermity. Weight bearing restrictions include: 50% PWB of involved extremity. Problem:PT Orthopedic Condition Goal:Manage Orthopedic Condition Completed patient instructed on orthopedic precautions and weight bearing restrictions. Instruct on management of edema Problem:PT Orthopedic Condition Goal:Manage Orthopedic Condition Completed Instruct patient on management of edema including elevation of LLE above the level of the heart and ice. Instruct on self-management of post surgical and/or non-surgical orthopedic intervention Problem:PT Orthopedic Condition Goal:Manage Orthopedic Condition Completed patient instructed on managagement of orthopedic condition, staying well hydrated, signs and symptoms of infection, signs and symptoms of DVT/PE, follow provider guidance for showering and instructed on when to call provider. Instruct and educate on knowledge deficits Problem:PT Learning Assessment Goal:Demonstrate understanding of education Completed patient and caregiver verbalize and/or demonstrate understanding of physical therapy education including orthopedic condition management, weight bearing precautions, surgical precautions, pain management and home exercise program. Education methods include: verbal cues and written instructions. Further education required to improve knowledge and compliance with orthopedic condition management, weight bearing precautions, surgical precautions, pain management and home exercise program. documented in this encounter [facility] home Plan of care note* Visit Details Visit Type -DAIRY TESTER ROUTINE Discipline -Physical Therapy Problems Problem Description Start Date Status Goals Interve ntions Medication Education Disciplines: Skilled Services 06/27/2022 Active 1 goal linked to scheduled/document ed intervention 1 goal intervention scheduled/document ed in this visit Sepsis Disciplines: Skilled Services 06/27/2022 Active 1 goal linked to scheduled/document ed intervention 1 goal intervention scheduled/document ed in this visit Physician Specific Parameters Disciplines: Skilled Services 06/27/2022 Active 1 goal linked to scheduled/document ed intervention 1 goal intervention scheduled/document ed in this visit Risk for Falls Disciplines: Skilled Services 06/27/2022 Active 1 goal linked to scheduled/document ed intervention 1 goal intervention scheduled/document ed in this visit Pain Disciplines: Skilled Services 06/27/2022 Active 1 goal linked to scheduled/document ed intervention 1 goal intervention scheduled/document ed in this visit Discharge Disciplines: Skilled Services 06/27/2022 Active 1 goal linked to scheduled/document ed intervention 1 goal intervention scheduled/document ed in this visit PT Impaired muscle performance and/or ROM Disciplines: PT 06/27/2022 Active 1 goal linked to scheduled/document ed intervention 1 goal intervention scheduled/document ed in this visit PT Impaired gait Disciplines: PT 06/27/2022 Active 1 goal linked to scheduled/document ed intervention 1 goal intervention scheduled/document ed in this visit PT Orthopedic Condition Disciplines: PT 06/27/2022 Active 1 goal linked to scheduled/document ed intervention 4 goal interventions scheduled/document ed in this visit PT Learning Assessment Disciplines: PT 06/27/2022 Active 1 goal linked to scheduled/document ed intervention 1 goal intervention scheduled/document ed in this visit Goals Goal Associated Problem Outcome Goal Met? Visit Notes Patient/caregiver will demonstrate ability to obtain, store, identify and administer ordered medications, keep accurate medication list in home, and adhere to medication schedule Description: Patient/caregiver will demonstrate ability to obtain, store, identify and administer ordered medications, keep accurate medication list in home, and adhere to medication schedule by 08/25/22. Medication Education No Patient/caregiver will be able to identify and report symptoms of sepsis Description: Patient/caregiver will be able to identify signs/symptoms of sepsis infection and will verbalize actions to take if suspected by 08/25/22. . Sepsis No Patient to maintain parameters within physician-specified ranges throughout certification period Physician Specific Parameters No Manage Risk for falls Description: Patient/caregiver will verbalize knowledge of individualized fall prevention strategies by 08/25/22. . Risk for Falls No Manage Pain Description: Patient/caregiver will verbalize knowledge and understanding of appropriate techniques to control pain, including pain medication and non-pharmacological techniques. Patient will verbalize or demonstrate an acceptable level of pain as evidenced by a pain score of <5/10 and improvement in ability to perform activities of daily living to be achieved by 08/25/22. . Pain No Manage discharge planning Description: Patient/caregiver will verbalize understanding of ongoing discharge plan provided related to disease management, arrangements for outpatient and/or community services, obtaining medications, supplies, and DME, as needed throughout certification period. Discharge No Improved Muscle Performance and/or ROM Description: LTG: Patient will demonstrate improved muscle performance to meet functional goals as evidenced by ability to tolerate 10 min of standing activity, to be achieved by 07/14/22. STG: Patient and/or caregiver will verbalize/demonstrate independence with home exercise program, to improve functional mobility, to be achieved by 06/30/22. PT Impaired muscle performance and/or ROM No Improved Gait Description: LTG: Patient will demonstrate improved gait ability as evidenced by ambulation 150 feet with single point cane independently with AD, to return to safe household and community ambulation, in order to transition to OP PT, to be achieved by 07/14/22. PT Impaired gait No Manage Orthopedic Condition Description: Improve patient and/or caregiver understanding of post surgical and/or non-surgical orthopedic intervention management as evidenced by patient and/or caregiver able to verbalize, demonstrate, and teach back instruction, to be achieved by 07/14/22. PT Orthopedic Condition No Demonstrate understanding of education Description: Patient and/or caregiver will understand educational instruction to be achieved by 07/14/22. PT Learning Assessment No Interventions Intervention Associated Problem/Goal Status Variance Visit Notes Medication Education Description: Evaluate/instruct patient/caregiver on obtaining, storing, identifying and administering ordered medications as well as keeping accurate medication list in the home and adhereing to medication schedule Problem:Medication Education Goal:Patient/caregive r will demonstrate ability to obtain, store, identify and administer ordered medications, keep accurate medication list in home, and adhere to medication schedule Completed Patient instructed on importance of keeping accurate medication list in home and adhering to medication schedule. Risk of Sepsis Description: Patient is at risk for sepsis. Monitor closely for s/s of sepsis. Problem:Sepsis Goal:Patient/caregive r will be able to identify and report symptoms of sepsis Completed SPO2 Description: Notify Dr. hoff if pulse ox is <92% at rest. Problem:Physician Specific Parameters Goal:Patient to maintain parameters within physician-specified ranges throughout certification period Completed Instruct on individual fall risk factors and strategies to prevent falls and injuries caused by falls. Problem:Risk for Falls Goal:Manage Risk for falls Completed PT: Patient instructed on Managing Impaired Functional Mobility: Use assistive device(s): front wheeled walker Instruct on pain and instruct on strategies to control pain Problem:Pain Goal:Manage Pain Completed patient instructed on techniques to control pain including Pharmacological measures and Non-Pharmacological measures; positioning/elevation and use of thermal modalities, apply ice to affected area for the following prescribed frequency: several times. Instruct on ongoing discharge plan Problem:Discharge Goal:Manage discharge planning Completed Ongoing Discharge plan: Discharge plan discussed with patient including frequency and duration for home PT and plan for transition to: outpatient therapy. Physical Therapy Therapeutic Exercises Problem:PT Impaired muscle performance and/or ROM Goal:Improved Muscle Performance and/or ROM Completed patient instructed on strengthening exercises including ankle pumps, quad and glut sets, hip abd and adduction, saq and heel slides standing L hamstring curls x's 10 each with verbal cues for slower pace. patient instructed to perform home exercise program twice a day which included above exercises. Physical Therapy Gait Training Problem:PT Impaired gait Goal:Improved Gait Completed Gait training and instruction to patient on safe ambulation with front wheeled walker for 2x's40 feet with supervision, with verbal cues for corrections of gait deviations including toe forwARD ANS pwb. Instruct on orthopedic precautions and weight bearing restrictions Description: Orthopedic precautions including left posterior hip: no hip flexion > 90 degrees, no adduction and no IR/ER rotation of involved extermity. Weight bearing restrictions include: 50% PWB of involved extremity. Problem:PT Orthopedic Condition Goal:Manage Orthopedic Condition Completed patient instructed on orthopedic precautions and weight bearing restrictions. Instruct on management of edema Problem:PT Orthopedic Condition Goal:Manage Orthopedic Condition Completed Instruct patient on management of edema including elevation of LLE above the level of the heart and ice. Physical therapy to perform surgical incision/wound management Description: Removal of post-op dressing on pod 7 ( 07/02/22). If no drainage is present, leave open to air; if drainage is present, cover with clean dressing and contact provider. Problem:PT Orthopedic Condition Goal:Manage Orthopedic Condition Completed Intervention completed this date. With patients consent, picture uploaded to chart Instruct on self-management of post surgical and/or non-surgical orthopedic intervention Problem:PT Orthopedic Condition Goal:Manage Orthopedic Condition Completed patient instructed on incision care: no lotions.creams or rubbing, signs and symptoms of infection, signs and symptoms of DVT/PE, instructed on when to call provider and instructed on when to call 911. Instruct and educate on knowledge deficits Problem:PT Learning Assessment Goal:Demonstrate understanding of education Completed patient verbalize and/or demonstrate understanding of physical therapy education including weight bearing precautions, surgical precautions and home exercise program. Education methods include: verbal cues. Further education required to improve knowledge and compliance with home exercise program. [facility] Visit Details Visit Type -PT ROUTINE Discipline -Physical Therapy Problems Problem Description Start Date Status Goals Interve ntions Medication Education Disciplines: Skilled Services 06/27/2022 Active 1 goal linked to scheduled/document ed intervention 1 goal intervention scheduled/document ed in this visit Sepsis Disciplines: Skilled Services 06/27/2022 Active 1 goal linked to scheduled/document ed intervention 1 goal intervention scheduled/document ed in this visit Physician Specific Parameters Disciplines: Skilled Services 06/27/2022 Active 1 goal linked to scheduled/document ed intervention 1 goal intervention scheduled/document ed in this visit Risk for Falls Disciplines: Skilled Services 06/27/2022 Active 1 goal linked to scheduled/document ed intervention 1 goal intervention scheduled/document ed in this visit Pain Disciplines: Skilled Services 06/27/2022 Active 1 goal linked to scheduled/document ed intervention 1 goal intervention scheduled/document ed in this visit High Risk Medications Disciplines: Skilled Services 06/27/2022 Active 1 goal linked to scheduled/document ed intervention 1 goal intervention scheduled/document ed in this visit PT Impaired muscle performance and/or ROM Disciplines: PT 06/27/2022 Active 1 goal linked to scheduled/document ed intervention 1 goal intervention scheduled/document ed in this visit PT Impaired mobility Disciplines: PT 06/27/2022 Active 1 goal linked to scheduled/document ed intervention 1 goal intervention scheduled/document ed in this visit PT Impaired gait Disciplines: PT 06/27/2022 Active 1 goal linked to scheduled/document ed intervention 1 goal intervention scheduled/document ed in this visit PT Orthopedic Condition Disciplines: PT 06/27/2022 Active 1 goal linked to scheduled/document ed intervention 3 goal interventions scheduled/document ed in this visit PT Learning Assessment Disciplines: PT 06/27/2022 Active 1 goal linked to scheduled/document ed intervention 1 goal intervention scheduled/document ed in this visit Goals Goal Associated Problem Outcome Goal Met? Visit Notes Patient/caregiver will demonstrate ability to obtain, store, identify and administer ordered medications, keep accurate medication list in home, and adhere to medication schedule Description: Patient/caregiver will demonstrate ability to obtain, store, identify and administer ordered medications, keep accurate medication list in home, and adhere to medication schedule by 08/25/22. Medication Education No Patient/caregiver will be able to identify and report symptoms of sepsis Description: Patient/caregiver will be able to identify signs/symptoms of sepsis infection and will verbalize actions to take if suspected by 08/25/22. . Sepsis No Patient to maintain parameters within physician-specified ranges throughout certification period Physician Specific Parameters No Manage Risk for falls Description: Patient/caregiver will verbalize knowledge of individualized fall prevention strategies by 08/25/22. . Risk for Falls No Manage Pain Description: Patient/caregiver will verbalize knowledge and understanding of appropriate techniques to control pain, including pain medication and non-pharmacological techniques. Patient will verbalize or demonstrate an acceptable level of pain as evidenced by a pain score of <5/10 and improvement in ability to perform activities of daily living to be achieved by 08/25/22. . Pain No Patient/caregiver will teach back high risk medication side effect and precaution education High Risk Medications No Improved Muscle Performance and/or ROM Description: LTG: Patient will demonstrate improved muscle performance to meet functional goals as evidenced by ability to tolerate 10 min of standing activity, to be achieved by 07/14/22. STG: Patient and/or caregiver will verbalize/demonstrate independence with home exercise program, to improve functional mobility, to be achieved by 06/30/22. PT Impaired muscle performance and/or ROM No Improved Transfers Description: LTG: Patient will demonstrate safe transfers to/from bed, chair, toilet, couch, shower/tub and car independently with AD, to be achieved by 07/14/22. PT Impaired mobility No Improved Gait Description: LTG: Patient will demonstrate improved gait ability as evidenced by ambulation 150 feet with single point cane independently with AD, to return to safe household and community ambulation, in order to transition to OP PT, to be achieved by 07/14/22. PT Impaired gait No Manage Orthopedic Condition Description: Improve patient and/or caregiver understanding of post surgical and/or non-surgical orthopedic intervention management as evidenced by patient and/or caregiver able to verbalize, demonstrate, and teach back instruction, to be achieved by 07/14/22. PT Orthopedic Condition No Demonstrate understanding of education Description: Patient and/or caregiver will understand educational instruction to be achieved by 07/14/22. PT Learning Assessment No Interventions Intervention Associated Problem/Goal Status Variance Visit Notes Medication Education Description: Evaluate/instruct patient/caregiver on obtaining, storing, identifying and administering ordered medications as well as keeping accurate medication list in the home and adhereing to medication schedule Problem:Medication Education Goal:Patient/caregive r will demonstrate ability to obtain, store, identify and administer ordered medications, keep accurate medication list in home, and adhere to medication schedule Completed Patient instructed on importance of keeping accurate medication list in home and adhering to medication schedule. Risk of Sepsis Description: Patient is at risk for sepsis. Monitor closely for s/s of sepsis. Problem:Sepsis Goal:Patient/caregive r will be able to identify and report symptoms of sepsis Completed SPO2 Description: Notify Dr. hoff if pulse ox is <92% at rest. Problem:Physician Specific Parameters Goal:Patient to maintain parameters within physician-specified ranges throughout certification period Completed Instruct on individual fall risk factors and strategies to prevent falls and injuries caused by falls. Problem:Risk for Falls Goal:Manage Risk for falls Completed PT: Patient instructed on Eliminating Environmental Hazards: Keep pathways clear, Remove unsafe rugs and Move furniture from pathways Managing Impaired Functional Mobility: Use assistive device(s): front wheeled walker Managing Pain Instruct on pain and instruct on strategies to control pain Problem:Pain Goal:Manage Pain Completed patient instructed on techniques to control pain including Pharmacological measures and Non-Pharmacological measures; rest, positioning/elevation and use of thermal modalities, apply ice to affected area . Opioids- Instruct on high risk medication Problem:High Risk Medications Goal:Patient/caregive r will teach back high risk medication side effect and precaution education Completed patient instructed on the following: Possible side effects of opioid medication including sedation, decreased rate of breathing, and constipation. Instructed on reporting over sedation to prescribing physician, practice deep breathing techniques every hour while awake, and prevention of constipation by increasing water and fiber intake, increase activity as tolerated, and use stool softener as prescribed. Only take opioids as prescribed, do not share your medications, and take proper precautions in storing and properly disposing of opioids once no longer needed. Follow providers guidelines for driving and weaning from prescribed opioid. Physical Therapy Therapeutic Exercises Problem:PT Impaired muscle performance and/or ROM Goal:Improved Muscle Performance and/or ROM Completed patient instructed on strengthening exercises including ankle pumps, quad and glut sets, hip abd and adduction, saq and heel slides standing L hamstring curls x's 15 each with verbal cues for slower pace. patient instructed to perform home exercise program twice a day which included above exercises. Physical Therapy Transfer Training Problem:PT Impaired mobility Goal:Improved Transfers Completed Transfer training and instruction to patient on safe transfers to and from bed and chair with supervision and verbal cues for technique . Physical Therapy Gait Training Problem:PT Impaired gait Goal:Improved Gait Completed Gait training and instruction to patient on safe ambulation with front wheeled walker for 50' x 2 feet with supervision, with verbal cues for corrections of gait deviations including maintaining wt bearing . Instruct on orthopedic precautions and weight bearing restrictions Description: Orthopedic precautions including left posterior hip: no hip flexion > 90 degrees, no adduction and no IR/ER rotation of involved extermity. Weight bearing restrictions include: 50% PWB of involved extremity. Problem:PT Orthopedic Condition Goal:Manage Orthopedic Condition Completed patient instructed on orthopedic precautions and weight bearing restrictions. Instruct on management of edema Problem:PT Orthopedic Condition Goal:Manage Orthopedic Condition Completed Instruct patient on management of edema including elevation of RLE above the level of the heart and ice. Instruct on self-management of post surgical and/or non-surgical orthopedic intervention Problem:PT Orthopedic Condition Goal:Manage Orthopedic Condition Completed patient instructed on signs and symptoms of infection, signs and symptoms of DVT/PE and instructed on when to call provider. Instruct and educate on knowledge deficits Problem:PT Learning Assessment Goal:Demonstrate understanding of education Completed patient verbalize and/or demonstrate understanding of physical therapy education including orthopedic condition management, weight bearing precautions, surgical precautions and pain management. Education methods include: verbal cues. Further education required to improve knowledge and compliance with orthopedic condition management, weight bearing precautions, surgical precautions and pain management. [facility] Visit Details Visit Type -DAIRY TESTER ROUTINE Discipline -Physical Therapy Problems Problem Description Start Date Status Goals Interve ntions Medication Education Disciplines: Skilled Services 06/27/2022 Active 1 goal linked to scheduled/document ed intervention 1 goal intervention scheduled/document ed in this visit Sepsis Disciplines: Skilled Services 06/27/2022 Active 1 goal linked to scheduled/document ed intervention 1 goal intervention scheduled/document ed in this visit Physician Specific Parameters Disciplines: Skilled Services 06/27/2022 Active 1 goal linked to scheduled/document ed intervention 1 goal intervention scheduled/document ed in this visit Risk for Falls Disciplines: Skilled Services 06/27/2022 Active 1 goal linked to scheduled/document ed intervention 1 goal intervention scheduled/document ed in this visit Pain Disciplines: Skilled Services 06/27/2022 Active 1 goal linked to scheduled/document ed intervention 1 goal intervention scheduled/document ed in this visit Discharge Disciplines: Skilled Services 06/27/2022 Active 1 goal linked to scheduled/document ed intervention 1 goal intervention scheduled/document ed in this visit PT Impaired muscle performance and/or ROM Disciplines: PT 06/27/2022 Active 1 goal linked to scheduled/document ed intervention 1 goal intervention scheduled/document ed in this visit PT Impaired mobility Disciplines: PT 06/27/2022 Active 1 goal linked to scheduled/document ed intervention 1 goal intervention scheduled/document ed in this visit PT Impaired gait Disciplines: PT 06/27/2022 Active 1 goal linked to scheduled/document ed intervention 1 goal intervention scheduled/document ed in this visit PT Orthopedic Condition Disciplines: PT 06/27/2022 Active 1 goal linked to scheduled/document ed intervention 3 goal interventions scheduled/document ed in this visit PT Learning Assessment Disciplines: PT 06/27/2022 Active 1 goal linked to scheduled/document ed intervention 1 goal intervention scheduled/document ed in this visit Goals Goal Associated Problem Outcome Goal Met? Visit Notes Patient/caregiver will demonstrate ability to obtain, store, identify and administer ordered medications, keep accurate medication list in home, and adhere to medication schedule Description: Patient/caregiver will demonstrate ability to obtain, store, identify and administer ordered medications, keep accurate medication list in home, and adhere to medication schedule by 08/25/22. Medication Education No Patient/caregiver will be able to identify and report symptoms of sepsis Description: Patient/caregiver will be able to identify signs/symptoms of sepsis infection and will verbalize actions to take if suspected by 08/25/22. . Sepsis No Patient to maintain parameters within physician-specified ranges throughout certification period Physician Specific Parameters No Manage Risk for falls Description: Patient/caregiver will verbalize knowledge of individualized fall prevention strategies by 08/25/22. . Risk for Falls No Manage Pain Description: Patient/caregiver will verbalize knowledge and understanding of appropriate techniques to control pain, including pain medication and non-pharmacological techniques. Patient will verbalize or demonstrate an acceptable level of pain as evidenced by a pain score of <5/10 and improvement in ability to perform activities of daily living to be achieved by 08/25/22. . Pain No Manage discharge planning Description: Patient/caregiver will verbalize understanding of ongoing discharge plan provided related to disease management, arrangements for outpatient and/or community services, obtaining medications, supplies, and DME, as needed throughout certification period. Discharge No Improved Muscle Performance and/or ROM Description: LTG: Patient will demonstrate improved muscle performance to meet functional goals as evidenced by ability to tolerate 10 min of standing activity, to be achieved by 07/14/22. STG: Patient and/or caregiver will verbalize/demonstrate independence with home exercise program, to improve functional mobility, to be achieved by 06/30/22. PT Impaired muscle performance and/or ROM No Improved Transfers Description: LTG: Patient will demonstrate safe transfers to/from bed, chair, toilet, couch, shower/tub and car independently with AD, to be achieved by 07/14/22. PT Impaired mobility No Improved Gait Description: LTG: Patient will demonstrate improved gait ability as evidenced by ambulation 150 feet with single point cane independently with AD, to return to safe household and community ambulation, in order to transition to OP PT, to be achieved by 07/14/22. PT Impaired gait No Manage Orthopedic Condition Description: Improve patient and/or caregiver understanding of post surgical and/or non-surgical orthopedic intervention management as evidenced by patient and/or caregiver able to verbalize, demonstrate, and teach back instruction, to be achieved by 07/14/22. PT Orthopedic Condition No Demonstrate understanding of education Description: Patient and/or caregiver will understand educational instruction to be achieved by 07/14/22. PT Learning Assessment No Interventions Intervention Associated Problem/Goal Status Variance Visit Notes Medication Education Description: Evaluate/instruct patient/caregiver on obtaining, storing, identifying and administering ordered medications as well as keeping accurate medication list in the home and adhereing to medication schedule Problem:Medication Education Goal:Patient/caregive r will demonstrate ability to obtain, store, identify and administer ordered medications, keep accurate medication list in home, and adhere to medication schedule Completed Patient instructed on importance of keeping accurate medication list in home. Risk of Sepsis Description: Patient is at risk for sepsis. Monitor closely for s/s of sepsis. Problem:Sepsis Goal:Patient/caregive r will be able to identify and report symptoms of sepsis Completed SPO2 Description: Notify Dr. hoff if pulse ox is <92% at rest. Problem:Physician Specific Parameters Goal:Patient to maintain parameters within physician-specified ranges throughout certification period Completed Instruct on individual fall risk factors and strategies to prevent falls and injuries caused by falls. Problem:Risk for Falls Goal:Manage Risk for falls Completed PT: Patient instructed on Managing Impaired Functional Mobility: Use assistive device(s): front wheeled walker Instruct on pain and instruct on strategies to control pain Problem:Pain Goal:Manage Pain Completed patient instructed on techniques to control pain including Pharmacological measures and Non-Pharmacological measures; positioning/elevation and use of thermal modalities, apply ice to affected area for the following prescribed frequency: several times/day. Instruct on ongoing discharge plan Problem:Discharge Goal:Manage discharge planning Completed Ongoing Discharge plan: Discharge plan discussed with patient including frequency and duration for home PT and plan for transition to: outpatient therapy. Physical Therapy Therapeutic Exercises Problem:PT Impaired muscle performance and/or ROM Goal:Improved Muscle Performance and/or ROM Completed patient instructed on strengthening exercises including ankle pumps, quad and glut sets, hip abd and adduction, saq and heel slides x's 15 each. standing hamstring curls and abduction x's 10 each with verbal and visual cues for correct form and pace. patient instructed to perform home exercise program twice a day which included above exercises. Physical Therapy Transfer Training Problem:PT Impaired mobility Goal:Improved Transfers Completed Transfer training and instruction to patient on safe transfers to and from chair with independent and verbal cues for precautions. Physical Therapy Gait Training Problem:PT Impaired gait Goal:Improved Gait Completed Gait training and instruction to patient on safe ambulation with front wheeled walker for 2x's60 feet with supervision, with verbal cues for corrections of gait deviations including maintaining PWB LLE. Instruct on orthopedic precautions and weight bearing restrictions Description: Orthopedic precautions including left posterior hip: no hip flexion > 90 degrees, no adduction and no IR/ER rotation of involved extermity. Weight bearing restrictions include: 50% PWB of involved extremity. Problem:PT Orthopedic Condition Goal:Manage Orthopedic Condition Completed patient instructed on orthopedic precautions. PWB Instruct on management of edema Problem:PT Orthopedic Condition Goal:Manage Orthopedic Condition Completed Instruct patient on management of edema including elevation of LLE above the level of the heart and ice. Instruct on self-management of post surgical and/or non-surgical orthopedic intervention Problem:PT Orthopedic Condition Goal:Manage Orthopedic Condition Completed patient instructed on signs and symptoms of infection, signs and symptoms of DVT/PE, instructed on when to call provider and instructed on when to call 911. Instruct and educate on knowledge deficits Problem:PT Learning Assessment Goal:Demonstrate understanding of education Completed patient verbalize and/or demonstrate understanding of physical therapy education including weight bearing precautions, surgical precautions and home exercise program. Education methods include: verbal cues. Further education required to improve knowledge and compliance with home exercise program. [facility] Visit Details Visit Type -DAIRY TESTER ROUTINE Discipline -Physical Therapy Problems Problem Description Start Date Status Goals Interve ntions Medication Education Disciplines: Skilled Services 06/27/2022 Active 1 goal linked to scheduled/document ed intervention 1 goal intervention scheduled/document ed in this visit Sepsis Disciplines: Skilled Services 06/27/2022 Active 1 goal linked to scheduled/document ed intervention 1 goal intervention scheduled/document ed in this visit Physician Specific Parameters Disciplines: Skilled Services 06/27/2022 Active 1 goal linked to scheduled/document ed intervention 1 goal intervention scheduled/document ed in this visit Risk for Falls Disciplines: Skilled Services 06/27/2022 Active 1 goal linked to scheduled/document ed intervention 1 goal intervention scheduled/document ed in this visit Pain Disciplines: Skilled Services 06/27/2022 Active 1 goal linked to scheduled/document ed intervention 1 goal intervention scheduled/document ed in this visit PT Impaired muscle performance and/or ROM Disciplines: PT 06/27/2022 Active 1 goal linked to scheduled/document ed intervention 1 goal intervention scheduled/document ed in this visit PT Impaired gait Disciplines: PT 06/27/2022 Active 2 goals linked to scheduled/document ed interventions 2 goal interventions scheduled/document ed in this visit PT Impaired balance Disciplines: PT 06/27/2022 Active 1 goal linked to scheduled/document ed intervention 1 goal intervention scheduled/document ed in this visit PT Orthopedic Condition Disciplines: PT 06/27/2022 Active 1 goal linked to scheduled/document ed intervention 3 goal interventions scheduled/document ed in this visit PT Learning Assessment Disciplines: PT 06/27/2022 Active 1 goal linked to scheduled/document ed intervention 1 goal intervention scheduled/document ed in this visit Goals Goal Associated Problem Outcome Goal Met? Visit Notes Patient/caregiver will demonstrate ability to obtain, store, identify and administer ordered medications, keep accurate medication list in home, and adhere to medication schedule Description: Patient/caregiver will demonstrate ability to obtain, store, identify and administer ordered medications, keep accurate medication list in home, and adhere to medication schedule by 08/25/22. Medication Education No Patient/caregiver will be able to identify and report symptoms of sepsis Description: Patient/caregiver will be able to identify signs/symptoms of sepsis infection and will verbalize actions to take if suspected by 08/25/22. . Sepsis No Patient to maintain parameters within physician-specified ranges throughout certification period Physician Specific Parameters No Manage Risk for falls Description: Patient/caregiver will verbalize knowledge of individualized fall prevention strategies by 08/25/22. . Risk for Falls No Manage Pain Description: Patient/caregiver will verbalize knowledge and understanding of appropriate techniques to control pain, including pain medication and non-pharmacological techniques. Patient will verbalize or demonstrate an acceptable level of pain as evidenced by a pain score of <5/10 and improvement in ability to perform activities of daily living to be achieved by 08/25/22. . Pain No Improved Muscle Performance and/or ROM Description: LTG: Patient will demonstrate improved muscle performance to meet functional goals as evidenced by ability to tolerate 10 min of standing activity, to be achieved by 07/14/22. STG: Patient and/or caregiver will verbalize/demonstrate independence with home exercise program, to improve functional mobility, to be achieved by 06/30/22. PT Impaired muscle performance and/or ROM No Improved Stair Climbing Description: LTG: Patient will demonstrate improved stair negotiation as evidenced by ascend/descend 14 steps with railing and with cane independently, to safely access all areas of the home, access community and exit home, to be achieved by 07/14/22. PT Impaired gait No Improved Gait Description: LTG: Patient will demonstrate improved gait ability as evidenced by ambulation 150 feet with single point cane independently with AD, to return to safe household and community ambulation, in order to transition to OP PT, to be achieved by 07/14/22. PT Impaired gait No Improved Balance Description: LTG: Patient will demonstrate improved standing balance to meet functional goals as evidenced by TUG score of <25 to be achieved by 07/14/22. PT Impaired balance No Manage Orthopedic Condition Description: Improve patient and/or caregiver understanding of post surgical and/or non-surgical orthopedic intervention management as evidenced by patient and/or caregiver able to verbalize, demonstrate, and teach back instruction, to be achieved by 07/14/22. PT Orthopedic Condition No Demonstrate understanding of education Description: Patient and/or caregiver will understand educational instruction to be achieved by 07/14/22. PT Learning Assessment No Interventions Intervention Associated Problem/Goal Status Variance Visit Notes Medication Education Description: Evaluate/instruct patient/caregiver on obtaining, storing, identifying and administering ordered medications as well as keeping accurate medication list in the home and adhereing to medication schedule Problem:Medication Education Goal:Patient/caregive r will demonstrate ability to obtain, store, identify and administer ordered medications, keep accurate medication list in home, and adhere to medication schedule Completed Patient instructed on importance of keeping accurate medication list in home and adhering to medication schedule. Risk of Sepsis Description: Patient is at risk for sepsis. Monitor closely for s/s of sepsis. Problem:Sepsis Goal:Patient/caregive r will be able to identify and report symptoms of sepsis Completed SPO2 Description: Notify Dr. hoff if pulse ox is <92% at rest. Problem:Physician Specific Parameters Goal:Patient to maintain parameters within physician-specified ranges throughout certification period Completed Instruct on individual fall risk factors and strategies to prevent falls and injuries caused by falls. Problem:Risk for Falls Goal:Manage Risk for falls Completed OT: Patient instructed on Managing Impaired Functional Mobility: Use assistive device(s): single point cane Instruct on pain and instruct on strategies to control pain Problem:Pain Goal:Manage Pain Completed patient instructed on techniques to control pain including Pharmacological measures and Non-Pharmacological measures; positioning/elevation and use of thermal modalities, apply ice to affected area for the following prescribed frequency: prn. Physical Therapy Therapeutic Exercises Problem:PT Impaired muscle performance and/or ROM Goal:Improved Muscle Performance and/or ROM Completed patient instructed on strengthening exercises including standing: calf rasies, hip abd, slr, hamstring curls and mini sits x's 10 each. step ups x's 10 with verbal, visual and written cues for correct form and pace. patient instructed to perform home exercise program twice a day which included above exercises. Physical Therapy Stair Training Problem:PT Impaired gait Goal:Improved Stair Climbing Completed Stair training and instruction to patient on safe stair climbing, ascend/descend 14 steps, with railing and with cane with supervision and verbal cues for pacing for safety. Physical Therapy Gait Training Problem:PT Impaired gait Goal:Improved Gait Completed Gait training and instruction to patient on safe ambulation with single point cane for 2x's 75 feet with supervision, with verbal cues for corrections of gait deviations including correct sequencing and cane placement. Physical Therapy Balance Training Problem:PT Impaired balance Goal:Improved Balance Completed Developed, implemented, and instructed patient on standing balance exercises including standing exercises and cane training. Instruct on orthopedic precautions and weight bearing restrictions Description: Orthopedic precautions including left posterior hip: no hip flexion > 90 degrees, no adduction and no IR/ER rotation of involved extermity. Weight bearing restrictions include: 50% PWB of involved extremity. Problem:PT Orthopedic Condition Goal:Manage Orthopedic Condition Completed patient instructed on orthopedic precautions and weight bearing restrictions. WBAT Instruct on management of edema Problem:PT Orthopedic Condition Goal:Manage Orthopedic Condition Completed Instruct patient on management of edema including elevation of LLE above the level of the heart and ice. Instruct on self-management of post surgical and/or non-surgical orthopedic intervention Problem:PT Orthopedic Condition Goal:Manage Orthopedic Condition Completed patient instructed on signs and symptoms of infection, signs and symptoms of DVT/PE, instructed on when to call provider and instructed on when to call 911. Instruct and educate on knowledge deficits Problem:PT Learning Assessment Goal:Demonstrate understanding of education Completed patient verbalize and/or demonstrate understanding of physical therapy education including weight bearing precautions and home exercise program. Education methods include: verbal cues. Further education required to improve knowledge and compliance with home exercise program. documented in this encounter [facility] home Plan of care note* Visit Details Visit Type -PT AGENCY DC W V ISIT Discipline -Physical Therapy Problems Problem Description Start Date Status Goals Interve ntions Medication Education Disciplines: Skilled Services 06/27/2022 Resolved on 07/13/2022 1 goal linked to scheduled/document ed intervention 1 goal intervention scheduled/document ed in this visit Sepsis Disciplines: Skilled Services 06/27/2022 Resolved on 07/13/2022 1 goal linked to scheduled/document ed intervention 1 goal intervention scheduled/document ed in this visit Physician Specific Parameters Disciplines: Skilled Services 06/27/2022 Resolved on 07/13/2022 1 goal linked to scheduled/document ed intervention 1 goal intervention scheduled/document ed in this visit Risk for Falls Disciplines: Skilled Services 06/27/2022 Resolved on 07/13/2022 1 goal linked to scheduled/document ed intervention 1 goal intervention scheduled/document ed in this visit Pain Disciplines: Skilled Services 06/27/2022 Resolved on 07/13/2022 1 goal linked to scheduled/document ed intervention 1 goal intervention scheduled/document ed in this visit High Risk Medications Disciplines: Skilled Services 06/27/2022 Resolved on 07/13/2022 1 goal linked to scheduled/document ed intervention Discharge Disciplines: Skilled Services 06/27/2022 Resolved on 07/13/2022 1 goal linked to scheduled/document ed intervention 1 goal intervention scheduled/document ed in this visit PT Impaired muscle performance and/or ROM Disciplines: PT 06/27/2022 Resolved on 07/13/2022 1 goal linked to scheduled/document ed intervention 1 goal intervention scheduled/document ed in this visit PT Impaired mobility Disciplines: PT 06/27/2022 Resolved on 07/13/2022 2 goals linked to scheduled/document ed interventions 2 goal interventions scheduled/document ed in this visit PT Impaired gait Disciplines: PT 06/27/2022 Resolved on 07/13/2022 2 goals linked to scheduled/document ed interventions 2 goal interventions scheduled/document ed in this visit PT Impaired balance Disciplines: PT 06/27/2022 Resolved on 07/13/2022 1 goal linked to scheduled/document ed intervention 1 goal intervention scheduled/document ed in this visit PT Orthopedic Condition Disciplines: PT 06/27/2022 Resolved on 07/13/2022 1 goal linked to scheduled/document ed intervention 3 goal interventions scheduled/document ed in this visit PT Learning Assessment Disciplines: PT 06/27/2022 Resolved on 07/13/2022 1 goal linked to scheduled/document ed intervention 1 goal intervention scheduled/document ed in this visit Goals Goal Associated Problem Outcome Goal Met? Visit Notes Patient/caregiver will demonstrate ability to obtain, store, identify and administer ordered medications, keep accurate medication list in home, and adhere to medication schedule Description: Patient/caregiver will demonstrate ability to obtain, store, identify and administer ordered medications, keep accurate medication list in home, and adhere to medication schedule by 08/25/22. Medication Education Completed Yes Patient/caregiver will be able to identify and report symptoms of sepsis Description: Patient/caregiver will be able to identify signs/symptoms of sepsis infection and will verbalize actions to take if suspected by 08/25/22. . Sepsis Completed Yes Patient to maintain parameters within physician-specified ranges throughout certification period Physician Specific Parameters Completed Yes Manage Risk for falls Description: Patient/caregiver will verbalize knowledge of individualized fall prevention strategies by 08/25/22. . Risk for Falls Completed Yes Manage Pain Description: Patient/caregiver will verbalize knowledge and understanding of appropriate techniques to control pain, including pain medication and non-pharmacological techniques. Patient will verbalize or demonstrate an acceptable level of pain as evidenced by a pain score of <5/10 and improvement in ability to perform activities of daily living to be achieved by 08/25/22. . Pain Completed Yes Patient/caregiver will teach back high risk medication side effect and precaution education High Risk Medications Completed Yes Manage discharge planning Description: Patient/caregiver will verbalize understanding of ongoing discharge plan provided related to disease management, arrangements for outpatient and/or community services, obtaining medications, supplies, and DME, as needed throughout certification period. Discharge Completed Yes Improved Muscle Performance and/or ROM Description: LTG: Patient will demonstrate improved muscle performance to meet functional goals as evidenced by ability to tolerate 10 min of standing activity, to be achieved by 07/14/22. STG: Patient and/or caregiver will verbalize/demonstrate independence with home exercise program, to improve functional mobility, to be achieved by 06/30/22. PT Impaired muscle performance and/or ROM Completed Yes Improved Transfers Description: LTG: Patient will demonstrate safe transfers to/from bed, chair, toilet, couch, shower/tub and car independently with AD, to be achieved by 07/14/22. PT Impaired mobility Completed Yes Improved Bed Mobility Description: STG: Patient will demonstrate improved bed mobility, ability to position self and supine <> sit independently to be achieved by 07/14/22. PT Impaired mobility Completed Yes Improved Stair Climbing Description: LTG: Patient will demonstrate improved stair negotiation as evidenced by ascend/descend 14 steps with railing and with cane independently, to safely access all areas of the home, access community and exit home, to be achieved by 07/14/22. PT Impaired gait Completed Yes Improved Gait Description: LTG: Patient will demonstrate improved gait ability as evidenced by ambulation 150 feet with single point cane independently with AD, to return to safe household and community ambulation, in order to transition to OP PT, to be achieved by 07/14/22. PT Impaired gait Completed Yes Improved Balance Description: LTG: Patient will demonstrate improved standing balance to meet functional goals as evidenced by TUG score of <25 to be achieved by 07/14/22. PT Impaired balance Completed Yes Manage Orthopedic Condition Description: Improve patient and/or caregiver understanding of post surgical and/or non-surgical orthopedic intervention management as evidenced by patient and/or caregiver able to verbalize, demonstrate, and teach back instruction, to be achieved by 07/14/22. PT Orthopedic Condition Completed Yes Demonstrate understanding of education Description: Patient and/or caregiver will understand educational instruction to be achieved by 07/14/22. PT Learning Assessment Completed Yes Interventions Intervention Associated Problem/Goal Status Variance Visit Notes Medication Education Description: Evaluate/instruct patient/caregiver on obtaining, storing, identifying and administering ordered medications as well as keeping accurate medication list in the home and adhereing to medication schedule Problem:Medication Education Goal:Patient/caregive r will demonstrate ability to obtain, store, identify and administer ordered medications, keep accurate medication list in home, and adhere to medication schedule Completed Patient instructed on importance of keeping accurate medication list in home and adhering to medication schedule. Risk of Sepsis Description: Patient is at risk for sepsis. Monitor closely for s/s of sepsis. Problem:Sepsis Goal:Patient/caregive r will be able to identify and report symptoms of sepsis Completed SPO2 Description: Notify Dr. hoff if pulse ox is <92% at rest. Problem:Physician Specific Parameters Goal:Patient to maintain parameters within physician-specified ranges throughout certification period Completed Instruct on individual fall risk factors and strategies to prevent falls and injuries caused by falls. Problem:Risk for Falls Goal:Manage Risk for falls Completed PT: Patient instructed on Eliminating Environmental Hazards: Keep pathways clear, Keep pets out of pathways, Remove unsafe rugs and Move furniture from pathways Managing Impaired Functional Mobility: Use assistive device(s): st cane Managing Pain Instruct on pain and instruct on strategies to control pain Problem:Pain Goal:Manage Pain Completed patient instructed on techniques to control pain including Pharmacological measures and Non-Pharmacological measures; rest, positioning/elevation and use of thermal modalities, apply ice to affected area . Instruct on final discharge plan and deliver discharge instructions Problem:Discharge Goal:Manage discharge planning Completed Delivered Discharge plan: Discharge plan discussed with caregiver for plan for transition to: live independently at home without ongoing services Physical Therapy Therapeutic Exercises Problem:PT Impaired muscle performance and/or ROM Goal:Improved Muscle Performance and/or ROM Completed patient instructed on strengthening exercises including standing: calf rasies, hip abd, slr, hamstring curls and mini sits x's 10 each. step ups x's 10 with verbal, visual and written cues for correct form and pace. patient instructed to perform home exercise program twice a day which included above exercises Physical Therapy Transfer Training Problem:PT Impaired mobility Goal:Improved Transfers Completed ABDOULAYE transfers with safe/proper technique Physical Therapy Bed Mobility Training Problem:PT Impaired mobility Goal:Improved Bed Mobility Completed Abdoulaye bed mobility Physical Therapy Stair Training Problem:PT Impaired gait Goal:Improved Stair Climbing Completed up and down 4 steps with rail+ cane and step toghether sequence Physical Therapy Gait Training Problem:PT Impaired gait Goal:Improved Gait Completed Indpe amb with ww or st cnae with steady recip pattern Physical Therapy Balance Training Problem:PT Impaired balance Goal:Improved Balance Completed pt demonstrates improved dynamic standing balacne as evidence by a tug of 22 Instruct on orthopedic precautions and weight bearing restrictions Description: Orthopedic precautions including left posterior hip: no hip flexion > 90 degrees, no adduction and no IR/ER rotation of involved extermity. Weight bearing restrictions include: 50% PWB of involved extremity. Problem:PT Orthopedic Condition Goal:Manage Orthopedic Condition Completed patient instructed on orthopedic precautions and weight bearing restrictions. Instruct on management of edema Problem:PT Orthopedic Condition Goal:Manage Orthopedic Condition Completed Instruct patient on management of edema including elevation of LLE above the level of the heart and ice. Instruct on self-management of post surgical and/or non-surgical orthopedic intervention Problem:PT Orthopedic Condition Goal:Manage Orthopedic Condition Completed patient instructed on managagement of orthopedic condition, signs and symptoms of infection, signs and symptoms of DVT/PE, follow provider guidance for showering and instructed on when to call provider. Instruct and educate on knowledge deficits Problem:PT Learning Assessment Goal:Demonstrate understanding of education Completed patient verbalize and/or demonstrate understanding of physical therapy education including orthopedic condition management, pain management and home exercise program. Education methods include: verbal cues. documented in this encounter [facility] for referral (narrative)* Diagnostic Procedure Only (Routine) Status Reason Specialty Diagnoses / Procedures Referred By Contact Referred To Contact Pending Review Auto-Generated Referral XR IMAGING Diagnoses Right knee pain, unspecified chronicity Procedures XR KNEE GENERAL 4V AP BOTH/PA BOTH/LAT/MERC RT KNEE AP-WGT/LAT/MERCHA NT Hubert Ulloa APRN.CNP [address] [place] [address] Xr Imaging [facility] for referral (narrative)* Diagnostic Procedure Only (Routine) - Closed Specialty Diagnoses / Procedures Referred By Contac t Referred To Contact XR IMAGING Diagnoses Chronic pain of right knee Procedures XR KNEE POST OP 3V AP/LAT/MERCHANT RIGHT RADIOLOGIC EXAMINATION KNEE 3 VIEWS Hubert Ulloa APRN.CNP [address] [place] [address] Xr Imaging Referral ID Status Reason Start Date Expiration Date V isits Requested Visits Authorized [id number] Closed Auto-Generate d Referral 01/18/2022 02/17/2023 1 1 [facility] for referral (narrative)* Diagnostic Procedure Only (Routine) - Pending Review Specialty Diagnoses / Procedures Referred By Contac t Referred To Contact XR IMAGING Diagnoses Pain Procedures XR KNEE GENERAL 4V AP BOTH/PA BOTH/LAT/MERC LEFT RADIOLOGIC EXAM KNEE COMPLETE 4/MORE VIEWS Hubert Ulloa APRN.CNP [address] [place] [address] Xr Imaging Referral ID Status Reason Start Date Expiration Date Visits Requested Visits Authorized [id number] Pending Review Auto-Generat ed Referral 03/29/2022 04/27/2023 1 1 [facility] for referral (narrative)* Diagnostic Procedure Only (Routine) - Closed Specialty Diagnoses / Procedures Referred By Contac t Referred To Contact XR IMAGING Diagnoses Pain Procedures XR KNEE GENERAL 4V AP BOTH/PA BOTH/LAT/MERC LEFT RADIOLOGIC EXAM KNEE COMPLETE 4/MORE VIEWS Hubert Ulloa APRN.[employer] [address] [place] [address] Xr Imaging Referral ID Status Reason Start Date Expiration Date V isits Requested Visits Authorized [id number] Closed Auto-Generate d Referral 03/29/2022 04/27/2023 1 1 [facility] for referral (narrative)* Diagnostic Procedure Only (Routine) - Pending Review Specialty Diagnoses / Procedures Referred By Contac t Referred To Contact XR IMAGING Diagnoses Pain in left hip Procedures XR PELVIS 1V AP RADIOLOGIC EXAMINATION PELVIS 1/2 VIEWS Hubert Ulloa APRN.[employer] [address] [place] [address] Xr Imaging Referral ID Status Reason Start Date Expiration Date Visits Requested Visits Authorized [id number] Pending Review Auto-Generat ed Referral 05/15/2022 06/14/2023 1 1 [facility] for referral (narrative)* Diagnostic Procedure Only (Routine) - Pending Review Specialty Diagnoses / Procedures Referred By Contac t Referred To Contact XR IMAGING Diagnoses Pain in left hip Procedures XR HIP 2V AP/LAT LEFT (AK,FL,ME) RADEX HIP UNILATERAL WITH PELVIS 2-3 VIEWS Hubert Ulloa APRN.[employer] [address] [place] [address] Xr Imaging Referral ID Status Reason Start Date Expiration Date Visits Requested Visits Authorized [id number] Pending Review Auto-Generat ed Referral 08/01/2023 1 1 [facility] for referral (narrative)* Diagnostic Procedure Only (Routine) - Closed Specialty Diagnoses / Procedures Referred By Contac t Referred To Contact XR IMAGING Diagnoses Pain in left hip Procedures XR HIP 2V AP/LAT LEFT (AK,FL,ME) RADEX HIP UNILATERAL WITH PELVIS 2-3 VIEWS Hubert Ulloa APRN.CNP [address] [place] [address] Xr Imaging Referral ID Status Reason Start Date Expiration Date V isits Requested Visits Authorized [id number] Closed Auto-Generate d Referral 07/02/2022 08/01/2023 1 1 [facility] for referral (narrative)* Diagnostic Procedure Only (Routine) - Pending Review Specialty Diagnoses / Procedures Referred By Contac t Referred To Contact XR IMAGING Diagnoses Left knee pain, unspecified chronicity Procedures XR KNEE GENERAL 4V AP BOTH/PA BOTH/LAT/MERC LEFT RADIOLOGIC EXAM KNEE COMPLETE 4/MORE VIEWS Hubert Ulloa APRN.CNP [address] [place] [address] Xr Imaging Referral ID Status Reason Start Date Expiration Date Visits Requested Visits Authorized [id number] Pending Review Auto-Generat ed Referral 04/11/2023 05/09/2024 1 1 * Diagnostic Procedure Only (Routine) - Pending Review Specialty Diagnoses / Procedures Referred By Contac t Referred To Contact XR IMAGING Diagnoses Pain in left hip Procedures XR HIP 2V AP/LAT LEFT (AK,FL,ME) RADEX HIP UNILATERAL WITH PELVIS 2-3 VIEWS Grater, Hubert, [employer]IP[employer] [address] [place] [id number] Xr Imaging Referral ID Status Reason Start Date Expiration Date Visits Requested Visits Authorized [id number] Pending Review Auto-Generat ed Referral 04/11/2023 05/09/2024 1 1 [facility] for visit Narrative* Diagnostic Procedure Only (Routine) - Closed Specialty Diagnoses / Procedures Referred By Contac t Referred To Contact XR IMAGING Diagnoses Chronic pain of right knee Procedures XR KNEE POST OP 3V AP/LAT/MERCHANT RIGHT RADIOLOGIC EXAMINATION KNEE 3 VIEWS Hubert Ulloa APRN.[employer] [address] [place] [address] Xr Imaging Referral ID Status Reason Start Date Expiration Date V isits Requested Visits Authorized [id number] Closed Auto-Generate d Referral 01/18/2022 02/17/2023 1 1 [facility] for visit Narrative* Diagnostic Procedure Only (Routine) - Closed Specialty Diagnoses / Procedures Referred By Contac t Referred To Contact XR IMAGING Diagnoses Pain Procedures XR KNEE GENERAL 4V AP BOTH/PA BOTH/LAT/MERC LEFT RADIOLOGIC EXAM KNEE COMPLETE 4/MORE VIEWS Hubert Ulloa APRN.[employer] [address] [place] [address] Xr Imaging Referral ID Status Reason Start Date Expiration Date V isits Requested Visits Authorized [id number] Closed Auto-Generate d Referral 03/29/2022 04/27/2023 1 1 [facility] for visit Narrative* Diagnostic Procedure Only (Routine) - Closed Specialty Diagnoses / Procedures Referred By Contac t Referred To Contact XR IMAGING Diagnoses Pain in left hip Procedures XR HIP 2V AP/LAT LEFT (AK,FL,ME) RADEX HIP UNILATERAL WITH PELVIS 2-3 VIEWS Hubert Ulloa APRN.[employer] [address] [place], [place] [id number] Xr Imaging Referral ID Status Reason Start Date Expiration Date V isits Requested Visits Authorized [id number] Closed Auto-Generate d Referral 07/02/2022 08/01/2023 1 1 [facility] Reason for Referral Status Reason Specialty Diagnoses / Procedures Referred By Contact Referred To Contact Pending Review Auto-Generate d Referral [facility] Diagnoses Pain of left hand Procedures 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 Angelo Balbuena, PT [address] [place] [address] [facility] [address] [place] [address] Referral ID Status Reason Start Date Expiration Date V isits Requested Visits Authorized [id number] Closed PCP Requested Referral Auto-Generated Referral 02/06/2022 05/07/2022 0 0 Specialty Diagnoses / Procedures Referred By Contac t Referred To Contact MR IMAGING Diagnoses Pain in hip Procedures MRI HIP WO IVCON LT MRI ANY JT LOWER EXTREM W/O CONTRAST Netta Fiore MD [address] [address] Mr Imaging Referral ID Status Reason Start Date Expiration Date Visits Requested Visits Authorized [id number] Additional Clinical Info Needed Auto-Generat ed Referral 04/17/2022 05/17/2023 1 1 Specialty Diagnoses / Procedures Referred By Contac t Referred To Contact CT IMAGING Diagnoses Presence of left artificial hip joint Preop examination Procedures CT HIP WO IVCON LT CT LOWER EXTREMITY W/O CONTRAST MATERIAL Hubert Ulloa APRN.[employer] [address] [address] [address] Imaging Referral ID Status Reason Start Date Expiration Date V isits Requested Visits Authorized [id number] Closed Auto-Generate d Referral 06/04/2022 07/04/2022 1 1 Specialty Diagnoses / Procedures Referred By Contac t Referred To Contact CT IMAGING Diagnoses Chronic pain of left knee Procedures CT KNEE WO IVCON LT CT LOWER EXTREMITY W/O CONTRAST MATERIAL Netta Hoff MD [address] [address] [address] Imaging Referral ID Status Reason Start Date Expiration Date Visits Requested Visits Authorized [id number] Pending Review Auto-Generat ed Referral 2 09/06/2023 1 1 Specialty Diagnoses / Procedures Referred By Contac t Referred To Contact MR IMAGING Diagnoses Encounter for observation for other suspected diseases and conditions ruled out Procedures MRI UPPER LEG WO IVCON LEFT MRI LOWER EXTREM OTH/THN JT W/O CONTR MATRL Netta Hoff MD [address] [address] Mr Imaging Referral ID Status Reason Start Date Expiration Date Visits Requested Visits Authorized [id number] Authorized Auto-Generat ed Referral 05/02/2023 05/31/2024 1 1 Advance Directives Documents on File Type Date Recorded Patient Voicer Expl anation Advance Directive(s) 11/22/2021 7:09 AM Advance Directive(s) 10/25/2021 3:27 PM Latest Code Status on File Code Status Date Activated Date Inactivated Comments Full Code 11/24/2021 4:59 PM Documents on File Type Date Recorded Patient Voicer Expl anation Advance Directive(s) 11/22/2021 7:09 AM Advance Directive(s) 10/25/2021 3:27 PM Latest Code Status on File Code Status Date Activated Date Inactivated Comments Full Code 11/24/2021 4:59 PM Latest Code Status on File Code Status Date Activated Date Inactivated Comments Full Code 11/24/2021 4:59 PM 06/25/2022 9:12 AM Latest Code Status on File Code Status Date Activated Date Inactivated Comments Full Code 06/27/2022 2:53 PM Full Code 11/24/2021 4:59 PM 06/25/2022 9:12 AM Latest Code Status on File Code Status Date Activated Date Inactivated Comments Full Code 06/27/2022 2:53 PM Full Code 11/24/2021 4:59 PM 06/25/2022 9:12 AM Latest Code Status on File Code Status Date Activated Date Inactivated Comments Full Code 06/27/2022 2:53 PM Code Status History Code Status Date Activated Date Inactivated Comments Full Code 11/24/2021 4:59 PM 06/25/2022 9:12 AM Latest Code Status on File Code Status Date Activated Date Inactivated Comments Full Code 06/27/2022 2:53 PM Code Status History Code Status Date Activated Date Inactivated Comments Full Code 11/24/2021 4:59 PM 06/25/2022 9:12 AM Health Concerns Infection Onset Date Last Indicated Resolved Time COVID-19 Rule-Out 11/27/2022 11/27/2022 Summary Purpose Family History No Family History Records FoundNo Family History Records FoundNo Family History Records Found Additional Source Comments Source Comments (unrecognize d section and content) In the event this informatio n is protected by the Federal Confidentiality of Alcohol and Drug Abuse Patient Records regulations: The Federal rules restrict any use of the information to criminally investigate or prosecute any alcohol or drug abuse patient.[facility] AdministrationIn the event this information is protected by the Federal Confidentiality of Alcohol and Drug Abuse Patient Records regulations: The Federal rules restrict any use of the information to criminally investigate or prosecute any alcohol or drug abuse patient.[facility] AdministrationIn the event this information is protected by the Federal Confidentiality of Alcohol and Drug Abuse Patient Records regulations: The Federal rules restrict any use of the information to criminally investigate or prosecute any alcohol or drug abuse patient.[facility] AdministrationIn the event this information is protected by the Federal Confidentiality of Alcohol and Drug Abuse Patient Records regulations: The Federal rules restrict any use of the information to criminally investigate or prosecute any alcohol or drug abuse patient.[facility] AdministrationIn the event this information is protected by the Federal Confidentiality of Alcohol and Drug Abuse Patient Records regulations: The Federal rules restrict any use of the information to criminally investigate or prosecute any alcohol or drug abuse patient.[facility] AdministrationIn the event this information is protected by the Federal Confidentiality of Alcohol and Drug Abuse Patient Records regulations: The Federal rules restrict any use of the information to criminally investigate or prosecute any alcohol or drug abuse patient.[facility] AdministrationIn the event this information is protected by the Federal Confidentiality of Alcohol and Drug Abuse Patient Records regulations: The Federal rules restrict any use of the information to criminally investigate or prosecute any alcohol or drug abuse patient.[facility] AdministrationIn the event this information is protected by the Federal Confidentiality of Alcohol and Drug Abuse Patient Records regulations: The Federal rules restrict any use of the information to criminally investigate or prosecute any alcohol or drug abuse patient.[facility] AdministrationIn the event this information is protected by the Federal Confidentiality of Alcohol and Drug Abuse Patient Records regulations: The Federal rules restrict any use of the information to criminally investigate or prosecute any alcohol or drug abuse patient.[facility] AdministrationIn the event this information is protected by the Federal Confidentiality of Alcohol and Drug Abuse Patient Records regulations: The Federal rules restrict any use of the information to criminally investigate or prosecute any alcohol or drug abuse patient.[facility] AdministrationIn the event this information is protected by the Federal Confidentiality of Alcohol and Drug Abuse Patient Records regulations: The Federal rules restrict any use of the information to criminally investigate or prosecute any alcohol or drug abuse patient.[facility] AdministrationIn the event this information is protected by the Federal Confidentiality of Alcohol and Drug Abuse Patient Records regulations: The Federal rules restrict any use of the information to criminally investigate or prosecute any alcohol or drug abuse patient.[facility] AdministrationIn the event this information is protected by the Federal Confidentiality of Alcohol and Drug Abuse Patient Records regulations: The Federal rules restrict any use of the information to criminally investigate or prosecute any alcohol or drug abuse patient.[facility] AdministrationIn the event this information is protected by the Federal Confidentiality of Alcohol and Drug Abuse Patient Records regulations: The Federal rules restrict any use of the information to criminally investigate or prosecute any alcohol or drug abuse patient.[facility] AdministrationIn the event this information is protected by the Federal Confidentiality of Alcohol and Drug Abuse Patient Records regulations: The Federal rules restrict any use of the information to criminally investigate or prosecute any alcohol or drug abuse patient.[facility] AdministrationIn the event this information is protected by the Federal Confidentiality of Alcohol and Drug Abuse Patient Records regulations: The Federal rules restrict any use of the information to criminally investigate or prosecute any alcohol or drug abuse patient.[facility] AdministrationIn the event this information is protected by the Federal Confidentiality of Alcohol and Drug Abuse Patient Records regulations: The Federal rules restrict any use of the information to criminally investigate or prosecute any alcohol or drug abuse patient.[facility] AdministrationIn the event this information is protected by the Federal Confidentiality of Alcohol and Drug Abuse Patient Records regulations: The Federal rules restrict any use of the information to criminally investigate or prosecute any alcohol or drug abuse patient.[facility] AdministrationIn the event this information is protected by the Federal Confidentiality of Alcohol and Drug Abuse Patient Records regulations: The Federal rules restrict any use of the information to criminally investigate or prosecute any alcohol or drug abuse patient.[facility] AdministrationIn the event this information is protected by the Federal Confidentiality of Alcohol and Drug Abuse Patient Records regulations: The Federal rules restrict any use of the information to criminally investigate or prosecute any alcohol or drug abuse patient.[facility] AdministrationIn the event this information is protected by the Federal Confidentiality of Alcohol and Drug Abuse Patient Records regulations: The Federal rules restrict any use of the information to criminally investigate or prosecute any alcohol or drug abuse patient.[facility] AdministrationIn the event this information is protected by the Federal Confidentiality of Alcohol and Drug Abuse Patient Records regulations: The Federal rules restrict any use of the information to criminally investigate or prosecute any alcohol or drug abuse patient.[facility] AdministrationIn the event this information is protected by the Federal Confidentiality of Alcohol and Drug Abuse Patient Records regulations: The Federal rules restrict any use of the information to criminally investigate or prosecute any alcohol or drug abuse patient.[facility] AdministrationIn the event this information is protected by the Federal Confidentiality of Alcohol and Drug Abuse Patient Records regulations: The Federal rules restrict any use of the information to criminally investigate or prosecute any alcohol or drug abuse patient.[facility] AdministrationIn the event this information is protected by the Federal Confidentiality of Alcohol and Drug Abuse Patient Records regulations: The Federal rules restrict any use of the information to criminally investigate or prosecute any alcohol or drug abuse patient.[facility] AdministrationIn the event this information is protected by the Federal Confidentiality of Alcohol and Drug Abuse Patient Records regulations: The Federal rules restrict any use of the information to criminally investigate or prosecute any alcohol or drug abuse patient.[facility] AdministrationIn the event this information is protected by the Federal Confidentiality of Alcohol and Drug Abuse Patient Records regulations: The Federal rules restrict any use of the information to criminally investigate or prosecute any alcohol or drug abuse patient.[facility] AdministrationIn the event this information is protected by the Federal Confidentiality of Alcohol and Drug Abuse Patient Records regulations: The Federal rules restrict any use of the information to criminally investigate or prosecute any alcohol or drug abuse patient.[facility] AdministrationIn the event this information is protected by the Federal Confidentiality of Alcohol and Drug Abuse Patient Records regulations: The Federal rules restrict any use of the information to criminally investigate or prosecute any alcohol or drug abuse patient.[facility] Health AdministrationIn the event this information is protected by the Federal Confidentiality of Alcohol and Drug Abuse Patient Records regulations: The Federal rules restrict any use of the information to criminally investigate or prosecute any alcohol or drug abuse patient.[facility] Health AdministrationIn the event this information is protected by the Federal Confidentiality of Alcohol and Drug Abuse Patient Records regulations: The Federal rules restrict any use of the information to criminally investigate or prosecute any alcohol or drug abuse patient.[facility] AdministrationIn the event this information is protected by the Federal Confidentiality of Alcohol and Drug Abuse Patient Records regulations: The Federal rules restrict any use of the information to criminally investigate or prosecute any alcohol or drug abuse patient.[facility] AdministrationIn the event this information is protected by the Federal Confidentiality of Alcohol and Drug Abuse Patient Records regulations: The Federal rules restrict any use of the information to criminally investigate or prosecute any alcohol or drug abuse patient.[facility] AdministrationIn the event this information is protected by the Federal Confidentiality of Alcohol and Drug Abuse Patient Records regulations: The Federal rules restrict any use of the information to criminally investigate or prosecute any alcohol or drug abuse patient.[facility] AdministrationIn the event this information is protected by the Federal Confidentiality of Alcohol and Drug Abuse Patient Records regulations: The Federal rules restrict any use of the information to criminally investigate or prosecute any alcohol or drug abuse patient.[facility] AdministrationIn the event this information is protected by the Federal Confidentiality of Alcohol and Drug Abuse Patient Records regulations: The Federal rules restrict any use of the information to criminally investigate or prosecute any alcohol or drug abuse patient.[facility] AdministrationIn the event this information is protected by the Federal Confidentiality of Alcohol and Drug Abuse Patient Records regulations: The Federal rules restrict any use of the information to criminally investigate or prosecute any alcohol or drug abuse patient.[facility] ClinicIn the event this information is protected by the Federal Confidentiality of Alcohol and Drug Abuse Patient Records regulations: The Federal rules restrict any use of the information to criminally investigate or prosecute any alcohol or drug abuse patient.[facility] AdministrationIn the event this information is protected by the Federal Confidentiality of Alcohol and Drug Abuse Patient Records regulations: The Federal rules restrict any use of the information to criminally investigate or prosecute any alcohol or drug abuse patient.[facility] AdministrationIn the event this information is protected by the Federal Confidentiality of Alcohol and Drug Abuse Patient Records regulations: The Federal rules restrict any use of the information to criminally investigate or prosecute any alcohol or drug abuse patient.[facility] AdministrationIn the event this information is protected by the Federal Confidentiality of Alcohol and Drug Abuse Patient Records regulations: The Federal rules restrict any use of the information to criminally investigate or prosecute any alcohol or drug abuse patient.[facility] AdministrationIn the event this information is protected by the Federal Confidentiality of Alcohol and Drug Abuse Patient Records regulations: The Federal rules restrict any use of the information to criminally investigate or prosecute any alcohol or drug abuse patient.[facility] AdministrationIn the event this information is protected by the Federal Confidentiality of Alcohol and Drug Abuse Patient Records regulations: The Federal rules restrict any use of the information to criminally investigate or prosecute any alcohol or drug abuse patient.[facility] AdministrationIn the event this information is protected by the Federal Confidentiality of Alcohol and Drug Abuse Patient Records regulations: The Federal rules restrict any use of the information to criminally investigate or prosecute any alcohol or drug abuse patient.[facility] AdministrationIn the event this information is protected by the Federal Confidentiality of Alcohol and Drug Abuse Patient Records regulations: The Federal rules restrict any use of the information to criminally investigate or prosecute any alcohol or drug abuse patient.[facility] AdministrationIn the event this information is protected by the Federal Confidentiality of Alcohol and Drug Abuse Patient Records regulations: The Federal rules restrict any use of the information to criminally investigate or prosecute any alcohol or drug abuse patient.[facility] AdministrationIn the event this information is protected by the Federal Confidentiality of Alcohol and Drug Abuse Patient Records regulations: The Federal rules restrict any use of the information to criminally investigate or prosecute any alcohol or drug abuse patient.[facility] AdministrationIn the event this information is protected by the Federal Confidentiality of Alcohol and Drug Abuse Patient Records regulations: The Federal rules restrict any use of the information to criminally investigate or prosecute any alcohol or drug abuse patient.[facility] AdministrationIn the event this information is protected by the Federal Confidentiality of Alcohol and Drug Abuse Patient Records regulations: The Federal rules restrict any use of the information to criminally investigate or prosecute any alcohol or drug abuse patient.[facility] AdministrationIn the event this information is protected by the Federal Confidentiality of Alcohol and Drug Abuse Patient Records regulations: The Federal rules restrict any use of the information to criminally investigate or prosecute any alcohol or drug abuse patient.[facility] AdministrationIn the event this information is protected by the Federal Confidentiality of Alcohol and Drug Abuse Patient Records regulations: The Federal rules restrict any use of the information to criminally investigate or prosecute any alcohol or drug abuse patient.[facility] AdministrationIn the event this information is protected by the Federal Confidentiality of Alcohol and Drug Abuse Patient Records regulations: The Federal rules restrict any use of the information to criminally investigate or prosecute any alcohol or drug abuse patient.[facility] AdministrationIn the event this information is protected by the Federal Confidentiality of Alcohol and Drug Abuse Patient Records regulations: The Federal rules restrict any use of the information to criminally investigate or prosecute any alcohol or drug abuse patient.[facility] AdministrationIn the event this information is protected by the Federal Confidentiality of Alcohol and Drug Abuse Patient Records regulations: The Federal rules restrict any use of the information to criminally investigate or prosecute any alcohol or drug abuse patient.[facility] AdministrationIn the event this information is protected by the Federal Confidentiality of Alcohol and Drug Abuse Patient Records regulations: The Federal rules restrict any use of the information to criminally investigate or prosecute any alcohol or drug abuse patient.[facility] AdministrationIn the event this information is protected by the Federal Confidentiality of Alcohol and Drug Abuse Patient Records regulations: The Federal rules restrict any use of the information to criminally investigate or prosecute any alcohol or drug abuse patient.[facility] AdministrationIn the event this information is protected by the Federal Confidentiality of Alcohol and Drug Abuse Patient Records regulations: The Federal rules restrict any use of the information to criminally investigate or prosecute any alcohol or drug abuse patient.[facility] AdministrationIn the event this information is protected by the Federal Confidentiality of Alcohol and Drug Abuse Patient Records regulations: The Federal rules restrict any use of the information to criminally investigate or prosecute any alcohol or drug abuse patient.[facility] AdministrationIn the event this information is protected by the Federal Confidentiality of Alcohol and Drug Abuse Patient Records regulations: The Federal rules restrict any use of the information to criminally investigate or prosecute any alcohol or drug abuse patient.[facility] AdministrationIn the event this information is protected by the Federal Confidentiality of Alcohol and Drug Abuse Patient Records regulations: The Federal rules restrict any use of the information to criminally investigate or prosecute any alcohol or drug abuse patient.[facility] AdministrationIn the event this information is protected by the Federal Confidentiality of Alcohol and Drug Abuse Patient Records regulations: The Federal rules restrict any use of the information to criminally investigate or prosecute any alcohol or drug abuse patient.[facility] Reason for Visit (unrecogniz ed section and content) Reason Comments Refill Request Reason Comments Physical Therapy Specialty Diagnoses / Procedures Referred By Contac t Referred To Contact PHYSICAL THERAPY Diagnoses Status post right knee replacement Stiffness of right knee Procedures CONSULT TO PHYSICAL THERAPY PHYSICAL THERAPY EVALUATION HIGH COMPLEX 45 MINS THERAPEUTIC EXERCISES RE, EA 15 MIN. [place] [address] [facility] [address] [place] [address] Referral ID Status Reason Start Date Expiration Date Visits Requested Visits Authorized [id number] Authorized Auto-Generat ed Referral 09/23/2021 09/22/2022 20 20 Reason Comments Knee Pain DOS:11/22/21 Established Patient DOS:11/22/21 Post Op DOS:11/22/21 Knee Replacement DOS:11/22/21 Follow Up DOS:11/22/21 Reason Comments Established Patient DOS:11/22/21 Follow Up DOS:11/22/21 Post Op DOS:11/22/21 Knee Replacement DOS:11/22/21 Reason Comments Physical Therapy Specialty Diagnoses / Procedures Referred By Contac t Referred To Contact PHYSICAL THERAPY Diagnoses Status post right knee replacement Stiffness of right knee Procedures CONSULT TO PHYSICAL THERAPY PHYSICAL THERAPY EVALUATION HIGH COMPLEX 45 MINS THERAPEUTIC EXERCISES RE, EA 15 MIN. Hubert Ulloa APRN.[address] [address] [facility] [address] [place] [address] Reason Comments Follow Up Knee Replacement Pre-Op Visit Reason Comments Appointment Reason Comments Pre-Op Teaching Reason Comments Appointment Pre-op CT scan for r obotic surgery Reason Comments Consult Specialty Diagnoses / Procedures Referred By Mai t Referred To Contact CT IMAGING Diagnoses Presence of left artificial hip joint Preop examination Procedures CT HIP WO IVCON LT CT LOWER EXTREMITY W/O CONTRAST MATERIAL Hubert Ulloa APRN.[employer] [address] [address] [address] Imaging Referral ID Status Reason Start Date Expiration Date V isits Requested Visits Authorized [id number] Closed Auto-Generate d Referral 06/04/2022 07/04/2022 1 1 Reason Comments Home Care Confirmation Call Reason Onset Date Comments Refill Request 06/29/2022 Specialty Diagnoses / Procedures Referred By Mai t Referred To Contact HOME CARE SERVICES [facility] Home Care [address] [place] [id number] Referral ID Status Reason Start Date Expiration Date Visits Re quested Visits Authorized [id number] 1 1 Reason Comments Home Care Bandage removal Reason Comments Established Patient Follow Up Post Op Hip Replacement Reason Onset Date Comments Refill Request 07/10/2022 Reason Comments Post Op Hip Replacement Reason Comments Appointment Reason Onset Date Comments Refill Request 09/07/2022 Reason Onset Date Comments Refill Request 11/08/2022 Reason Onset Date Comments Refill Request 12/05/2022 Reason Onset Date Comments Refill Request 12/20/2022 Reason Onset Date Comments Refill Request 01/07/2023 Reason Onset Date Comments Refill Request 02/05/2023 Reason Onset Date Comments Refill Request 04/06/2023 Reason Comments Follow Up Hip Replacement Pain Reason Onset Date Comments Refill Request 05/09/2023 Specialty Diagnoses / Procedures Referred By Albaac t Referred To Contact MR IMAGING Diagnoses Encounter for observation for other suspected diseases and conditions ruled out Procedures MRI UPPER LEG WO IVCON LEFT MRI LOWER EXTREM OTH/THN JT W/O CONTR Netta Fiore MD [address] [place] [address] [place] [address] Referral ID Status Reason Start Date Expiration Date V isits Requested Visits Authorized [id number] Closed Auto-Generate d Referral 05/02/2023 05/31/2024 1 1 Reason Onset Date Comments Refill Request 06/06/2023 Reason Onset Date Comments Refill Request 08/09/2023 Reason Onset Date Comments Refill Request 08/26/2023 Reason Onset Date Comments Refill Request 08/23/2023 Care Teams (unrecognized sec tion and content) Hadoop Engineer Relationship Specialty Start Date End Date Cristian Robertson MD PCP - General Family Practice 03/25/14 Nikhil Starkey, [facility] [address] [place] [address] Specialty Waste Reduction Coordinator Orthopedics 09/12/21 12/31/21 Netta Hoff MD [address] [place] [address] Home Care Physician Orthopedics 11/23/21 Hubert Ulloa, EQUIPMENT OPERATOR [employer] [address] [address] Referring Orthopedics 11/23/21 Hadoop Engineer Relationship Specialty Start Date End Date Cristian Robertson MD PCP - General Family Practice 03/25/14 Netta Hoff MD [address] [address] Home Care Physician Orthopedics 11/23/21 Hubert Ulloa, EQUIPMENT OPERATOR [employer] [address] [address] Referring Orthopedics 11/23/21 Hadoop Engineer Relationship Specialty Start Date End Date Cristian Robertson MD PCP - General Family Practice 03/25/14 Netta Hoff MD [address] [address] Home Care Physician Orthopedics 11/23/21 Hubert Ulloa, EQUIPMENT OPERATOR [employer] [address] [place] [address] Referring Orthopedics 11/23/21 Hadoop Engineer Relationship Specialty Start Date End Date Cristian Robertson MD PCP - General Family Practice 03/25/14 Netta Hoff MD [address] [place] [address] Home Care Physician Orthopedics 11/23/21 Hubert Ulloa, EQUIPMENT OPERATOR [employer].[address] [address] Referring Orthopedics 11/23/21 Hadoop Engineer Relationship Specialty Start Date End Date Cristian Robertson MD PCP - General Family Practice 03/25/14 Netta Hoff MD [address] [place] [address] Home Care Physician Orthopedics 11/23/21 Hubert Ulloa, EQUIPMENT OPERATOR [employer].[address] [address] Referring Orthopedics 11/23/21 Hadoop Engineer Relationship Specialty Start Date End Date Cristian Robertson MD PCP - General Family Practice 03/25/14 Netta Hoff MD [address] [place] [address] Home Care Physician Orthopedics 11/23/21 Hubert Ulloa, EQUIPMENT OPERATOR [employer] [address] [place] [address] Referring Orthopedics 11/23/21 Hadoop Engineer Relationship Specialty Start Date End Date Cristian Robertson MD PCP - General Family Practice 03/25/14 Netta Hoff MD [address] [place] [address] Home Care Physician Orthopedics 11/23/21 Hubert Ulloa, EQUIPMENT OPERATOR [employer] [address] [place] [address] Referring Orthopedics 11/23/21 Hadoop Engineer Relationship Specialty Start Date End Date Cristian Robertson MD PCP - General Family Practice 03/25/14 Netta Hoff MD [address] [place] [address] Home Care Physician Orthopedics 11/23/21 Hubert Ulloa, EQUIPMENT OPERATOR [employer] [address] [place] [address] Referring Orthopedics 11/23/21 Hadoop Engineer Relationship Specialty Start Date End Date Cristian Robertson MD PCP - General Family Practice 03/25/14 Netta Hoff MD [address] [place] [address] Home Care Physician Orthopedics 11/23/21 Hubert Ulloa, EQUIPMENT OPERATOR [employer] [address] [place] [address] Referring Orthopedics 11/23/21 Hadoop Engineer Relationship Specialty Start Date End Date Cristian Robertson MD PCP - General Family Practice 03/25/14 Netta Hoff MD [address] [address] Home Care Physician Orthopedics 11/23/21 Hubert Ulloa, EQUIPMENT OPERATOR [employer] [address] [place] [address] Referring Orthopedics 11/23/21 Hadoop Engineer Relationship Specialty Start Date End Date Cristian Robertson MD PCP - General Family Practice 03/25/14 Netta Hoff MD [address] [place] [address] Home Care Physician Orthopedics 11/23/21 Hubert Ulloa, EQUIPMENT OPERATOR [employer] [address] [place] [address] Referring Orthopedics 11/23/21 Hadoop Engineer Relationship Specialty Start Date End Date Cristian Robertson MD PCP - General Family Practice 03/25/14 Netta Hoff MD [address] [address] Home Care Physician Orthopedics 11/23/21 Hubert Ulloa, EQUIPMENT OPERATOR [employer] [address] [address] Referring Orthopedics 11/23/21 Hadoop Engineer Relationship Specialty Start Date End Date Cristian Robertson MD PCP - General Family Practice 03/25/14 Netta Hoff MD [address] [place] [address] Home Care Physician Orthopedics 11/23/21 Hubert Ulloa, EQUIPMENT OPERATOR [employer] [address] [address] Referring Orthopedics 11/23/21 Hadoop Engineer Relationship Specialty Start Date End Date Cristian Robertson MD PCP - General Family Practice 03/25/14 Netta Hoff MD [address] [address] Home Care Physician Orthopedics 11/23/21 Hubert Ulloa, EQUIPMENT OPERATOR [employer] [address] [address] Referring Orthopedics 11/23/21 Hadoop Engineer Relationship Specialty Start Date End Date Cristian Robertson MD PCP - General Family Practice 03/25/14 Nikhil Starkey, [facility] [address] [place] [address] Specialty Waste Reduction Coordinator Orthopedics 09/12/21 08/07/22 Netta Hoff MD [address] [address] Home Care Physician Orthopedics 11/23/21 Hubert Ulloa, EQUIPMENT OPERATOR [employer] [address] [address] Referring Orthopedics 11/23/21 Hadoop Engineer Relationship Specialty Start Date End Date Cristian Robertson MD PCP - General Family Practice 03/25/14 Nikhil Starkey, [facility] [address] [place] [address] Specialty Waste Reduction Coordinator Orthopedics 09/12/21 08/07/22 Netta Hoff MD [address] [address] Home Care Physician Orthopedics 11/23/21 Hubert Ulloa, EQUIPMENT OPERATOR [employer] [address] [address] Referring Orthopedics 11/23/21 Hadoop Engineer Relationship Specialty Start Date End Date Cristian Robertson MD PCP - General Family Practice 03/25/14 Nikhil Starkey, [facility] [address] [place] [address] Specialty Waste Reduction Coordinator Orthopedics 09/12/21 08/07/22 Netta Hoff MD [address] [address] Home Care Provider Orthopedics 11/23/21 Hubert Ulloa, EQUIPMENT OPERATOR [employer] [address] [address] Referring Orthopedics 11/23/21 Hadoop Engineer Relationship Specialty Start Date End Date Cristian Robertson MD PCP - General Family Practice 03/25/14 Nikhil Starkey, [facility] [address] [place] [address] Specialty Waste Reduction Coordinator Orthopedics 09/12/21 08/07/22 Netta Hoff MD [address] [address] Home Care Provider Orthopedics 11/23/21 Hubert Ulloa, EQUIPMENT OPERATOR WAGE [employer] [address] [address] Referring Orthopedics 11/23/21 Hadoop Engineer Relationship Specialty Start Date End Date Cristian Robertson MD PCP - General Family Medicine 03/25/14 Nikhil Starkey, [facility] [address] [place] [address] Specialty Waste Reduction Coordinator Orthopedics 09/12/21 08/07/22 Netta Hoff MD [address] [address] Home Care Provider Orthopedics 06/26/22 Hubert Ulloa, BRODY[employer] [address] [address] Referring Orthopedics 06/26/22 Hadoop Engineer Relationship Specialty Start Date End Date Cristian Robertson MD PCP - General Family Medicine 03/25/14 Nikhil Starkey, [facility] [address] [place] [address] Specialty Waste Reduction Coordinator Orthopedics 09/12/21 08/07/22 Netta Hoff MD [address] [address] Home Care Provider Orthopedics 06/26/22 Hubert Ulloa, BRODY[employer] [address] [address] Referring Orthopedics 06/26/22 Carlene Platt, PT [address] [place] [address] Director Project Management Post Acute Care 06/26/22 Hadoop Engineer Relationship Specialty Start Date End Date Cristian Robertson MD PCP - General Family Medicine 03/25/14 Nikhil Starkey, [facility] [address] [place] [address] Specialty Waste Reduction Coordinator Orthopedics 09/12/21 08/07/22 Netta Hoff MD [address] [address] Home Care Provider Orthopedics 06/26/22 Hubert Ulloa, BRODY[employer] [address] [address] Referring Orthopedics 06/26/22 Carlene Platt, PT [address] [place] [address] Director Project Management Post Acute Care 06/26/22 Hadoop Engineer Relationship Specialty Start Date End Date Cristian Robertson MD PCP - General Family Medicine 03/25/14 Nikhil Starkey, [facility] [address] [place] [address] Specialty Waste Reduction Coordinator Orthopedics 09/12/21 08/07/22 Netta Hoff MD [address] [address] Home Care Provider Orthopedics 06/26/22 Hubert Ulloa, EQUIPMENT OPERATOR WAGE HAND.[employer] [address] [address] Referring Orthopedics 06/26/22 Carlene Platt, PT [address] [place] [place] [address] Director Project Management Post Acute Care 06/26/22 Hadoop Engineer Relationship Specialty Start Date End Date Cristian Robertson MD PCP - General Family Medicine 03/25/14 Nikhil Starkey, [facility] [address] [place] [address] Specialty Waste Reduction Coordinator Orthopedics 09/12/21 08/07/22 Netta Hoff MD [address] [address] Home Care Provider Orthopedics 06/26/22 Hubert Ulloa, EQUIPMENT OPERATOR WAGE HAND.[employer] [address] [address] Referring Orthopedics 06/26/22 Carlene Platt, PT [address] [place] [address] Director Project Management Post Acute Care 06/26/22 Hadoop Engineer Relationship Specialty Start Date End Date Cristian Robertson MD PCP - General Family Medicine 03/25/14 Nikhil Starkey, [facility] [address] [place] [address] Specialty Waste Reduction Coordinator Orthopedics 09/12/21 08/07/22 Netta Hoff MD [address] [address] Home Care Provider Orthopedics 06/26/22 Hubert Ulloa, EQUIPMENT OPERATOR WAGE [employer] [address] [address] Referring Orthopedics 06/26/22 Carlene Platt, PT [address] [place] [address] Director Project Management Post Acute Care 06/26/22 Hadoop Engineer Relationship Specialty Start Date End Date Cristian Robertson MD PCP - General Family Medicine 03/25/14 Nikhil Starkey, [facility] [address] [place] [address] Specialty Waste Reduction Coordinator Orthopedics 09/12/21 08/07/22 Netta Hoff MD [address] [address] Home Care Provider Orthopedics 06/26/22 Hubert Ulloa, EQUIPMENT OPERATOR WAGE [employer] [address] [address] Referring Orthopedics 06/26/22 Carlene Platt, PT [address] [place] [address] Director Project Management Post Acute Care 06/26/22 Hadoop Engineer Relationship Specialty Start Date End Date Cristian Robertson MD PCP - General Family Medicine 03/25/14 Nikhil Starkey, [facility] [address] [place] [address] Specialty Waste Reduction Coordinator Orthopedics 09/12/21 08/07/22 Netta Hoff MD [address] [address] Home Care Provider Orthopedics 06/26/22 Hubert Ulloa, EQUIPMENT OPERATOR WAGE [employer] [employer] [address] [address] Referring Orthopedics 06/26/22 Carlene Platt, PT [address] [place] [address] Director Project Management Post Acute Care 06/26/22 Hadoop Engineer Relationship Specialty Start Date End Date Cristain Robertson MD PCP - General Family Medicine 03/25/14 Nikhil Starkey, PSS [facility] [address] [place] [address] Specialty Waste Reduction Coordinator Orthopedics 09/12/21 08/07/22 Netta Hoff MD [address] [address] Home Care Provider Orthopedics 06/26/22 Hubert Ulloa, EQUIPMENT OPERATOR [employer] [address] [address] Referring Orthopedics 06/26/22 Carlene Platt, PT [address] [place] [address] Director Project Management Post Acute Care 06/26/22 Hadoop Engineer Relationship Specialty Start Date End Date Cristian Robertson MD PCP - General Family Medicine 03/25/14 Nikhil Starkey, P[facility] [address] [place] [address] Specialty Waste Reduction Coordinator Orthopedics 09/12/21 08/07/22 Netta Hoff MD [address] [address] Home Care Provider Orthopedics 06/26/22 Hubert Ulloa APRN.[employer] [address] [address] Referring Orthopedics 06/26/22 Carlene Platt, PT [address] [facility] [place] [address] Director Project Management Post Acute Care 06/26/22 Hadoop Engineer Relationship Specialty Start Date End Date Cristian Robertson MD PCP - General Family Medicine 03/25/14 Nikhil Starkey, [facility] [address] [place] [address] Specialty Waste Reduction Coordinator Orthopedics 09/12/21 08/07/22 Netta Hoff MD [address] [address] Home Care Provider Orthopedics 06/26/22 Hubert Ulloa APRN.[employer] [address] [address] Referring Orthopedics 06/26/22 Carlene Platt, PT [address] [place] [address] Director Project Management Post Acute Care 06/26/22 Hadoop Engineer Relationship Specialty Start Date End Date Cristian Robertson MD PCP - General Family Medicine 03/25/14 Nikhil Starkey, [facility] [address] [place] [address] Specialty Waste Reduction Coordinator Orthopedics 09/12/21 08/07/22 Netta Hoff MD [address] [address] Home Care Provider Orthopedics 06/26/22 Hubert Ulloa APRN.[employer] [address] [address] Referring Orthopedics 06/26/22 Carlene Platt, PT [address] [place] [address] Director Project Management Post Acute Care 06/26/22 Hadoop Engineer Relationship Specialty Start Date End Date Cristian Robertson MD PCP - General Family Medicine 03/25/14 Nikhil Starkey, P[facility] [address] [place] [address] Specialty Waste Reduction Coordinator Orthopedics 09/12/21 08/07/22 Netta Hoff MD [address] [address] Home Care Provider Orthopedics 06/26/22 Hubert Ulloa, EQUIPMENT OPERATOR [employer] [address] [address] Referring Orthopedics 06/26/22 Carlene Platt, PT [address] [place] [address] Director Project Management Post Acute Care 06/26/22 Hadoop Engineer Relationship Specialty Start Date End Date Cristian Robertson MD PCP - General Family Medicine 03/25/14 Nikhil Starkey, [facility] [address] [place] [address] Specialty Waste Reduction Coordinator Orthopedics 09/12/21 12/15/22 Netta Hoff MD [address] [address] Home Care Provider Orthopedics 06/26/22 Hubert Ulloa, EQUIPMENT OPERATOR [employer] [address] [address] Referring Orthopedics 06/26/22 Carlene Platt, PT [address] [place] [address] Director Project Management Post Acute Care 06/26/22 Hadoop Engineer Relationship Specialty Start Date End Date Cristian Robertson MD PCP - General Family Medicine 03/25/14 Nikhil Starkey, [facility] [address] [place] [address] Specialty Waste Reduction Coordinator Orthopedics 09/12/21 12/15/22 Netta Hoff MD [address] [address] Home Care Provider Orthopedics 06/26/22 Hubert Ulloa, BRODY.[employer] [address] [address] Referring Orthopedics 06/26/22 Carlene Platt, PT [address] [place] [place] [address] Director Project Management Post Acute Care 06/26/22 Hadoop Engineer Relationship Specialty Start Date End Date Cristian Robertson MD PCP - General Family Medicine 03/25/14 Nikhil Starkey, [facility] [address] [place] [address] Specialty Waste Reduction Coordinator Orthopedics 09/12/21 12/15/22 Netta Hoff MD [address] [address] Home Care Provider Orthopedics 06/26/22 Hubert Ulloa, EQUIPMENT OPERATOR [employer] [address] [address] Referring Orthopedics 06/26/22 Carlene Platt, PT [address] [place] [place] [address] Director Project Management Post Acute Care 06/26/22 Hadoop Engineer Relationship Specialty Start Date End Date Cristian Robertson MD PCP - General Family Medicine 03/25/14 Nikhil Starkey [facility] [address] [place] [address] Specialty Waste Reduction Coordinator Orthopedics 09/12/21 12/15/22 Netta Hoff MD [address] [address] Home Care Provider Orthopedics 06/26/22 Hubert Ulloa, EQUIPMENT OPERATOR [employer] [address] [place] [address] Referring Orthopedics 06/26/22 Carlene Platt, PT [address] [place] [address] Director Project Management Post Acute Care 06/26/22 Hadoop Engineer Relationship Specialty Start Date End Date Cristian Robertson MD PCP - General Family Medicine 03/25/14 Netta Hoff MD [address] [address] Home Care Provider Orthopedics 06/26/22 Hubert Ulloa, EQUIPMENT OPERATOR [employer] [address] [place] [address] Referring Orthopedics 06/26/22 Carlene Platt, PT [address] [place] [address] Director Project Management Post Acute Care 06/26/22 Hadoop Engineer Relationship Specialty Start Date End Date Cristian Robertson MD PCP - General Family Medicine 03/25/14 Netta Hoff MD [address] [address] Home Care Provider Orthopedics 06/26/22 Hubert Ulloa, EQUIPMENT OPERATOR [employer] [address] [place] [address] Referring Orthopedics 06/26/22 Carlene Platt, PT [address] [place] [address] Director Project Management Post Acute Care 06/26/22 Hadoop Engineer Relationship Specialty Start Date End Date Cristian Robertson MD PCP - General Family Medicine 03/25/14 Netta Hoff MD [address] [place] [address] Home Care Provider Orthopedics 06/26/22 Hubert Ulloa, EQUIPMENT OPERATOR [employer] [address] [place] [address] Referring Orthopedics 06/26/22 Carlene Platt, PT [address] [place] [address] Director Project Management Post Acute Care 06/26/22 Hadoop Engineer Relationship Specialty Start Date End Date Cristian Robertson MD PCP - General Family Medicine 03/25/14 Netta Hoff MD [address] [place] [address] Home Care Provider Orthopedics 06/26/22 Hubert Ulloa APRN.[employer] [address] [place] [address] Referring Orthopedics 06/26/22 Carlene Platt, PT [address] [place] [address] Director Project Management Post Acute Care 06/26/22 Hadoop Engineer Relationship Specialty Start Date End Date Cristian Robertson MD PCP - General Family Medicine 03/25/14 Netta Hoff MD [address] [place] [address] Home Care Provider Orthopedics 06/26/22 Hubert Ulloa, EQUIPMENT OPERATOR [employer] [address] [place] [address] Referring Orthopedics 06/26/22 Carlene Platt, PT [address] [place] [address] Director Project Management Post Acute Care 06/26/22 Hadoop Engineer Relationship Specialty Start Date End Date Cristian Robertson MD PCP - General Family Medicine 03/25/14 Netta Hoff MD [address] [place] [address] Home Care Provider Orthopedics 06/26/22 Hubert Ulloa, EQUIPMENT OPERATOR [employer] [address] [place] [address] Referring Orthopedics 06/26/22 Carlene Platt, PT [address] [place] [address] Director Project Management Post Acute Care 06/26/22 Hadoop Engineer Relationship Specialty Start Date End Date Cristian Robertson MD PCP - General Family Medicine 03/25/14 Netta Hoff MD [address] [place] [address] Home Care Provider Orthopedics 06/26/22 Hubert Ulloa APRN.[employer] [address] [place] [address] Referring Orthopedics 06/26/22 Hadoop Engineer Relationship Specialty Start Date End Date Cristian Robertson MD PCP - General Family Medicine 03/25/14 Netta Hoff MD [address] [place] [address] Home Care Provider Orthopedics 06/26/22 Hubert Ulloa APRN.[employer] [address] [place] [address] Referring Orthopedics 06/26/22 Hadoop Engineer Relationship Specialty Start Date End Date Cristian Robertson MD PCP - General Family Medicine 03/25/14 Netta Hoff MD [address] [place] [address] Home Care Provider Orthopedics 06/26/22 Hubert Ulloa EQUIPMENT OPERATOR [employer] [address] [place] [address] Referring Orthopedics 06/26/22 Hadoop Engineer Relationship Specialty Start Date End Date Cristian Robertson MD PCP - General Family Medicine 03/25/14 Netta Hoff MD [address] [place] [address] Home Care Provider Orthopedics 06/26/22 Hubert Ulloa APRN.[employer] [address] [place] [address] Referring Orthopedics 06/26/22 Hadoop Engineer Relationship Specialty Start Date End Date Cristian Robertson MD PCP - General Family Medicine 03/25/14 Netta Hoff MD [address] [place] [address] Home Care Provider Orthopedics 06/26/22 Hubert Ulloa APRN.[employer] [address] [place] [address] Referring Orthopedics 06/26/22 Hadoop Engineer Relationship Specialty Start Date End Date Cristian Robertson MD PCP - General Family Medicine 03/25/14 Netta Hoff MD [address] [place] [address] Home Care Provider Orthopedics 06/26/22 Hubert Ulloa EQUIPMENT OPERATOR [employer] [address] [place] [address] Referring Orthopedics 06/26/22 (unrecognized sect ion and content) No Status Records FoundNo Status Records FoundNo Status Records Found INFORMATION SOURCE (unrecogn ized section and content) DATE CREATED AUTHOR AUTHOR'S ORGANIZ ATION 05/04/2023 [facility] DATE CREATED AUTHOR AUTHOR'S ORGANIZ ATION 05/21/2023 [facility] FOR RECORDS PERTAINING TO PATIENTS WHO ARE OR HAVE BEEN ENROLLED IN A CHEMICAL DEPENDENCY/SUBSTANCEABUSE PROGRAM, SOME INFORMATION MAY BE OMITTED. This clinical summary was aggregated from multiple sources. Caution should be exercised in using it in the provision of clinical care. This summary normalizes information from multiple sources, and as a consequence, information in this document may materially change the coding, format and clinical context of patient data. In addition, data may be omitted in some cases. CLINICAL DECISIONS SHOULD BE BASED ON THE PRIMARY CLINICAL RECORDS. [facility], [facility]. provides no warranty or guarantee of the accuracy or completeness of information in this document.
== END | disposition home or self-care (01) ==
PROVIDERS: PCP Family Medicine; Referring Provider Nurse Practitioner; Visit Provider Nurse Practitioner
DX: Z12.5 Encounter for screening for malignant neoplasm of prostate (principal); N20.0 Calculus of kidney
CPT/HCPCS: 36415; 74018; 84153; G0103

== ENCOUNTER → 2024-01-17 | Outpatient (CLI) | payer BC, SELFPAY ==
[2024-01-17 10:26] LABS: Absolute Lymphocyte Count 1.47 X10^3/uL (0.83-4.51); Absolute Neutrophil Count 2.6 X10^3/uL (2.0-7.7); Basophil# 0.03 X10^3/uL; Basophil% 0.7 % (0-1); Eosinophil# 0.11 X10^3/uL; Eosinophils% 2.4 % (0-5); Hematocrit 44.5 % (40-54); Hemoglobin 14.8 g/dL (13.0-16.5); Lymphocyte # 1.47 X10^3/ul (0.83-4.51); Lymphocyte % 32.2 % (19-41); Mean Corp Hgb Conc 33.3 g/dL (32-36); Mean Corpuscular Hgb 30.6 pg (27.0-32.0); Mean Corpuscular Volume 91.9 fL (80-94); Mean Platelet Vol. 10.8 fl (6.2-12.0); Monocyte# 0.31 X10^3/uL; Monocyte% 6.8 % (0-10); NRBC Flagged by Analyzer 0 % (0-5); Neutrophil # 2.64 X10^3/uL (2.7-7.7); Neutrophil % 57.7 % (47-70); Platelet Count 220 K/mm3 (150-450); RBC Distribution Width CV 12.3 % (11.6-14.6); RBC Distribution Width SD 41.8 fl (35.1-43.9); Red Blood Count 4.84 M/mm3 (4.6-6.2); White Blood Count 4.6 K/mm3 (4.4-11.0)
[2024-01-17 10:56] LABS: ALB/GLOB Ratio 1.2 RATIO (0.9-2.4); AST(SGOT) 20 U/L (15-37); Alanine Aminotransfer ALT/SGPT 22 U/L (16-61); Albumin, Serum 3.7 g/dL (3.2-5.0); Alkaline Phosphatase 55 U/L (45-117); Anion Gap 5 (5-15); BUN 20 mg/dL (7-18); BUN/Creat Ratio 21.6 RATIO (10-20); Calcium,Total 9.2 mg/dL (8.5-10.1); Chloride 110 mmol/L (98-107); Cholesterol 188 mg/dL (200); Creatinine, Serum 0.93 mg/dL (0.70-1.30); EST Glomerular Filtration Rate 88 mL/min (>60); Est Glom Filt Rate - Afr Amer 107 mL/min (>60); Glucose 100 mg/dL (74-106); High Density Lipoprotein 67 mg/dL; Protein, Total 6.7 g/dL (6.4-8.2); Sodium Level 140 mmol/L (136-145)
[2024-01-17 12:22] LABS: Hemoglobin A1c 4.9 % (3.8-5.6)
== END | disposition home or self-care (01) ==
LOC: MFPLAB 09:36
PROVIDERS: PCP Family Medicine; Visit Provider Family Medicine
DX: E66.9 Obesity, unspecified (principal)
CPT/HCPCS: 36415; 80053; 82465; 83036; 83718; 85025

== ENCOUNTER 2024-11-06 07:00 | Outpatient (RCR) | payer OTHER, SELFPAY ==
--- NOTE | 2024-09-29 10:31 | HP.PTEVAL ---
Patient's Visit Information Visit Information Visit Information: YONY ALEX is a 59 year old M referred to Physical Therapy by Germain Hoff MD with a diagnosis of L TKA 09/07/24. Date of Evaluation: 09/29/24 Physical Therapist: Angelo Esqueda, PT, ATC Visit Plan Frequency: 2-3x /Week Duration: 4-6 Weeks Plan: L knee PROM/mobs, stretching and strengthening, core stab ex's, bike, and HEP Subjective Subjective: DOS: 09/07/24. Pt had a L TKA performed at that time. Pt reports he had in home therapy for the past couple weeks. Pt reports he feels like he is doing really well at this time. Pt reports he had a R TKA performed in the past, so he kind of knows what to expect. Pt reports he is still having sleep difficulty secondary to pain. Pt notes he has to sleep in a recliner in order to get a good nights sleep at this time. Pt lives in a 2 story house, which he is able to negotiate his stairs one step at a time. 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 Pt reports he lives on a homestead and raises many animals, which his son and have been maintaining. Pt denies tingling or numbness in his L LE at this time. 2/10 pain at rest, 8/10 pain at worst (while trying to sleep) Pain L TKA: Pain Intensity (Out of 10): 2 Pain Intensity Range: 8 Objective Objective: Neuro: B LE sensation is WNL to light touch. Girth: R knee Joint line: 44, 6 above 61 cm; L knee joint line 48, 6' above 61 cm ROM: R knee 0-105 degrees ; L knee 0-5-80 degrees MMT: L knee flex= 24, ext= 33 #F; R knee flex= 50, ext= 51 #F Tu sec Balance/Special Test Scores WOMAC Total Score: 47 WOMAC Percentatge: 51.0500 Goals Goal 1:: Decrease L knee pain x 50% to aid with sleep Goal Time Frame: 4-6 Weeks Goal 2:: Increase L knee ROM x 20 degrees to restore a more normalized gait pattern Goal Time Frame: 4-6 Weeks Goal 3:: Increase L knee strength x 10 #F to aid with stair negotiation Goal Time Frame: 4-6 Weeks Goal 4:: Improve TUG score to under 8 seconds to aid with efficient ambulation Goal Time Frame: 4-6 Weeks Goal 5:: I with HEP Goal Time Frame: 4-6 Weeks Rehabilitation Potential Physical Therapy Diagnosis: Pt has L knee pain, weakness, and limited ROM secondary to L TKA Rehabilitation Potential: Good Anticipated Interventions Patient/Client Instruction: Educate patient on: Condition and Plan of Care For the Purpose of:: To improve self management Therapeutic Exercise to Include: Strength training, Endurance training, Balance training, Flexibilty training, Gait and locomotor training and Dynamic Lumbar Stabilization For the Purpose of:: To decrease pain, To increase ROM and To improve muscle performance and motor function Cryotherapy (ice pack, ice massage): Yes For the Purpose of:: To decrease pain Text: Thank you for the opportunity to evaluate your patient. For Medicare and Medicare HMO plans, please review the plan of care and approve it. It will need to be FAXED BACK to us at [phone] for Medicare purposes. For Medicare only, by signing this I certify the plan of care. Please let me know if there are questions or concerns regarding this plan of care. Physician Signature: Date:
--- NOTE | 2024-11-06 07:41 | HP.PTDCSUM ---
Discharge Summary D/C summary: It has been my pleasure to treat YONY ALEX referred by Germain Hoff MD, with the diagnosis of L TKA 09/07/24 for a total of 11 visit(s). Discharge Date: Please see the following information for a summary of their discharge status. Subjective Subjective: I am ready to be done Pain L TKA: Pain Intensity (Out of 10): 2 Overall Improvement % Improvement: 80 Objective Objective/Function: L knee pain ranges from 2-6/10 L knee MMT: flex= 32, ext= 51 #F L knee ROM: 0-113 degrees Pt is showing excellent progress at this time. Goals Goal 1:: Decrease L knee pain x 50% to aid with sleep Goal Progress: Progressing Goal 2:: Increase L knee ROM x 20 degrees to restore a more normalized gait pattern Goal Progress: Goal Met Goal 3:: Increase L knee strength x 10 #F to aid with stair negotiation Goal Progress: Goal Met Goal 4:: Improve TUG score to under 8 seconds to aid with efficient ambulation Goal Progress: Progressing Goal 5:: I with HEP Goal Progress: Progressing Plan Plan: Discharge to HEP D/C Information d/c sentence: If there are questions or concerns regarding this patient's physical therapy, please feel free to call me at [phone]. Thank you for the referral of this patient. Sincerely, Angelo Esqueda, PT, ATC Balance/Gait/Functional tests Balance/Special Test Scores Lower Extremity Functional Score: 51 WOMAC Total Score: 47 WOMAC Percentage: 51.0500 Improvement % Improvement: 80
--- NOTE | 2025-02-22 15:27 | HP.PT.NRP ---
Patient Information Patient Information: YONY ALEX was seen in my office for initial evaluation on 09/29/24. The following Plan of Care was established for this patient: POC Established Initial Frequency: 2-3x /Week Initial Duration: 4-6 Weeks Anticipated Interventions Patient/Client Instruction: Educate patient on: Condition and Plan of Care For the Purpose of:: To improve self management Therapeutic Exercise to Include: Strength training, Endurance training, Balance training, Flexibilty training, Gait and locomotor training and Dynamic Lumbar Stabilization For the Purpose of:: To decrease pain, To increase ROM and To improve muscle performance and motor function Cryotherapy (ice pack, ice massage): Yes For the Purpose of:: To decrease pain Last Seen Last Seen: This patient was last seen in our office . Pertinent comments regarding their Physical therapy will appear below: Pt returned today to report he is doing well and is discharged at this time At this point I will be discontinuing this patient from physical therapy. I would be happy to see this patient again in the future if found appropriate by the physician. Thank you! Angelo Esqueda, PT, ATC Balance/Gait/Functional tests Balance/Special Test Scores Lower Extremity Functional Score: 51 WOMAC Total Score: 47 WOMAC Percentage: 51.0500
== END 2024-11-06 19:00 | disposition home or self-care (01) ==
LOC: PT 07:00
PROVIDERS: PCP Family Medicine; Referring Provider Student in an Organized Health Care Education/Training Program; Visit Provider Student in an Organized Health Care Education/Training Program
DX: M17.12 Unilateral primary osteoarthritis, left knee (principal)
CPT/HCPCS: 97016; 97110; 97161; 97530

== ENCOUNTER 2025-06-08 00:43 | Emergency (ER) | payer OTHER, SELFPAY ==
[2025-06-08 00:44] VITALS: BP 168/82; PULSE 76; RESP 18; TEMP 36.8; O2SAT 99; BMI 36.6
--- NOTE | 2025-06-08 00:48 | EKG12_ITS ---
Test Reason : REPEAT CP Blood Pressure : */* mmHG Vent. Rate : 73 BPM Atrial Rate : 73 BPM P-R Int : 178 ms QRS Dur : 94 ms QT Int : 408 ms P-R-T Axes : 45 -2 7 degrees QTcB Int : 449 ms Normal sinus rhythm Normal ECG Confirmed by Jose Ballard ([id number]), video tape editor DARY ARCOS ([id number]) on 06/08/2025 12:01:58 PM Referred By: Confirmed By: Jose Ballard
--- OUTSIDE RECORDS SUMMARY | 2025-06-08 01:17 | XMS RPT_ITS | CCD ---
Author Organization [facility] Care Team Providers Care Nursing Director Name Role Phone Cristian Robertsno Primary Care Provider Cristian Robertson MD Primary Care Provider Jaky CAMPOS, Cris Unavailable Unavailable Netta Hoff MD Unavailable Grater LUMBER PRESS OPERATOR.Hubert MCMILLAN Unavailable Cristian Robertson MD Primary Care Provider Netta Hoff MD Unavailable Grater LUMBER PRESS OPERATOR.Hubert MCMILLAN Unavailable Sissen PSS, Cris Unavailable Unavailable Netta Hoff MD Unavailable Cristian Robertson MD Primary Care Provider Cristian Robertson MD Primary Care Provider Netta Hoff MD Unavailable Grater LUMBER PRESS OPERATOR.Hubert MCMILLAN Unavailable Carlene Platt PT Unavailable [phone] Cristian Robertson MD Primary Care Provider Sissen PSS, Cris Unavailable Unavailable Netta Hoff MD Unavailable Grater LUMBER PRESS OPERATOR.Hubert MCMILLAN Unavailable Carlene Platt PT Unavailable Cristian Robertson MD Primary Care Provider [phone] CRISTIAN ROBERTSON Primary Care Unavailable NTETA HOFF Referring Unavailable Cristian Robertson MD Primary Care Provider Giulia PT, Carlene Unavailable Jaky PSS, Cris Unavailable Unavailable Netta Hoff MD Unavailable Grater LUMBER PRESS OPERATOR.CUTTER TENDER, Hubert Unavailable [phone] GRATER, HUBERT Referring Unavailable ROBERTSON, CRISTIAN A Primary Care Unavailable Sissen PSS, Cris Unavailable Unavailable Netta Hoff MD Unavailable Grater LUMBER PRESS OPERATOR.CUTTER TENDER, Hubert Unavailable [phone] Giulia PT, Carlene Unavailable ROBERTSON, CRISTIAN A Primary Care Unavailable HUBERT FUENTES Referring Unavailable ROBERTSON, CRISTIAN A Primary Care Unavailable ROBERTSON, CRISTIAN A Primary Care Unavailable AMAURY ALLEN Consulting Unavailable NETTA HOFF Attending Unavailable NETTA HOFF Admitting Unavailable ROBERTSON, CRISTIAN A Primary Care Unavailable ROBERTSON, CRISTIAN A Primary Care Unavailable MINAL OG Referring Unavailable ROBERTSON, CRISTIAN A Primary Care Unavailable ROBERTSON, CRISTIAN A Primary Care Unavailable NETTA HOFF Attending Unavailable MATT BRUNER Attending Unavailable ROBERTSON, CRISTIAN A Primary Care Unavailable HUBERT FUENTES Referring Unavailable ROBERTSON, CRISTIAN A Primary Care Unavailable NETTA HOFF Referring Unavailable ABI, CRISTIAN A Primary Care Unavailable HUBERT FUENTES Attending Unavailable Dr. Cristian Robertson MD Primary Care Provider Netta Hoff MD Attending Provider [phone] Netta Hoff MD Referring Provider Cristian Robertson Primary Care Unavailable Netta Hoff Referring Unavailable Netta Hoff Attending Unavailable Medications Current Medications Medication Drug Class(es) Dates Sig (Normalized) Sig (Original) acetaminophen 500 mg oral tablet (20 sources) Start: 09-24-2024 take 2 tablets by mouth every eight hours as needed acetaminophen (TYLENOL) 500 mg tablet Take 2 tablets by mouth every 8 hours as needed for pain. 90 tablet 09/24/2024 Active Start: 09-07-2024 End: 09-22-2024 take 2 tablets by mouth every eight hours as needed acetaminophen (TYLENOL) 500 mg tablet Take 2 tablets by mouth every 8 hours as needed for pain. 90 tablet 09/07/2024 09/22/2024 Discontinued Start: 11-23-2021 End: 08-28-2024 take 2 tablets by mouth every eight hours as needed acetaminophen (TYLENOL) 500 mg tablet Take 2 tablets by mouth every 8 hours as needed for pain. 90 tablet 06/26/2022 08/28/2024 Discontinued Comment on above: Take 2 tablets by mo uth every 8 hours as needed for pain. amoxicillin 500 mg oral capsule (20 sources) Penicillin-class Antibacterial Start: 05-02-20 End: 12-25-19 take 4 capsules by mouth every hour amoxicillin (AMOXIL) 500 mg capsule Take 4 capsules by mouth one hour prior to dental cleaning/procedure 4 capsule 2 12/24/2024 Active Start: 04-27-2014 Amoxicill-Clar ithro-Lansopraz (PREVPAC) 500-500-30 mg combo pack Follow package directions. 14 Package 0 04/27/2014 Active Comment on above: Follow package direc tions. Take 4 capsules by m outh one hour prior to dental cleaning/procedure ascorbic acid 500 mg oral tablet (20 sources) Vitamin C Start: 09-08-2024 End: 09-22-2024 take 1 tablet by mouth twice daily at mealtime ascorbic acid, vitamin C, (VITAMIN C) 500 mg tablet Take 1 tablet by mouth two times a day with meals for 28 doses. Patient should start on September 08, 2024. 28 tablet 09/07/2024 4:30 PM EST 09/08/2024 Active Start: 11-23-2021 End: 08-28-2024 take 1 tablet by mouth twice daily ascorbic acid, vitamin C, (VITAMIN C) 500 mg tablet Take 1 tablet by mouth twice daily for 14 days. 28 tablet 06/26/2022 08/28/2024 Discontinued Comment on above: Take 1 tablet by patience th twice daily with meals for 27 doses. Take 1 tablet by patience th twice daily for 14 days. aspirin 81 mg delayed release oral tablet (20 sources) Platelet Aggregation Inhibitor, Nonsteroidal Anti-inflammatory Drug Start: 09-08-2024 End: 10-06-2024 take 1 tablet by mouth twice daily in the evening aspirin, enteric coated (ASPIRIN, ENTERIC COATED) 81 mg EC tablet Take 1 tablet by mouth two times a day for 28 days. Patient should start on September 08, 2024. 56 tablet 09/07/2024 4:30 PM EST 09/08/2024 Active Start: 11-23-2021 End: 08-28-2024 take 1 tablet by mouth twice daily aspirin, enteric coated (ECOTRIN LOW STRENGTH) 81 mg EC tablet Take 1 tablet by mouth twice daily for 28 days. 56 tablet 06/26/2022 08/28/2024 Discontinued take 1 tablet by patience th once daily aspirin 81 mg chewable tablet Take 81 mg by mouth once daily. 0 Active Comment on above: Take 81 mg by mouth once daily. Take 1 tablet by patience th twice daily. Take 1 tablet by patience th twice daily for 28 days. cefdinir 300 mg oral capsule (3 sources) Cephalosporin Antibacterial Start: 08-11-2020 Cefdinir 300 mg capsule Active 300 mg PO August 11, 2020 1:00am docusate sodium 100 mg oral capsule (20 sources) Start: 09-08-2024 End: 10-08-2024 take 1 capsule by mouth every twelve hours as needed docusate sodium (COLACE) 100 mg capsule Take 1 capsule by mouth two times a day as needed for constipation. Patient should start on September 08, 2024. 60 capsule 09/08/2024 10/08/2024 Active Start: 06-26-2022 End: 07-26-2022 take 1 capsule by mouth every twelve hours as needed docusate sodium (COLACE) 100 mg capsule Take 1 capsule by mouth twice daily as needed for constipation. 60 capsule 0 06/26/2022 07/26/2022 Active Start: 11-23-2021 End: 12-23-2021 take 1 capsule by mouth every twelve hours as needed docusate sodium (COLACE) 100 mg capsule Take 1 capsule by mouth twice daily as needed for constipation. 60 capsule 0 11/23/2021 12/23/2021 Active Comment on above: Take 1 capsule by mo [facility] twice daily as needed for constipation. Doterra (3 sources) Start: 06-03-2020 Doterra Active June 03, 2020 12:00am Start: 06-03-2020 Doterra Active June 02, 2020 11:00pm doxycycline hyclate 100 mg oral tablet (11 sources) Tetracycline-class Drug Start: 11-05-2024 End: 11-12-2024 take 1 tablet by mouth twice daily doxycycline (VIBRA-TABS) 100 mg tablet Take 1 tablet by mouth two times a day for 7 days. 14 tablet 11/05/2024 11/12/2024 Active Start: 06-26-2022 End: 07-03-2022 take 1 capsule by mouth every twelve hours doxycycline hyclate (VIBRAMYCIN) 100 mg capsule Take 1 capsule by mouth every 12 hours 6am/6pm for 13 doses. 13 capsule 0 06/26/2022 07/03/2022 Active Start: 11-23-2021 End: 01-04-2022 take 1 capsule by mouth every twelve hours doxycycline hyclate (VIBRAMYCIN) 100 mg capsule Take 1 capsule by mouth every 12 hours. 60 capsule 1 11/23/2021 01/04/2022 Active Comment on above: Take 1 capsule by mo uth every 12 hours. Take 1 capsule by mo uth every 12 hours 6am/6pm for 13 doses. gabapentin 100 mg oral capsule (20 sources) Anti-epileptic Agent Start: 11-05-2024 End: 12-03-2024 take 2 capsules by mouth once daily at bedtime gabapentin (NEURONTIN) 100 mg capsule Take 2 capsules by mouth daily at bedtime for 28 days. 28 capsule 1 11/05/2024 Active Start: 03-07-2024 End: 08-28-2024 take 1 capsule by mouth once daily gabapentin (NEURONTIN) 100 mg capsule Take 1 capsule by mouth once daily for 7 days. Do not start before March 07, 2024. 7 capsule 03/07/2024 08/28/2024 Discontinued Start: 02-21-2024 End: 08-28-2024 take 1 capsule by mouth once daily gabapentin (NEURONTIN) 300 mg capsule Take 1 capsule by mouth once daily for 14 days. 14 capsule 02/21/2024 08/28/2024 Discontinued Start: 12-18-2023 End: 02-16-2024 take 1 capsule by mouth twice daily gabapentin (NEURONTIN) 300 mg capsule Indications: Neuropathy Take 1 capsule by mouth two times a day for 30 days. 60 capsule 0 01/17/2024 02/16/2024 Active Start: 07-08-2023 End: 09-25-2023 take 1 capsule by mouth twice daily gabapentin (NEURONTIN) 300 mg capsule Indications: Neuropathy Take 1 capsule by mouth two times a day for 30 days. 60 capsule 0 08/26/2023 09/25/2023 Active Start: 04-08-2023 End: 07-06-2023 take 1 capsule by mouth twice daily gabapentin (NEURONTIN) 300 mg capsule Indications: Neuropathy Take 1 capsule by mouth twice daily for 30 days. 60 capsule 0 06/06/2023 07/06/2023 Active Start: 11-09-2022 End: 04-06-2023 take 1 capsule by mouth twice daily gabapentin (NEURONTIN) 300 mg capsule Indications: Neuropathy Take 1 capsule by mouth twice daily for 30 days. 60 capsule 0 03/07/2023 04/06/2023 Discontinued Start: 08-03-2022 End: 10-07-2022 take 1 capsule by mouth twice daily gabapentin (NEURONTIN) 300 mg capsule Indications: Neuropathy Take 1 capsule by mouth twice daily for 30 days. 60 capsule 0 09/07/2022 10/07/2022 Active Start: 07-16-2022 End: 08-15-2022 take 1 capsule by mouth once daily at bedtime gabapentin (NEURONTIN) 300 mg capsule Indications: Neuropathy Take 1 capsule by mouth daily at bedtime for 30 days. 30 capsule 0 07/16/2022 08/15/2022 Active Comment on above: Take 1 capsule by mo uth daily at bedtime for 30 days. Take 1 capsule by mo uth twice daily for 30 days. Take 1 capsule by mo uth two times a day for 30 days. MEDICATION, NON-DATABASE (20 sources) Start: 11-24-2021 take 1 capsule by mouth once daily MEDICATION, NON-DATABASE Take 1 capsule by mouth once daily. doTerra MicroPlex VMz 11/24/2021 Active Start: 11-24-2021 take 1 capsule by mo uth once daily MEDICATION, NON-DATABASE Take 1 capsule by mouth once daily. doTerra Alpha CRS+ 11/24/2021 Active Start: 11-24-2021 take 1 capsule by mo uth once daily MEDICATION, NON-DATABASE Take 1 capsule by mouth once daily. doTerra xEo Terrence 11/24/2021 Active Start: 11-24-2021 take 1 capsule by mo uth twice daily MEDICATION, NON-DATABASE Take 1 capsule by mouth twice daily. Kidney C.O.P.- Calcium Oxalate Protector 11/24/2021 Active Start: 11-24-2021 take 1 capsule by mo uth once daily as needed MEDICATION, NON-DATABASE Take 1 capsule by mouth once daily as needed (any illness). Elderberry Vitamin C + Zinc 11/24/2021 Active Start: 11-24-2021 take 1 capsule by mo uth once daily in the evening MEDICATION, NON-DATABASE Take 1 capsule by mouth every evening. Valarian Root 11/24/2021 Active Start: 11-24-2021 take 1 capsule by mo uth once daily in the evening MEDICATION, NON-DATABASE Take 1 capsule by mouth every evening. doTerra Deep Blue 11/24/2021 Active Start: 11-24-2021 take 1 capsule by mo uth once daily MEDICATION, NON-DATABASE Take 1 capsule by mouth once daily. doTerra MicroPlex VMz 0 11/24/2021 Active Start: 11-24-2021 take 1 capsule by mo uth once daily MEDICATION, NON-DATABASE Take 1 capsule by mouth once daily. doTerra Alpha CRS+ 0 11/24/2021 Active Start: 11-24-2021 take 1 capsule by mo uth once daily MEDICATION, NON-DATABASE Take 1 capsule by mouth once daily. doTerra xEo Terrence 0 11/24/2021 Active Start: 11-24-2021 take 1 capsule by mo uth twice daily MEDICATION, NON-DATABASE Take 1 capsule by mouth twice daily. Kidney C.O.P.- Calcium Oxalate Protector 0 11/24/2021 Active Start: 11-24-2021 take 1 capsule by mo uth once daily as needed MEDICATION, NON-DATABASE Take 1 capsule by mouth once daily as needed (any illness). Elderberry Vitamin C + Zinc 0 11/24/2021 Active Start: 11-24-2021 take 1 capsule by mo uth once daily in the evening MEDICATION, NON-DATABASE Take 1 capsule by mouth every evening. Valarian Root 0 11/24/2021 Active Start: 11-24-2021 take 1 capsule by mo uth once daily in the evening MEDICATION, NON-DATABASE Take 1 capsule by mouth every evening. doTerra Deep Blue 0 11/24/2021 Active Start: 11-24-2021 MEDICATION, NO N-DATABASE [The details of the medication are not available because there are pending changes by a home health clinician.] 0 11/24/2021 Suspended Start: 11-24-2021 MEDICATION, NO N-DATABASE [The details of the medication are not available because there are pending changes by a home health clinician.] 0 11/24/2021 Active Comment on above: [The details of the medication are not available because there are pending changes by a home health clinician.] Take 1 capsule by mo uth once daily. doTerra MicroPlex VMz Take 1 capsule by mo uth once daily. doTerra Alpha CRS+ Take 1 capsule by mo uth once daily. doTerra xEo Terrence Take 1 capsule by mo uth twice daily. Kidney C.O.P.- Calcium Oxalate Protector Take 1 capsule by mo uth once daily as needed (any illness). Elderberry Vitamin C + Zinc Take 1 capsule by mo uth every evening. Valarian Root Take 1 capsule by mo uth every evening. doTerra Deep Blue melatonin 10 mg oral tablet (20 sources) Start: 11-24-2021 melatonin 10 mg tab Take 20 mg by mouth every evening. Patient should start on November 24, 2021. 11/24/2021 Active Start: 11-24-2021 take 1 tablet by patience th once daily in the evening melatonin 10 mg tab Take 10 mg by mouth every evening. 11/24/2021 Active Comment on above: [The details of the medication are not available because there are pending changes by a home health clinician.] Take 10 mg by mouth every evening. meloxicam 15 mg oral tablet (20 sources) Nonsteroidal Anti-inflammatory Drug Start: 09-07-2024 End: 09-21-2024 take 1 tablet by mouth once daily meloxicam (MOBIC) 15 mg tablet Take 1 tablet by mouth once daily for 14 days. 14 tablet 09/07/2024 09/21/2024 Active Start: 06-26-2022 End: 07-10-2022 take 1 tablet by mouth once daily meloxicam (MOBIC) 15 mg tablet Take 1 tablet by mouth once daily for 14 days. 14 tablet 0 06/26/2022 07/10/2022 Comment on above: Take 1 tablet by patience th once daily for 14 days. mupirocin 0.02 mg/mg topical ointment (4 sources) RNA Synthetase Inhibitor Antibacterial Start: 08-28-2024 End: 09-13-2024 mupirocin (BACTROBAN) 2 % ointment Apply 0.5 inch with cotton swab (Q-tip) to each nostril in the morning and evening for 5 days prior to and including day of surgery. 22 g 08/28/2024 09/13/2024 Active Start: 06-06-2022 End: 06-25-2022 mupirocin (BACTROBAN) 2 % oi ntment Apply 0.5 inch with cotton swab (Q-tip) to each nostril in the morning and evening for 5 days prior to and including day of surgery. 22 g 0 06/06/2022 06/25/2022 Active Comment on above: Apply 0.5 inch with cotton swab (Q-tip) to each nostril in the morning and evening for 5 days prior to and including day of surgery. oxyCODONE hydrochloride 5 mg oral tablet (20 sources) Opioid Agonist Start: 10-08-2024 End: 10-15-2024 take 1 tablet by mouth every six hours as needed for pain oxyCODONE IR (ROXICODONE) 5 mg immediate release tablet Indications: S/P total knee arthroplasty, left Take 1 tablet by mouth every 6 hours as needed for pain for up to 7 days. 28 tablet 10/08/2024 10/15/2024 Active Start: 09-22-2024 End: 09-29-2024 take 1 tablet by mouth every six hours as needed oxyCODONE IR (ROXICODONE) 5 mg immediate release tablet Indications: S/P total knee arthroplasty, left Take 1-2 tablets by mouth every 6 hours as needed for pain for up to 7 days. 50 tablet 09/22/2024 09/29/2024 Active Start: 09-13-2024 End: 09-20-2024 oxyCODONE IR (ROXICODONE) 5 mg immediate release tablet Indications: S/P total knee arthroplasty, left Take 1-2 tablets by mouth every 6 hours as needed for pain for up to 7 days. Patient should start on September 13, 2024. 50 tablet 09/13/2024 09/20/2024 Active Start: 09-07-2024 End: 09-14-2024 take 1 tablet by mouth every six hours as needed oxyCODONE IR (ROXICODONE) 5 mg immediate release tablet Indications: S/P total knee arthroplasty, left Take 1-2 tablets by mouth every 6 hours as needed for pain for up to 7 days. 50 tablet 09/07/2024 09/11/2024 Discontinued Start: 07-02-2022 End: 07-17-2022 take 1 tablet by mouth every six hours as needed for pain oxyCODONE IR (ROXICODONE) 5 mg immediate release tablet Indications: S/P total left hip arthroplasty Take 1 tablet by mouth every 6 hours as needed for pain for up to 7 days. 21 tablet 0 07/10/2022 07/17/2022 Active Start: 06-26-2022 End: 06-29-2022 take 1 tablet by mouth every six hours as needed oxyCODONE IR (ROXICODONE) 5 mg immediate release tablet Indications: S/P total left hip arthroplasty Take 1-2 tablets by mouth every 6 hours as needed for pain. 30 tablet 0 06/26/2022 06/29/2022 Discontinued Start: 12-11-2021 End: 06-06-2022 take 1 tablet by mouth every six hours as needed oxyCODONE IR (ROXICODONE) 5 mg immediate release tablet Indications: Status post right knee replacement , Primary osteoarthritis of both knees Take 1-2 tablets by mouth every 6 hours as needed for pain. 50 tablet 12/28/2021 06/06/2022 Discontinued Comment on above: Take 1-2 tablets by mouth every 6 hours as needed for pain. Take 1 tablet by patience th every 6 hours as needed for pain for up to 7 days. pantoprazole 40 mg delayed release oral tablet (20 sources) Proton Pump Inhibitor Start: End: take 1 tablet by mouth once daily in the morning pantoprazole DR (PROTONIX) 40 mg tablet Take 1 tablet by mouth daily at 6 am. 30 tablet 09/07/2024 4:30 PM EST 09/07/2024 Active Start: 06-26-2022 End: 08-28-2024 take 1 tablet by mouth once daily in the morning pantoprazole DR (PROTONIX) 20 mg tablet Take 1 tablet by mouth every morning. 30 tablet 06/26/2022 08/28/2024 Discontinued Comment on above: Take 1 tablet by patience th every morning. polyethylene glycol 3350 [id number] mg powder for oral solution (20 sources) Osmotic Laxative Start: 09-08-2024 End: 09-21-2024 polyethylene glycol 3350 17 gram/dose powder Take 17 g by mouth once daily as needed for constipation for up to 10 days. Dissolve dose in 4 - 8 ounces of liquid and take as directed. Patient should start on September 08, 2024. 238 g 09/08/2024 09/21/2024 Active Start: 06-26-2022 End: 07-10-2022 polyethylene glycol 3350 (PA RALAX, GLYCOLAX) 17 gram/dose powder Take 17 g by mouth once daily as needed for constipation for up to 10 days. Dissolve dose in 4 - 8 ounces of liquid and take as directed. 238 g 0 06/26/2022 07/10/2022 Comment on above: Take 17 g by mouth o nce daily as needed for constipation for up to 10 days. Dissolve dose in 4 - 8 ounces of liquid and take as directed. Valarian Root (3 sources) Start: 06-03-2020 Valarian Root Active June 03, 2020 12:00am Start: 06-03-2020 Valarian Root Active June 02, 2020 11:00pm Vitamin B Complex (2 sources) Start: 06-03-2020 Vitamin B Comp bettina Active 1 EACH PO June 03, 2020 12:00am Start: 06-03-2020 Vitamin B Comp bettina Active 1 EACH PO June 02, 2020 11:00pm Vitamin B Complex 1 EACH capsule (1 source) Start: 06-03-2020 Vitamin B Comp bettian 1 EACH capsule Active 1 NMA PO June 03, 2020 12:00am VITAMIN B COMPLEX ORAL (20 sources) Start: 06-03-2020 take 1 capsule by mouth once daily VITAMIN B COMPLEX ORAL Take 1 capsule by mouth once daily. 06/03/2020 Active Start: 06-03-2020 take 1 capsule by mo ut once daily VITAMIN B COMPLEX ORAL Take 1 capsule by mouth once daily. 0 06/03/2020 Active Start: 06-03-2020 VITAMIN B COMP BETTINA ORAL [The details of the medication are not available because there are pending changes by a home health clinician.] 0 06/03/2020 Suspended Start: 06-03-2020 VITAMIN B COMP BETTINA ORAL [The details of the medication are not available because there are pending changes by a home health clinician.] 0 06/03/2020 Active Comment on above: [The details of the medication are not available because there are pending changes by a home health clinician.] Take 1 capsule by [facility] once daily. Vitamin D3/Vitamin K2 (Mk4) (3 sources) Start: 06-03-2020 Vitamin D3/Vitamin K2 (Mk4) Active June 03, 2020 12:00am Start: 06-03-2020 Vitamin D3/Vit [place] K2 (Mk4) Active June 02, 2020 11:00pm Completed/Discontinued Medications Medication Drug Class(es) Dates Sig (Normalized) Sig (Original) acetaminophen 325 mg / oxyCODONE hydrochloride 5 mg oral tablet (6 sources) Opioid Agonist Start: 06-03-2020 End: 06-08-2020 Oxycodone-Acetamino phen 1 TABLET tablet Discontinued 1 {tbl} PO EVERY 4 HOURS NEEDED as needed for Pain 09 02June 03, 2020 June 07, 2020 12:00am June 08, 2020 12:02am Start: 06-03-2020 End: 06-08-2020 take 1 tablet by mouth every four hours as needed Oxycodone-Acetaminophen Discontinued 1 TABLET PO EVERY 4 HOURS NEEDED 20 June 03, 2020 June 08, 2020 12:02am Start: 05-16-2020 End: 05-19-2020 Oxycodone-Acetaminophen 1 TA BLET tablet Discontinued 1 {tbl} PO EVERY 6 HOURS NEEDED as needed for Pain 12 May 16, 2020 May 18, 2020 12:00May 19, 2020 12:02am Start: 05-16-2020 End: 05-19-2020 take 1 tablet by mouth every six hours as needed Oxycodone-Acetaminophen Discontinued 1 TABLET PO EVERY 6 HOURS NEEDED 12 May 16, 2020 May 19, 2020 12:02am cholecalciferol 0.125 mg oral tablet (20 sources) Vitamin D End: 08-28-2024 take 1 tablet by mouth once daily cholecalciferol (VITAMIN D3) 5,000 unit tab Take 5,000 Units by mouth once daily. 08/28/2024 Discontinued Comment on above: Take 5,000 Units by mouth once daily. ciprofloxacin 500 mg oral tablet (3 sources) Quinolone Antimicrobial Start: 06-03-2020 End: 08-11-2020 take 1 tablet by mouth twice daily Ciprofloxacin Hcl 500 MG tablet Discontinued 500 mg PO TWICE A DAY 6 June 03, 2020 12:00am August 11, 2020 2:49pm methylPREDNISolone (18 sources) Corticosteroid Start: 05-01-2022 End: 06-06-2022 methylPREDNISolone (MEDROL, EDWARD,) 4 mg Dose-Pack As Instructed per package 1 Package 0 05/01/2022 06/06/2022 Discontinued Start: 05-01-2022 methylPREDNISo lone (MEDROL, EDWARD,) 4 mg Dose-Pack As Instructed per package 1 Package 0 05/01/2022 Active Start: 01-18-2022 End: 05-01-2022 methylPREDNISolone (MEDROL, EDWARD,) 4 mg Dose-Pack Take by mouth as directed on package. 21 tablet 01/18/2022 05/01/2022 Discontinued Comment on above: Take by mouth as dir ected on package. As Instructed per ben blanca omeprazole 40 mg delayed release oral capsule (20 sources) Proton Pump Inhibitor Start: End: take 1 capsule by mouth once daily Omeprazole (PRILOSEC) 40 mg capsule Take 1 capsule by mouth once daily. 30 capsule 0 04/27/2014 06/06/2022 Discontinued Comment on above: Take 1 capsule by [facility] once daily. Problems Active Problems Problem Classification Problem Date Documented Date Episodic/Chronic Calculus of urinary tract (6 sources) Urolithiasis ; Translations: [Urinary calculus, unspecified] 09-01-2018 Episodic Cardiac dysrhythmias (20 sources) Supraventricular tachycardia; Translations: [Supraventricular tachycardia] Onset: 06-06-2012 11-13-2021 Chronic Osteoarthritis (20 sources) Arthropathy of joint of hand; Translations: [Primary osteoarthritis, unspecified hand] Onset: 07-31-2021 Chronic Other circulatory disease (3 sources) History of cardiac arrhythmia; Translations: [Personal history of other diseases of the circulatory system] 10-28-2013 Episodic Other connective tissue disease (20 sources) History [...] Chronic Other connective tissue disease (1 source) Presence of left artificial knee joint; Translations: [S/P total knee arthroplasty, left] Onset: 09-07-2024 Chronic Other connective tissue disease (1 source) Pain of left hand; Translations: [Pain in left hand] Episodic Other connective tissue disease (1 source) Tendonitis of left wrist; Translations: [Other enthesopathies, not elsewhere classified] Episodic Other connective tissue disease (1 source) Pain of left thigh; Translations: [Pain in left thigh] 05-02-2023 Episodic Other nervous system disorders (14 sources) Neuropathy; Translations: [Polyneuropathy, unspecified] Chronic Other nervous system disorders (1 source) Other chronic pain; Translations: [Chronic pain of left knee] Onset: 06-11-2024 Chronic Other non-traumatic joint disorders (1 source) Pain in right knee; Translations: [Pain in right knee] Episodic Other non-traumatic joint disorders (5 sources) Pain in right knee; Translations: [Pain in joint, lower leg] Episodic Other non-traumatic joint disorders (8 sources) Hip pain; Translations: [Pain in unspecified hip] Episodic Other non-traumatic joint disorders (6 sources) Pain in left knee; Translations: [Pain in joint, lower leg] Onset: 06-11-2024 04-10-2023 Episodic Other nutritional; endocrine; and metabolic [...] of right knee, initial encounter] Episodic Unclassified (20 sources) 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 [address] [place] [address] / REHABILITATION SERVICES DISCHARGE SUMMARY MR#: [id number] Acct: [id number] Name: YONY ROBERTSON Rep #: [id number] : 1965 59 From: Angelo Esqueda PT, ATC Referring Dr.: Netta Hoff MD Status: REG RCR Insurance: [employer] [facility] [employer] Discharge Summary D/C summary: It has been my pleasure to treat YONY ROBERTSON referred by Netta Hoff MD, with the diagnosis of L TKA 09/07/24 for a total of 11 visit(s). Discharge Date: Please see the following information for a summary of their discharge status. Subjective Subjective: I am ready to be done Pain L TKA: Pain Intensity (Out of 10): 2 Overall Improvement % Improvement: 80 Objective Objective/Function: L knee pain ranges from 2-6/10 L knee MMT: flex= 32, ext= 51 #F L knee ROM: 0-113 degrees Pt is showing excellent progress at this time. Goals Goal 1:: Decrease L knee pain x 50% to aid with sleep Goal Progress: Progressing Goal 2:: Increase L knee ROM x 20 degrees to restore a more normalized gait pattern Goal Progress: Goal Met Goal 3:: Increase L knee strength x 10 #F to aid with stair negotiation Goal Progress: Goal Met Goal 4:: Improve TUG score to under 8 seconds to aid with efficient ambulation Goal Progress: Progressing Goal 5:: I with HEP Goal Progress: Progressing Plan Plan: Discharge to HEP D/C Information d/c sentence: If there are questions or concerns regarding this patient's physical therapy, please feel free to call me at [phone]. Thank you for the referral of this patient. Sincerely, Angelo Esqueda, PT, ATC Balance/Gait/Function al tests Balance/Special Test Scores Lower Extremity Functional Score: 51 WOMAC Total Score: 47 WOMAC Percentage: 51.0500 Improvement % Improvement: 80 11/06/24 0741 CC: Dr. Cristian Robertson MD; Netta Hoff MD [facility] Signed [facility] CNOVon 11-05-2024 CN Office Visit (ORMDNA ) ABIYONY ([id number]) 1965 M Date Time Provider Department 11/05/24 7:40 AM NETTA HOFF During your visit today, we recorded the following information about you: Netta Hoff MD 11/05/2024 8:48 AM Signed Post-op Office Visit Yony Robertson 59 year old November 05, 2024 8:47 AM History: Yony Robertson Is now s/p L TKA. Post-operative course has been without complication. No readmission/complicat ions Subjective: Patient reports minimal pain. Overall is doing well. off ambulatory aid off opioid pain medication Is having trouble sleeping Objective: Ambulates with slight limp Incision well-approximated, no drainage, normal ethel-incisional -small stitch abscess, sterily debrided ROM 0 - 115 Distally DP/PT palpable Distally S/S/SP/DP/T intact at baseline Distally DF/EHL/PF intact at baseline Negative marlin/calf tenderness Xrays: No new today Assessment and Plan: Yony Robertson Is here for a second post-op appointment, overall doing well -continued ice, rest, and use of non-narcotic analgesia as needed -discussed home exercises -WBAT on operative extremity -doxy 1 week after stitch debrided -nighttime gabapentin ordered for sleep -continue ankle pumps and dvt ppx through 4 weeks -will see back at 1 year post-op for repeat exam and xrays--can see sooner if needed -discussed red flag symptoms of acutely increasing pain, new erythema, new swelling, drainage, shortness of breath Netta Hoff MD Orthopaedic Surgery Allergies As of Date: 11/05/2024 (No Known Allergies) Date Reviewed: 11/05/2024 Reviewed by: Juantia Thomas OCCA - Fully Assessed Reason for Visit: Post Op [174] Knee Replacement [363] Primary Visit Diagnosis:S/P total knee arthroplasty, left [Z96.652] Order(s):gabapentin (NEURONTIN) 100 mg capsuleTake 2 capsules by mouth daily at bedtime for 28 days.Disp: 28 capsuleRfl: 1 doxycycline (VIBRA-TABS) 100 mg tabletTake 1 tablet by mouth two times a day for 7 days.Disp: 14 tabletRfl: 0 Prescriptions as of 11/05/2024 - gabapentin (NEURONTIN) 100 mg capsule Take 2 capsules by mouth daily at bedtime for 28 days. - doxycycline (VIBRA-TABS) 100 mg tablet Take 1 tablet by mouth two times a day for 7 days. - acetaminophen (TYLENOL) 500 mg tablet Take 2 tablets by mouth every 8 hours as needed for pain. - ascorbic acid, vitamin C, (VITAMIN C) 500 mg tablet Take 1 tablet by mouth two times a day with meals for 28 doses. Patient should start on September 08, 2024. - aspirin, enteric coated (ASPIRIN, ENTERIC COATED) 81 mg EC tablet Take 1 tablet by mouth two times a day for 28 days. Patient should start on September 08, 2024. - pantoprazole DR (PROTONIX) 40 mg tablet Take 1 tablet by mouth daily at 6 am. - amoxicillin (POLYMOX, AMOXIL) 500 mg capsule Take 4 capsules by mouth one hour prior to dental cleaning/procedure - melatonin 10 mg tab Take 20 mg by mouth every evening. Patient should start on November 24, 2021. - VITAMIN B COMPLEX ORAL Take 1 capsule by mouth once daily. Problem List As Of Date 11/05/2024 Noted Resolved Primary osteoarthritis of both knees [M17.0] 07/31/2021 SVT (supraventricular tachycardia) (HCC) [I47.1*06/06/2012 BMI 36.0-36.9,adult [Z68.36] 11/13/2021 Stiffness of right knee [M25.661] 12/11/2021 Status post right knee replacement [Z96.651] 12/11/2021 Primary osteoarthritis of left knee [M17.12] 06/29/2024 S/P total knee arthroplasty, left [Z96.652] 09/07/2024 Prescriptions ordered this encounter Disp Refills Start End GABAPENTIN 100 MG CAPSULE 28 c* 1 11/05/2024 12/03/2024 Route: ORAL Sig: Take 2 capsules by mouth daily at bedtime for 28 days. DOXYCYCLINE HYCLATE 100 MG TABLET 14 t* 0 11/05/2024 11/12/2024 Route: ORAL Sig: Take 1 tablet by mouth two times a day for 7 days. Letter Text Encounter Status:Closed by NETTA HOFF on 11/05/24 [facility] 102on 10-05-2024 102 HNO ID: [id number] Author: YANI ROBISON HDA Service: ? Author Type: ? Type: 102 Filed: 10/05/2024 09:36 Note Text: Code Status: Full Code [facility] ([id number]) 1965 M Date Time Provider Department 09/30/24 NETTA HOFF During your visit today, we recorded the following information about you: Raven Collado 09/30/2024 1:37 PM Signed Patient is on the wait list for the following: Post op lt knee Patient called in to reschedule 11/05/24 Patient's phone# [phone] Please call to reschedule post op appointment. Jaja Swan 09/30/2024 2:45 PM Signed Called pt and mariah appt for earlier Jaja Beny Allergies As of Date: 09/30/2024 (No Known Allergies) Date Reviewed: 09/24/2024 Reviewed by: Carlene Platt, PT - Fully Assessed Reason for Visit: Post Op [174] Prescriptions as of 09/30/2024 - acetaminophen (TYLENOL) 500 mg tablet Take 2 tablets by mouth every 8 hours as needed for pain. - ascorbic acid, vitamin C, (VITAMIN C) 500 mg tablet Take 1 tablet by mouth two times a day with meals for 28 doses. Patient should start on September 08, 2024. - aspirin, enteric coated (ASPIRIN, ENTERIC COATED) 81 mg EC tablet Take 1 tablet by mouth two times a day for 28 days. Patient should start on September 08, 2024. - docusate sodium (COLACE) 100 mg capsule Take 1 capsule by mouth two times a day as needed for constipation. Patient should start on September 08, 2024. - pantoprazole DR (PROTONIX) 40 mg tablet Take 1 tablet by mouth daily at 6 am. - amoxicillin (POLYMOX, AMOXIL) 500 mg capsule Take 4 capsules by mouth one hour prior to dental cleaning/procedure - melatonin 10 mg tab Take 20 mg by mouth every evening. Patient should start on November 24, 2021. - VITAMIN B COMPLEX ORAL Take 1 capsule by mouth once daily. Problem List As Of Date 09/30/2024 Noted Resolved Primary osteoarthritis of both knees [M17.0] 07/31/2021 SVT (supraventricular tachycardia) (HCC) [I47.1*06/06/2012 BMI 36.0-36.9,adult [Z68.36] 11/13/2021 Stiffness of right knee [M25.661] 12/11/2021 Status post right knee replacement [Z96.651] 12/11/2021 Primary osteoarthritis of left knee [M17.12] 06/29/2024 S/P total knee arthroplasty, left [Z96.652] 09/07/2024 Encounter Status:Closed by JAJA SWAN on 09/30/24 [facility] Inital Evaluation (1) - PTon 09-29-2024 Inital Evaluation (1) - PT [facility] [address] [place] [address] [address] [place] [address] / REHABILITATION SERVICES INITIAL EVALUATION MR#: [id number] Acct: [id number] Name: YONY ROBERTSON Rep #: [id number] : 1965 59 From: Angelo Esqueda PT, ATC Referring Dr.: Netta Hoff MD Status: REG RCR Insurance: [facility] [employer] Patient's Visit Information Visit Information Visit Information: YONY ROBERTSON is a 59 year old M referred to Physical Therapy by Netta Hoff MD with a diagnosis of L TKA 09/07/24. Date of Evaluation: 09/29/24 Physical Therapist: Angelo Esqueda, PT, ATC Visit Plan Frequency: 2-3x /Week Duration: 4-6 Weeks Plan: L knee PROM/mobs, stretching and strengthening, core stab ex's, bike, and HEP Subjective Subjective: DOS: 09/07/24. Pt had a L TKA performed at that time. Pt reports he had in home therapy for the past couple weeks. Pt reports he feels like he is doing really well at this time. Pt reports he had a R TKA performed in the past, so he kind of knows what to expect. Pt reports he is still having sleep difficulty secondary to pain. Pt notes he has to sleep in a recliner in order to get a good nights sleep at this time. Pt lives in a 2 story house, which he is able to negotiate his stairs one step at a time. 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 Pt reports he lives on a homestead and raises many animals, which his son and have been maintaining. Pt denies tingling or numbness in his L LE at this time. 2/10 pain at rest, 8/10 pain at worst (while trying to sleep) Pain L TKA: Pain Intensity (Out of 10): 2 Pain Intensity Range: 8 Objective Objective: Neuro: B LE sensation is WNL to light touch. Girth: R knee Joint line: 44, 6 above 61 cm; L knee joint line 48, 6' above 61 cm ROM: R knee 0-105 degrees ; L knee 0-5-80 degrees MMT: L knee flex= 24, ext= 33 #F; R knee flex= 50, ext= 51 #F Tu sec Balance/Special Test Scores WOMAC Total Score: 47 WOMAC Percentatge: 51.0500 Goals Goal 1:: Decrease L knee pain x 50% to aid with sleep Goal Time Frame: 4-6 Weeks Goal 2:: Increase L knee ROM x 20 degrees to restore a more normalized gait pattern Goal Time Frame: 4-6 Weeks Goal 3:: Increase L knee strength x 10 #F to aid with stair negotiation Goal Time Frame: 4-6 Weeks Goal 4:: Improve TUG score to under 8 seconds to aid with efficient ambulation Goal Time Frame: 4-6 Weeks Goal 5:: I with HEP Goal Time Frame: 4-6 Weeks Rehabilitation Potential Physical Therapy Diagnosis: Pt has L knee pain, weakness, and limited ROM secondary to L TKA Rehabilitation Potential: Good Anticipated Interventions Patient/Client Instruction: Educate patient on: Condition and Plan of Care For the Purpose of:: To improve self management Therapeutic Exercise to Include: Strength training, Endurance training, Balance training, Flexibilty training, Gait and locomotor training and Dynamic Lumbar Stabilization For the Purpose of:: To decrease pain, To increase ROM and To improve muscle performance and motor function Cryotherapy (ice pack, ice massage): Yes For the Purpose of:: To decrease pain Text: Thank you for the opportunity to evaluate your patient. For Medicare and Medicare HMO plans, please review the plan of care and approve it. It will need to be FAXED BACK to us at [phone] for Medicare purposes. For Medicare only, by signing this I certify the plan of care. Please let me know if there are questions or concerns regarding this plan of care. Physician Signature: Date : 09/29/24 1031 CC: Dr. Cristian Robertson MD; Netta Hoff MD [facility] Signed [facility] CNNURSEon 09-22-2024 CNNURSE Nurse Visit (ORMDNA) YONY ROBERTSON ([id number]) 1965 M Date Time Provider Department 09/22/24 1:00 PM AMARILYS CONLEY During your visit today, we recorded the following information about you: Amarilys Conley RN 09/22/2024 1:39 PM Signed Post-op Office Visit Yony Robertson 59 year old September 22, 2024 1:01 PM Surgery Date: 09/07/24 History: Yony Robertson is now 2 weeks out from left TKA. Post-operative course has been without complication. No readmission/complicat ions Subjective: Patient reports 5/10 pain. Overall is doing well. Cane as ambulatory aid Taking opioid pain medication PRN Objective: Incision well-approximated, no drainage, normal ethel-incisional erythema ROM 0 - 80 Distally DP/PT palpable Distally S/S/SP/DP/T intact at baseline Distally DF/EHL/PF intact at baseline Negative marlin/calf tenderness Xrays: Well-positioned total knee replacement in appropriate alignment with no evidence of loosening Assessment and Plan: Yony Robertson Is here for a first post-op appointment, overall doing well -continued ice, rest, and use of non-narcotic analgesia as needed -wean off ambulatory aids -discussed home exercises and therapy -WBAT on operative extremity -continue ankle pumps and dvt ppx through 4 weeks -discussed driving requirement: 4 weeks post-op, off narcotic pain medication, adequate brake time -will see back at 6 week appointment for clinical exam -discussed red flag symptoms of acutely increasing pain, new erythema, new swelling, drainage, shortness of breath -PT order given -will update ROM progress in 2 weeks via MyChart. Amarilys Conley RN (Under Netta Hoff MD) Orthopaedic Surgery Allergies As of Date: 09/22/2024 (No Known Allergies) Date Reviewed: 09/22/2024 Reviewed by: Amarilys Conley RN - Fully Assessed Reason for Visit: Knee Replacement [363] Post Op [174] Primary Visit Diagnosis:Status post left knee replacement [Z96.652] Other Visit Diagnosis:S/P total knee arthroplasty, left [Z96.652] Order(s):oxyCODONE IR (ROXICODONE) 5 mg immediate release tabletTake 1-2 tablets by mouth every 6 hours as needed for pain for up to 7 days.Disp: 50 tabletRfl: 0 Prescriptions as of 09/22/2024 - oxyCODONE IR (ROXICODONE) 5 mg immediate release tablet Take 1-2 tablets by mouth every 6 hours as needed for pain for up to 7 days. - acetaminophen (TYLENOL) 500 mg tablet Take 2 tablets by mouth every 8 hours as needed for pain. - ascorbic acid, vitamin C, (VITAMIN C) 500 mg tablet Take 1 tablet by mouth two times a day with meals for 28 doses. Patient should start on September 08, 2024. - aspirin, enteric coated (ASPIRIN, ENTERIC COATED) 81 mg EC tablet Take 1 tablet by mouth two times a day for 28 days. Patient should start on September 08, 2024. - docusate sodium (COLACE) 100 mg capsule Take 1 capsule by mouth two times a day as needed for constipation. Patient should start on September 08, 2024. - pantoprazole DR (PROTONIX) 40 mg tablet Take 1 tablet by mouth daily at 6 am. - amoxicillin (POLYMOX, AMOXIL) 500 mg capsule Take 4 capsules by mouth one hour prior to dental cleaning/procedure - melatonin 10 mg tab Take 20 mg by mouth every evening. Patient should start on November 24, 2021. - VITAMIN B COMPLEX ORAL Take 1 capsule by mouth once daily. Problem List As Of Date 09/22/2024 Noted Resolved Primary osteoarthritis of both knees [M17.0] 07/31/2021 SVT (supraventricular tachycardia) ([facility]) [I47.1*06/06/2012 BMI 36.0-36.9,adult [Z68.36] 11/13/2021 Stiffness of right knee [M25.661] 12/11/2021 Status post right knee replacement [Z96.651] 12/11/2021 Primary osteoarthritis of left knee [M17.12] 06/29/2024 S/P total knee arthroplasty, left [Z96.652] 09/07/2024 Prescriptions ordered this encounter Disp Refills Start End OXYCODONE 5 MG TABLET 50 t* 0 09/22/2024 09/29/2024 Route: ORAL Sig: Take 1-2 tablets by mouth every 6 hours as needed for pain for up to 7 days. Medications Discontinued During This Encounter Prescriptions - oxyCODONE IR (ROXICODONE) 5 mg immediate release tablet (Discontinued) Take 1-2 tablets by mouth every 6 hours as needed for pain for up to 7 days. Patient should start on September 13, 2024. Disposition: Return in about 5 weeks (around 10/27/2024). Follow-up and Disposition History for Encounter Date Provider Department Center 09/22/2024 [id number], EMILY R [facility] Encounter Status:Closed by AMARILYS CONLEY on 09/22/24 [facility] XR KNEE 3V AP/LAT/MERCHANT L Ton 09-22-2024 XR KNEE 3V AP/LAT/MERCHANT LT * * *Final Report* * * DATE OF EXAM: Sep 22 2024 12:52PM MARY 5208 - XR KNEE 3V AP/LAT/MERCHANT LT / PROCEDURE REASON: M25.562-Left knee pain, unspecified chronicity * * * * Physician Interpretation * * * * PROCEDURE: Left knee INDICATION: Left knee pain, unspecified chronicity .1st follow-up for left knee replacement TECHNIQUE: XR KNEE 3V AP/LAT/MERCHANT LT COMPARISON: 06/11/2024 FINDINGS: There is a new total knee arthroplasty in satisfactory position. No periprosthetic lucency or fracture. No soft tissue emphysema or significant joint effusion. IMPRESSION: Interval TKA without radiographic complication Cloth Bleaching Range Operator Chief: [facility] Transcribe Date/Time: Sep 22 2024 4:47P Dictated by : MICHAEL RUIZ MD This examination was interpreted and the report reviewed and electronically signed by: MICHAEL RUIZ MD on Sep 22 2024 4:47PM EST [id number] N [facility] XR Knee AP and Lateral and M laura 09-22-2024 IMPRESSION: Interval TKA without radiographic complication Cloth Bleaching Range Operator Chief: MARIELB Transcribe Date/Time: Sep 22 2024 4:47P Dictated by : MICHAEL RUIZ MD This examination was interpreted and the report reviewed and electronically signed by: MICHAEL RUIZ MD on Sep 22 2024 4:47PM EST [facility] * * *Final Report* * * DATE OF EXAM: Sep 22 2024 12:52PM MARY 5208 - XR KNEE 3V AP/LAT/MERCHANT LT / PROCEDURE REASON: M25.562-Left knee pain, unspecified chronicity * * * * Physician Interpretation * * * * PROCEDURE: Left knee INDICATION: Left knee pain, unspecified chronicity .1st follow-up for left knee replacement TECHNIQUE: XR KNEE 3V AP/LAT/MERCHANT LT COMPARISON: 06/11/2024 FINDINGS: There is a new total knee arthroplasty in satisfactory position. No periprosthetic lucency or fracture. No soft tissue emphysema or significant joint effusion. [facility] Provider, Susan Solorzano - 09/22/2024 * * *Final Report* * * DATE OF EXAM: Sep 22 2024 12:52PM MDAnuj 5208 - XR KNEE 3V AP/LAT/MERCHANT LT / PROCEDURE REASON: M25.562-Left knee pain, unspecified chronicity * * * * Physician Interpretation * * * * PROCEDURE: Left knee INDICATION: Left knee pain, unspecified chronicity .1st follow-up for left knee replacement TECHNIQUE: XR KNEE 3V AP/LAT/MERCHANT LT COMPARISON: 06/11/2024 FINDINGS: There is a new total knee arthroplasty in satisfactory position. No periprosthetic lucency or fracture. No soft tissue emphysema or significant joint effusion. IMPRESSION IMPRESSION: Interval TKA without radiographic complication Cloth Bleaching Range Operator Chief: [facility] Transcribe Date/Time: Sep 22 2024 4:47P Dictated by : MICHAEL RUIZ MD This examination was interpreted and the report reviewed and electronically signed by: MICHAEL RUIZ MD on Sep 22 2024 4:47PM [facility] Radiology Study observation (narrative) Shakeel Tran XR Knee AP and Lateral and M erchantsOrdered By: [facility] Provider on 09-22-2024 [facility] Mary 09-14-2024 CNPN Telephone (HCSIND) YONY ROBERTSON ([id number]) 1965 M Date Time Provider Department 09/14/24 CARLENE PLATT HCSIND During your visit today, we recorded the following information about you: Carlene Platt, PT 09/14/2024 5:45 PM Signed Post op dressing removed Incision clean, dry and well approximated Photo uploaded for you to review Allergies As of Date: 09/14/2024 (No Known Allergies) Date Reviewed: 09/10/2024 Reviewed by: Carlene Platt, PT - Fully Assessed Reason for Visit: Home Care [4073] Cmt: Dressing removal Prescriptions as of 09/14/2024 - oxyCODONE IR (ROXICODONE) 5 mg immediate release tablet Take 1-2 tablets by mouth every 6 hours as needed for pain for up to 7 days. Patient should start on September 13, 2024. - acetaminophen (TYLENOL) 500 mg tablet Take 2 tablets by mouth every 8 hours as needed for pain. - ascorbic acid, vitamin C, (VITAMIN C) 500 mg tablet Take 1 tablet by mouth two times a day with meals for 28 doses. Patient should start on September 08, 2024. - aspirin, enteric coated (ASPIRIN, ENTERIC COATED) 81 mg EC tablet Take 1 tablet by mouth two times a day for 28 days. Patient should start on September 08, 2024. - docusate sodium (COLACE) 100 mg capsule Take 1 capsule by mouth two times a day as needed for constipation. Patient should start on September 08, 2024. - polyethylene glycol 3350 17 gram/dose powder Take 17 g by mouth once daily as needed for constipation for up to 10 days. Dissolve dose in 4 - 8 ounces of liquid and take as directed. Patient should start on September 08, 2024. - pantoprazole DR (PROTONIX) 40 mg tablet Take 1 tablet by mouth daily at 6 am. - meloxicam (MOBIC) 15 mg tablet Take 1 tablet by mouth once daily for 14 days. - amoxicillin (POLYMOX, AMOXIL) 500 mg capsule Take 4 capsules by mouth one hour prior to dental cleaning/procedure - melatonin 10 mg tab Take 20 mg by mouth every evening. Patient should start on November 24, 2021. - VITAMIN B COMPLEX ORAL Take 1 capsule by mouth once daily. Problem List As Of Date 09/14/2024 Noted Resolved Primary osteoarthritis of both knees [M17.0] 07/31/2021 SVT (supraventricular tachycardia) (HCC) [I47.1*06/06/2012 BMI 36.0-36.9,adult [Z68.36] 11/13/2021 Stiffness of right knee [M25.661] 12/11/2021 Status post right knee replacement [Z96.651] 12/11/2021 Primary osteoarthritis of left knee [M17.12] 06/29/2024 S/P total knee arthroplasty, left [Z96.652] 09/07/2024 Encounter Status:Closed by CARLENE PLATT on 09/14/24 [facility] 09-09-2024 CNPN Telephone (HCSIND) YONY ROBERTSON ([id number]) 1965 M Date Time Provider Department 09/09/24 JOSE OAKES HCSIND During your visit today, we recorded the following information about you: Jose aOkes, PT 09/09/2024 10:[address] Hoff and Team, Home health PT start of care completed yesterday 09/08/24. Med issues I wanted to make you aware of: Patient/ report patient is not taking colace or miralax- using herbal tea. Patient states he no longer has the amoxicillin 500mg 4Q1H before dental appts- so if he may need this refilled for future use, if needed Please let me know if you have any questions or concerns Thank you, Jose PT Allergies As of Date: 09/09/2024 (No Known Allergies) Date Reviewed: 09/08/2024 Reviewed by: Jose Oakes, PT - Fully Assessed Reason for Visit: Home Care [4073] Prescriptions as of 09/09/2024 - acetaminophen (TYLENOL) 500 mg tablet Take 2 tablets by mouth every 8 hours as needed for pain. - ascorbic acid, vitamin C, (VITAMIN C) 500 mg tablet Take 1 tablet by mouth two times a day with meals for 28 doses. Patient should start on September 08, 2024. - aspirin, enteric coated (ASPIRIN, ENTERIC COATED) 81 mg EC tablet Take 1 tablet by mouth two times a day for 28 days. Patient should start on September 08, 2024. - docusate sodium (COLACE) 100 mg capsule Take 1 capsule by mouth two times a day as needed for constipation. Patient should start on September 08, 2024. - polyethylene glycol 3350 17 gram/dose powder Take 17 g by mouth once daily as needed for constipation for up to 10 days. Dissolve dose in 4 - 8 ounces of liquid and take as directed. Patient should start on September 08, 2024. - oxyCODONE IR (ROXICODONE) 5 mg immediate release tablet Take 1-2 tablets by mouth every 6 hours as needed for pain for up to 7 days. - pantoprazole DR (PROTONIX) 40 mg tablet Take 1 tablet by mouth daily at 6 am. - meloxicam (MOBIC) 15 mg tablet Take 1 tablet by mouth once daily for 14 days. - amoxicillin (POLYMOX, AMOXIL) 500 mg capsule Take 4 capsules by mouth one hour prior to dental cleaning/procedure - melatonin 10 mg tab Take 20 mg by mouth every evening. Patient should start on November 24, 2021. - VITAMIN B COMPLEX ORAL Take 1 capsule by mouth once daily. Problem List As Of Date 09/09/2024 Noted Resolved Primary osteoarthritis of both knees [M17.0] 07/31/2021 SVT (supraventricular tachycardia) ([facility]) [I47.1*06/06/2012 BMI 36.0-36.9,adult [Z68.36] 11/13/2021 Stiffness of right knee [M25.661] 12/11/2021 Status post right knee replacement [Z96.651] 12/11/2021 Primary osteoarthritis of left knee [M17.12] 06/29/2024 S/P total knee arthroplasty, left [Z96.652] 09/07/2024 Encounter Status:Closed by JOSE OAKES on 09/09/24 [facility] Telephone (MICKY) YONY ROBERTSON ([id number]) 1965 M Date Time Provider Department 09/09/24 NETTA HOFF During your visit today, we recorded the following information about you: Sarah Cervantes 09/09/2024 1:23 PM Signed Patient is S/P L TKA from Saturday. He had a PT session yesterday and feels he may have worked his PT session a little to much and fell behind his pain. He took 2 of the pain pills at 6 am, 2 more at 10 am, 1 at 10:30 am and 1,000 mg of Tylenol. He was having trouble getting ahead of the pain. He seems like he may be making some progress. Moving forward he though he would like to talk with someone on how much he should be taking and how much is allowed to be taking etc. He can be reached at [phone]. Amarilys Adrian RN 09/09/2024 4:39 PM Signed Spoke with Yony. His pain has gotten better since he called. Explained to take 1-2 tablets every 4 hours for 24 hours. Then go back to every 6 hours. He can send a refill request on Saturday. Allergies As of Date: 09/09/2024 (No Known Allergies) Date Reviewed: 09/08/2024 Reviewed by: Jose Oakes, PT - Fully Assessed Reason for Visit: Medication Problem [65] Cmt: Increased pain Prescriptions as of 09/09/2024 - acetaminophen (TYLENOL) 500 mg tablet Take 2 tablets by mouth every 8 hours as needed for pain. - ascorbic acid, vitamin C, (VITAMIN C) 500 mg tablet Take 1 tablet by mouth two times a day with meals for 28 doses. Patient should start on September 08, 2024. - aspirin, enteric coated (ASPIRIN, ENTERIC COATED) 81 mg EC tablet Take 1 tablet by mouth two times a day for 28 days. Patient should start on September 08, 2024. - docusate sodium (COLACE) 100 mg capsule Take 1 capsule by mouth two times a day as needed for constipation. Patient should start on September 08, 2024. - polyethylene glycol 3350 17 gram/dose powder Take 17 g by mouth once daily as needed for constipation for up to 10 days. Dissolve dose in 4 - 8 ounces of liquid and take as directed. Patient should start on September 08, 2024. - oxyCODONE IR (ROXICODONE) 5 mg immediate release tablet Take 1-2 tablets by mouth every 6 hours as needed for pain for up to 7 days. - pantoprazole DR (PROTONIX) 40 mg tablet Take 1 tablet by mouth daily at 6 am. - meloxicam (MOBIC) 15 mg tablet Take 1 tablet by mouth once daily for 14 days. - amoxicillin (POLYMOX, AMOXIL) 500 mg capsule Take 4 capsules by mouth one hour prior to dental cleaning/procedure - melatonin 10 mg tab Take 20 mg by mouth every evening. Patient should start on November 24, 2021. - VITAMIN B COMPLEX ORAL Take 1 capsule by mouth once daily. Problem List As Of Date 09/09/2024 Noted Resolved Primary osteoarthritis of both knees [M17.0] 07/31/2021 SVT (supraventricular tachycardia) (HCC) [I47.1*06/06/2012 BMI 36.0-36.9,adult [Z68.36] 11/13/2021 Stiffness of right knee [M25.661] 12/11/2021 Status post right knee replacement [Z96.651] 12/11/2021 Primary osteoarthritis of left knee [M17.12] 06/29/2024 S/P total knee arthroplasty, left [Z96.652] 09/07/2024 Encounter Status:Closed by AMARILYS CONLEY on 09/09/24 [facility] CNCAmber 09-08-2024 CNCO Letter Text [facility] CNPChandrika 09-08-2024 CNPN Telephone (HCSIND) YONY ROBERTSON ([id number]) 1965 M Date Time Provider Department 09/08/24 NETTA HOFF During your visit today, we recorded the following information about you: [employer] TechnologistJaswant 09/08/2024 10:18 AM Signed VM left offering a visit today(09/08) for the PT SOC. Allergies As of Date: 09/08/2024 (No Known Allergies) Date Reviewed: 09/07/2024 Reviewed by: Victorino Marin, RN - Fully Assessed Reason for Visit: Home Care [4073] Prescriptions as of 09/08/2024 - acetaminophen (TYLENOL) 500 mg tablet Take 2 tablets by mouth every 8 hours as needed for pain. - ascorbic acid, vitamin C, (VITAMIN C) 500 mg tablet Take 1 tablet by mouth two times a day with meals for 28 doses. Patient should start on September 08, 2024. - aspirin, enteric coated (ASPIRIN, ENTERIC COATED) 81 mg EC tablet Take 1 tablet by mouth two times a day for 28 days. Patient should start on September 08, 2024. - docusate sodium (COLACE) 100 mg capsule Take 1 capsule by mouth two times a day as needed for constipation. Patient should start on September 08, 2024. - polyethylene glycol 3350 17 gram/dose powder Take 17 g by mouth once daily as needed for constipation for up to 10 days. Dissolve dose in 4 - 8 ounces of liquid and take as directed. Patient should start on September 08, 2024. - oxyCODONE IR (ROXICODONE) 5 mg immediate release tablet Take 1-2 tablets by mouth every 6 hours as needed for pain for up to 7 days. - pantoprazole DR (PROTONIX) 40 mg tablet Take 1 tablet by mouth daily at 6 am. - meloxicam (MOBIC) 15 mg tablet Take 1 tablet by mouth once daily for 14 days. - amoxicillin (POLYMOX, AMOXIL) 500 mg capsule Take 4 capsules by mouth one hour prior to dental cleaning/procedure - melatonin 10 mg tab Take 10 mg by mouth every evening. - VITAMIN B COMPLEX ORAL Take 1 capsule by mouth once daily. Problem List As Of Date 09/08/2024 Noted Resolved Primary osteoarthritis of both knees [M17.0] 07/31/2021 SVT (supraventricular tachycardia) (HCC) [I47.1*06/06/2012 BMI 36.0-36.9,adult [Z68.36] 11/13/2021 Stiffness of right knee [M25.661] 12/11/2021 Status post right knee replacement [Z96.651] 12/11/2021 Primary osteoarthritis of left knee [M17.12] 06/29/2024 S/P total knee arthroplasty, left [Z96.652] 09/07/2024 Encounter Status:Closed by BENDER PEDIATRIC AUDIOLOGISTJASWANT on 09/08/24 [facility] ANES POSTPROC EVALon 024 ANES POSTPROC EVAL HNO ID: [id number] Author: YE CUMMINGS MD Service: Anesthesiology Author Type: Anesthesiologist Type: Anesthesia Postprocedure Evaluation Filed: 09/07/2024 11:54 Note Text: POST ANESTHESIA EVALUATION NOTE : 1965 Procedure Summary Date: 09/07/24 Room / Location: [place] [address] / [facility] [place] Anesthesia Start: 944 Anesthesia Stop: 1128 Procedure: SAME DAY ROBOTIC ASSISTED TOTAL KNEE ARTHROPLASTY (Left: Knee) Diagnosis: Primary osteoarthritis of left knee Chronic pain of left knee (Primary osteoarthritis of left knee [M17.12]) (Chronic pain of left knee [M25.562, G89.29]) Surgeons: Netta Hoff MD Responsible Provider: Ye Cummings MD Anesthesia Type: general ASA Status: 3 Anesthesia Type: general Airway Type: ETT Last Vitals Vitals Value Taken Time BP 151/86 09/07/24 1145 Temp 36 ?C (96.8 ?F) 09/07/24 1130 Pulse 67 09/07/24 1152 Resp 15 09/07/24 1152 SpO2 94 % 09/07/24 1152 Vitals shown include unfiled device data. Post Anesthesia Patient Status Patient Evaluation: bedside. Anticipated Disposition: phase 2 then home. Neurological Status: aware and responsive. Pulmonary Status: breathing comfortably on room air Airway Control: returned to baseline unsupported. Cardiovascular Status: stable. Pain Management: clinically adequate Postoperative Hydration: acceptable. Intraoperative Events: no significant anesthesia events Post Operative Nausea/Vomiting Status: no significant post operative nausea or vomiting Recommendation: continue current plan of care. Anesthesia Observations No Documentation SIGNATURE: Ye Cummings MD PATIENT NAME: Yony Robertson DATE: September 07, 2024 TIME: 11:53 AM CSN: [id number] [facility] ANES PRE-OPon 09-07-2024 ANES PRE-OP HNO ID: [id number] Author: YE CUMMINGS MD Service: Anesthesiology Author Type: Anesthesiologist Type: Anesthesia Preprocedure Evaluation Filed: 09/07/2024 09:20 Note Text: ANESTHESIOLOGY DAY OF SURGERY NOTE : 1965 Procedure Information Date/Time: 09/07/24 1030 Procedure: SAME DAY ROBOTIC ASSISTED TOTAL KNEE ARTHROPLASTY (Left: Knee) Location: [place] [address] [facility] [place] Surgeons: Netta Hoff MD Estimated body mass index is 36.3 kg/m? as calculated from the following: Height as of 08/28/24: 177.8 cm (5' 10). Weight as of 08/28/24: 114.8 kg (253 lb). Most recent hematocrit and potassium results: Hematocrit 45.5 08/28/2024 Potassium 4.1 08/28/2024 Relevant Problems CARDIO (+) SVT (supraventricular tachycardia) (HCC) I - PHYSICAL EVALUATION AIRWAY Patient intubated: No. Tracheostomy tube not present Mallampati: I. TM distance: >3 FB. Neck ROM: full ROM without neurological symptoms. Mouth opening: adequate. Short neck: no. Thick neck: yes Stout present: yes DENTAL Normal dental observations. Dental findings: teeth intact and poor dentition. II - ANESTHESIA PLAN ASA Score: 3 Anesthetic Plan: general Airway type: LMA The patient is not a current smoker. NPO Status: adequate Beta Anny Monitoring Plan Monitoring plan: standard ASA. Post Procedure Analgesic Plan Postoperative analgesic plan: parenteral or oral opioids, multimodal analgesia and peripheral nerve block. Informed Consent Anesthetic risks, benefits, alternatives, personnel and consent discussed: yes. Patient / Responsible Green Party agrees to proceed: yes Patient / Surrogate agrees to blood products: blood products not planned DNR status not reviewed with patient and/or family prior to surgery. Significant changes in the patient condition since the History and Physical, not otherwise documented in primary service progress note: no. Potential Anesthesia issues that may suggest increased risk of complications or contraindication to planned procedure: none. Discussed the possibility of lip / dental damage: yes No vitals data found for the desired time range. Facility-Administered Medications as of 09/07/2024 Medication Dose Route Frequency lidocaine (PF) 10 mg/mL (1 %) 1-2 mg injection (XYLOCAINE) 0.1-0.2 mL INTRADERMAL PRN NaCl 0.9% iv flush bag 20 mL INTRAVENOUS PRN ceFAZolin iv piggyback 2 g in D5W (iso-osmotic) 100 mL (ANCEF) 2 g INTRAVENOUS Pre-Op Once tranexamic acid 1,000 mg in NaCl 0.9% 100 mL (CYKLOKAPRON) 1,000 mg INTRAVENOUS Pre-Op Once tranexamic acid 1,000 mg in NaCl 0.9% 100 mL (CYKLOKAPRON) 1,000 mg INTRAVENOUS ONCE acetaminophen 1,000 mg tab(s) (TYLENOL) 1,000 mg ORAL Pre-Op Once celecoxib 200 mg cap(s) (CeleBREX) 200 mg ORAL Pre-Op Once oxyCODONE ER 10 mg tab(s) (OxyCONTIN) 10 mg ORAL Pre-Op Once scopolamine (delivers 1 mg over 3 days) 1 Patch (TRANSDERM-SCOP) 1 Patch TRANSDERMAL ONCE scopolamine - VERIFY patch OTHER q 8 H [START ON 09/08/2024] scopolamine - REMOVE PATCH OTHER ONCE cyclobenzaprine 10 mg tab(s) (FLEXERIL) 10 mg ORAL ONCE midazolam (PF) 2 mg injection (VERSED) 2 mg INTRAVENOUS ONCE Outpatient Medications as of 09/07/2024 Medication Sig amoxicillin (POLYMOX, AMOXIL) 500 mg capsule Take 4 capsules by mouth one hour prior to dental cleaning/procedure MEDICATION, NON-DATABASE Take 1 capsule by mouth once daily. doTerra MicroPlex VMz MEDICATION, NON-DATABASE Take 1 capsule by mouth once daily. doTerra Alpha CRS+ MEDICATION, NON-DATABASE Take 1 capsule by mouth once daily. doTerra xEo Terrence MEDICATION, NON-DATABASE Take 1 capsule by mouth twice daily. Kidney C.O.P.- Calcium Oxalate Protector MEDICATION, NON-DATABASE Take 1 capsule by mouth once daily as needed (any illness). Elderberry Vitamin C + Zinc melatonin 10 mg tab Take 10 mg by mouth every evening. MEDICATION, NON-DATABASE Take 1 capsule by mouth every evening. Valarian Root MEDICATION, NON-DATABASE Take 1 capsule by mouth every evening. doTerra Deep Blue VITAMIN B COMPLEX ORAL Take 1 capsule by mouth once daily. I have interviewed and examined the patient. I have reviewed the medical record and/or the pre-anesthesia evaluation, pertinent labs, and test results. This contains updated information obtained within 48 hours of Surgery/Procedure. SIGNATURE: Ye Cummings MD PATIENT NAME: Yony Robertson DATE: September 07, 2024 TIME: 9:20 AM CSN: [id number] [facility] 09-07-2024 [facility] HNO ID: [id number] Author: NETTA HOFF MD Service: Orthopaedic Surgery Author Type: Physician Stereotyper Helper Type: Discharge Summary Filed: 09/09/2024 08:39 Note Text: Attestation signed by Netta Hoff MD at 09/09/2024 8:39 AM I agree with the above discharge summary. Reviewed, authenticated, and electronically signed by Netta Hoff MD DISCHARGE SUMMARY PATIENT NAME: Yony Robertson ADMISSION DATE: 09/07/2024 DISCHARGE DATE: 09/07/2024 PATIENT DISCHARGE SUMMARY C O N F I D E N T I A L I N F O R M A T I O N The following is a brief overview of your hospitalization. Some of the information contained on this summary may be confidential. This information should be kept in your records and should be shared with your regular doctor. These instructions explain what you or your care transition manager need to do to continue your care at home or at another healthcare facility Please go over these instructions with your nurse and care transition manager. If you are not sure about something, please ask. Highest Readmission Risk Score: 6 The 30 day readmissions risk score is derived from an internally validated risk model which evaluates patient level characteristics, utilization history, medication orders and lab results up until the day of discharge. Patients with a score of 40 or above are considered highest risk for readmission. Specific patient level drivers will be listed at the bottom of the summary. The 30 day readmissions risk score is derived from an internally validated risk model which evaluates patient level characteristics, utilization history, medication orders and lab results up until the day of discharge. Patients with a score of 40 or above are considered highest risk for readmission. Where I Will be Going after Discharge: Home with Home Health My Condition at Discharge: Stable PRINCIPAL DIAGNOSIS: (Reason after study for this admission): Procedure(s): SAME DAY ROBOTIC ASSISTED TOTAL KNEE ARTHROPLASTY OTHER DIAGNOSES: Patient Active Hospital Problem List: No active hospital problems. OPERATIONS PERFORMED: Procedure(s): SAME DAY ROBOTIC ASSISTED TOTAL KNEE ARTHROPLASTY My Doctors and Medical Team: My Main Hospital Doctor: Netta Villafana MD PHYSICAL EXAM: See daily progress note Vitals: BP 132/81 Pulse 85 Temp 36.8 ?C (98.2 ?F) (Oral) Resp 18 Ht 177.8 cm (5' 10) Wt 111.1 kg (245 lb) SpO2 93% BMI 35.15 kg/m? SUMMARY OF WHAT HAPPENED WHILE PATIENT WAS IN THE HOSPITAL: The patient was followed by Dr. Hoff in clinic for left knee osteoarthritis. It was determined the patient would benefit from left total knee arthroplasty. The patient was scheduled for same day discharge preoperatively. The procedure, its risks, benefits, and potential complications were discussed in detail prior to surgery. The patient conveyed understanding of all topics and consented to surgery. The patient underwent an elective left total knee arthroplasty on 09/07/[address] Hoff. The patient tolerated the procedure well and was returned to the Post Anesthesia Care Unit in stable condition. Vital signs per PACU protocol. VTE risk assessment performed. O2 therapy monitored by Respiratory Therapy to include incentive spirometry, ADL, wound and support per physician order set postop protocol. PT and OT to evaluate and treat. IV antibiotics and pain medication were given. The patient progressed with physical therapy. Vital signs were monitored and remained stable. The patient progressed with physical therapy towards goal of safety and independence. Patient was determined safe for discharge to home with home health care on 09/07/2024. TREATMENT / WOUND CARE: If you have any concerns about your wound, please contact the office. Keep wound and incision area clean and dry. You may remove your dressing on POD #7-10 (7 to 10 days after surgery). If it remains drainage-free, you may leave the dressing off, keeping the wound open to air. If there is any drainage please contact the office You may not submerge the wound under standing water for 6 weeks time after surgery (i.e. no baths, no hot tubs, no swimming pools). Do not rub the wound, but rather pat dry. If you have non-absorbable sutures in place, these will be taken out on your 1st follow-up appointment. Observe the wound for signs of infection, including increased redness, swelling, or persistent drainage around the incision site. It is normal for your wound to be warmer immediately after surgery (even up to 4-6 weeks after surgery). If you begin to experience fevers, chills, night sweats, or flu-like symptoms and your wound shows si (more content not included)... Normal [facility] 09-07-2024 [facility] Telephone (HCSIND) YONY ROBERTSON ([id number]) 1965 M Date Time Provider Department 09/07/24 STACI URIARTE During your visit today, we recorded the following information about you: Staci Uriarte PSS 09/07/2024 3:06 PM Signed Date/Time: 09/07/2024 3:01 PM Spoke with Nataliya Robertson (Spouse) @ phone #: - Preferred # for contact: Have you received help from a home care company in the last 60 days? NO Are you agreeable to [facility] services? YES What address will we be seeing you at? [address] [facility] [address] Do you have any upcoming appointments or things we need to schedule around? NO Do you have a teachable CG or can you manage your care independently? YES Who? Nataliya Robertson (Spouse) Have you received the flu shot? NO If so, when and where? NA Allergies As of Date: 09/07/2024 (No Known Allergies) Date Reviewed: 09/07/2024 Reviewed by: Victorino Marin, SHARMILA - Fully Assessed Reason for Visit: Home Care [4073] Cmt: CONFIRMATION CALL Prescriptions as of 09/07/2024 - amoxicillin (POLYMOX, AMOXIL) 500 mg capsule Take 4 capsules by mouth one hour prior to dental cleaning/procedure - melatonin 10 mg tab Take 10 mg by mouth every evening. - VITAMIN B COMPLEX ORAL Take 1 capsule by mouth once daily. Facility-Administered Medications as of 09/07/2024 - melatonin 9 mg tab(s) - aspirin, enteric coated 81 mg tab(s) - lactated ringers iv infusion - ceFAZolin iv piggyback 2 g in D5W (iso-osmotic) 100 mL (ANCEF) - oxyCODONE IR 5-10 mg tab(s) (ROXICODONE) - HYDROmorphone 0.2 mg injection (DILAUDID) - acetaminophen 1,000 mg tab(s) (TYLENOL) - keTORolac 15 mg injection (Toradol) - ondansetron orally disintegrating 4 mg tab(s) (ZOFRAN ODT) - ondansetron (PF) 4 mg injection (ZOFRAN) - polyethylene glycol 3350 17 g packet - bisacodyl EC 10 mg tab(s) (DULCOLAX) - aluminum-magnesium hydroxide-simethicone 200-200-20 mg/5 mL 30 mL - ascorbic acid (vitamin C) 500 mg tab(s) (VITAMIN C) - docusate sodium 100 mg cap(s) (COLACE) - senna 17.2 mg tab(s) (SENOKOT) Problem List As Of Date 09/07/2024 Noted Resolved Primary osteoarthritis of both knees [M17.0] 07/31/2021 SVT (supraventricular tachycardia) (HCC) [I47.1*06/06/2012 BMI 36.0-36.9,adult [Z68.36] 11/13/2021 Stiffness of right knee [M25.661] 12/11/2021 Status post right knee replacement [Z96.651] 12/11/2021 Primary osteoarthritis of left knee [M17.12] 06/29/2024 Encounter Status:Closed by STACI URIARTE on 09/07/24 [facility] CONSULT HNO ID: [id number] Author: AMAURY ALLEN MD Service: General Internal Medicine Author Type: Physician Type: Consults Filed: 09/17/2024 18:37 Note Text: [facility]- Consultation ROBERTSONYONY : 1965 AGE: 59 SEX: M ACCTNUM: [id number] [facility]: [facility] LOCATION: [address] ATTENDING PHYSICIAN: NETTA HOFF DATE OF SERVICE: 09/07/2024 TIME OF SERVICE: 04:33 PM REASON FOR CONSULTATION: Medical management. HISTORY: This is a 59-year-old gentleman whose significant medical history includes osteoarthritis, supraventricular tachycardia status post ablation therapy in 2011. Patient underwent elective left total knee arthroplasty under general anesthesia. Patient had uneventful intraoperative course and during initial evaluation, he was alert and oriented. No nausea, lightheadedness, dizziness, shortness of breath, or palpitation. Currently sitting in a chair. PAST MEDICAL HISTORY: As mentioned above. PAST SURGICAL HISTORY: Includes endoscopy, cardiac ablation therapy, kidney stone removed, left shoulder arthroscopy, left hip replacement, and right knee replacement. FAMILY HISTORY: Not significant. SOCIAL HISTORY: Does not smoke. He drinks alcohol occasionally. MEDICATIONS: His current home medication list reviewed. ALLERGIES: He has no known drug allergies. REVIEW OF SYSTEMS: HEENT/Neck: No history of TIA, CVA, or seizure disorder. No history of dysphagia, odynophagia. No history of chronic cough, wheezing, dyspnea with exertion. No history of asthma, COPD, or obstructive sleep apnea. No history of congestive heart failure, coronary artery disease. History of SVT, status post ablation therapy and has not had any problem after ablation therapy. No history of bleeding peptic ulcer disease, hepatitis, colitis. Good appetite. Regular bowel movement. No chronic dysuria, hematuria. Occasionally night micturition. No history of DVTs, paresthesia of feet, or bleeding diathesis. PHYSICAL EXAM: General: Young gentleman. Patient is alert and oriented. HEENT: Sclerae anicteric. Neck: No thyromegaly appreciated. No carotid bruit heard. No lymphadenopathy of the neck. Good carotid pulse felt. Lungs: Clear to auscultation bilaterally. Cardiovascular: S1, S2. Regular rhythm. No murmur, gallop, or rub appreciated. Abdomen: Soft, nontender, nondistended. No mass felt. Lower Extremities: No ankle edema noted. IMPRESSION: 1. Osteoarthritis, status post left total knee arthroplasty. Deep venous thrombosis prophylaxis with aspirin 81 mg twice a day. 2. Supraventricular tachycardia, status post ablation therapy. 3. Patient has possible discharge today. His home-going medication list reviewed. Thank you very much for kind referral. Amaury Allen M.D. Internal Medicine [place]:[id number] /[id number] [facility] OPERATIVE NOon 09-07-2024 OPERATIVE NO HNO ID: [id number] Author: NETTA HOFF MD Service: Orthopaedic Surgery Author Type: Physician Type: Operative Report Filed: 09/07/2024 10:55 Note Text: Operative Report PATIENT NAME: Yony Robertson CSN: [id number] LOG ID: [id number] Surgery Date: 09/07/2024 Surgeon(s) and Stereotyper Helper(s): Hubert Fuentes BOTTLE CARRIER - Necktie Maker Surgeons and Role: * Netta Hoff MD - Primary 22 modifier--CASE COMPLEXTIY: HIGH- a 22 modifier was added to the case to reflect the increased complexity. The surgical procedure was more complex and involved due to the patient?s obesity with BMI greater than 35. Joint exposure was significantly more difficult and involved mobilization of abundant tissue in order to reduce risk of ethel-operative complication. Closure was also more complex due to the patient's body habitus and abundant ethel-articular adipose. Closure took approximately half an hour or longer than the standard closure. The case took significantly more time and effort than a standard arthroplasty procedure. No qualified orthopedic resident available BMI: Estimated body mass index is 35.15 kg/m? as calculated from the following: Height as of this encounter: 177.8 cm (5' 10). Weight as of this encounter: 111.1 kg (245 lb). Procedure(s): Procedure(s) (LRB): SAME DAY ROBOTIC ASSISTED TOTAL KNEE ARTHROPLASTY (Left) Anesthesia: General Incision Start: 10:12 AM Incision Stop: Approx 11:10 AM Attestation: I was present for and performed all critical portions of the case. photographer's assistant was necessary for safe patient positioning, sterile prepping and draping, assistance, positioning and protection, soft tissue retraction, protection of vital structures and suture management during the case, and superficial wound closure. Also critical for safe transit to the recovery room in stable condition. Preop Diagnosis: Pre-Op Diagnosis Codes: * Primary osteoarthritis of left knee [M17.12] * Chronic pain of left knee [M25.562, G89.29] Postop Diagnosis: Same as Pre-Op Diagnosis Codes: * Primary osteoarthritis of left knee [M17.12] * Chronic pain of left knee [M25.562, G89.29] Implants: * No implants in log * Problem List: ACTIVE PROBLEM LIST Primary Osteoarthritis of Both Knees Svt (Supraventricular Tachycardia) (Formerly [facility]) Bmi 36.0-36.9,Adult Stiffness of Right Knee Status Post Right Knee Replacement Primary Osteoarthritis of Left Knee OPERATIVE INDICATIONS: The patient has a long history of progressive left knee pain, arthritis, and degeneration. Non-operative treatment has been attempted but has not improved or controlled the symptoms and pain that occurs during normal daily activities. Knee motion has also become limited and is restricting the patient. Total knee arthroplasty was recommended. The risks, benefits and potential complications of the arthroplasty surgery were discussed with the patient in detail. Specific details of the surgical procedure, hospitalization, recovery, rehabilitation, and long-term precautions were also presented. Pre-operative teaching was provided. Implant/prosthesis selection was outlined, and the many options available were explained; the final choice will be made at the time of the procedure to match the anatomy and condition of the bone, ligaments, tendons, and muscles. The patient was evaluated medically for pre-operative optimization, and risk assessment. Ethel-operative blood management and the potential for blood transfusion were discussed with risks and options clearly outlined. Understanding of all topics was conveyed to me by the patient pre-operatively, and patient consent was given to proceed with the left total knee replacement, robotically assisted. OPERATIVE PROCEDURE: The patient was identified and brought into the Operating Room by the anesthesia and nursing teams. Anesthesia was successfully performed. The patient was then positioned supine on the operating room table, and all bony prominences were padded. Intravenous antibiotic prophylaxis dosing was confirmed. A tourniquet was applied to the upper thigh. A full knee exam was done after anesthesia was in full effect. The patient had a 8 degree varus deformity per robotic measurements. Robotic measurements demonstrated a flexion contracture of (recurvatum 6) degrees. Pre-operative flexion was to 110 in the OR. The leg was prepped and draped in the usual sterile fashion. The preoperative plan with CT scan templating was reviewed. Adjustments were made to ensure appropriate fit and position of implants. A surgical time-out was performed immediately preceding the incision with all personnel in the operating room; the patient identity was again confirmed, the correct knee surgical site and extremity were identified and confirmed, X-rays were reviewed, and availability of the appropriate surgical equipment was established. The knee was exsanguinated and exposed using an (more content not included)... [facility] THERAPY NT 09-07-2024 THERAPY NT HNO ID: [id number] Author: DIPESH GARZA OT/Markie Service: Occupational Therapy Author Type: Occupational Therapist Type: Therapy (PT/OT/Speech/Resp) Filed: 09/07/2024 17:07 Note Text: Occupational Therapy Evaluation Summary SERVICE DATE: 09/07/2024 SERVICE TIME: 1600 to 1653 ROOM: [id number] OT 6 Clicks Score: 21 Total Joint Replacement Discharge Readiness: Cleared from Occupational Therapy DISCHARGE RECOMMENDATIONS Home Anticipated Discharge Needs: Physical Assist at Home Physical Assist at Home for: Cleaning, Laundry, Shopping, Self Care, Safety, Meals, Stairs, Transportation Supervision at Home due to: Decreased safety awareness ASSESSMENT Response to Therapy Interventions: Good Participation in Activities, Improved Tolerance for Activity, On-Track to Achieve Discharge Goals Pt presents with decreased ability to perform daily tasks d/t general weakness, decreased activity tolerance. Pt requires SBA-Min A to perform daily tasks. Pt will benefit from continued skilled OT services to increase ability to perform daily tasks. PRECAUTIONS Fall Risk L knee AROM only Left Lower Extremity Weight Bearing Status: WBAT CURRENT HOSPITAL COURSE post L TKA Relevant Past Medical History: heart ablation, R TKA 11/2021, L [facility] Patient Lives With: Family (spouse and adult children) Assistance Available: 24-Hour Entry To Home: Stairs, With Rail Number Of Stairs Into Home: 3 Number Of Stairs To Bed/Bath: 13 Stairs to Bed/Bath with: Unilateral Rail Tub/Shower Type: tub/shower first floor; walk in shower second floor Laundry: main level Equipment Owned: Walker- Wheeled, Crutch(es), Elevated Toilet Seat, Long Handled Sponge, Data Processing Mechanic, Sock Aid PRIOR FUNCTIONAL LEVEL Within Functional Limits Pt reports independence with ADLs, IADLs, no use of AD, + driving, + working, denies falls in last 6 months, plans to sleep in flat bed on first floor. Baseline Cognition: Oriented to self, Oriented to place, Oriented to time SUBJECTIVE Agreed to OT COGNITION Responsiveness: Alert, Awake Follows Commands: 3-step Commands 4AT Score: 0 (09/07/24) Delirium Positive/Negative: Negative (09/07/24) THERAPY DIAGNOSIS Decreased activities of daily living (ADL) TREATMENT INTERVENTIONS Evaluation, Self Group Home Management (24268) Timed Code Treatment (minutes): 38 Skilled Treatment Time (minutes): 53 TRAINING AND EDUCATION PROVIDED Benefits of In-Hospital Mobility, Discharge Planning, Expected Functional Level, Functional Mobility Involving ADLs, Fine Motor Coordination, Energy Conservation THERAPEUTIC SKILLS USED Activity Dosing, Assessment of Tolerance Including Vitals Response to Activity, Cuing Tactile, Cuing Verbal, Cuing Visual, Cues for Sequencing/Proper Technique for Activity, Therapeutic Use of Self, Teach-Back for Education, Physical Assist, Muscle Activation Facilitation, Movement Facilitation FUNCTIONAL STATUS Activities of Daily Living Assist Level Additional Information Feeding Stand By Assistance Grooming Stand By Assistance Bathing Upper Body Stand By Assistance Bathing Lower Body Contact Guard Assistance Dressing Upper Body Stand By Assistance Dressing Lower Body Contact Guard Assistance Toileting Contact Guard Assistance Mobility Assist Level Additional Information Bed Mobility Rolling: Stand By Assistance Supine To Sit: Stand By Assistance Sit To Supine: Stand By Assistance Sit to Stand Contact Guard Assistance Stand to Sit Contact Guard Assistance Bed to Chair Contact Guard Assistance Toilet/Commode Contact Guard Assistance Shower Functional Mobility Contact Guard Assistance Functional Mobility Device: Wheeled Walker GOALS Patient will demonstrate understanding of importance of mobility during hospital stay and resolve all self-care, cognitive and/or coping needs identified. Progress Toward Goals: Progressing as expected Rehab Potential: Good PLAN OT Frequency: 3 Times Per Week Treatment Interventions: Education, Self Care/Home Management, Energy Conservation Training, Strengthening, Functional Mobility Training, Balance Training, Neuromuscular Re-education, Cognitive Training Plan for Next Visit: Bed Mobility, Bathing Training, Dressing Training, Energy Conservation, Fall Prevention, Positioning Training, Standing Balance, Standing Tolerance, Sit to Stand Transfers, Stress/Anxiety Management SIGNATURE: Dipesh Garza OT/Markie PATIENT NAME: Yony Robertson DATE: September 07, 2024 TIME: 5:07 PM [facility] THERAPY NT HNO ID: [id number] Author: YARELY MONET PT Service: Physical Therapy Author Type: Physical Therapist Type: Therapy (PT/OT/Speech/Resp) Filed: 09/07/2024 16:49 Note Text: Summary: PT [facility] Evaluation Summary SERVICE DATE: 09/07/2024 SERVICE TIME: 1454 to 1556 ROOM: [id number] PT 6 Clicks Score: 19 Total Joint Replacement Discharge Readiness: Cleared from Physical Therapy DISCHARGE RECOMMENDATIONS Home PT Recommended Discharge Disposition Comments: for progression of LLE strengthening and flexibility post L TKA Recommended Discharge Equipment: No equipment needs anticipated ASSESSMENT Response to Therapy Interventions: Good Participation in Activities, On-Track to Achieve Discharge Goals, Pain, Requires Additional Time to Complete Activities Pt with balance and strength deficits affecting performance of functional activity. Pt is CGA to SBA with OOB activity, reports increased pain initially that improves with continued ambulation. Vitals checked multiple times and noted t be within safe limits. Pt is AANDO x 3, follows cues appropriately, participates without adverse effects. Pt is safe fo discharge home. PRECAUTIONS Fall Risk L knee AROM only Left Lower Extremity Weight Bearing Status: WBAT CURRENT HOSPITAL COURSE Admitted to RNF Relevant Past Medical History: heart ablation, R TKA 11/2021, L [facility] Patient Lives With: Family (spouse and adult children) Assistance Available: 24-Hour Entry To Home: Stairs, With Rail Number Of Stairs Into Home: 3 Number Of Stairs To Bed/Bath: 13 Stairs to Bed/Bath with: Unilateral Rail Tub/Shower Type: tub/shower first floor; walk in shower second floor Laundry: main level Equipment Owned: Walker- Wheeled, Crutch(es), Elevated Toilet Seat, Long Handled Sponge, Data Processing Mechanic, Sock Aid PRIOR FUNCTIONAL LEVEL Within Functional Limits Pt reports independence with ADLs, IADLs, no use of AD, + driving, + working, denies falls in last 6 months, plans to sleep in flat bed on first floor. SUBJECTIVE Pt agreeable to PT, ok per nursing to treat. THERAPY DIAGNOSIS Difficulty walking-musculoskelet al TREATMENT INTERVENTIONS $ Evaluation-Low (49501) Billed Units: 1 unit Therapeutic Exercise (53237) Treatment Minutes: 9 $ Therapeutic Exercise (05563) Billed Units: 1 unit Therapeutic Activity (03746) Treatment Minutes: 19 $ Therapeutic Activity (82590) Billed Units: 1 unit Gait Training (24467) Treatment Minutes: 19 $ Gait Training (63997) Billed Units: 1 unit Evaluation, Therapeutic Exercise (65669), Therapeutic Activity (27069), Gait Training (07167) Timed Code Treatment (minutes): 47 Skilled Treatment Time (minutes): 62 TRAINING AND EDUCATION PROVIDED Assistive Device Use, Bed Mobility, Benefits of In-Hospital Mobility, Discharge Planning, Disease Specific Education, Edema Management, Equipment, Expected Functional Level, Falls Prevention, Gait Pattern, Reduction of Deviations, Home Safety, Modalities, Positioning, Precautions/Restricti ons, Role of Physical Therapy, Transfers, Treatment Protocol, Car Transfers, Exercise Program, Handout Issued, Stair Navigation, Standing Balance THERAPEUTIC SKILLS USED Activity Dosing, Assessment of Tolerance Including Vitals Response to Activity, Cuing Tactile, Cues for Sequencing/Proper Technique for Activity, Cuing Verbal, Cuing Visual, Physical Assist, Muscle Activation Facilitation, Postural Alignment Correction, Family Training, Management of Critical Lines, Tubes and/or Drains FUNCTIONAL STATUS Bed Mobility Supine To Sit: Minimal Assistance HOB flat, assist with LLE management, + time to complete, minimal use of bed rail to complete Sit to Supine: Additional Information in chair upon exit Scooting: Stand By Assistance Transfers Sit To Stand: Contact Guard Assistance cues for proper hand placement, X 3 trials Stand To Sit: Contact Guard Assistance cues for safe approach to surface, proper hand placement, controlled descent to sit Bed to Chair Gait Contact Guard Assistance, Stand By Assistance, Additional Information Pt instructed in step to pattern with initial cues for proper AD placement, sequencing and increased use of UEs for support. Initial CGA with progression to SBA Gait Device: Wheeled Walker General Deviations/Observatio ns: Araceli decreased, Lateral sway increased Gait Distance (feet): 50 Gait Deviations Left Lower Extremity: Stance time decreased, Weight bearing decreased Stairs Contact Guard Assistance Stairs Device: Rail, Crutch(es) Number of Stairs: 4 (ascend/descend) non reciprocating pattern, cues for safe approach to surface, proper AD placement and sequencing. Spouse educated in guarding technique ROM ROM Limitation Comments: L knee (more content not included)... Normal [facility] ECG COMPLETEon 08-31-2024 Atrial Rate 89 BPM [facility] Calculated P [place] [address] [facility] Calculated R [place] [address] [facility] Calculated T [place] [address] [facility] P-R Interval 164 ms [facility] QRS Duration 96 ms [facility] QT Interval 366 ms [facility] QTC Calculation (Bazett) 445 ms [facility] Ventricular Rate 89 BPM [facility] NORMAL SINUS RHYTHM POSSIBLE LEFT ATRIAL ENLARGEMENT BORDERLINE ECG Confirmed by MD CARRILLO GREGORY () on 08/31/2024 9:17:00 AM [facility] NAME : YONY ROBERTSON PID : [id number] : 1965 Gender : Male Race : ORD : Procedure Date : Aug 28 2024 16:58:16 Edit Date : Aug 31 2024 09:17:03 Diagnosis: NORMAL SINUS RHYTHM POSSIBLE LEFT ATRIAL ENLARGEMENT BORDERLINE ECG Confirmed by MD CARRILLO GREGORY () on 08/31/2024 9:17:00 AM Test Reason : Location : 636 : [facility] Overread By : MD CARRILLO GREGORY Edited By : MD CARRILLO GREGORY Referred By : NETTA HOFF Acquired by : diana, [facility] VASCULAR [facility] Comprehensive metabolic 2000 panelon 08-29-2024 Albumin [Mass/Vol] 4.4 g/dL 3.9 - 4.9 g/dL [facility] ALP [Catalytic activity/Vol] 64 U/L 38 - 113 U/L [facility] ALT [Catalytic activity/Vol] 21 U/L 10 - 54 U/L [facility] Anion gap [Moles/Vol] 13 mmol/L 8 - 15 mmol/L [facility] AST [Catalytic activity/Vol] 26 U/L 14 - 40 U/L [facility] Bilirubin [Mass/Vol] 1.0 mg/dL 0.2 - 1 .3 mg/dL [facility] Calcium [Mass/Vol] 9.8 mg/dL 8.5 - 10. 2 mg/dL [facility] Chloride [Moles/Vol] 106 mmol/L 98 - 10 7 mmol/L [facility] CO2 [Moles/Vol] 23 mmol/L 22 - 30 mmol/L [facility] Creatinine [Mass/Vol] 1.12 mg/dL 0.73 - 1.22 mg/dL [facility] GFR/1.73 sq M.predicted among non-blacks MDRD (S/P/Bld) [Vol rate/Area] 75 mL/min/{1.73_m2} - PINF [facility] Comment on above: Estimated Glomerular Filtration Rate (eGFR) is calculated using the 2020 CKD-EPI creatinine equation. This equation utilizes serum creatinine, sex, and age as parameters. The creatinine assay has traceable calibration to isotope dilution-mass spectrometry. Refer to KDIGO guidelines for clinical interpretation. In patients with unstable renal function, e.g. those with acute kidney injury, the eGFR may not accurately reflect actual GFR. Glucose [Mass/Vol] 79 mg/dL 74 - 99 mg/dL [facility] Comment on above: The [place] Di[employer] Association (ADA) provides guidance for cutoff values for fasting glucose and random glucose. The ADA defines fasting as no caloric intake for at least 8 hours. Fasting plasma glucose results between 100 to 125 mg/dL indicate increased risk for diabetes (prediabetes). Fasting plasma glucose results greater than or equal to 126 mg/dL meet the criteria for diagnosis of diabetes. In the absence of unequivocal hyperglycemia, results should be confirmed by repeat testing. In a patient with classic symptoms of hyperglycemia or hyperglycemic crisis, random plasma glucose results greater than or equal to 200 mg/dL meet the criteria for diagnosis of diabetes. Reference: Standards of Medical Care in Diabetes 2016, [place] [employer]. Diabetes Care. 2016.39(Suppl 1). Interpretation and review of laboratory results Normal [facility] Potassium [Moles/Vol] 4.1 mmol/L 3.7 - 5.1 mmol/L [facility] Protein [Mass/Vol] 6.8 g/dL 6.3 - 8.0 g/dL [facility] Sodium [Moles/Vol] 142 mmol/L 136 - 144 mmol/L [facility] Urea nitrogen [Mass/Vol] 24 mg/dL 9 - 24 mg/dL [facility] CBC W Auto Differential pane l (Bld)on 08-28-2024 Basophils (Bld) [#/Vol] 0.04 10*3/uL [facility] Basophils/100 WBC (Bld) 0.6 % [facility] Differential cell count method Nom (Bld) Auto [facility] Eosinophils (Bld) [#/Vol] 0.24 10*3/uL [facility] Eosinophils/100 WBC (Bld) 3.4 % [facility] Erythrocyte distribution width (RBC) [Ratio] 12.2 % 11.5 - 15.0 % [facility] Hematocrit (Bld) [Volume fraction] 45.5 % 39.0 - 51.0 % [facility] Hemoglobin (Bld) [Mass/Vol] 15.6 g/dL 13.0 - 17.0 g/dL [facility] Immature granulocytes (Bld) [#/Vol] 0.03 10*3/uL [facility] Immature granulocytes/100 WBC (Bld) 0.4 % [facility] Lymphocytes (Bld) [#/Vol] 2.41 10*3/uL [facility] Lymphocytes/100 WBC (Bld) 34.1 % [facility] MCH (RBC) [Entitic mass] 31.0 pg 26.0 - 34.0 pg [facility] MCHC (RBC) [Mass/Vol] 34.3 g/dL 30.5 - 36.0 g/dL [facility] MCV (RBC) [Entitic vol] 90.3 fL 80.0 - 100.0 fL [facility] Monocytes (Bld) [#/Vol] 0.49 10*3/uL [facility] Monocytes/100 WBC (Bld) 6.9 % [facility] Neutrophils (Bld) [#/Vol] 3.85 10*3/uL [facility] Neutrophils/100 WBC (Bld) 54.6 % [facility] Nucleated RBC (Bld) [#/Vol] [facility] Nucleated RBC/100 WBC (Bld) [Ratio] 0.0 % /100 WBC [facility] Platelet mean volume (Bld) [Entitic vol] 9.8 fL 9.0 - 12.7 fL [facility] Platelets (Bld) [#/Vol] 235 10*3/uL [facility] RBC (Bld) [#/Vol] 5.04 10*6/uL 4.20 - 6.0 0 m/uL [facility] WBC (Bld) [#/Vol] 7.06 10*3/uL [facility] Basophils (Bld) [#/Vol] 0.04 10*3/uL Normal <0.11 [facility] Comment on above: Order Comment: Speci men Type: BLOOD SPECIMENOrdering Facility: [facility] Address: [address] [place], [place] [id number] Performed By: #### 5 7021-8 ####[facility] [id number] [place] [address] [place] Basophils/100 WBC (Bld) 0.6 % Normal [facility] Comment on above: Order Comment: Speci men Type: BLOOD SPECIMENOrdering Facility: [facility] Address: [address] [place] [address] Performed By: #### 5 7021-8 ####[facility] [id number] [place] [address] [place] Differential cell count method Nom (Bld) Auto Normal [facility] Comment on above: Order Comment: Speci men Type: BLOOD SPECIMENOrdering Facility: [facility] Address: [address] [place] [address] Performed By: #### 5 7021-8 ####[facility] [id number] [place] [address] [place] Eosinophils (Bld) [#/Vol] 0.24 10*3/uL Normal <0.46 [facility] Comment on above: Order Comment: Speci men Type: BLOOD SPECIMENOrdering Facility: [facility] Address: [address] [place] [address] Performed By: #### 5 7021-8 ####[facility] [id number] [place] [address] [place] Eosinophils/100 WBC (Bld) 3.4 % Normal [facility] Comment on above: Order Comment: Speci men Type: BLOOD SPECIMENOrdering Facility: [facility] Address: [address] [place] [address] Performed By: #### 5 7021-8 ####[facility] [id number] [place] [address] [place] Erythrocyte distribution width (RBC) [Ratio] 12.2 % Normal 11.5-15.0 [facility] Comment on above: Order Comment: Speci men Type: BLOOD SPECIMENOrdering Facility: [facility] Address: [address] [place] [address] Performed By: #### 5 7021-8 ####[facility] CATHLEEN [id number] [place] [address] [place] Hematocrit (Bld) [Volume fraction] 45.5 % Normal 39.0-51.0 [facility] Comment on above: Order Comment: Speci men Type: BLOOD SPECIMENOrdering Facility: [facility] Address: [address] [place] [address] Performed By: #### 5 7021-8 ####[facility] [id number] [place] [address] [place] Hemoglobin (Bld) [Mass/Vol] 15.6 g/dL Normal 13.0-17.0 [facility] Comment on above: Order Comment: Speci men Type: BLOOD SPECIMENOrdering Facility: [facility] Address: [address] [place] [address] Performed By: #### 5 7021-8 ####[facility]ITAL[facility] [id number] [place] [address] [place] Immature granulocytes (Bld) [#/Vol] 0.03 10*3/uL Normal <0.10 [facility] Comment on above: Order Comment: Speci men Type: BLOOD SPECIMENOrdering Facility: [facility] Address: [address] [place] [id number] Performed By: #### 5 7021-8 ####[facility]ITALER[facility]OLIA [id number] [place] [address] [place] Immature granulocytes/100 WBC (Bld) 0.4 % Normal [facility] Comment on above: Order Comment: Speci men Type: BLOOD SPECIMENOrdering Facility: [facility] Address: [address] [place] [address] Performed By: #### 5 7021-8 ####[facility] MILLWNCLIA [id number] [place] [address] [place] Lymphocytes (Bld) [#/Vol] 2.41 10*3/uL Normal 1.00-4.00 [facility] Comment on above: Order Comment: Speci men Type: BLOOD SPECIMENOrdering Facility: [facility] Address: [address] [place] [address] Performed By: #### 5 7021-8 ####[facility] [id number] [place] [address] [place] Lymphocytes/100 WBC (Bld) 34.1 % Normal [facility] Comment on above: Order Comment: Speci men Type: BLOOD SPECIMENOrdering Facility: [facility] Address: [address] [place] [address] Performed By: #### 5 7021-8 ####[facility] [id number] [place] [address] [place] MCH (RBC) [Entitic mass] 31.0 pg Normal 26.0-34.0 [facility] Comment on above: Order Comment: Speci men Type: BLOOD SPECIMENOrdering Facility: [facility] Address: [address] [place], [place] [id number] Performed By: #### 5 7021-8 ####[facility] GLENBEIGHLIA [id number] [place] [address] [place] MCHC (RBC) [Mass/Vol] 34.3 g/dL Normal 30.5-36.0 [facility] Comment on above: Order Comment: Speci men Type: BLOOD SPECIMENOrdering Facility: [facility] Address: [address] [place], [place] [id number] Performed By: #### 5 7021-8 ####[facility] [id number] [place] [address] [place] MCV (RBC) [Entitic vol] 90.3 fL Normal 80.0-100.0 [facility] Comment on above: Order Comment: Speci men Type: BLOOD SPECIMENOrdering Facility: [facility] Address: [address] [place] [address] Performed By: #### 5 7021-8 ####[facility] [id number] [place] [address] [place] Monocytes (Bld) [#/Vol] 0.49 10*3/uL Normal <0.87 [facility] Comment on above: Order Comment: Speci men Type: BLOOD SPECIMENOrdering Facility: [facility] Address: [address] [place] [address] Performed By: #### 5 7021-8 ####[facility] [id number] [place] [address] [place] Monocytes/100 WBC (Bld) 6.9 % Normal [facility] Comment on above: Order Comment: Speci men Type: BLOOD SPECIMENOrdering Facility: [facility] Address: [address] [place] [address] Performed By: #### 5 7021-8 ####[facility] [id number] [place] [address] [place] Neutrophils (Bld) [#/Vol] 3.85 10*3/uL Normal 1.45-7.50 [facility] Comment on above: Order Comment: Speci men Type: BLOOD SPECIMENOrdering Facility: [facility] Address: [address] [place] [address] Performed By: #### 5 7021-8 ####[facility] [id number] [place] [address] [place] Neutrophils/100 WBC (Bld) 54.6 % Normal [facility] Comment on above: Order Comment: Speci men Type: BLOOD SPECIMENOrdering Facility: [facility] Address: [address] [place] [address] Performed By: #### 5 7021-8 ####[facility] LORETONeftalyNCRAFITA [id number] [place] [address] [place] Nucleated RBC (Bld) [#/Vol] 10*3/uL Normal <0.01 [facility] Comment on above: Order Comment: Speci men Type: BLOOD SPECIMENOrdering Facility: [facility] Address: [address] [place] [address] Performed By: #### 5 7021-8 ####[facility]ITALNCLICalvin [id number] [place] [address] [place] Nucleated RBC/100 WBC (Bld) [Ratio] 0.0 /100 WBC Normal [facility] Comment on above: Order Comment: Speci men Type: BLOOD SPECIMENOrdering Facility: [facility] Address: [address] [place] [address] Performed By: #### 5 7021-8 ####[facility] [id number] [place] [address] [place] Platelet mean volume (Bld) [Entitic vol] 9.8 fL Normal 9.0-12.7 [facility] Comment on above: Order Comment: Speci men Type: BLOOD SPECIMENOrdering Facility: [facility] Address: [address] [place] [address] Performed By: #### 5 7021-8 ####[facility]CLIA [id number] [place] [address] [place] Platelets (Bld) [#/Vol] 235 10*3/uL Normal 150-400 [facility] Comment on above: Order Comment: Speci men Type: BLOOD SPECIMENOrdering Facility: [facility] Address: [address] [place] [address] Performed By: #### 5 7021-8 ####[facility]CLIA [id number] [place] [address] [place] RBC (Bld) [#/Vol] 5.04 10*6/uL Normal 4.20-6.00 [facility] Comment on above: Order Comment: Speci men Type: BLOOD SPECIMENOrdering Facility: [facility] Address: [address] [place] [address] Performed By: #### 5 7021-8 ####[facility]OS[facility]ITALNCA [id number] [place] [address] [place] WBC (Bld) [#/Vol] 7.06 10*3/uL Normal 3.70-11.00 [facility] Comment on above: Order Comment: Speci men Type: BLOOD SPECIMENOrdering Facility: [facility] Address: [address] [place] [address] Performed By: #### 5 7021-8 ####[facility] [id number] [place] [address] [place] Comprehensive metabolic 2000 panelon 08-28-2024 Albumin [Mass/Vol] 4.4 g/dL Normal 3.9-4.9 [facility] Comment on above: Order Comment: Speci men Type: BLOOD SPECIMENOrdering Facility: [facility] Address: [address] [place] [address] Performed By: #### 2 4323-8 ####[facility] LABCLIA [id number] [facility] [id number] [address] [place] ALP [Catalytic activity/Vol] 64 U/L Normal 38-113 [facility] Comment on above: Order Comment: Speci men Type: BLOOD SPECIMENOrdering Facility: [facility] Address: [address] [place] [address] Performed By: #### 2 4323-8 ####[facility] LABCLIA [id number] [place] [id number] [place] ALT [Catalytic activity/Vol] 21 U/L Normal 10-54 [facility] Comment on above: Order Comment: Speci men Type: BLOOD SPECIMENOrdering Facility: [facility] Address: [address] [place] [address] Performed By: #### 2 4323-8 ####[facility] LABCLIA [id number] [place] [address] [place] Anion gap [Moles/Vol] 13 mmol/L Normal 8-15 [facility] Comment on above: Order Comment: Speci men Type: BLOOD SPECIMENOrdering Facility: [facility] Address: [address] [place] [address] Performed By: #### 2 4323-8 ####[facility] LABCLIA [id number] [place] [address] [place] AST [Catalytic activity/Vol] 26 U/L Normal 14-40 [facility] Comment on above: Order Comment: Speci men Type: BLOOD SPECIMENOrdering Facility: [facility] Address: [address] [place] [address] Performed By: #### 2 4323-8 ####[facility] LABCLIA [id number] [place] [address] [place] Bilirubin [Mass/Vol] 1.0 mg/dL Normal 0.2-1.3 [facility] Comment on above: Order Comment: Speci men Type: BLOOD SPECIMENOrdering Facility: [facility] Address: [address] [place], [place] [address] Performed By: #### 2 4323-8 ####[facility] LABCLIA [id number] [place] [id number] [place] Calcium [Mass/Vol] 9.8 mg/dL Normal 8.5-10.2 [facility] Comment on above: Order Comment: Speci men Type: BLOOD SPECIMENOrdering Facility: [facility] Address: [address] [place] [address] Performed By: #### 2 4323-8 ####[facility] LABCLIA [id number] [place] [address] [place] Chloride [Moles/Vol] 106 mmol/L Normal 98-107 [facility] Comment on above: Order Comment: Speci men Type: BLOOD SPECIMENOrdering Facility: [facility] Address: [address] [place] [address] Performed By: #### 2 4323-8 ####[facility] LABCLIA [id number] [place] [address] [place] CO2 [Moles/Vol] 23 mmol/L Normal 22-30 [facility] Comment on above: Order Comment: Speci men Type: BLOOD SPECIMENOrdering Facility: [facility] Address: [address] [place] [address] Performed By: #### 2 4323-8 ####[facility] LABCLIA [id number] [place] [address] [place] Creatinine [Mass/Vol] 1.12 mg/dL Normal 0.73-1.22 [facility] Comment on above: Order Comment: Speci men Type: BLOOD SPECIMENOrdering Facility: [facility] Address: [address] [place] [address] Performed By: #### 2 4323-8 ####[facility] LABCLIA [id number] [place] [address] [place] Creatinine and Glomerular filtration rate.predicted panel (S/P/Bld) 75 mL/min/1.73m??? Normal >=60 [facility] Comment on above: Order Comment: Speci men Type: BLOOD SPECIMENOrdering Facility: [facility] Address: [address] [place] [address] Result Comment: [place] mated Glomerular Filtration Rate (eGFR) is calculated using the 2020 CKD-EPI creatinine equation. This equation utilizes serum creatinine, sex, and age as parameters. The creatinine assay has traceable calibration to isotope dilution-mass spectrometry. Refer to KDIGO guidelines for clinical interpretation. In patients with unstable renal function, e.g. those with acute kidney injury, the eGFR may not accurately reflect actual GFR. Performed By: #### 2 4323-8 ####[facility] LABCLIA [id number] [place] [address] [place] Glucose [Mass/Vol] 79 mg/dL Normal 74-99 [facility] Comment on above: Order Comment: Ran mclean Type: BLOOD SPECIMENOrdering Facility: [facility] Address: [address] [place] [address] Result Comment: The [place] [employer] Association (ADA) provides guidance for cutoff values for fasting glucose and random glucose. The ADA defines fasting as no caloric intake for at least 8 hours. Fasting plasma glucose results between 100 to 125 mg/dL indicate increased risk for diabetes (prediabetes). Fasting plasma glucose results greater than or equal to 126 mg/dL meet the criteria for diagnosis of diabetes. In the absence of unequivocal hyperglycemia, results should be confirmed by repeat testing. In a patient with classic symptoms of hyperglycemia or hyperglycemic crisis, random plasma glucose results greater than or equal to 200 mg/dL meet the criteria for diagnosis of diabetes. Reference: Standards of Medical Care in Diabetes 2016, [place] [employer]. Diabetes Care. 2016.39(Suppl 1). Performed By: #### 2 4323-8 ####[facility] LABIA [id number] [place] [address] [place] Potassium [Moles/Vol] 4.1 mmol/L Normal 3.7-5.1 [facility] Comment on above: Order Comment: Ran mclean Type: BLOOD SPECIMENOrdering Facility: [facility] Address: [address] [place] [address] Performed By: #### 2 4323-8 ####[facility] LABCLIA [id number] [place] [address] [place] Protein [Mass/Vol] 6.8 g/dL Normal 6.3-8.0 [facility] Comment on above: Order Comment: Speci men Type: BLOOD SPECIMENOrdering Facility: [facility] Address: [address] [place] [address] Performed By: #### 2 4323-8 ####[facility] LABCLIA [id number] [place] [address] [place] Sodium [Moles/Vol] 142 mmol/L Normal 136-144 [facility] Comment on above: Order Comment: Speci men Type: BLOOD SPECIMENOrdering Facility: [facility] Address: [address] [place] [address] Performed By: #### 2 4323-8 ####[facility] LABCLIA [id number] [place] [address] [place] Urea nitrogen [Mass/Vol] 24 mg/dL Normal 9-24 [facility] Comment on above: Order Comment: Speci men Type: BLOOD SPECIMENOrdering Facility: [facility] Address: [address] [place] [address] Performed By: #### 2 4323-8 ####[facility] LABCLIA [id number] [place] [address] [place] [id number] 08-28-2024 ECG01 Ventricular Rate : 8 9 BPM Atrial Rate : 89 BPM P-R Interval : 164 ms QRS Duration : 96 ms Q-T Interval : 366 ms QTC Calculation(Bazett) : 445 ms Calculated P [place] : 42 degrees Calculated R [place] : 27 degrees Calculated T [place] : 19 degrees NORMAL SINUS RHYTHM POSSIBLE LEFT ATRIAL ENLARGEMENT BORDERLINE ECG Confirmed by MD CARRILLO GREGORY () on 08/31/2024 9:17:00 AM NAME : YONY ROBERTSON PID : [id number] : 1965 Gender : Male Race : ORD : Procedure Date : Aug 28 2024 16:58:16 Edit Date : Aug 31 2024 09:17:03 Diagnosis: NORMAL SINUS RHYTHM POSSIBLE LEFT ATRIAL ENLARGEMENT BORDERLINE ECG Confirmed by MD CARRILLO GREGORY () on 08/31/2024 9:17:00 AM Test Reason : Location : 636 : [facility] Overread By : MD CARRILLO GREGORY Edited By : MD CARRILLO GREGORY Referred By : NETTA HOFF Acquired by : Fausto ortiz [facility] HISTORY PHYSICALon 4 HISTORY PHYSICAL HNO ID: [id number] Author: MINAL OG APRN.CNP Service: ? Author Type: Nurse Practitioner Type: H&P Filed: 09/01/2024 14:58 Note Text: [facility] HISTORY AND PHYSICAL EXAMINATION SERVICE DATE: 08/28/2024 SERVICE TIME: 2:56 PM PRIMARY CARE PHYSICIAN: Cristian Robertson MD Assessment Patient has the following medical conditions which may affect ethel-operative course: SVT (supraventricular tachycardia) (HCC) Assessment: remote hx, s/p ablation in 2011 with resolution of symptoms Status post right knee replacement Assessment: hx BMI 36.0-36.9,adult Assessment: Body mass index is 36.3 kg/m?. Hope Activity Status Index: METS: Climb a flight of stairs or walk up a hill (5.50 METs) DASI Score: 5.5 Patient denies any chest pain or undue shortness of breath with the above physical activity. Clinical Frailty Scale: 3. Well, with treated comorbid disease STOP-Bang Score: Snores loudly BMI greater than 35 kg/m2 Has a large neck Male patient Denies feeling tired, fatigued, or sleepy during the daytime Has not been observed to stop breathing or choking/gasping during sleep Denies having high blood pressure Patient 50 years old or younger STOP-Bang Score: 4 [id number] Score: Age: <65 Sex: male CHF history: No Hypertension history: No Stroke/TIA/thromboemb olism history: No Vascular disease history: No Diabetes history: No [id number] Score: 0 ARISCAT Score: Age: 51-80 Preoperative SpO2: >=96% Respiratory infection in the last month: No Preoperative anemia: No Surgical incision: peripheral Duration of surgery: 2-3 hrs Emergency procedure: No ARISCAT Score: 19 ANESTHESIA FINDINGS: Intubation History: No history of difficult intubation Significant Anesthesia Considerations: none Airway History: No history of difficult airway I - PHYSICAL EVALUATION AIRWAY Patient intubated: No. Tracheostomy tube not present Mallampati: II. TM distance: >3 FB. Neck ROM: full ROM without neurological symptoms. Mouth opening: adequate. Short neck: no. Thick neck: yes Stout present: yes Lip Bite Test: I Microretrognathia/Ashok ronagthia/Recessed Chin: No DENTAL Dental findings: teeth intact. Additional comments: +crowns/implants/back . II - ANESTHESIA PLAN Anesthetic Plan: other Beta Anny Monitoring Plan Post Procedure Analgesic Plan Prepared for Surgery: optimally prepared for surgery. Labs and EKG reviewed, okay to proceed-JL CONSULTS: Patient does not require consults for optimization at this time Planned Anesthetic: other anesthesia choice The Following Tests/Procedures Have Been Initiated: Orders Placed This Encounter >CBC + AUTO DIFF Standing Status: Future Number of Occurrences: 1 Standing Expiration Date: 11/27/2024 >CMP Standing Status: Future Number of Occurrences: 1 Standing Expiration Date: 11/27/2024 mupirocin (BACTROBAN) 2 % ointment Sig: Apply 0.5 inch with cotton swab (Q-tip) to each nostril in the morning and evening for 5 days prior to and including day of surgery. Dispense: 22 g Refill: 0 ECG COMPLETE Order Comments: Ordered by an unspecified provider REASON FOR VISIT: Yony Robertson is a 59 year old male who is scheduled for Procedure(s): POSSIBLE SAME DAY ROBOTIC ASSISTED TOTAL KNEE ARTHROPLASTY (Left) at the request of Dr. Netta Hoff for consultation. My final recommendation will be communicated back to the requesting physician by way of shared medical record or letter. Subjective The patient has the following: COVID-19 Immunization Status Overdue - Covid-19 Vaccine ( season) Never done No completion, postpone, frequency change, or communication history exists for this topic. CHIEF COMPLAINT: Pre-op exam HPI: Yony Robertson is a 59 year old seen for PAC due to scheduled above surgery because of OA left knee. 06/11/24, Hubert Fuentes, DEYANIRA Yony Robertson is a 59 year old patient here for evaluation and management of left knee pain. Patient has had progressive problems with the knee(s) constantly over the past 5 year(s) interfering with activities which include exercise, doing creative strategist, participating in family activities, enjoying hobbies, walking, and climbing stairs. The problem began limiting activities 3+ years ago. Currently the pain in the joint is rated at 8 out of 10 with minimal activity. The pain is chronic and is located along the inside aspect and in the front. The pain is described as aching, radiating, soreness, and stiffness. Relieving factors include no relieving factors. There is no specific incident that brought about this pain. Patient has no additional complaints. REVIEW OF SYSTEMS: General: No weight loss, malaise or fevers. Neurological: No history of TIA's, stroke, KILN HEAD HOUSE OPERATOR tumor, impaired sensorium, hemiplegia, paraplegia or quadraplegia. No neurological symptoms or problems (more content not included)... Normal [facility] 08-25-2024 [facility] HNO ID: [id number] Author: KRISTEN TRACY CT Service: Radiology Author Type: Technologist Type: Allied Health Filed: 08/25/2024 07:49 Note Text: Radiology Service Progress Note PATIENT NAME: Yony Robertson DATE OF SERVICE: August 25, 2024 TIME: 7:48 AM PATIENT IDENTITY VERIFICATION COMPLETED USING TWO [...] Male PATIENT RELEVANT IMPLANT DATA REVIEWED: Yes PATIENT PRESENTS WITH AN IMPLANTABLE OR ATTACHED BAKERY PASTRY INTERNSHIP: No RADIOLOGY DEPARTMENT: CT; Exam(s) Completed: lt morgan knee PERIPHERAL IV DATA: Not applicable SIGNED BY: KAILA Fisher August 25, 2024 7:48 AM [facility] CT KNEE WO IVCON LTon 2023 CT KNEE WO IVCON LT * * *Final Report* * * DATE OF EXAM: Aug 25 2024 7:55AM [facility] [place]NEE WO IVCON LT / PROCEDURE REASON: M17.12-Primary osteoarthritis of left knee * * * * Physician Interpretation * * * * EXAMINATION: CT KNEE WO IVCON LT CLINICAL HISTORY: 59 years old Male with Primary osteoarthritis of left knee . Preoperative planning . TECHNIQUE: CT LEFT knee without contrast Morgan protocol, knee 0.62 mm axial slices, hip and ankle 2.5 mm axial slices obtained for the purposes of presurgical planning CT Radiation dose: Integrated Dose-length product (DLP) for this visit = 1044 mGy*cm. CT Dose Reduction Employed: Automated exposure control(AEC) and iterative recon COMPARISON: Radiographs 06/11/2024 RESULT: Limited CT images for the purposes of presurgical planning. Left knee: Tricompartment osteoarthritis, advanced in the medial joint compartment. Small joint effusion and Hartman's cyst Left hip: Total hip arthroplasty. No acute abnormality Left ankle and imaged foot: Mild midfoot osteoarthrosis Manager Cash: Right total knee arthroplasty IMPRESSION: Limited CT images for the purposes of presurgical planning. Cloth Bleaching Range Operator Chief: LESLIE Transcribe Date/Time: Aug 25 2024 9:03A Dictated by : MICHAEL RUIZ MD This examination was interpreted and the report reviewed and electronically signed by: MICHAEL RUIZ MD on Aug 25 2024 9:04AM EST [id number] [facility] CT Knee - left WO contraston 08-25-2024 IMPRESSION: Limited CT images for the purposes of presurgical planning. Cloth Bleaching Range Operator Chief: PSCB Transcribe Date/Time: Aug 25 2024 9:03A Dictated by : MICHAEL RUIZ MD This examination was interpreted and the report reviewed and electronically signed by: MICHAEL RUIZ MD on Aug 25 2024 9:04AM [facility] * * *Final Report* * * DATE OF EXAM: Aug 25 2024 7:55AM [facility] [place] KNEE WO IVCON LT / PROCEDURE REASON: M17.12-Primary osteoarthritis of left knee * * * * Physician Interpretation * * * * EXAMINATION: CT KNEE WO IVCON LT CLINICAL HISTORY: 59 years old Male with Primary osteoarthritis of left knee . Preoperative planning . TECHNIQUE: CT LEFT knee without contrast Morgan protocol, knee 0.62 mm axial slices, hip and ankle 2.5 mm axial slices obtained for the purposes of presurgical planning CT Radiation dose: Integrated Dose-length product (DLP) for this visit = 1044 mGy*cm. CT Dose Reduction Employed: Automated exposure control(AEC) and iterative recon COMPARISON: Radiographs 06/11/2024 RESULT: Limited CT images for the purposes of presurgical planning. Left knee: Tricompartment osteoarthritis, advanced in the medial joint compartment. Small joint effusion and Hartman's cyst Left hip: Total hip arthroplasty. No acute abnormality Left ankle and imaged foot: Mild midfoot osteoarthrosis Manager Cash: Right total knee arthroplasty [facility] Provider, Susan Solorzano - 08/25/2024 * * *Final Report* * * DATE OF EXAM: Aug 25 2024 7:55AM [facility] [place] KNEE WO IVCON LT / PROCEDURE REASON: M17.12-Primary osteoarthritis of left knee * * * * Physician Interpretation * * * * EXAMINATION: CT KNEE WO IVCON LT CLINICAL HISTORY: 59 years old Male with Primary osteoarthritis of left knee . Preoperative planning . TECHNIQUE: CT LEFT knee without contrast Morgan protocol, knee 0.62 mm axial slices, hip and ankle 2.5 mm axial slices obtained for the purposes of presurgical planning CT Radiation dose: Integrated Dose-length product (DLP) for this visit = 1044 mGy*cm. CT Dose Reduction Employed: Automated exposure control(AEC) and iterative recon COMPARISON: Radiographs 06/11/2024 RESULT: Limited CT images for the purposes of presurgical planning. Left knee: Tricompartment osteoarthritis, advanced in the medial joint compartment. Small joint effusion and Hartman's cyst Left hip: Total hip arthroplasty. No acute abnormality Left ankle and imaged foot: Mild midfoot osteoarthrosis Manager Cash: Right total knee arthroplasty IMPRESSION IMPRESSION: Limited CT images for the purposes of presurgical planning. Cloth Bleaching Range Operator Chief: PSCCynthia Transcribe Date/Time: Aug 25 2024 9:03A Dictated by : MICHAEL RUIZ MD This examination was interpreted and the report reviewed and electronically signed by: MICHAEL RUIZ MD on Aug 25 2024 9:04AM EST [facility] Radiology Study observation (narrative) Shakeel pisano [facility] CT Knee - left WO contrastOr dered By: Susan Provider on 08-25-2024 [facility] Mary 08-12-2024 JUAN JOSÉ Telephone (ORMDNA) YONY ROBERTSON ([id number]) 1965 M Date Time Provider Department 08/12/24 NETTA HOFF During your visit today, we recorded the following information about you: Yolanda Walker RogerSarah 08/12/2024 9:05 AM Signed Can we give this patient a call and reschedule his CT scan. It has not been authorized. We need to give it another couple weeks. Maybe the first week of August if at all possible. Thanks. Sarah Walker Sedc Corinna Joseph 08/12/2024 10:41 AM Signed LVM for patient to return call to reschedule CT Allergies As of Date: 08/12/2024 (No Known Allergies) Date Reviewed: 06/11/2024 Reviewed by: Hubert Fuentes APRN.CUTTER TENDER - Fully Assessed Reason for Visit: Appointment [186] Cmt: Reschedule Scan CT Prescriptions as of 08/12/2024 - gabapentin (NEURONTIN) 300 mg capsule Take 1 capsule by mouth once daily for 14 days. - gabapentin (NEURONTIN) 100 mg capsule Take 1 capsule by mouth once daily for 7 days. Do not start before March 07, 2024. - acetaminophen (TYLENOL) 500 mg tablet Take 2 tablets by mouth every 8 hours as needed for pain. - ascorbic acid, vitamin C, (VITAMIN C) 500 mg tablet Take 1 tablet by mouth twice daily for 14 days. - aspirin, enteric coated (ECOTRIN LOW STRENGTH) 81 mg EC tablet Take 1 tablet by mouth twice daily for 28 days. - pantoprazole DR (PROTONIX) 20 mg tablet Take 1 tablet by mouth every morning. - amoxicillin (POLYMOX, AMOXIL) 500 mg capsule Take 4 capsules by mouth one hour prior to dental cleaning/procedure - MEDICATION, NON-DATABASE Take 1 capsule by mouth once daily. doTerra MicroPlex VMz - MEDICATION, NON-DATABASE Take 1 capsule by mouth once daily. doTerra Alpha CRS+ - MEDICATION, NON-DATABASE Take 1 capsule by mouth once daily. doTerra xEo Terrence - MEDICATION, NON-DATABASE Take 1 capsule by mouth twice daily. Kidney C.O.P.- Calcium Oxalate Protector - cholecalciferol (VITAMIN D3) 5,000 unit tab Take 5,000 Units by mouth once daily. - MEDICATION, NON-DATABASE Take 1 capsule by mouth once daily as needed (any illness). Elderberry Vitamin C + Zinc - melatonin 10 mg tab Take 10 mg by mouth every evening. - MEDICATION, NON-DATABASE Take 1 capsule by mouth every evening. Valarian Root - MEDICATION, NON-DATABASE Take 1 capsule by mouth every evening. doTerra Deep Blue - VITAMIN B COMPLEX ORAL Take 1 capsule by mouth once daily. Problem List As Of Date 08/12/2024 Noted Resolved Primary osteoarthritis of both knees [M17.0] 07/31/2021 SVT (supraventricular tachycardia) ([facility]) [I47.1*06/06/2012 BMI 39.0-39.9,adult [Z68.39] 11/13/2021 Stiffness of right knee [M25.661] 12/11/2021 Status post right knee replacement [Z96.651] 12/11/2021 Primary osteoarthritis of left knee [M17.12] 06/29/2024 Encounter Status:Closed by CORINNA JOSEPH on 08/12/24 [facility]20[facility] Y[facility]ERT[facility] ([id number]) 1965 Date Time Provider Department 08/11/24 NETTA HOFF VA2E During your visit today, we recorded the following information about you: Cris Quick PSS 08/11/2024 2:57 PM Signed TOTAL JOINT COMPLETE CARE PROGRAM PRE-OPERATIVE TEACHING Service Date: 08/11/2024 Service Time: 2:54 PM Date of : 1965 Gender: male Date of Surgery: 09/07/24 Procedure: Left Total Knee Replacement SAME DAY DISCHARGE Complete Care Program was discussed with the patient: Refined Syrup Operator Identification: Patient identified a care transition manager to help when discharged to home: Home Environment: Home Layout: 2 story, Entry Steps: 3 no rail, Bedroom Location: 1st floor, Bathroom Location: 1st floor, and tub shower. Pt owns walker, crutches, cane. Discussed with patient importance of attending joint education class and provided date and times of class: YES Patient declined. Prior TKA and KASSIE Patient received Joint Education Binder: Yes Plans discharge home with [facility]. SIGNATURE: BETH Lisa PATIENT NAME: Yony Robertson DATE: August 11, 2024 TIME: 2:54 PM Allergies As of Date: 08/11/2024 (No Known Allergies) Date Reviewed: 06/11/2024 Reviewed by: Hubert Fuentes APRN.CUTTER TENDER - Fully Assessed Reason for Visit: Pre-Op Teaching [134] Prescriptions as of 08/11/2024 - gabapentin (NEURONTIN) 300 mg capsule Take 1 capsule by mouth once daily for 14 days. - gabapentin (NEURONTIN) 100 mg capsule Take 1 capsule by mouth once daily for 7 days. Do not start before March 07, 2024. - acetaminophen (TYLENOL) 500 mg tablet Take 2 tablets by mouth every 8 hours as needed for pain. - ascorbic acid, vitamin C, (VITAMIN C) 500 mg tablet Take 1 tablet by mouth twice daily for 14 days. - aspirin, enteric coated (ECOTRIN LOW STRENGTH) 81 mg EC tablet Take 1 tablet by mouth twice daily for 28 days. - pantoprazole DR (PROTONIX) 20 mg tablet Take 1 tablet by mouth every morning. - amoxicillin (POLYMOX, AMOXIL) 500 mg capsule Take 4 capsules by mouth one hour prior to dental cleaning/procedure - MEDICATION, NON-DATABASE Take 1 capsule by mouth once daily. doTerra MicroPlex VMz - MEDICATION, NON-DATABASE Take 1 capsule by mouth once daily. doTerra Alpha CRS+ - MEDICATION, NON-DATABASE Take 1 capsule by mouth once daily. doTerra xEo Terrence - MEDICATION, NON-DATABASE Take 1 capsule by mouth twice daily. Kidney C.O.P.- Calcium Oxalate Protector - cholecalciferol (VITAMIN D3) 5,000 unit tab Take 5,000 Units by mouth once daily. - MEDICATION, NON-DATABASE Take 1 capsule by mouth once daily as needed (any illness). Elderberry Vitamin C + Zinc - melatonin 10 mg tab Take 10 mg by mouth every evening. - MEDICATION, NON-DATABASE Take 1 capsule by mouth every evening. Valarian Root - MEDICATION, NON-DATABASE Take 1 capsule by mouth every evening. doTerra Deep Blue - VITAMIN B COMPLEX ORAL Take 1 capsule by mouth once daily. Problem List As Of Date 08/11/2024 Noted Resolved Primary osteoarthritis of both knees [M17.0] 07/31/2021 SVT (supraventricular tachycardia) (HCC) [I47.1*06/06/2012 BMI 39.0-39.9,adult [Z68.39] 11/13/2021 Stiffness of right knee [M25.661] 12/11/2021 Status post right knee replacement [Z96.651] 12/11/2021 Primary osteoarthritis of left knee [M17.12] 06/29/2024 Encounter Status:Closed by CRIS QUICK on 08/11/24 [facility] 07-28-2024 [facility] Telephone (iMedia.fmNA) YONY ROBERTSON ([id number]) 1965 M Date Time Provider Department 07/28/24 NETTA HOFF During your visit today, we recorded the following information about you: Yolanda Walker SedcSarah 07/28/2024 9:10 AM Signed Please reach and schedule this patient for a pre-op CT scan for MORGAN. Patient is having surgery 09-07-2024. Thank you. Sarah Guerrero Med Sedc [place] [facility], Sarah 08/03/2024 3:03 PM Signed Patient scheduled. Sarah [facility] Med Sedc Allergies As of Date: 07/28/2024 (No Known Allergies) Date Reviewed: 06/11/2024 Reviewed by: Hubert Fuentes APRN.CUTTER TENDER - Fully Assessed Reason for Visit: Appointment [186] Cmt: Pre-op CT Scan for MORGAN Prescriptions as of 08/03/2024 - gabapentin (NEURONTIN) 300 mg capsule Take 1 capsule by mouth once daily for 14 days. - gabapentin (NEURONTIN) 100 mg capsule Take 1 capsule by mouth once daily for 7 days. Do not start before March 07, 2024. - acetaminophen (TYLENOL) 500 mg tablet Take 2 tablets by mouth every 8 hours as needed for pain. - ascorbic acid, vitamin C, (VITAMIN C) 500 mg tablet Take 1 tablet by mouth twice daily for 14 days. - aspirin, enteric coated (ECOTRIN LOW STRENGTH) 81 mg EC tablet Take 1 tablet by mouth twice daily for 28 days. - pantoprazole DR (PROTONIX) 20 mg tablet Take 1 tablet by mouth every morning. - amoxicillin (POLYMOX, AMOXIL) 500 mg capsule Take 4 capsules by mouth one hour prior to dental cleaning/procedure - MEDICATION, NON-DATABASE Take 1 capsule by mouth once daily. doTerra MicroPlex VMz - MEDICATION, NON-DATABASE Take 1 capsule by mouth once daily. doTerra Alpha CRS+ - MEDICATION, NON-DATABASE Take 1 capsule by mouth once daily. doTerra xEo Terrence - MEDICATION, NON-DATABASE Take 1 capsule by mouth twice daily. Kidney C.O.P.- Calcium Oxalate Protector - cholecalciferol (VITAMIN D3) 5,000 unit tab Take 5,000 Units by mouth once daily. - MEDICATION, NON-DATABASE Take 1 capsule by mouth once daily as needed (any illness). Elderberry Vitamin C + Zinc - melatonin 10 mg tab Take 10 mg by mouth every evening. - MEDICATION, NON-DATABASE Take 1 capsule by mouth every evening. Valarian Root - MEDICATION, NON-DATABASE Take 1 capsule by mouth every evening. doTerra Deep Blue - VITAMIN B COMPLEX ORAL Take 1 capsule by mouth once daily. Problem List As Of Date 07/28/2024 Noted Resolved Primary osteoarthritis of both knees [M17.0] 07/31/2021 SVT (supraventricular tachycardia) (HCC) [I47.1*06/06/2012 BMI 39.0-39.9,adult [Z68.39] 11/13/2021 Stiffness of right knee [M25.661] 12/11/2021 Status post right knee replacement [Z96.651] 12/11/2021 Primary osteoarthritis of left knee [M17.12] 06/29/2024 Encounter Status:Closed by SARAH CERVANTES on 08/03/24 [facility] CNTHERAPYon 06-29-2024 CNTHERAPY OT/PT/Speech Visit (PTWS) YONY ROBERTSON ([id number]) 1965 M Date Time Provider Department 06/29/24 10:00 AM MATT BRUNER PTWS Date Time Provider Department Center 06/29/2024 10:00 AM [id number], COREY PTWS Jade Golden Reason for Visit: PT Eval [747] Visit Diagnosis:Primary osteoarthritis of left knee [M17.12] Allergies As of Date: 06/29/2024 (No Known Allergies) Date Reviewed: 06/11/2024 Reviewed by: Hubert Fuentes APRN.CUTTER TENDER - Fully Assessed Prescriptions as of 06/29/2024 - gabapentin (NEURONTIN) 300 mg capsule Take 1 capsule by mouth once daily for 14 days. - gabapentin (NEURONTIN) 100 mg capsule Take 1 capsule by mouth once daily for 7 days. Do not start before March 07, 2024. - acetaminophen (TYLENOL) 500 mg tablet Take 2 tablets by mouth every 8 hours as needed for pain. - ascorbic acid, vitamin C, (VITAMIN C) 500 mg tablet Take 1 tablet by mouth twice daily for 14 days. - aspirin, enteric coated (ECOTRIN LOW STRENGTH) 81 mg EC tablet Take 1 tablet by mouth twice daily for 28 days. - pantoprazole DR (PROTONIX) 20 mg tablet Take 1 tablet by mouth every morning. - amoxicillin (POLYMOX, AMOXIL) 500 mg capsule Take 4 capsules by mouth one hour prior to dental cleaning/procedure - MEDICATION, NON-DATABASE Take 1 capsule by mouth once daily. doTerra MicroPlex VMz - MEDICATION, NON-DATABASE Take 1 capsule by mouth once daily. doTerra Alpha CRS+ - MEDICATION, NON-DATABASE Take 1 capsule by mouth once daily. doTerra xEo Terrence - MEDICATION, NON-DATABASE Take 1 capsule by mouth twice daily. Kidney C.O.P.- Calcium Oxalate Protector - cholecalciferol (VITAMIN D3) 5,000 unit tab Take 5,000 Units by mouth once daily. - MEDICATION, NON-DATABASE Take 1 capsule by mouth once daily as needed (any illness). Elderberry Vitamin C + Zinc - melatonin 10 mg tab Take 10 mg by mouth every evening. - MEDICATION, NON-DATABASE Take 1 capsule by mouth every evening. Valarian Root - MEDICATION, NON-DATABASE Take 1 capsule by mouth every evening. doTerra Deep Blue - VITAMIN B COMPLEX ORAL Take 1 capsule by mouth once daily. Normal [facility] CNTHERAPYon 06-19-2024 CNTHERAPY OT/PT/Speech Visit (LTOT) YONY ROBERTSON ([id number]) 1965 M Date Time Provider Department 06/19/24 1:30 PM DEMETRA TONEY LTOT Date Time Provider Department [place] 06/19/2024 1:30 PM [id number] , KRI*LTOT [facility] Reason for Visit: OT EVAL [748] OT Discharge [750] Visit Diagnosis:Primary osteoarthritis of left knee [M17.12] Allergies As of Date: 06/19/2024 (No Known Allergies) Date Reviewed: 06/11/2024 Reviewed by: Hubert Fuentes APRN.CUTTER TENDER - Fully Assessed Prescriptions as of 06/19/2024 - gabapentin (NEURONTIN) 300 mg capsule Take 1 capsule by mouth once daily for 14 days. - gabapentin (NEURONTIN) 100 mg capsule Take 1 capsule by mouth once daily for 7 days. Do not start before March 07, 2024. - acetaminophen (TYLENOL) 500 mg tablet Take 2 tablets by mouth every 8 hours as needed for pain. - ascorbic acid, vitamin C, (VITAMIN C) 500 mg tablet Take 1 tablet by mouth twice daily for 14 days. - aspirin, enteric coated (ECOTRIN LOW STRENGTH) 81 mg EC tablet Take 1 tablet by mouth twice daily for 28 days. - pantoprazole DR (PROTONIX) 20 mg tablet Take 1 tablet by mouth every morning. - amoxicillin (POLYMOX, AMOXIL) 500 mg capsule Take 4 capsules by mouth one hour prior to dental cleaning/procedure - MEDICATION, NON-DATABASE Take 1 capsule by mouth once daily. doTerra MicroPlex VMz - MEDICATION, NON-DATABASE Take 1 capsule by mouth once daily. doTerra Alpha CRS+ - MEDICATION, NON-DATABASE Take 1 capsule by mouth once daily. doTerra xEo Terrence - MEDICATION, NON-DATABASE Take 1 capsule by mouth twice daily. Kidney C.O.P.- Calcium Oxalate Protector - cholecalciferol (VITAMIN D3) 5,000 unit tab Take 5,000 Units by mouth once daily. - MEDICATION, NON-DATABASE Take 1 capsule by mouth once daily as needed (any illness). Elderberry Vitamin C + Zinc - melatonin 10 mg tab Take 10 mg by mouth every evening. - MEDICATION, NON-DATABASE Take 1 capsule by mouth every evening. Valarian Root - MEDICATION, NON-DATABASE Take 1 capsule by mouth every evening. doTerra Deep Blue - VITAMIN B COMPLEX ORAL Take 1 capsule by mouth once daily. Normal [facility] CNOVon 06-11-2024 CNOV Office Visit (ORMDNA ) YONY ROBERTSON ([id number]) 1965 M Date Time Provider Department 06/11/24 8:00 AM HUBERT FUENTES During your visit today, we recorded the following information about you: Hubert Fuentes APRN.CNP 06/11/2024 8:35 AM Signed Established Patient Ortho Knee Consult Note ASSESSMENT AND PLAN Impression: Left Knee Severe Degenerative Osteoarthritis, Primary Yony is a very pleasant 59-year-old male presents today for left knee pain. He is known to me having undergone a right total hip arthroplasty and right total knee arthroplasty with Dr. Hoff. He had previously been indicated for left total knee arthroplasty by Dr. Hoff roughly a year ago. He was scheduled for surgery but unfortunately he had to cancel due to his 's health issues. Reports she is doing well now at this point and he would like to proceed with scheduling again. X-rays demonstrate severe medial and patellofemoral osteoarthritis. He continues to complain of daily pain and has exhausted conservative management. I do believe he is an appropriate candidate to proceed. We had a lengthy discussion regarding risk versus benefits and he understands these well. Will plan to do this robotically here in the [place]. He has a same-day surgery candidate. I have ordered preoperative physical therapy and Occupational Therapy. All questions have been answered. Yony Robertson has radiograph and physical exam evidence of degenerative joint disease and wishes to pursue surgery. This patient appears to have sufficient symptoms to warrant surgical intervention and is an appropriate candidate for left Primary Total Knee Arthroplasty as evidenced by six months of unsuccessful non-operative treatment as outlined in the HPI below and progressive symptoms. Progressive Symptoms Include: Pain impacting sleep or causing fatigue Pain impacting work Pain worsened by weight bearing Pain limiting ability to stay fit and healthy. This patient has the following risk factors: None We had a lengthy discussion regarding the risk and benefit of surgery, the alternatives, limitations and personnel involved. These included but were not limited to infection, persistent pain, instability, nerve injury, blood clots, and medical complications. We also discussed the pre-operative course, surgery itself and rehabilitation. Ethel-operative blood management and transfusion issues were discussed, and options clearly outlined. The patient has elected to schedule surgery at this time or intends to call the office with a surgical date. Shared decision making occurred while obtaining informed consent. The patient will be scheduled for a pre-operative education class at which time they will have their nasal swab completed and will be given CHG cloths along with the verbal and written instructions for their use. Patient has been instructed and has been scheduled or will call to schedule attendence in one of the total joint perioperative classes offered prior to proceeding with TKA. The patient has been ordered: Pre-operative PT, OT CT scan left knee for robotically assisted TKA CONSULTS: Patient does not require consults for optimization at this time. ACTIVE PROBLEM LIST Primary Osteoarthritis of Both Knees Svt (Supraventricular Tachycardia) (Hcc) Bmi 39.0-39.9,Adult Stiffness of Right Knee Status Post Right Knee Replacement SUBJECTIVE CHIEF COMPLAINT: Knee Pain HPI: Yony Robertson is a 59 year old patient here for evaluation and management of left knee pain. Patient has had progressive problems with the knee(s) constantly over the past 5 year(s) interfering with activities which include exercise, doing creative strategist, participating in family activities, enjoying hobbies, walking, and climbing stairs. The problem began limiting activities 3+ years ago. Currently the pain in the joint is rated at 8 out of 10 with minimal activity. The pain is chronic and is located along the inside aspect and in the front. The pain is described as aching, radiating, soreness, and stiffness. Relieving factors include no relieving factors. There is no specific incident that brought about this pain. Patient has no additional complaints. Total Joint Arthroplasty: Risk Calculator Yony Robertson has a 1.96% chance of NOT returning home at discharge for a Primary total Knee replacement. Yony's estimated Length of Stay is 1 day (Outpatient candidate). Yony's 30 day chance of readmission is 1.39%. Readmission Probability 1.39 % (within 30 days following surgery) Estimated LOS 1 day Discharge Disposition Probability D/C to Home 98.04 % D/C to SNF 1.96 % These calculations are based on the following factors: - 59 years of age - sex is male - BMI of 34.9 kg/m2 - NarxCare score of 70 - 0 hospitalizations in the last 12 months - no history of (more content not included)... Normal [facility] XR KNEE 4V AP/PA BOTH+LAT/ME R LTon 06-11-2024 XR KNEE 4V AP/PA BOTH+LAT/SHILOH LT * * *Final Report* * * DATE OF EXAM: Jun 11 2024 7:56AM MARY 5202 - XR KNEE 4V AP/PA BOTH+LAT/SHILOH LT / PROCEDURE REASON: multiple diagnoses * * * * Physician Interpretation * * * * PROCEDURE: Left knee INDICATION: Chronic pain of left knee TECHNIQUE: XR KNEE 4V AP/PA BOTH+LAT/SHILOH LT COMPARISON: 05/02/2023 FINDINGS: Significant medial joint compartment narrowing with [id number] appearance and tricompartment spur formation, not significantly changed. Moderate patellofemoral joint compartment narrowing. No fracture or joint effusion. Right TKA is evident. IMPRESSION: Advanced osteoarthrosis Cloth Bleaching Range Operator Chief: LESLIE Transcribe Date/Time: Jun 13 2024 6:56A Dictated by : MICHAEL RUIZ MD This examination was interpreted and the report reviewed and electronically signed by: MICHAEL RUIZ MD on Jun 13 2024 6:58AM EST [id number] N [facility] 06-05-2024 [facility] YONY ROBERTSON ([id number]) 1965 M Date Time Provider Department 06/05/24 NETTA HOFF During your visit today, we recorded the following information about you: Sarah Cervantes 06/05/2024 2:27 PM Signed Patient would like to schedule surgery for a left total knee replacement. He hasn't been seen in over a year. He needs an appointment with Dr. Hoff prior to any surgery being scheduled. Please reach out to patient and offer to schedule an appointment with either him or Beto. Patient can be reached at [phone]. Sarah Walker [facility] HurstZainCorinna guzman 06/08/2024 12:26 PM Signed Spoke with patient and scheduled for pre op with Dr Hoff on 07/09/2024 Allergies As of Date: 06/05/2024 (No Known Allergies) Date Reviewed: 05/02/2023 Reviewed by: Netta Hoff MD - Fully Assessed Reason for Visit: Appointment [186] Prescriptions as of 06/08/2024 - gabapentin (NEURONTIN) 300 mg capsule Take 1 capsule by mouth once daily for 14 days. - gabapentin (NEURONTIN) 100 mg capsule Take 1 capsule by mouth once daily for 7 days. Do not start before March 07, 2024. - acetaminophen (TYLENOL) 500 mg tablet Take 2 tablets by mouth every 8 hours as needed for pain. - ascorbic acid, vitamin C, (VITAMIN C) 500 mg tablet Take 1 tablet by mouth twice daily for 14 days. - aspirin, enteric coated (ECOTRIN LOW STRENGTH) 81 mg EC tablet Take 1 tablet by mouth twice daily for 28 days. - pantoprazole DR (PROTONIX) 20 mg tablet Take 1 tablet by mouth every morning. - amoxicillin (POLYMOX, AMOXIL) 500 mg capsule Take 4 capsules by mouth one hour prior to dental cleaning/procedure - MEDICATION, NON-DATABASE Take 1 capsule by mouth once daily. doTerra MicroPlex VMz - MEDICATION, NON-DATABASE Take 1 capsule by mouth once daily. doTerra Alpha CRS+ - MEDICATION, NON-DATABASE Take 1 capsule by mouth once daily. doTerra xEo Terrence - MEDICATION, NON-DATABASE Take 1 capsule by mouth twice daily. Kidney C.O.P.- Calcium Oxalate Protector - cholecalciferol (VITAMIN D3) 5,000 unit tab Take 5,000 Units by mouth once daily. - MEDICATION, NON-DATABASE Take 1 capsule by mouth once daily as needed (any illness). Elderberry Vitamin C + Zinc - melatonin 10 mg tab Take 10 mg by mouth every evening. - MEDICATION, NON-DATABASE Take 1 capsule by mouth every evening. Valarian Root - MEDICATION, NON-DATABASE Take 1 capsule by mouth every evening. doTerra Deep Blue - VITAMIN B COMPLEX ORAL Take 1 capsule by mouth once daily. Problem List As Of Date 06/05/2024 Noted Resolved Primary osteoarthritis of both knees [M17.0] 07/31/2021 SVT (supraventricular tachycardia) ([facility]) [I47.1*06/06/2012 BMI 39.0-39.9,adult [Z68.39] 11/13/2021 Stiffness of right knee [M25.661] 12/11/2021 Status post right knee replacement [Z96.651] 12/11/2021 Encounter Status:Closed by CORINNA JOSEPH on 06/08/24 Normal [facility] Absolute lymphocyte countOrd ered By: Cristian Robertson on 01-17-2024 Lymphocytes Auto (Unsp spec) [#/Vol] 1.47 10*3/uL 0.83-4.51 [facility] Automated lymphocyte count a s percentage of total leukocytesOrdered By: Cristian Robertson on 01-17-2024 Lymphocytes/100 WBC Auto (Unsp spec) 32.2 % 19-41 [facility] Basophil percentageOrdered B y: Cristian Robertson on 01-17-2024 Basophils/100 WBC (Bld) 0.7 % 0-1 [facility] Bilirubin [Mass/Vol] 0.80 mg/dL 0.20-1.00 [facility] Comment on above: For patients on eltr ombopag therapy, use of Dimension [place] TBIL is not recommended. Chloride [Moles/Vol] 110 mmol/L 98-107 [facility] Cholesterol [Mass/Vol] 188 mg/dL <200 [facility] Comment on above: <200 mg/dL Desirable 200-240 mg/dL Borderline >240 mg/dL High Risk Eosinophils/100 WBC (Bld) 2.4 % 0-5 [facility] Glucose [Mass/Vol] 100 mg/dL 74-106 [facility] Comment on above: Fasting Glucose resu lt from 100 to 125 mg/dL suggests IMPAIRED HOMEOSTASIS per A.D.A. criteria. Hemoglobin (Bld) [Mass/Vol] 14.8 g/dL 13.0-16.5 [facility] Monocytes/100 WBC (Bld) 6.8 % 0-10 [facility] Neutrophils (Bld) [#/Vol] 2.6 10*3/uL 2.0-7.7 [facility] Neutrophils/100 WBC (Bld) 57.7 % 47-70 [facility] Potassium [Moles/Vol] 4.0 mmol/L 3.5-5.1 [facility] Protein [Mass/Vol] 6.7 g/dL 6.4-8.2 [facility] Sodium [Moles/Vol] 140 mmol/L 136-145 [facility] WBC (Bld) [#/Vol] 4.6 10*3/uL 4.4-11.0 [facility] Determination of erythrocyte mean corpuscular volume (MCV)Ordered By: Cristian Robertson on 01-17-2024 MCV (RBC) [Entitic vol] 91.9 fL 80-94 [facility] Erythrocyte distribution wid th ratioOrdered By: Cristian Robertson on 01-17-2024 Erythrocyte distribution width (RBC) [Ratio] 12.3 % 11.6-14.6 [facility] Erythrocyte distribution wid th standard deviationOrdered By: Cristian Robertson on 01-17-2024 Erythrocyte distribution width (RBC) [Entitic vol] 41.8 fL 35.1-43.9 [facility] Hematocrit Auto (Bld) [Volum e fraction]Ordered By: Cristian Robertson on 01-17-2024 Hematocrit (Bld) [Volume fraction] 44.5 % 40-54 [facility] Immature granulocytes/100 WB C Auto (Bld)Ordered By: Cristian Robertson on 01-17-2024 Immature granulocytes/100 WBC (Bld) 0.200 % 0.0-0.9 [facility] Comment on above: IG% - Immature Granu locytes (promyelocytes, myelocytes and metamyelocytes) > 1% indicates that a LEFT SHIFT is Present. Laboratory - Chemistry and C hemistry - challengeOrdered By: Cristian Robertson on 01-17-2024 Albumin/Globulin [Mass ratio] 1.2 {ratio} 0.9-2.4 [facility] ALP [Catalytic activity/Vol] 55 U/L 45-117 [facility] ALT [Catalytic activity/Vol] 22 U/L 16-61 [facility] Cholesterol in HDL [Mass/Vol] 67 mg/dL >40 [facility] Comment on above: The drugs N-Acetylcy steine and Metamizole may falsely depress this assay. Reference Range HDL <40 mg/dL Low HDL Cholesterol HDL >or= 60 mg/dL High HDL Cholesterol CO2 [Moles/Vol] 25.0 mmol/L 21.0-32.0 [facility] Globulin (S) [Mass/Vol] 3.0 g/dL 2.2-4.2 [facility] Urea nitrogen/Creatinine [Mass ratio] 21.6 mg/mg 10-20 [facility] Laboratory - Hematology and Cell countsOrdered By: Cristian Robertson on 01-17-2024 MCH (RBC) [Entitic mass] 30.6 pg 27.0-32.0 [facility] MCHC (RBC) [Mass/Vol] 33.3 g/dL 32-36 [facility] Nucleated RBC/100 WBC (Bld) [Ratio] 0 % 0-5 [facility] Platelet mean volume (Bld) [Entitic vol] 10.8 fL 6.2-12.0 [facility] Platelets (Bld) [#/Vol] 220 10*3/uL 150-450 [facility] No Panel InformationOrdered By: Cristian Robertson on 01-17-2024 Estimated GFR (MDRD) Amer 107 mL/min >60 [facility] Comment on above: GFR Calc Estimated GFR (MDRD) Non-Af Amer 88 mL/min >60 [facility] Comment on above: Non- GFR Calc RBC Auto (Bld) [#/Vol]Ordere d By: Cristian Robertson on 01-17-2024 RBC (Bld) [#/Vol] 4.84 10*6/uL 4.6-6.2 [facility] Serum or plasma calcium yenni urement (mass/volume)Ordered By: Cristian Robertson on 01-17-2024 Calcium [Mass/Vol] 9.2 mg/dL 8.5-10.1 [facility] Serum or plasma creatinine m easurement (mass/volume)Ordered By: Cristian Robertson on 01-17-2024 Creatinine [Mass/Vol] 0.93 mg/dL 0.70-1.30 [facility] Comment on above: The validity of the calculated GFR & GFRAA in patients over 70 years has not been determined. Clinical correlation is essential. Serum or plasma urea nitroge n measurement (mass/volume)Ordered By: Cristian Robertson on 01-17-2024 Urea nitrogen [Mass/Vol] 20 mg/dL 7-18 [facility] Thin prep Papanicolaou smear with manual screeningOrdered By: Cristian Robertson on 01-17-2024 Thin prep Papanicolaou smear with manual screening 3.7 g/dL 3.2-5.0 [facility] Thin prep Papanicolaou smear with manual screening 20 U/L 15-37 [facility] Thin prep Papanicolaou smear with manual screening 5 5-15 [facility] Whole blood hemoglobin A1c/t otal hemoglobin ratio (mass fraction)Ordered By: Cristian Robertson on 01-17-2024 HbA1c (Bld) [Mass fraction] 4.9 % 3.8-5.6 [facility] Comment on above: Normal < 5.7 % Predi abetic 5.7 - 6.4 % Diabetic >or= 6.5 % Please note range changes. CNPNon 04-19-2024 CNPN Telephone (PlayEnable[employer]) YONY ROBERTSON ([id number]) 1965 M Date Time Provider Department 01/10/24 ALYX PEREZ [employer] During your visit today, we recorded the following information about you: Madelyn Mancini 01/10/2024 10:55 AM Signed Evangelina from PCP office is calling asking to fax Colonoscopy report from 04/27/2014 to their office at [phone] Osbaldo Posey MA 01/10/2024 3:56 PM Signed Faxed as requested. Osbaldo Posey MA Allergies As of Date: 01/10/2024 (No Known Allergies) Date Reviewed: 05/02/2023 Reviewed by: Netta Hoff MD - Fully Assessed Reason for Visit: Results [95] Prescriptions as of 01/10/2024 - gabapentin (NEURONTIN) 300 mg capsule Take 1 capsule by mouth two times a day for 30 days. - acetaminophen (TYLENOL) 500 mg tablet Take 2 tablets by mouth every 8 hours as needed for pain. - ascorbic acid, vitamin C, (VITAMIN C) 500 mg tablet Take 1 tablet by mouth twice daily for 14 days. - aspirin, enteric coated (ECOTRIN LOW STRENGTH) 81 mg EC tablet Take 1 tablet by mouth twice daily for 28 days. - pantoprazole DR (PROTONIX) 20 mg tablet Take 1 tablet by mouth every morning. - amoxicillin (POLYMOX, AMOXIL) 500 mg capsule Take 4 capsules by mouth one hour prior to dental cleaning/procedure - MEDICATION, NON-DATABASE Take 1 capsule by mouth once daily. doTerra MicroPlex VMz - MEDICATION, NON-DATABASE Take 1 capsule by mouth once daily. doTerra Alpha CRS+ - MEDICATION, NON-DATABASE Take 1 capsule by mouth once daily. doTerra xEo Terrence - MEDICATION, NON-DATABASE Take 1 capsule by mouth twice daily. Kidney C.O.P.- Calcium Oxalate Protector - cholecalciferol (VITAMIN D3) 5,000 unit tab Take 5,000 Units by mouth once daily. - MEDICATION, NON-DATABASE Take 1 capsule by mouth once daily as needed (any illness). Elderberry Vitamin C + Zinc - melatonin 10 mg tab Take 10 mg by mouth every evening. - MEDICATION, NON-DATABASE Take 1 capsule by mouth every evening. Valarian Root - MEDICATION, NON-DATABASE Take 1 capsule by mouth every evening. doTerra Deep Blue - VITAMIN B COMPLEX ORAL Take 1 capsule by mouth once daily. Problem List As Of Date 01/10/2024 Noted Resolved Primary osteoarthritis of both knees [M17.0] 07/31/2021 SVT (supraventricular tachycardia) ([facility]) [I47.1*06/06/2012 BMI 39.0-39.9,adult [Z68.39] 11/13/2021 Stiffness of right knee [M25.661] 12/11/2021 Status post right knee replacement [Z96.651] 12/11/2021 Encounter Status:Closed by OSBALDO POSEY on 01/10/24 [facility] No Panel InformationOrdered By: Demetra Zimmerman on 09-26-2023 Prostate Specific Antigen Screen 0.83 ng/mL 0.00-4.00 [facility] Comment on above: This test was perfor med using the TPSA assay method for the[employer] chemistry system. Values obtained with differentassay methods cannot be used interchangably.When changing PSA assays in the course of monitoring apatient, additional sequential testing should be carriedout to confirm baseline values. MRI UPPER LEG WO IVCON LTon 05-20-2023 MRI UPPER LEG WO IVCON LT * * *Final Report* * * DATE OF EXAM: May 20 2023 5:36PM MMM 0259 - MRI UPPER LEG WO IVCON LT / PROCEDURE REASON: Encounter for observation for other suspected diseases and conditions ruled out * * * * Physician Interpretation * * * * MRI OF THE LEFT UPPER LEG WITHOUT CONTRAST HISTORY: Pain. History of arthroplasty. Encounter for observation for other suspected diseases and conditions ruled out . LEFT leg pain. Concern for stress fracture near femoral implant of hip arthroplasty. TECHNIQUE: LEFT upper leg (thigh/femur) MRI with routine pulse sequences in sagittal, coronal, and axial planes. No IV contrast was given. Metal artifact reduction sequences were used. COMPARISON: CT scan from 06/08/2022 which was before arthroplasty. X-ray from 05/02/2023 which was after arthroplasty. RESULT: There is a LEFT hip arthroplasty arthroplasty which causes artifact although the artifact is significantly reduced by the use of metal artifact reduction sequences. Detail on a few sequences is slightly limited by motion artifact. There is a small amount of periprosthetic bone marrow edema in the LEFT femur at the inferior tip of the femoral prosthesis although there is no signal abnormality seen in the cortex, no discrete fracture line, and no periosteal reaction. There is no diffuse marrow replacement process. Muscle bulk appears preserved and there is no muscle edema. There is a tiny fluid collection up to 11 mm in size superficial to the LEFT greater trochanter at the anterior margin of the gluteus grupo muscle. There is a small, physiologic quantity of fluid at the LEFT hip. At the LEFT knee there is a small effusion, a small Hartman's cyst (popliteal cyst), and probable degenerative arthritis. Large [id number]-[id number] images including the RIGHT femur show no RIGHT femur marrow signal abnormality. Localizer images: No additional findings. - IMPRESSION: Small amount of periprosthetic bone marrow edema in the femur adjacent to the inferior tip of the femoral stem could be stress reaction. There is no discrete fracture line or periosteal reaction seen. [employer] Ble[employer] Range Operator Chief: LESLIE Transcribe Date/Time: May 21 2023 8:22A Dictated by : DIPESH KATZ MD This examination was interpreted and the report reviewed and electronically signed by: DIPESH KATZ MD on May 21 2023 8:33AM EST [id number] [facility] XR Hip - left AP and Lateral on 05-03-2023 IMPRESSION: As in results Cloth Bleaching Range Operator Chief: LESLIE Transcribe Date/Time: May 03 2023 7:49A Dictated by : YONY CURRY MD This examination was interpreted and the report reviewed and electronically signed by: YONY CURRY MD on May 03 2023 7:50AM EST [facility] * * *Final Report* * * DATE OF EXAM: May 02 2023 9:31AM MARY 5279 - XR HIP 2V AP/ LAT LT / PROCEDURE REASON: M25.552-Pain in left hip * * * * Physician Interpretation * * * * HISTORY: Pain in left hip PAIN IN LEFT HIP ; PT HAD HIS LEFT HIP REPLACED 06/25/22 Low pelvis (wt bearing, if possible) cross table lateral TECHNIQUE: AP pelvis with weightbearing and translateral left hip COMPARISON: 07/10/2022 RESULT: Left hip prosthesis is satisfactory appearing position. [facility] Provider, [facility] - 05/03/2023 * * *Final Report* * * DATE OF EXAM: May 02 2023 9:31AM MARY 5279 - XR HIP 2V AP/ LAT LT / PROCEDURE REASON: M25.552-Pain in left hip * * * * Physician Interpretation * * * * HISTORY: Pain in left hip PAIN IN LEFT HIP ; PT HAD HIS LEFT HIP REPLACED 06/25/22 Low pelvis (wt bearing, if possible) cross table lateral TECHNIQUE: AP pelvis with weightbearing and translateral left hip COMPARISON: 07/10/2022 RESULT: Left hip prosthesis is satisfactory appearing position. IMPRESSION IMPRESSION: As in results Cl[employer] Ble[employer] Range Operator Chief: LSELIE Transcribe Date/Time: May 03 2023 7:49A Dictated by : YONY CURRY MD This examination was interpreted and the report reviewed and electronically signed by: YONY CURRY MD on May 03 2023 7:50AM EST [facility] XR Hip - left AP and Lateral Ordered By: Ccf Provider on 05-03-2023 [facility] XR Knee - left 4 Viewson IMPRESSION: Degenerative change of the left knee with slightly increased spurring compared with previously and small knee joint effusion. Cloth Bleaching Range Operator Chief: PSCB Transcribe Date/Time: May 03 2023 7:51A Dictated by : YONY CURRY MD This examination was interpreted and the report reviewed and electronically signed by: YONY CURRY MD on May 03 2023 7:53AM EST [facility] * * *Final Report* * * DATE OF EXAM: May 02 2023 9:31AM MARY 5202 - XR KNEE 4V AP/PA BOTH+LAT/SHILOH LT / PROCEDURE REASON: M25.562-Left knee pain, unspecified chronicity * * * * Physician Interpretation * * * * HISTORY: Left knee pain, unspecified chronicity PAIN IN LEFT KNEE Bilateral merchant TECHNIQUE: [place] view of both knees and weightbearing AP and tunnel views of both knees and lateral view of the left knee COMPARISON: 04/17/2022 RESULT: Right knee prosthesis in satisfactory appearing position on AP views. Marked degenerative narrowing of the medial joint space compartment of the left knee with spurring. Small left knee joint effusion. Left patellofemoral joint space appears intact. Spurring is seen about the left patella. [facility] Provider, [facility] - 05/03/2023 * * *Final Report* * * DATE OF EXAM: May 02 2023 9:31AM MARY 5202 - XR KNEE 4V AP/PA BOTH+LAT/SHILOH LT / PROCEDURE REASON: M25.562-Left knee pain, unspecified chronicity * * * * Physician Interpretation * * * * HISTORY: Left knee pain, unspecified chronicity PAIN IN LEFT KNEE Bilateral merchant TECHNIQUE: [place] view of both knees and weightbearing AP and tunnel views of both knees and lateral view of the left knee COMPARISON: 04/17/2022 RESULT: Right knee prosthesis in satisfactory appearing position on AP views. Marked degenerative narrowing of the medial joint space compartment of the left knee with spurring. Small left knee joint effusion. Left patellofemoral joint space appears intact. Spurring is seen about the left patella. IMPRESSION IMPRESSION: Degenerative change of the left knee with slightly increased spurring compared with previously and small knee joint effusion. Cloth Bleaching Range Operator Chief: PSCB Transcribe Date/Time: May 03 2023 7:51A Dictated by : YONY CURRY MD This examination was interpreted and the report reviewed and electronically signed by: YONY CURRY MD on May 03 2023 7:53AM EST [facility] No Panel Informationon 05-02 Radiology Study observation (narrative) Shakeel pisano [facility] XR HIP 2V AP/LAT LEFT ([place] ,[place])on 07-10-[address] [facility] [address] HIP WO IVCON LTon 022 [facility] TYPE AND SCREEN,30 DAYon ABO O [facility] HIstorical Ab Scr Status Negative [facility] Rh Nom (Bld) Positive [facility] CBC W Auto Differential pane l (Bld)on 06-06-2022 Abs Immature Gran 0.04 k/uL <0.10 k/uL [facility] Basophils (Bld) [#/Vol] 0.05 10*3/uL <0.11 k/uL [facility] Basophils/100 WBC (Bld) 0.7 % C [facility] Differential cell count method Nom (Bld) Auto [facility] Eosinophils (Bld) [#/Vol] 0.19 10*3/uL <0.46 k/uL [facility] Eosinophils/100 WBC (Bld) 2.6 % [facility] Erythrocyte distribution width (RBC) [Ratio] 12.9 % 11.5 - 15.0 % [facility] Hematocrit (Bld) [Volume fraction] 44.5 % 39.0 - 51.0 % [facility] Hemoglobin (Bld) [Mass/Vol] 15.0 g/dL 13.0 - 17.0 g/dL [facility] Immature Gran % 0.6 % [facility] Lymphocytes (Bld) [#/Vol] 2.07 10*3/uL 1.00 - 4.00 k/uL [facility] Lymphocytes/100 WBC (Bld) 28.8 % [facility] MCH (RBC) [Entitic mass] 30.6 pg 26.0 - 34.0 pg [facility] MCHC (RBC) [Mass/Vol] 33.7 g/dL 30.5 - 36.0 g/dL [facility] MCV (RBC) [Entitic vol] 90.8 fL 80.0 - 100.0 fL [facility] Monocytes (Bld) [#/Vol] 0.54 10*3/uL <0.87 k/uL [facility] Monocytes/100 WBC (Bld) 7.5 % C [facility] Neutrophils (Bld) [#/Vol] 4.30 10*3/uL 1.45 - 7.50 k/uL [facility] Neutrophils/100 WBC (Bld) 59.8 % [facility] Nucleated RBC (Bld) [#/Vol] <0.01 k/uL [facility] Nucleated RBC/100 WBC (Bld) [Ratio] 0.0 /100 WBC [facility] Platelet mean volume (Bld) [Entitic vol] 10.1 fL 9.0 - 12.7 fL [facility] Platelets (Bld) [#/Vol] 240 10*3/uL 150 - 400 k/uL [facility] RBC (Bld) [#/Vol] 4.90 10*6/uL 4.20 - 6.0 0 m/uL [facility] WBC (Bld) [#/Vol] 7.19 10*3/uL 3.70 - 11. 00 k/uL [facility] Comprehensive metabolic 2000 panelon 06-06-2022 Albumin [Mass/Vol] 4.2 g/dL 3.9 - 4.9 g/dL [facility] ALP [Catalytic activity/Vol] 78 U/L 38 - 113 U/L [facility] ALT [Catalytic activity/Vol] 19 U/L 10 - 54 U/L [facility] Anion gap [Moles/Vol] 10 mmol/L 9 - 18 mmol/L [facility] AST [Catalytic activity/Vol] 20 U/L 14 - 40 U/L [facility] Bilirubin [Mass/Vol] 0.6 mg/dL 0.2 - 1 .3 mg/dL [facility] Calcium [Mass/Vol] 8.8 mg/dL 8.5 - 10. 2 mg/dL [facility] Chloride [Moles/Vol] 107 mmol/L High 97 - 10 5 mmol/L [facility] CO2 [Moles/Vol] 25 mmol/L 22 - 30 mmol/L [facility] Creatinine [Mass/Vol] 1.02 mg/dL 0.73 - 1.22 mg/dL [facility] Estimated Glomerular Filtration Rate 85 mL/min/1.73m >=60 mL/min/1.73m [facility] Glucose [Mass/Vol] 86 mg/dL 74 - 99 mg/dL [facility] Potassium [Moles/Vol] 4.1 mmol/L 3.7 - 5.1 mmol/L [facility] Protein [Mass/Vol] 6.8 g/dL 6.3 - 8.0 g/dL [facility] Sodium [Moles/Vol] 142 mmol/L 136 - 144 mmol/L [facility] Urea nitrogen [Mass/Vol] 21 mg/dL 9 - 24 mg/dL [facility] MR Hip - left WO contraston 05-02-2022 IMPRESSION: Advanced degenerative changes on the LEFT hip including complex tearing of the labrum. Cloth Bleaching Range Operator Chief: LESLIE Transcribe Date/Time: Apr 30 2022 8:59A Dictated by : RIK JAEGER MD This examination was interpreted and the report reviewed and electronically signed by: HUBERT MOORE MD on May 02 2022 9:46PM EST [email or web address] E_DIVISION OF RADIOLOGY * * *Final Report* * * DATE OF EXAM: Apr 30 2022 7:35AM M 0206 - MRI HIP WO IVCON LT / PROCEDURE REASON: Pain in hip * * * * Physician Interpretation * * * * EXAMINATION: MRI HIP WO IVCON LT HISTORY: Pain in hip worsening left hip pain for couple months. TECHNIQUE: Routine multiplanar MRI of the hip without contrast COMPARISON: Pelvis radiographs from 09/05/2021. RESULT: Hip joints: Left hip: Degenerative changes with tearing of the anterior superior labrum. Moderate to severe thinning/loss of the cartilage with posterior medial acetabular subchondral edema and approximately 2 cm subchondral cyst with some posterolateral soft tissue extension. There is small joint effusion with synovitis and multilobulated ganglia at the lateral aspect of the hip joint. Large vvxco-yo-jwwh images of the right hip demonstrate mild to moderate degenerative changes with acetabular subchondral cysts. Evaluation of articular cartilage and labrum is limited. Bone Marrow: No discrete fracture or suspicious marrow replacing lesions. Focal bone marrow edema at the posterior aspect of the left acetabulum, and femoral head and neck, likely due to degenerative changes. Sacroiliac joints: Mild degenerative subchondral edema on the sacral side of the RIGHT sacroiliac joint (5:21). LEFT is normal Pubic symphysis: Within normal limits. Tendons: The iliopsoas, hamstring, gluteal, and rectus femoris tendons are intact. Muscles: Within normal limits. Other: No other significant findings. Localizer images: No significant additional findings. [email or web address] E_DIVISION OF RADIOLOGY Provider, [facility] - 05/02/2022 * * *Final Report* * * DATE OF EXAM: Apr 30 2022 7:35AM SHM 0206 - MRI HIP WO IVCON LT / PROCEDURE REASON: Pain in hip * * * * Physician Interpretation * * * * EXAMINATION: MRI HIP WO IVCON LT HISTORY: Pain in hip worsening left hip pain for couple months. TECHNIQUE: Routine multiplanar MRI of the hip without contrast COMPARISON: Pelvis radiographs from 09/05/2021. RESULT: Hip joints: Left hip: Degenerative changes with tearing of the anterior superior labrum. Moderate to severe thinning/loss of the cartilage with posterior medial acetabular subchondral edema and approximately 2 cm subchondral cyst with some posterolateral soft tissue extension. There is small joint effusion with synovitis and multilobulated ganglia at the lateral aspect of the hip joint. Large uzmrr-cy-qdxf images of the right hip demonstrate mild to moderate degenerative changes with acetabular subchondral cysts. Evaluation of articular cartilage and labrum is limited. Bone Marrow: No discrete fracture or suspicious marrow replacing lesions. Focal bone marrow edema at the posterior aspect of the left acetabulum, and femoral head and neck, likely due to degenerative changes. Sacroiliac joints: Mild degenerative subchondral edema on the sacral side of the RIGHT sacroiliac joint (5:21). LEFT is normal Pubic symphysis: Within normal limits. Tendons: The iliopsoas, hamstring, gluteal, and rectus femoris tendons are intact. Muscles: Within normal limits. Other: No other significant findings. Localizer images: No significant additional findings. IMPRESSION IMPRESSION: Advanced degenerative changes on the LEFT hip including complex tearing of the labrum. Cloth Bleaching Range Operator Chief: LESLIE Transcribe Date/Time: Apr 30 2022 8:59A Dictated by : RIK JAEGER MD This examination was interpreted and the report reviewed and electronically signed by: HUBERT MOORE MD on May 02 2022 9:46PM EST [facility] MR Hip - left WO contrastOrd ered By: [facility]cf Provider on 05-02-2022 [facility] MR Hip - left WO contraston 04-30-2022 Radiology Study observation (narrative) [facility] XR KNEE GENERAL 4V AP BOTH/P A BOTH/LAT/MERC LEFTon 04-17-2022 [facility] XR KNEE POST OP 3V AP/LAT/ME RCHANT RIGHTon 01-18-2022 [facility] Vital Signs Date Time Vital Sign Value Performing Clinician Facility 09-24-2024 09:24-0500 Body temperature 98.01 [degF] Carlene Platt PT Work Phone: [facility] 09-24-2024 09:24-0500 Diastolic blood pressure 82 mm[Hg] Carlene Platt PT Work Phone: [facility] 09-24-2024 09:24-0500 Heart rate 81 /min Carlene Platt PT Work Phone: [facility] 09-24-2024 09:24-0500 Respiratory rate 16 /min Carlene Rordiguez-Love PT Work Phone: [facility] 09-24-2024 09:24-0500 SaO2% (BldA) [Mass fraction] 97 % Carlene Platt PT Work Phone: [facility] 09-24-2024 09:24-0500 Systolic blood pressure 148 mm[Hg] Carlene Rodriguez-Love PT Work Phone: [facility] 09-21-2024 15:07-0500 Body temperature 98.71 [degF] Victorina Aria THREADING MACHINE OPERATOR Work Phone: [facility] 09-21-2024 15:07-0500 Diastolic blood pressure 84 mm[Hg] Victorina Aria THREADING MACHINE OPERATOR Work Phone: [facility] 09-21-2024 15:07-0500 Heart rate 96 /min Victorina Aria THREADING MACHINE OPERATOR Work Phone: [facility] 09-21-2024 15:07-0500 Respiratory rate 18 /min Victorina Aria THREADING MACHINE OPERATOR Work Phone: [facility] 09-21-2024 15:07-0500 SaO2% (BldA) [Mass fraction] 98 % Victorina Aria THREADING MACHINE OPERATOR Work Phone: [facility] 09-21-2024 15:07-0500 Systolic blood pressure 130 mm[Hg] Victorina Aria THREADING MACHINE OPERATOR Work Phone: [facility] 09-18-2024 09:28-0500 Body temperature 97.81 [degF] Carlene Haljonelnell-Love PT Work Phone: [facility] 09-18-2024 09:28-0500 Heart rate 87 /min Carlene Halderman-Love PT Work Phone: [facility] 09-18-2024 09:28-0500 Respiratory rate 16 /min Carlene Halderman-Love PT Work Phone: [facility] 09-18-2024 09:28-0500 SaO2% (BldA) [Mass fraction] 96 % Carlene Halderman-Love PT Work Phone: [facility] 09-14-2024 09:19-0500 Body temperature 97.39 [degF] Carlene Halderman-Love PT Work Phone: [facility] 09-14-2024 09:19-0500 Diastolic blood pressure 84 mm[Hg] Carlene Halderman-Love PT Work Phone: [facility] 09-14-2024 09:19-0500 Heart rate 82 /min Carlene Halderman-Love PT Work Phone: [facility] 09-14-2024 09:19-0500 Respiratory rate 16 /min Carlene Halderman-Love PT Work Phone: [facility] 09-14-2024 09:19-0500 SaO2% (BldA) [Mass fraction] 98 % Carlene Halderman-Love PT Work Phone: [facility] 09-14-2024 09:19-0500 Systolic blood pressure 140 mm[Hg] Carlene Halderman-Love PT Work Phone: [facility] 09-10-2024 09:28-0500 Body temperature 98.1 [degF] Carlene Halderman-Love PT Work Phone: [facility] 09-10-2024 09:28-0500 Diastolic blood pressure 78 mm[Hg] Carlene Halderman-Love PT Work Phone: [facility] 09-10-2024 09:28-0500 Heart rate 92 /min Carlene Halderman-Love PT Work Phone: [facility] 09-10-2024 09:28-0500 Respiratory rate 16 /min Carlene Platt PT Work Phone: [facility] 09-10-2024 09:28-0500 SaO2% (BldA) [Mass fraction] 98 % Carlene Rodriguez-Love PT Work Phone: [facility] 09-10-2024 09:28-0500 Systolic blood pressure 140 mm[Hg] Carlene Rodriguez-Love PT Work Phone: [facility] 09-08-2024 13:19-0500 Diastolic blood pressure 88 mm[Hg] Jose Pontones PT Work Phone: [facility] Comment on above: after TUG 09-08-2024 13:19-0500 Heart rate 78 /min Jose Pontones PT Work Phone: [facility] 09-08-2024 13:19-0500 SaO2% (BldA) [Mass fraction] 96 % Jose Pontones PT Work Phone: [facility] 09-08-2024 13:19-0500 Systolic blood pressure 152 mm[Hg] Jose Pontones PT Work Phone: [facility] Comment on above: after TUG 09-08-2024 12:40-0500 Body temperature 97.3 [degF] Jose Pontones PT Work Phone: [facility] 09-08-2024 12:40-0500 Respiratory rate 16 /min Jose Pontones PT Work Phone: [facility] 08-28-2024 15:34-0500 Body height 177.8 cm Pacc 1 Work Phone: [facility] 08-28-2024 15:34-0500 Body mass index (BMI) [Ratio] 36.3 kg/m2 Pacc 1 Work Phone: [facility] 08-28-2024 15:34-0500 Body temperature 97.39 [degF] Pacc 1 Work Phone: [facility] 08-28-2024 15:34-0500 Body weight 114.76 kg Pacc 1 Work Phone: [facility] 08-28-2024 15:34-0500 Diastolic blood pressure 84 mm[Hg] Pacc 1 Work Phone: [facility] 08-28-2024 15:34-0500 Heart rate 94 /min Pacc 1 Work Phone: [facility] 08-28-2024 15:34-0500 Respiratory rate 14 /min Pacc 1 Work Phone: [facility] 08-28-2024 15:34-0500 SaO2% (BldA) [Mass fraction] 98 % Pacc 1 Work Phone: [facility] 08-28-2024 15:34-0500 Systolic blood pressure 134 mm[Hg] Pacc 1 Work Phone: [facility] 05-02-2023 09:49-0400 Body height 177.8 cm Netta Hoff MD Work Phone: [facility] 05-02-2023 09:49-0400 Body weight 110.22 kg Netta Hoff MD Work Phone: [facility] 07-13-2022 15:11-0400 Body temperature 98.4 [degF] Carlene Platt PT Work Phone: [facility] 07-13-2022 15:11-0400 Diastolic blood pressure 80 mm[Hg] Carlene Platt PT Work Phone: [facility] 07-13-2022 15:11-0400 Heart rate 92 /min Carlene Platt PT Work Phone: [facility] 07-13-2022 15:11-0400 Respiratory rate 16 /min Carlene Platt PT Work Phone: [facility] 07-13-2022 15:11-0400 SaO2% (BldA) [Mass fraction] 96 % Carlene Platt PT Work Phone: [facility] 07-13-2022 15:11-0400 Systolic blood pressure 148 mm[Hg] Carlene Platt PT Work Phone: [facility] 07-11-2022 15:18-0400 Diastolic blood pressure 86 mm[Hg] Victorina Aria THREADING MACHINE OPERATOR Work Phone: [facility] 07-11-2022 15:18-0400 Heart rate 92 /min Victorina Aria THREADING MACHINE OPERATOR Work Phone: [facility] 07-11-2022 15:18-0400 SaO2% (BldA) [Mass fraction] 97 % Victorina Aria THREADING MACHINE OPERATOR Work Phone: [facility] 07-11-2022 15:18-0400 Systolic blood pressure 146 mm[Hg] Victorina Aria THREADING MACHINE OPERATOR Work Phone: [facility] 07-11-2022 14:47-0400 Body temperature 98.2 [degF] Victorina Aria THREADING MACHINE OPERATOR Work Phone: [facility] 07-11-2022 14:47-0400 Respiratory rate 18 /min Victorina Aria THREADING MACHINE OPERATOR Work Phone: [facility] 07-10-2022 12:48-0400 Body height 175.3 cm Hubert Grater LUMBER PRESS OPERATOR.CUTTER TENDER Work Phone: [facility] 07-10-2022 12:48-0400 Body weight 119.75 kg Hubert Grater LUMBER PRESS OPERATOR.CUTTER TENDER Work Phone: [facility] 07-04-2022 12:15-0400 Body temperature 98.01 [degF] Carlene Platt PT Work Phone: [facility] 07-04-2022 12:15-0400 Diastolic blood pressure 96 mm[Hg] Carlene Platt PT Work Phone: [facility] 07-04-2022 12:15-0400 Heart rate 108 /min Carlene Platt PT Work Phone: [facility] 07-04-2022 12:15-0400 Respiratory rate 16 /min Carlene Platt PT Work Phone: [facility] 07-04-2022 12:15-0400 SaO2% (BldA) [Mass fraction] 99 % Carlene Platt PT Work Phone: [facility] 07-04-2022 12:15-0400 Systolic blood pressure 140 mm[Hg] Carlene Rodriguez-Love PT Work Phone: [facility] 07-02-2022 08:45-0400 Body temperature 98.71 [degF] Victorina Aria THREADING MACHINE OPERATOR Work Phone: [facility] 07-02-2022 08:45-0400 Diastolic blood pressure 88 mm[Hg] Victorina Aria THREADING MACHINE OPERATOR Work Phone: [facility] 07-02-2022 08:45-0400 Heart rate 97 /min Victorina Aria THREADING MACHINE OPERATOR Work Phone: [facility] 07-02-2022 08:45-0400 Respiratory rate 18 /min Victorina Aria THREADING MACHINE OPERATOR Work Phone: [facility] 07-02-2022 08:45-0400 SaO2% (BldA) [Mass fraction] 99 % Victorina Aria THREADING MACHINE OPERATOR Work Phone: [facility] 07-02-2022 08:45-0400 Systolic blood pressure 140 mm[Hg] Victorina Aria THREADING MACHINE OPERATOR Work Phone: [facility] 06-27-2022 09:50-0400 Body temperature 97.81 [degF] Carlene Platt PT Work Phone: [facility] 06-27-2022 09:50-0400 Diastolic blood pressure 90 mm[Hg] Carlene Rodriguez-Love PT Work Phone: [facility] 06-27-2022 09:50-0400 Heart rate 80 /min Carlene Platt PT Work Phone: [facility] 06-27-2022 09:50-0400 Respiratory rate 16 /min Carlene Platt PT Work Phone: [facility] 06-27-2022 09:50-0400 SaO2% (BldA) [Mass fraction] 97 % Carlene Platt PT Work Phone: [facility] 06-27-2022 09:50-0400 Systolic blood pressure 148 mm[Hg] Carlene Platt PT Work Phone: [facility] 06-06-2022 15:51-0400 Diastolic blood pressure 94 mm[Hg] Pacc 1 Work Phone: [facility] 06-06-2022 15:51-0400 Systolic blood pressure 142 mm[Hg] Pacc 1 Work Phone: [facility] 06-06-2022 15:03-0400 Body height 177.8 cm Pacc 1 Work Phone: [facility] 06-06-2022 15:03-0400 Body temperature 98.49 [degF] Pacc 1 Work Phone: [facility] 06-06-2022 15:03-0400 Body weight 119.75 kg Pacc 1 Work Phone: [facility] 06-06-2022 15:03-0400 Heart rate 97 /min Pacc 1 Work Phone: [facility] 06-06-2022 15:03-0400 Respiratory rate 18 /min Pacc 1 Work Phone: [facility] 06-06-2022 15:03-0400 SaO2% (BldA) [Mass fraction] 97 % Pacc 1 Work Phone: [facility] 02-06-2022 14:14-0400 Body height 177.8 cm Hubert Fuentes APRN.CUTTER TENDER Work Phone: [facility] 02-06-2022 14:14-0400 Body weight 95.25 kg Hubert Grater LUMBER PRESS OPERATOR.CUTTER TENDER Work Phone: [facility] 01-18-2022 11:01-0400 Body height 177.8 cm Hubert Grater LUMBER PRESS OPERATOR.CUTTER TENDER Work Phone: [facility] 01-18-2022 11:01-0400 Body weight 95.25 kg Hubert Grater LUMBER PRESS OPERATOR.CUTTER TENDER Work Phone: [facility] 06-30-2021 10:12-0400 Body height 177.8 cm Michell Tabor DO Work Phone: [facility] 06-30-2021 [id number] Body weight 121.56 kg Michell Tabor DO Work Phone: [facility] Encounters Encounter Date Encounter Type Care Provider Facility Start: 12-24-2024 End: 12-24-2024 Refill Hubert Grater LUMBER PRESS OPERATOR.CUTTER TENDER Work Phone: Orthopaedics Comment on above: Refill Request Start: 11-06-2024 End: 11-06-[address] Cristian Robertson MD Work Phone: [facility] Work Phone: Start: 11-06-2024 End: 11-06-2024 Discharged Recurring Netta Hoff MD -Physical Therapy Work Phone: Start: 11-05-2024 End: 11-05-2024 ambulatory CRISTIAN ROBERTSON Facility:[facility] Start: 11-05-2024 End: 11-05-2024 Patient encounter procedure Netta Hoff MD Work Phone: Orthopaedics Comment on above: S/P total knee arthr oplasty, left (Primary Dx) Start: 10-08-2024 End: 10-08-2024 Refill Robert Sanchez PA-C Work Phone: Orthopaedics Comment on above: Refill Request Start: 09-30-2024 End: 09-30-2024 Telephone encounter Netta Hoff MD Work Phone: Orthopaedics Comment on above: Post Op Start: 09-24-2024 End: 09-24-2024 Home visit Carlene Platt PT Work Phone: [facility] Comment on above: PT AGENCY DC W VISIT Start: 09-22-2024 End: 09-24-2024 Nursing evaluation of patient and report Amarilys Conley aerial hurricane hunter Comment on above: Status post left kne e replacement (Primary Dx); S/P total knee arthroplasty, left Refill Request Start: 09-22-2024 End: 09-22-2024 ambulatory CRISTIAN Simpson [place] Facility:[facility] Start: 09-22-2024 End: 09-22-2024 Subsequent hospital visit by physician [facility] Work Phone: Radiology Comment on above: Left knee pain, unsp ecified chronicity [M25.562] Start: 09-21-2024 End: 09-21-2024 Home visit Victorina Knapp THREADING MACHINE OPERATOR Work Phone: [facility] Comment on above: THREADING MACHINE OPERATOR ROUTINE Start: 09-18-2024 End: 09-18-2024 Orders Only Hubert Fuentes LUMBER PRESS OPERATOR.CUTTER TENDER Work Phone: Orthopaedics Comment on above: Primary osteoarthrit is of left knee (Primary Dx); Left knee pain, unspecified chronicity PT ROUTINE Start: 09-14-2024 End: 09-14-2024 Telephone encounter Carlene Platt PT Work Phone: [facility] Comment on above: Home Care (Dressing removal ) Start: 09-14-2024 End: 09-14-2024 Home visit Alida Mccord RN Work Phone: [facility] Comment on above: CARE COORDINATION PT ROUTINE Start: 09-10-2024 End: 09-10-2024 Home visit Carlene Platt PT Work Phone: [facility] Comment on above: PT ROUTINE Start: 09-09-2024 End: 09-09-2024 Telephone encounter Netta Hoff MD Work Phone: Orthopaedics Comment on above: Medication Problem ( Increased pain) Home Care Start: 09-08-2024 End: 09-08-2024 Telephone encounter Netta Hoff MD Work Phone: [facility] Comment on above: Home Care Start: 09-08-2024 End: 09-08-2024 Home visit Jose Oakes PT Work Phone: [facility] Comment on above: PT SOC Start: 09-07-2024 End: 09-07-2024 Telephone encounter Staci Uriarte PSS [facility] Comment on above: Home Care (CONFIRMAT ION CALL) Start: 09-07-2024 End: 09-07-2024 ambulatory AMAURY ALLEN Facility:[facility] Start: 08-28-2024 Encounter for other preprocedural examination CRISTIAN ROBERTSON [facility] Start: 08-28-2024 End: 08-28-2024 Admission to establishment Pacc Jade 1 Work Phone: Pre Anesthesia Start: 08-28-2024 End: 08-28-2024 Anesthesia consultation Pacc [place] 1 Work Phone: Pre Anesthesia Comment on above: Pre-operative examin ation (Primary Dx); SVT (supraventricular tachycardia) (HCC); Status post right knee replacement; BMI 36.0-36.9,adult Start: 08-28-2024 End: 08-28-2024 Preprocedural examination done Pac Jade 1 Work Phone: [facility] Work Phone: Start: 08-28-2024 End: 08-28-2024 ambulatory CRISTIAN ROBERTSON Facility:[facility] Start: 08-25-2024 ambulatory HUBERT FUENTES Facility :[facility] Start: 08-25-2024 End: 08-25-2024 Subsequent hospital visit by physician Ct [facility] Radiology Comment on above: Primary osteoarthrit is of left knee [M17.12] Start: 08-12-2024 End: 08-12-2024 Telephone encounter Netta Hoff MD Work Phone: Orthopaedics Comment on above: Appointment (Resched ule Scan CT) Start: 08-11-2024 End: 08-11-2024 Telephone encounter Netta Hoff MD Work Phone: [address] Comment on above: Pre-Op Teaching Start: 07-28-2024 End: 08-03-2024 Orders Only Netta Hoff MD Work Phone: Orthopaedics Comment on above: Primary osteoarthrit is of left knee (Primary Dx); Chronic pain of left knee Appointment (Pre-op CT Scan for MORGAN) Start: 06-29-2024 End: 06-29-2024 ambulatory Matt Bruner PT Work Phone: [facility] Comment on above: Primary osteoarthrit is of left knee Start: 06-26-2024 End: 07-07-2024 ambulatory Netta Hoff MD Work Phone: Orthopaedics Comment on above: FMLA Paperwork Start: 06-19-2024 End: 06-19-2024 ambulatory Demetra Toney OTR/L Work Phone: [facility] Comment on above: Primary osteoarthrit is of left knee Start: 06-11-2024 End: 06-11-2024 Patient encounter procedure Hubert Fuentes APRN.CUTTER TENDER Work Phone: Orthopaedics Comment on above: Primary osteoarthrit is of left knee (Primary Dx) Start: 06-11-2024 End: 06-11-2024 ambulatory CRISTIAN ROBERTSON Facility:[facility] Start: 06-11-2024 End: 06-11-2024 Subsequent hospital visit by physician [facility] Work Phone: Radiology Comment on above: Chronic pain of left knee [M25.562, G89.29] Start: 06-08-2024 End: 06-09-2024 Orders Only Hubert Fuentes APRN.CUTTER TENDER Work Phone: Orthopaedics Comment on above: Chronic pain of left knee (Primary Dx) Start: 06-05-2024 End: 06-08-2024 Telephone encounter Netta Hoff MD Work Phone: Orthopaedics Comment on above: Appointment Start: 02-19-2024 ambulatory Hubert Grater LUMBER PRESS OPERATOR.CUTTER TENDER Work Phone: Orthopaedics Comment on above: RE: Gabapentin Start: 01-17-2024 End: 01-17-2024 Refill Hubert Grater LUMBER PRESS OPERATOR.CUTTER TENDER Work Phone: Orthopaedics Comment on above: Refill Request Start: 01-17-2024 End: 01-17-2024 Patient encounter procedure [facility] Start: 01-10-2024 Telephone encounter Alyx Perez MD Work Phone: General Surgery Comment on above: Results Start: 09-26-2023 End: 09-26-2023 ambulatory [facility] Work Phone: Start: 09-26-2023 End: 09-26-2023 Patient encounter procedure [facility] Work Phone: Start: 08-27-2023 Refill Hubert Grater LUMBER PRESS OPERATOR.CUTTER TENDER Work Phone: Orthopaedics Comment on above: Refill Request Start: 08-26-2023 Refill Hubert Grater LUMBER PRESS OPERATOR.CUTTER TENDER Work Phone: Orthopaedics Comment on above: Refill Request Start: 08-23-2023 Refill Hubert Grater LUMBER PRESS OPERATOR.CUTTER TENDER Work Phone: Orthopaedics Comment on above: Refill Request Start: 08-09-2023 Refill Hubert Grater LUMBER PRESS OPERATOR.CUTTER TENDER Work Phone: Orthopaedics Comment on above: Refill Request Start: 06-06-2023 Refill Hubert Grater LUMBER PRESS OPERATOR.CUTTER TENDER Work Phone: Orthopaedics Comment on above: Refill Request Start: 05-20-2023 ambulatory CRISTIAN ROBERTSON Facility:[facility] Start: 05-20-2023 End: 05-20-2023 Subsequent hospital visit by physician [facility] (I-Stat/1.5t) Radiology Comment on above: Encounter for observ ation for other suspected diseases and conditions ruled out [Z03.89] Start: 05-09-2023 Refill Hubert Grater LUMBER PRESS OPERATOR.CUTTER TENDER Work Phone: Orthopaedics Comment on above: Refill Request Start: 05-02-2023 End: 05-02-2023 Patient encounter procedure Netta Hoff MD Work Phone: Orthopaedics Comment on above: Encounter for observ ation for other suspected diseases and conditions ruled out (Primary Dx); Pain of left thigh Start: 05-02-2023 End: 05-02-2023 Subsequent hospital visit by physician [facility] Beverley Quarles Work Phone: Radiology Comment on above: Pain in left hip [M2 5.552] Start: 04-10-2023 Orders Only Netta Pisano Work Phone: Orthopaedics Comment on above: Left knee pain, unsp ecified chronicity (Primary Dx); Pain in left hip Start: 04-06-2023 Refill Hubert Grater LUMBER PRESS OPERATOR.CUTTER TENDER Work Phone: Orthopaedics Comment on above: Refill Request Start: 03-12-2023 ambulatory Hubert Grater LUMBER PRESS OPERATOR.CUTTER TENDER Work Phone: Orthopaedics Comment on above: Left Thigh Pain Start: 02-05-2023 Refill Hubert Grater LUMBER PRESS OPERATOR.CUTTER TENDER Work Phone: Orthopaedics Comment on above: Refill Request Start: 01-07-2023 Refill Hubert Grater LUMBER PRESS OPERATOR.CUTTER TENDER Work Phone: Orthopaedics Comment on above: Refill Request Start: 12-20-2022 Refill Hubert Grater LUMBER PRESS OPERATOR.CUTTER TENDER Work Phone: Orthopaedics Comment on above: Refill Request Start: 12-05-2022 Refill Hubert Grater LUMBER PRESS OPERATOR.CUTTER TENDER Work Phone: Orthopaedics Comment on above: Refill Request Start: 11-08-2022 Refill Hubert Grater LUMBER PRESS OPERATOR.CUTTER TENDER Work Phone: Orthopaedics Comment on above: Refill Request Start: 09-07-2022 Refill Hbuert Grater LUMBER PRESS OPERATOR.CUTTER TENDER Work Phone: Orthopaedics Comment on above: Refill Request Start: 08-30-2022 Orders Only Netta Pisano Work Phone: Orthopaedics Comment on above: Primary osteoarthrit is of left knee (Primary Dx) Start: 08-07-2022 Telephone encounter Netta gar MD Work Phone: [facility] Comment on above: Appointment Start: 08-07-2022 End: 08-07-2022 Patient encounter procedure Netta Hoff MD Work Phone: Orthopaedics Comment on above: Chronic pain of left knee (Primary Dx) Start: 07-15-2022 ambulatory Hubert Fuentes APRN.CUTTER TENDER Work Phone: Orthopaedics Comment on above: Neuropathy Start: 07-13-2022 End: 07-13-2022 Home visit Carlene Platt PT Work Phone: [facility] Comment on above: PT AGENCY DC W VISIT Start: 07-11-2022 End: 07-11-2022 Home visit Victorina Knapp THREADING MACHINE OPERATOR Work Phone: [facility] Comment on above: THREADING MACHINE OPERATOR ROUTINE Start: 07-10-2022 End: 07-10-2022 Patient encounter procedure Hubert Fuentes APRN.CUTTER TENDER Work Phone: Orthopaedics Comment on above: Status post left hip replacement (Primary Dx) Refill Request Start: 07-10-2022 End: 07-10-2022 Subsequent hospital visit by physician [facility] Beverley Quarles Work Phone: Radiology Comment on above: Pain in left hip [M2 5.552] Start: 07-06-2022 End: 07-06-2022 Home visit Victorina Knapp THREADING MACHINE OPERATOR Work Phone: [facility] Comment on above: THREADING MACHINE OPERATOR ROUTINE Start: 07-04-2022 End: 07-04-2022 Home visit Carlene Platt PT Work Phone: [facility] Comment on above: PT ROUTINE Start: 07-02-2022 ambulatory Hubert Grater LUMBER PRESS OPERATOR.CUTTER TENDER Work Phone: Orthopaedics Comment on above: Note Needed Please Start: 07-02-2022 End: 07-02-2022 Home visit Victorina Knapp THREADING MACHINE OPERATOR Work Phone: [facility] Comment on above: THREADING MACHINE OPERATOR ROUTINE Pain in left hip (Pr imary Dx) Start: 07-02-2022 Telephone encounter Victorina Lewis on THREADING MACHINE OPERATOR Work Phone: [facility] Comment on above: Home Care (Bandage r emoval) Start: 06-29-2022 Refill Brennon Santacruz Work Phone: Medical Records Comment on above: Refill Request Start: 06-27-2022 End: 06-27-2022 Home visit Carlene Platt PT Work Phone: [facility] Comment on above: PT SOC Start: 06-26-2022 Telephone encounter Mishel BENNETT S [facility] Comment on above: Home Care (Confirmat ion Call) Start: 06-08-2022 End: 06-08-2022 [facility] Start: 06-08-2022 End: 06-08-2022 Subsequent hospital visit by physician [facility] Radiology Comment on above: Presence of left art ificial hip joint [Z96.642] Start: 06-06-2022 End: 06-06-2022 Admission to establishment Pacc Jade 1 Work Phone: [facility] Start: 06-06-2022 End: 06-06-2022 ambulatory Pacc [place] 1 Work Phone: Pre Anesthesia Comment on above: Pre-operative examin ation (Primary Dx); SVT (supraventricular tachycardia) (HCC); Status post right knee replacement; Primary osteoarthritis of both knees Start: 06-06-2022 End: 06-06-2022 Preprocedural examination done Pacc [place] 1 Work Phone: Pre Anesthesia Start: 06-05-2022 Telephone encounter Netta gar MD Work Phone: [address] Comment on above: Pre-Op Teaching Appointment (Pre-op CT scan for robotic surgery) Start: 06-04-2022 Orders Only Netta Pisano Work Phone: Orthopaedics Comment on above: Primary osteoarthrit is of left hip (Primary Dx); Pain in left hip Start: 05-21-2022 ambulatory Hubert Fuentes LUMBER PRESS OPERATOR.CUTTER TENDER Work Phone: Orthopaedics Comment on above: Hip & Knee Start: 05-15-2022 Telephone encounter Hubert kimr LUMBER PRESS OPERATOR.CUTTER TENDER Work Phone: Orthopaedics Comment on above: Appointment Start: 05-14-2022 E-mail encounter fro m caregiver [facility] Provider [facility] Start: 05-14-2022 Patient encounter procedure [facility] Orthopaedics Comment on above: Dr. Hoff referred you to Dr. Jose Oliva for a consult regarding your left hip Start: 04-30-2022 ambulatory Netta Pisano Work Phone: Orthopaedics Comment on above: Seeing a Dentist Start: 04-30-2022 End: 04-30-2022 Subsequent hospital visit by physician [facility] (Lg Bore/3t) Radiology Comment on above: Pain in hip [M25.559 ] Start: 04-17-2022 End: 04-17-2022 Patient encounter procedure Netta Hoff MD Work Phone: Orthopaedics Comment on above: Primary osteoarthrit is of left hip (Primary Dx); Pain in hip Start: 04-17-2022 End: 04-17-2022 Subsequent hospital visit by physician [facility] Work Phone: Radiology Comment on above: Pain [R52] Start: 03-28-2022 Orders Only Netta Pisano Work Phone: Orthopaedics Comment on above: Pain (Primary Dx) Start: 02-14-2022 Refill Hubert Fuentes LUMBER PRESS OPERATOR.CUTTER TENDER Work Phone: Medical Records Comment on above: Refill Request Start: 02-06-2022 End: 02-06-2022 ambulatory Angelo Balbuena PT Work Phone: [facility] Comment on above: Status post right kn ee replacement (Primary Dx); Stiffness of right knee Start: 02-06-2022 End: 02-06-2022 Patient encounter procedure Hubert Fuentes APRN.CNP Work Phone: Orthopaedics Comment on above: Status post right kn ee replacement (Primary Dx) Start: 01-30-2022 End: 01-30-2022 ambulatory Angelo Balbuena PT Work Phone: [facility] Comment on above: Status post right kn ee replacement (Primary Dx); Stiffness of right knee Start: 01-23-2022 End: 01-23-2022 ambulatory Angelo Balbuena PT Work Phone: [facility] Comment on above: Status post right kn ee replacement (Primary Dx); Stiffness of right knee Start: 01-18-2022 End: 01-18-2022 Orders Only Hubert Fuentes APRN.CUTTER TENDER Work Phone: Orthopaedics Comment on above: Chronic pain of righ t knee (Primary Dx) Status post right kn ee replacement (Primary Dx); Sprain of lateral collateral ligament of right knee, initial encounter Chronic pain of righ t knee [M25.561, G89.29] Start: 01-16-2022 End: 01-16-2022 ambulatory Angelo Balbuena PT Work Phone: [facility] Comment on above: Status post right kn ee replacement (Primary Dx); Stiffness of right knee Start: 01-02-2022 End: 01-02-2022 ambulatory Angelo Balbuena PT Work Phone: [facility] Comment on above: Status post right kn ee replacement (Primary Dx); Stiffness of right knee Start: 12-28-2021 Refill Netta Pisano Work Phone: Medical Records Comment on above: Refill Request Start: 11-13-2021 End: 11-13-2021 Subsequent hospital visit by physician Cristian Robertson MD Work Phone: [facility] Start: 06-30-2021 End: 06-30-2021 Patient encounter procedure Michell Tabor DO Work Phone: Orthopaedics Comment on above: Pain of left hand (P rimary Dx); Left wrist tendinitis; [facility] arthritis Start: 06-26-2021 End: 06-26-2021 Orders Only Netta Hoff Orthopaedics Comment on above: Right knee pain, uns pecified chronicity (Primary Dx) Procedures Date Procedure Procedure Detail Performing Clinician Start: 09-22-2024 Radiologic examinati on knee 3 views Hubert Grater LUMBER PRESS OPERATOR.CUTTER TENDER Work Phone: Start: 08-28-2024 Ecg routine ecg w/le ast 12 lds i&r only [facility] Provider Start: 08-25-2024 Ct lower extremity w /o contrast material Hubert Grater LUMBER PRESS OPERATOR.CUTTER TENDER Work Phone: Start: 09-26-2023 Diagnostic radiograp hy of abdomen Start: 05-02-2023 Radiologic exam knee complete 4/more views Hubert Grater LUMBER PRESS OPERATOR.CUTTER TENDER Work Phone: Start: 07-10-2022 Radex hip unilateral with pelvis 2-3 views Hubert Grater LUMBER PRESS OPERATOR.CUTTER TENDER Work Phone: Start: 06-08-2022 Ct lower extremity w /o contrast material Hubert Grater LUMBER PRESS OPERATOR.CUTTER TENDER Work Phone: Start: 06-07-2022 Antibody screen Pac 1 Work Phone: Start: 04-30-2022 Mri any jt lower ext rem w/o contrast matrl Netta Hoff MD Work Phone: Start: 04-17-2022 Radiologic exam knee complete 4/more views Hubert Grater LUMBER PRESS OPERATOR.CUTTER TENDER Work Phone: Start: 04-27-2014 Colonoscopy Netta gar Plan of Treatment Date Care Activity Detail Author Start: 2039 RSV Vaccine (1 - 1-d ose 75+ series) RSV Vaccine (1 - 1-dose 75+ series) [facility] Start: 01-08-2034 Urine microalbumin profile DTaP,Tdap,Td Vaccine (3 - Td or Tdap) [facility] Start: 08-28-2027 Diabetes Screening Diabetes Screenin [facility] Start: 06-26-2025 DIABETES SCREEN DIABETES SCREEN [facility] Start: 06-26-2025 Diabetes Screening Diabetes Screenin ryne [facility] Start: 06-06-2025 DIABETES SCREEN DIABETES SCREEN [facility] Start: 11-23-2024 DIABETES SCREEN DIABETES SCREEN [facility] Start: 11-05-2024 End: 11-05-2024 Patient encounter procedure Orthopaedics Comment on above: s/p L TKA 09/07/24 Start: 09-22-2024 End: 09-22-2024 Nursing evaluation of patient and report 09/22/2024 1:00 PM EST Nurse Visit Orthopaedics [facility] [address] [address] Amarilys Conley RN S/P Robotic L TKA 09-07-2024 Orthopaedics Comment on above: S/P Robotic L TKA Start: 09-07-2024 End: 09-07-2024 Admission to same day surgery center 09/07/2024 11:00 AM EST - 09/07/2024 1:29 PM EST Surgery [facility] Surgery [address] [place] [address] Netta Hoff MD [address] [address] POSSIBLE SAME DAY ROBOTIC ASSISTED TOTAL KNEE ARTHROPLASTY [facility] Surgery Comment on above: POSSIBLE SAME DAY RO BOTIC ASSISTED TOTAL KNEE ARTHROPLASTY Start: 09-07-2024 Subsequent hospital visit by physician 09/07/2024 11:00 AM EST Hospital Encounter [facility] Surgery [address] [place] [address] Netta Hoff MD [address] [address] Primary osteoarthritis of left knee [M17.12], Chronic pain of left knee [M25.562, G89.29] [facility] Surgery Comment on above: Primary osteoarthrit is of left knee [M17.12], Chronic pain of left knee [M25.562, G89.29] Start: 09-07-2024 End: 09-07-2024 Arthrp kne condyle&platu medial&lat compartments ME OR Start: 08-28-2024 End: 08-28-2024 Anesthesia consultation 08/28/2024 3:40 PM EST PAT Pre Anesthesia [address] [place] [address] 1, [facility] [address] [place] [address] POSSIBLE SAME DAY ROBOTIC ASSISTED TOTAL KNEE ARTHROPLASTY [31096] - Knee - Left Pre Anesthesia Comment on above: POSSIBLE SAME DAY RO BOTIC ASSISTED TOTAL KNEE ARTHROPLASTY [56446] - Knee - Left Start: 08-25-2024 End: 08-25-2024 Patient encounter procedure 08/25/2024 7:15 AM EST Appointment Radiology [address] [place] [address] OFFICE WILL PROVIDE REVISED ORDER Radiology Comment on above: OFFICE WILL PROVIDE REVISED ORDER Start: 08-13-2024 End: 08-13-2024 Patient encounter procedure 08/13/2024 7:30 AM EST Appointment Radiology [address] [place] [address] Primary osteoarthritis of left knee [M17.12]MORGAN Robotic total knee replacement [facility] CT Radiology Comment on above: Primary osteoarthrit is of left knee [M17.12]MORGAN Robotic total knee replacement [facility] CT Start: 07-09-2024 End: 07-09-2024 Patient encounter procedure 07/09/2024 8:00 AM EDT Office Visit Orthopaedics [address] [address] Netta Hoff MD [address] [address] left total knee replacement. Orthopaedics Comment on above: left total knee repl acement. Start: 06-29-2024 End: 06-29-2024 Admission to same day surgery center 06/29/2024 10:00 AM EDT OT/PT/Speech Visit [facility] [address] [place] [address] Matt Bruner, PT [address] [place] [address] Preparing for left knee replacement surgery [facility] Comment on above: Preparing for left k nee replacement surgery Start: 06-19-2024 End: 06-19-2024 Admission to same day surgery center 06/19/2024 1:30 PM EDT OT/PT/Speech Visit [facility] [address] [place] [address] Demetra Toney, OTR/L [address] [place] [address] Preparing for left knee replacement surgery [facility] Comment on above: Preparing for left k nee replacement surgery Start: 06-11-2024 End: 06-11-2024 Patient encounter procedure Radiology Comment on above: L knee pain L knee surgery discu ssion Start: 05-24-2024 Covid-19 Vaccine ( season) Covid-19 Vaccine () [facility] Start: 05-24-2024 Covid-19 Vaccine ( season) Covid-19 Vaccine ( season) [facility] Start: 05-24-2024 Influenza vaccination [facility] Start: 04-27-2024 Colonoscopy COLONOSCOPY [facility] Start: 04-27-2024 COLORECTAL CANCER SCREENING COLORECTAL CANCER SCREENING [facility] Start: 04-27-2024 Screening for malign ant neoplasm of colon [facility] Start: 2024 RSV Vaccine (1 - 1-d ose 60+ series) RSV Vaccine (1 - 1-dose 60+ series) [facility] Start: 2024 RSV Vaccine (1 - Ris k 60-74 years 1-dose series) RSV Vaccine (1 - Risk 60-74 years 1-dose series) [facility] Start: 09-23-2023 Behavioral Health Screening Behavioral Health Screening [facility] Start: 05-24-2023 Covid-19 Vaccine ( season) Covid-19 Vaccine ( season) [facility] Start: 05-24-2023 Influenza vaccination C [facility] Start: 09-23-2022 DEPRESSION ASSESSMENT DEPRESSION ASS ESSMENT [facility] Start: 05-24-2022 Influenza vaccination [facility] Start: 03-11-2022 Urine microalbumin profile DTaP,Tdap,Td Vaccine (2 - Td or Tdap) [facility] Start: 09-23-2021 DEPRESSION ASSESSMENT DEPRESSION ASS [facility] Start: 05-24-2021 Influenza vaccination INFLUENZA (#1) [facility] Start: 2019 PROSTATE CANCER SCREENING DISCUSSION PROSTATE CANCER SCREENING DISCUSSION [facility] Start: 2019 Prostate specific antigen measurement Prostate Cancer Screening Discussion [facility] Start: 2014 Pneumococcal Vaccine : 50+ (1 of 1 - PCV) Pneumococcal Vaccine: 50+ (1 of 1 - PCV) [facility] Start: 2014 SHINGRIX VACCINE (1 of 2) SHINGRIX VACCINE (1 of 2) [facility] Start: 2009 COLOGUARD (FIT-DNA) COLOGUARD (FIT-D NA) [facility] Start: [address] COLONOGRAPHY [facility] Start: 2009 DIABETES SCREEN DIABETES SCREEN [facility] Start: 2009 FECAL OCCULT BLOOD FECAL OCCULT BLOO D [facility] Start: 2009 Screening for malign ant neoplasm of colon [facility] Start: 2009 SIGMOIDOSCOPY SIGMOIDOSCOPY [facility] Start: 1999 Lipid 1996 panel - S andrea or Plasma Lipid Screening [facility] Start: 1999 Lipid panel Lipid Screening [facility] Start: 1999 LIPID SCREEN LIPID SCREEN [facility] Start: 1983 Urine microalbumin profile [facility] Start: 1982 Anxiety Screening Anxiety Screening [facility] Start: 1982 Depression Screening Depression Scre ening [facility] Start: 1982 HEPATITIS C SCREENING HEPATITIS C [facility] Start: 1982 Hepatitis C screening Hepatitis C [facility] Start: 1982 HIV SCREENING HIV SCREENING [facility] Start: 1982 HIV screening HIV Screening [facility] Start: 1976 Adult depression screening assessment DEPRESSION SCREENING [facility] Start: 1976 COVID-19 VACCINE (1) COVID-19 VACCIN E (1) [facility] Start: 1969 COVID-19 VACCINE (#1) COVID-19 VACCI NE (#1) [facility] Start: 1969 COVID-19 VACCINE (1) COVID-19 VACCIN E (1) [facility] Start: 1964 COVID-19 VACCINE (#1) COVID-19 VACCI NE (#1) [facility] Start: 1964 HEPATITIS B (1 of 3 - 3-dose series) HEPATITIS B (1 of 3 - 3-dose series) [facility] End: 07-11-2025 CT Knee - left WO contrast CT KNEE WO IVCON LEFT Radiology Routine Primary osteoarthritis of left knee 1 Occurrences starting 06/11/2024 until 07/11/2025 [facility] Work Phone: Comment on above: 1 Occurrences starti ng 06/11/2024 until 07/11/2025 End: 09-06-2023 Ct lower extremity w/o contrast material CT KNEE WO IVCON LT Radiology Routine Chronic pain of left knee 1 Occurrences starting 08/07/2022 until 09/06/2023 [facility] Work Phone: Comment on above: 1 Occurrences starti ng 08/07/2022 until 09/06/2023 End: 05-17-2023 Mri any jt lower extrem w/o contrast matrl MRI HIP WO IVCON LT Radiology ANIKET Pain in hip 1 Occurrences starting 04/17/2022 until 05/17/2023 [facility] Work Phone: Comment on above: 1 Occurrences starti ng 04/17/2022 until 05/17/2023 End: 05-31-2024 MRI UPPER LEG WO IVCON LEFT MRI UPPER LEG WO IVCON LEFT Radiology ANIKET Encounter for observation for other suspected diseases and conditions ruled out 1 Occurrences starting 05/02/2023 until 05/31/2024 [facility] Work Phone: Comment on above: 1 Occurrences starti ng 05/02/2023 until 05/31/2024 MRI UPPER LEG WO IVC ON LEFT MRI UPPER LEG WO IVCON LEFT Radiology ANIKET Encounter for observation for other suspected diseases and conditions ruled out 05/20/2023 5:36 PM EDT [facility] Work Phone: End: 07-26-2022 Radiologic exam knee complete 4/more views XR KNEE GENERAL 4V AP BOTH/PA BOTH/LAT/MERC RT Radiology Routine Right knee pain, unspecified chronicity 1 Occurrences starting 06/27/2021 until 07/26/2022 [facility] Comment on above: 1 Occurrences starti ng 06/27/2021 until 07/26/2022 End: 06-14-2023 Radiologic examination pelvis 1/2 views XR PELVIS 1V AP Radiology Routine Pain in left hip 1 Occurrences starting 05/15/2022 until 06/14/2023 [facility] Work Phone: Comment on above: 1 Occurrences starti ng 05/15/2022 until 06/14/2023 End: 08-02-2023 XR HIP 2V AP/LAT LEFT (AK,FL,ME) XR HIP 2V AP/LAT LEFT (AK,FL,ME) Radiology Routine Pain in left hip 1 Occurrences starting 07/02/2022 until 08/02/2023 [facility] Work Phone: Comment on above: 1 Occurrences starti ng 07/02/2022 until 08/02/2023 End: 05-09-2024 XR HIP 2V AP/LAT LEFT (AK,FL,ME) XR HIP 2V AP/LAT LEFT (AK,FL,ME) Radiology Routine Pain in left hip 1 Occurrences starting 04/11/2023 until 05/09/2024 [facility] Work Phone: Comment on above: 1 Occurrences starti ng 04/11/2023 until 05/09/2024 End: 07-08-2025 XR Knee - left 4 Views XR KNEE GENERAL 4V AP BOTH/PA BOTH/LAT/MERC LEFT Radiology Routine Chronic pain of left knee 1 Occurrences starting 06/09/2024 until 07/08/2025 [facility] Work Phone: Comment on above: 1 Occurrences starti ng 06/09/2024 until 07/08/2025 XR Knee - left 4 Views XR KNEE G ENERAL 4V AP BOTH/PA BOTH/LAT/MERC LEFT Radiology Routine Chronic pain of left knee 06/11/2024 8:02 AM EDT [facility] Work Phone: End: 10-19-2025 XR Knee AP and Lateral and Merchants XR KNEE POST OP 3V AP/LAT/MERCHANT LEFT Radiology Routine Left knee pain, unspecified chronicity 1 Occurrences starting 09/18/2024 until 10/19/2025 [facility] Work Phone: Comment on above: 1 Occurrences starti ng 09/18/2024 until 10/19/2025 End: 04-27-2023 XR KNEE GENERAL 4V AP BOTH/PA BOTH/LAT/MERC LEFT XR KNEE GENERAL 4V AP BOTH/PA BOTH/LAT/MERC LEFT Radiology Routine Pain 1 Occurrences starting 03/29/2022 until 04/27/2023 [facility] Work Phone: Comment on above: 1 Occurrences starti ng 03/29/2022 until 04/27/2023 End: 05-09-2024 XR KNEE GENERAL 4V AP BOTH/PA BOTH/LAT/MERC LEFT XR KNEE GENERAL 4V AP BOTH/PA BOTH/LAT/MERC LEFT Radiology Routine Left knee pain, unspecified chronicity 1 Occurrences starting 04/11/2023 until 05/09/2024 [facility] Work Phone: Comment on above: 1 Occurrences starti ng 04/11/2023 until 05/09/2024 XR KNEE POST OP 3V AP/LAT/MERCHANT RIGHT XR KNEE POST OP 3V AP/LAT/MERCHANT RIGHT Radiology Routine Chronic pain of right knee 01/18/2022 10:54 AM EDT [facility] Work Phone: [facility] c [facility] c [facility] Payers Date Payer Category Payer Self-pay [id number] 2024 Unknown [id number] 2024 Private Health Insurance [facility] RE [id number] 2024 Unknown [id number] 2021 Unknown [id number] 2021 Unknown [id number] 2016 Unknown [id number] Unknown [id number] Social History Date Type Detail Facility Start: 04-27-2014 End: 08-16-2020 Tobacco smoking status DCIS Never smoker [facility] Start: 04-27-2014 End: 11-05-2024 Alcohol intake Current drinker of alcohol (finding) [facility] Start: 04-08-2014 Alcohol Comment socially/ occa sional glass of wine in the evening [facility] Start: 1965 Sex Assigned At Not on file [facility] Start: 10-14-2021 End: 06-26-2022 Exposure to SARS-CoV-2 (event) Not sure [facility] Start: 04-08-2014 End: 06-06-2022 Tobacco use and exposure Smokeless tobacco non-user [facility] Start: 11-13-2021 History SDOH Alcohol Comment socially/ occasional beer/wine in the evening [facility] Start: 05-25-2022 End: 06-04-2022 Exposure to SARS-CoV-2 (event) Unable to assess [facility] Start: 08-07-2022 End: 05-02-2023 History of Social function [facility] Start: 08-07-2022 End: 05-02-2023 Tobacco use panel [facility] National Score (1-100), lower number is lower risk 51 [facility] Start: 08-16-2020 End: 08-16-2020 Tobacco smoking status NHIS Unknown if ever smoked [facility] Start: 08-01-2021 Rare [facility] Start: 05-25-2020 Non-smoker [facility] Start: 1965 Sex Assigned At Male [facility] Medical Equipment Procedure Code Equipment Code Equipment Origin al Text Equipment Identifier Dates Cement Simplex P Bone Radiopaque Full Dose Sterile - [id number] Start: 11-22-2021 Cement Simplex P Bone Radiopaque Full Dose Sterile - [id number] Start: 11-22-2021 Component Triath deedee 5 Femoral Cruciate Retain Cemented Knee Right - [id number] Start: 11-22-2021 Insert Triathlon 5 9mm Tibial Bearing Condylar Stabilize Sterile Knee - [id number] Start: 11-22-2021 Component Triath deedee 38mm 11mm Patellar Asymmetric - [id number] Start: 11-22-2021 Baseplate Triath deedee 5 Tibial Primary Cement Knee - [id number] Start: 11-22-2021 Trident X3 Polyethylene Insert 0deg 36mm Sz [id number] Start: 06-25-2022 Head V40 36mm -2 .5mm Offset Taper Biolox Delta Femoral Hip - [id number] Start: 06-25-2022 Stem Accolade Ii 6 127d Femoral - [id number] Start: 06-25-2022 Screw Trident Ii 6.5mm 25mm Bone Low Profile Hexagonal Sterile - [id number] Start: 06-25-2022 STENT,URETERAL P IGTAIL 6FRx26 FDA Start: 06-03-2020 Shell Trident Ii 52mm E Tritanium Acetabular 5 Screw Hole Cluster Sterile - [id number] Start: 06-25-2022 STENT,URETERAL P IGTAIL 6FRx26 FDA Start: 06-03-2020 Component Tritan ium 38mm Metal 11mm Patellar Asymmetric Knee - [id number] Start: 09-07-2024 Baseplate Triath sterling 4 Tritanium Tibial Coated Sterile Knee - [id number] Start: 09-07-2024 Component Triath deedee 5 Pa Femoral Cruciate Retain Bead Knee Left - [id number] Start: 09-07-2024 Insert Triathlon 4 11mm Tibial Bearing Condylar Stabilize Sterile Knee - [id number] Start: 09-07-2024 STENT,URETERAL P IGTAIL 6FRx26 FDA Start: 06-03-2020 Goals Date Patient Goal Desired Activity /State Personal health goal Functional Status Date Assessment Result Facility 09-07-2024 Are you deaf, or do you have serious difficulty hearing No 09/07/2024 5:45 PM Victorino Hu RN No [facility] 09-07-2024 Are you blind, or do you have serious difficulty seeing, even when wearing glasses No 09/07/2024 5:45 PM Victorino Hu, SHARMILA No [facility] 09-07-2024 Do you have serious difficulty walking or climbing stairs No 09/07/2024 5:45 PM Victorino Hu, SHARMILA No [facility] 09-07-2024 Do you have difficul ty dressing or bathing No 09/07/2024 5:45 PM Victorino Hu, SHARMILA No [facility] 09-07-2024 Because of a physica l, mental, or emotional condition, do you have difficulty doing errands alone such as visiting a physician's office or shopping Yes 09/07/2024 5:45 PM Victorino Hu, SHARMILA Yes [facility] Mental Status Date Assessment Result Facility 09-07-2024 Because of a physica l, mental, or emotional condition, do you have serious difficulty concentrating, remembering, or making decisions No 09/07/2024 5:45 PM Victorino Hu, SHARMILA No [facility] Clinical Notes 06-30-2021 to 02-22-2025 Note Date & Type Note Facility 02-22-2025 Discharge summary Note Date/Time February 22, 2025 3:28p m [facility] [address] [place] [address] / REHABILITATION SERVICES DISCHARGE SUMMARY MR#: [id number] Acct: [id number] Name: YONY ROBERTSON Rep #: [id number] : 1965 59 From: Angelo Esqueda PT, ATC Referring Dr.: Netta Hoff MD Status: REG RCR Insurance: [employer] [facility] [employer] Patient Information Patient Information: YONY ROBERTSON was seen in my office for initial evaluation on 09/29/24. The following Plan of Care was established for this patient: POC Established Initial Frequency: 2-3x /Week Initial Duration: 4-6 Weeks Anticipated Interventions Patient/Client Instruction: Educate patient on: Condition and Plan of Care For the Purpose of:: To improve self management Therapeutic Exercise to Include: Strength training, Endurance training, Balance training, Flexibilty training, Gait and locomotor training and Dynamic Lumbar Stabilization For the Purpose of:: To decrease pain, To increase ROM and To improve muscle performance and motor function Cryotherapy (ice pack, ice massage): Yes For the Purpose of:: To decrease pain Last Seen Last Seen: This patient was last seen in our office . Pertinent comments regarding their Physical therapy will appear below: Pt returned today to report he is doing well and is discharged at this time At this point I will be discontinuing this patient from physical therapy. I would be happy to see this patient again in the future if found appropriate by the physician. Thank you! Angelo Esqueda PT, ATC Balance/Gait/Functional tests Balance/Special Test Scores Lower Extremity Functional Score: 51 WOMAC Total Score: 47 WOMAC Percentage: 51.0500 <Electronically signed by Angelo Esqueda PT, ATC> 02/22/25 1528 CC: Dr. Cristian Robertson MD; Netta Hoff MD ~ [facility] Signed [facility] Work Phone: 1(396) 190-802606-02-2025 Discharge summary [facility] [address] [place] [address] / REHABILITATION SERVICES DISCHARGE SUMMARY MR#: [id number] Acct: [id number] Name: YONY ROBERTSON Rep #: [id number] : 1965 59 From: Angelo Esqueda PT, ATC Referring Dr.: Netta Hoff MD Status: REG RCR Insurance: [facility] [employer] Patient Information Patient Information: YONY ROBERTSON was seen in my office for initial evaluation on 09/29/24. The following Plan of Care was established for this patient: POC Established Initial Frequency: 2-3x /Week Initial Duration: 4-6 Weeks Anticipated Interventions Patient/Client Instruction: Educate patient on: Condition and Plan of Care For the Purpose of:: To improve self management Therapeutic Exercise to Include: Strength training, Endurance training, Balance training, Flexibilty training, Gait and locomotor training and Dynamic Lumbar Stabilization For the Purpose of:: To decrease pain, To increase ROM and To improve muscle performance and motor function Cryotherapy (ice pack, ice massage): Yes For the Purpose of:: To decrease pain Last Seen Last Seen: This patient was last seen in our office . Pertinent comments regarding their Physical therapy willappear below: Pt returned today to report he is doing well and is discharged at this time At this point I will be discontinuing this patient from physical therapy. I would be happy to see this patient again in the future if found appropriate by the physician. Thank you! Angelo Esqueda, PT, ATC Balance/Gait/Functional tests Balance/Special Test Scores Lower Extremity Functional Score: 51 WOMAC Total Score: 47 WOMAC Percentage: 51.0500 02/22/25 1528 CC: Dr. Cristian Robertson MD; Netta Hoff MD ~ [facility] Signed [facility]02-14-2025 Discharge summary Author Angelo Esqueda [facility] Note Date/Time November 06, 2024 6:00pm [facility] [address] [place] [address]. [address] [place] [address] / REHABILITATION SERVICES DISCHARGE SUMMARY MR#: [id number] Acct: [id number] Name: YONY ROBERTSON Rep #: [id number] 1 : 1965 59 From: Angelo Esqueda PT, ATC Referring Dr.: Netta Hoff MD Status: REG RCR Insurance: [facility] [employer] Discharge Summary D/C summary: It has been my pleasure to treat YONY ROBERTSON referred by Netta Hoff MD,with the diagnosis of L TKA 09/07/24 for a total of 11 visit(s). Discharge Date: Please see the following information for a summary of their discharge status. Subjective Subjective: I am ready to be done Pain L TKA: Pain Intensity (Out of 10): 2 Overall Improvement % Improvement: 80 Objective Objective/Function: L knee pain ranges from 2-6/10 L knee MMT: flex= 32, ext= 51 #F L knee ROM: 0-113 degrees Pt is showing excellent progress at this time. Goals Goal 1:: Decrease L knee pain x 50% to aid with sleep Goal Progress: Progressing Goal 2:: Increase L knee ROM x 20 degrees to restore a more normalized gait pattern Goal Progress: Goal Met Goal 3:: Increase L knee strength x 10 #F to aid with stair negotiation Goal Progress: Goal Met Goal 4:: Improve TUG score to under 8 seconds to aid with efficient ambulation Goal Progress: Progressing Goal 5:: I with HEP Goal Progress: Progressing Plan Plan: Discharge to HEP D/C Information d/c sentence: If there are questions or concerns regarding this patient's physical therapy, please feel free to call me at [phone]. Thank you for the referral of thispatient. Sincerely, Angelo Esqueda, PT, ATC Balance/Gait/Functional tests Balance/Special Test Scores Lower Extremity Functional Score: 51 WOMAC Total Score: 47 WOMAC Percentage: 51.0500 Improvement % Improvement: 80 <Electronically signed by Angelo Esqueda PT, ATC> 11/06/24 0741 CC: Dr. Cristian Robertson MD; Netta Hoff MD ~ [facility] Signed [facility] Work Phone: 1(259) 494-130802-14-2025 Discharge summary [facility] [address] [place] [address] / REHABILITATION SERVICES DISCHARGE SUMMARY MR#: [id number] Acct: [id number] Name: YONY ROBERTSON Rep #: [id number] 1 : 1965 59 From: Angelo Esqueda PT, ATC Referring Dr.: Netta Hoff MD Status: REG RCR Insurance: [facility] [employer] Discharge Summary D/C summary: It has been my pleasure to treat YONY ROBERTSON referred by Netta Hoff MD,with the diagnosis of L TKA 09/07/24 for a total of 11 visit(s). Discharge Date: Please see the following information for a summary of their discharge status. Subjective Subjective: I am ready to be done Pain L TKA: Pain Intensity (Out of 10): 2 Overall Improvement % Improvement: 80 Objective Objective/Function: L knee pain ranges from 2-6/10 L knee MMT: flex= 32, ext= 51 #F L knee ROM: 0-113 degrees Pt is showing excellent progress at this time. Goals Goal 1:: Decrease L knee pain x 50% to aid with sleep Goal Progress: Progressing Goal 2:: Increase L knee ROM x 20 degrees to restore a more normalized gait pattern Goal Progress: Goal Met Goal 3:: Increase L knee strength x 10 #F to aid with stair negotiation Goal Progress: Goal Met Goal 4:: Improve TUG score to under 8 seconds to aid with efficient ambulation Goal Progress: Progressing Goal 5:: I with HEP Goal Progress: Progressing Plan Plan: Discharge to HEP D/C Information d/c sentence: If there are questions or concerns regarding this patient's physical therapy, please feel free to call me at [phone]. Thank you for the referral of thispatient. Sincerely, Angelo Esqueda, PT, ATC Balance/Gait/Functional tests Balance/Special Test Scores Lower Extremity Functional Score: 51 WOMAC Total Score: 47 WOMAC Percentage: 51.0500 Improvement % Improvement: 80 11/06/24 0741 CC: Dr. Cristian Robertson MD; Netta Hoff MD ~ [facility] Signed [facility]02-13-2025 NoteHNO ID: [id number] Author: NETTA HOFF MD Service: ? Author Type: Physician Type: Progress Notes Filed: 11/05/2024 08:48 Note Text: Post-op Office Visit Yony Robertson 59 year old November 05, 2024 8:47 AM History: Yony Robertson Is now s/p L TKA. Post-operative course has been without complication. No readmission/complications Subjective: Patient reports minimal pain. Overall is doing well. off ambulatory aid off opioid pain medication Is having trouble sleeping Objective: Ambulates with slight limp Incision well-approximated, no drainage, normal ethel-incisional -small stitch abscess, sterily debrided ROM 0 - 115 Distally DP/PT palpable Distally S/S/SP/DP/T intact at baseline Distally DF/EHL/PF intact at baseline Negative marlin/calf tenderness Xrays: No new today Assessment and Plan: Yony Robertson Is here for a second post-op appointment, overall doing well -continued ice, rest, and use of non-narcotic analgesia as needed -discussed home exercises -WBAT on operative extremity -doxy 1 week after stitch debrided -nighttime gabapentin ordered for sleep -continue ankle pumps and dvt ppx through 4 weeks -will see back at 1 year post-op for repeat exam and xrays--can see sooner if needed -discussed red flag symptoms of acutely increasing pain, new erythema, new swelling, drainage, shortness of breath Netta Hoff MD [facility] History of Present illness Narrative* Netta Hoff MD - 11/05/2024 8:18 AM EST Post-op Office Visit Yony Robertson 59 year old November 05, 2024 8:47 AM History: Yony Robertson Is now s/p L TKA. Post-operative course has been without complication. No readmission/complications Subjective: Patient reports minimal pain. Overall is doing well. off ambulatory aid off opioid pain medication Is having trouble sleeping Objective: Ambulates with slight limp Incision well-approximated, no drainage, normal ethel-incisional -small stitch abscess, sterily debrided ROM 0 - 115 Distally DP/PT palpable Distally S/S/SP/DP/T intact at baseline Distally DF/EHL/PF intact at baseline Negative marlin/calf tenderness Xrays: No new today Assessment and Plan: Yony Robertson Is here for a second post-op appointment, overall doing well -continued ice, rest, and use of non-narcotic analgesia as needed -discussed home exercises -WBAT on operative extremity -doxy 1 week after stitch debrided -nighttime gabapentin ordered for sleep -continue ankle pumps and dvt ppx through 4 weeks -will see back at 1 year post-op for repeat exam and xrays--can see sooner if needed -discussed red flag symptoms of acutely increasing pain, new erythema, new swelling, drainage, shortness of breath Netta Hoff MD Orthopaedic Surgery [facility] Telephone encounter Note * Telephone Encounter - Néstor Grant PA-C - 10/08/2024 3:55 PM EST [facility] reviewed and [facility]. Patient has been compliant and taking medication appropriatelywithout evidence of suspicious activity. Will refill Rx. Néstor Grant PA-C [facility]01-16-2025 Miscellaneous Notes* Telephone Encounter - Néstor Grant PA-C - 10/08/2024 3:55 PM EST [facility] website reviewed and validated. Patient has been compliant and taking medication appropriatelywithout evidence of suspicious activity. Will refill Rx. Néstor Grant PA-C documented in [facility]-2025 Telephone encounter Note * Telephone Encounter - Jaja Swan - 09/30/2024 2:45 PM EST Called pt and mariah appt for earlier Jaja Beny [facility]01-08-2025 Miscellaneous Notes* Telephone Encounter - Jaja Swan - 09/30/2024 2:45 PM EST Called pt and mariah appt for earlier Jaja Beny * Telephone Encounter - Raven Collado - 09/30/2024 1:34 PM EST Patient is on the wait list for the following: Post op lt knee Patient called in to reschedule 11/05/24 Patient's phone# [phone] Please call to reschedule post op appointment. documented in this encounterK[facility]01-[facility]-2025 Telephone encounter Note * Telephone Encounter - Raven Collado - 09/30/2024 1:34 PM EST Patient is on the wait list for the following: Post op lt knee Patient called in to reschedule 11/05/24 Patient's phone# [phone] Please call to reschedule post op appointment. [facility]01-02-2025 Miscellaneous Notes* HH PT DISCHARGE - Carlene Elias, PT - 09/24/2024 8:31 AM EST SITUATION: spouse present during today's visit. patient reports the following since the last homecare visit: medications/allergies--no changes, no fall. patient reports he is encouraged by his progrrss BACKGROUND: Diagnoses (reason for Home Care): LTKR Weight Bearing/Precaution Changes: no changes ASSESSMENT: Focus of visit performed and progressed ROM and strength exercises for HEP. Gait trainig w. cane, stair ambulation to enter/exit home. AROM 85 PROM 88 Physical therapy discharged: goals achieved. Functional performance at discharge - bed mobility independent, transfers independent, ambulation independent and stairs independent. Plan of care, goals, and discharge reviewed and agreed upon with patient and/or caregiver. RECOMMENDATION: Patient discharged from home health services. Instructions to include:begin outpatient therapy on 09/29/24 See intervention summary for intervention/education details. documented in this encounterK[facility]25 Patient's home Note* PT DISCHARGE - Carlene Platt PT - 09/24/2024 8:31 AM EST SITUATION: spouse present during today's visit. patient reports the following since the last homecare visit: medications/allergies--no changes, no fall. patient reports he is encouraged by his progrrss BACKGROUND: Diagnoses (reason for Home Care): LTKR Weight Bearing/Precaution Changes: no changes ASSESSMENT: Focus of visit performed and progressed ROM and strength exercises for HEP. Gait trainig wBogdan cane, stair ambulation to enter/exit home. AROM 85 PROM 88 Physical therapy discharged: goals achieved. Functional performance at discharge - bed mobility independent, transfers independent, ambulation independent and stairs independent. Plan of care, goals, and discharge reviewed and agreed upon with patient and/or caregiver. RECOMMENDATION: Patient discharged from home health services. Instructions to include:begin outpatient therapy on 09/29/24 See intervention summary for intervention/education details. [facility] Work Phone: 1(473) 691-652912-31-2024 History of Present illness Narrative* Amarilys Conley RN - 09/22/2024 1:00 PM EST Post-op Office Visit Yony Robertson 59 year old September 22, 2024 1:01 PM Surgery Date: 09/07/24 History: Yony Robertson is now 2 weeks out from left TKA. Post-operative course has been without complication. No readmission/complications Subjective: Patient reports 5/10 pain. Overall is doing well. Cane as ambulatory aid Taking opioid pain medication PRN Objective: Incision well-approximated, no drainage, normal ethel-incisional erythema ROM 0 - 80 Distally DP/PT palpable Distally S/S/SP/DP/T intact at baseline Distally DF/EHL/PF intact at baseline Negative marlin/calf tenderness Xrays: Well-positioned total knee replacement in appropriate alignment with no evidence of loosening Assessment and Plan: Yony Robertson Is here for a first post-op appointment, overall doing well -continued ice, rest, and use of non-narcotic analgesia as needed -wean off ambulatory aids -discussed home exercises and therapy -WBAT on operative extremity -continue ankle pumps and dvt ppx through 4 weeks -discussed driving requirement: 4 weeks post-op, off narcotic pain medication, adequate brake time -will see back at 6 week appointment for clinical exam -discussed red flag symptoms of acutely increasing pain, new erythema, new swelling, drainage, shortness of breath -PT order given -will update ROM progress in 2 weeks via MyChart. Amarilys Conley RN (Under Netta Hoff MD) Orthopaedic Surgery documented in this encounterK[facility]12-31-2024 NoteHNO ID: [id number] Author: AMARILYS CONLEY RN Service: ? Author Type: Registered Nurse Type: Progress Notes Filed: 09/22/2024 13:39 Note Text: Post-op Office Visit Yony Robertson 59 year old September 22, 2024 1:01 PM Surgery Date: 09/07/24 History: Yony Robertson is now 2 weeks out from left TKA. Post-operative course has been without complication. No readmission/complications Subjective: Patient reports 5/10 pain. Overall is doing well. Cane as ambulatory aid Taking opioid pain medication PRN Objective: Incision well-approximated, no drainage, normal ethel-incisional erythema ROM 0 - 80 Distally DP/PT palpable Distally S/S/SP/DP/T intact at baseline Distally DF/EHL/PF intact at baseline Negative marlin/calf tenderness Xrays: Well-positioned total knee replacement in appropriate alignment with no evidence of loosening Assessment and Plan: Yony Robertson Is here for a first post-op appointment, overall doing well -continued ice, rest, and use of non-narcotic analgesia as needed -wean off ambulatory aids -discussed home exercises and therapy -WBAT on operative extremity -continue ankle pumps and dvt ppx through 4 weeks -discussed driving requirement: 4 weeks post-op, off narcotic pain medication, adequate brake time -will see back at 6 week appointment for clinical exam -discussed red flag symptoms of acutely increasing pain, new erythema, new swelling, drainage, shortness of breath -PT order given -will update ROM progress in 2 weeks via [employer]. Amarilys Conley RN (Under Netta Hoff MD) [facility]12-31-[facility] History of Present illness Narrative* Coretta Dixon Tech - 09/22/2024 12:50 PM EST Radiology Service Progress Note PATIENT NAME: Yony Robertson DATE OF SERVICE: September 22, 2024 TIME: 12:53 PM PATIENT IDENTITY VERIFICATION COMPLETED USING TWO (2) IDENTIFIERS: Name and Date of confirmedby patient verbally. FALL SCREENING: Has the patient had 2 falls in the last year or 1 fall with injury or currently using an Ambulatory Assistive Device (Walker, Cane, Wheelchair, Crutches, etc.)? No PATIENT GENDER DATA: Male PATIENT RELEVANT IMPLANT DATA REVIEWED: Not Applicable PATIENT PRESENTS WITH AN IMPLANTABLE OR ATTACHED BAKERY PASTRY INTERNSHIP: No RADIOLOGY DEPARTMENT: General X-ray: Exam(s) Completed: Lower Extremity X- Ray(s): Knee, AP / Lat / Merchant Left and Wt. Bearing PERIPHERAL IV DATA: Not applicable SIGNED BY: Nevin Godwin September 22, 2024 12:53 PM documented in this encounterK[facility]12-31-2024 NoteHNO ID: [id number] Author: CORETTA DIXON Tech Service: Radiology Author Type: Truck Switcher Type: Progress Notes Filed: 09/22/2024 12:53 Note Text: Radiology Service Progress Note PATIENT NAME: Yony Robertson DATE OF SERVICE: September 22, 2024 TIME: 12:53 PM PATIENT IDENTITY VERIFICATION COMPLETED USING TWO (2) IDENTIFIERS: Name and Date of confirmed by patient verbally. FALL SCREENING: Has the patient had 2 falls in the last year or 1 fall with injury or currently using an Ambulatory Assistive Device (Walker, Cane, Wheelchair, Crutches, etc.)? No PATIENT GENDER DATA: Male PATIENT RELEVANT IMPLANT DATA REVIEWED: Not Applicable PATIENT PRESENTS WITH AN IMPLANTABLE OR ATTACHED BAKERY PASTRY INTERNSHIP: No RADIOLOGY DEPARTMENT: General X-ray: Exam(s) Completed: Lower Extremity X-Ray(s): Knee, AP / Lat / Merchant Left and Wt. 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 patient reports the following since the last homecare visit: medications/allergies--no changes, no fall. patient reports he is doing pretty good. BACKGROUND: Diagnoses (reason for Home Care): LTKR Weight Bearing/Precaution Changes: no changes ASSESSMENT: Focus of visit performed and progressed ROM and strength exercises for HEP. Gait trainig w. cane, stair ambulation to enter/exit home. PROM 78 Plan of care, goals, and visit frequency reviewed and agreed upon with patient and/or caregiver. Current Discharge Plan: outpatient rehab Anticipate discharge by 09/24/23 RECOMMENDATION: Next visit to focus on PT to see for DC See intervention summary for intervention/education details. documented in this encounterK[facility]12-30-2024 Patient's home Note* PT ROUTINE/REASSESSMENT/RECERT/CASE MGMT - Victorina Knapp THREADING MACHINE OPERATOR - 09/21/2024 2:59 PM EST SITUATION: spouse present during today's visit. patient reports the following since the last homecare visit: medications/allergies--no changes, no fall. patient reports he is doing pretty good. BACKGROUND: Diagnoses (reason for Home Care): LTKR Weight Bearing/Precaution Changes: no changes ASSESSMENT: Focus of visit performed and progressed ROM and strength exercises for HEP. Gait trainig w. cane, stair ambulation to enter/exit home. PROM 78 Plan of care, goals, and visit frequency reviewed and agreed upon with patient and/or caregiver. Current Discharge Plan: outpatient rehab Anticipate discharge by 09/24/23 RECOMMENDATION: Next visit to focus on PT to see for DC See intervention summary for intervention/education details. [facility] Work Phone: [phone]) 783-928312-27-2024 Miscellaneous Notes* PT ROUTINE/REASSESSMENT/RECERT/CASE Carlene Oakes, PT - 09/18/2024 8:36 AM EST SITUATION: only patient present during today's visit. patient reports the following since the last homecare visit: medications/allergies--no changes, no fall. patient reports that its not too bad today .Swelling has greatly decreased over the past few days Pt to call and set up OP PT at [facility] BACKGROUND: Diagnoses (reason for Home Care): L TKR 09/07 Weight Bearing/Precaution Changes: no changes Advance Directives: Patient does not have advance directives. Patient/Caregiver declined Advance Directive information. ASSESSMENT: Focus of visit standing and supine TKR HEP . gait with WW. AROM 68 PROM 75 Plan of care, goals, and visit frequency reviewed and agreed upon with patient and/or caregiver. Current Discharge Plan: outpatient rehab Anticipate discharge by 09/26/23 RECOMMENDATION: Next visit to focus on assess tolerance to ther ex, giat ROm See intervention summary for intervention/education details. documented in this encounterK[facility]12-27-2024 Patient's home Note* PT ROUTINE/REASSESSMENT/RECERT/CASE Carlnee Oakes, PT - 09/18/2024 8:36 AM EST SITUATION: only patient present during today's visit. patient reports the following since the last homecare visit: medications/allergies--no changes, no fall. patient reports that its not too bad today .Swelling has greatly decreased over the past few days Pt to call and set up OP PT at [facility] BACKGROUND: Diagnoses (reason for Home Care): L TKR 09/07 Weight Bearing/Precaution Changes: no changes Advance Directives: Patient does not have advance directives. Patient/Caregiver declined Advance Directive information. ASSESSMENT: Focus of visit standing and supine TKR HEP . gait with WW. AROM 68 PROM 75 Plan of care, goals, and visit frequency reviewed and agreed upon with patient and/or caregiver. Current Discharge Plan: outpatient rehab Anticipate discharge by 09/26/23 RECOMMENDATION: Next visit to focus on assess tolerance to ther ex, giat ROm See intervention summary for intervention/education details. [facility] Work Phone: [phone]) 707-385012-23-2024 Telephone encounter Note* Telephone Encounter - Carlene Platt PT - 09/14/2024 5:44 PM EST Post op dressing removed Incision clean, dry and well approximated Photo uploaded for you to review [facility] Work Phone: [phone]) 771-645312-23-2024 Miscellaneous Notes* Telephone Encounter - Carlene Platt PT - 09/14/2024 5:44 PM EST Post op dressing removed Incision clean, dry and well approximated Photo uploaded for you to review documented in this encounterKet[facility]12-23-2024 Miscellaneous Notes* CARE COORDINATION - Alida Mccord RN - 09/14/2024 9:04 AM EST Medication review completed. No ineffective drug therapy, significant side effects, significant drug interactions, duplicate drug therapy, or noncompliance with drug therapy noted. SOC clinician reported the following Patient not taking Colace or Miralax. Patient did not have Amoxicillin in home. Office states patient will need to reach out for a refill when he plans to go to dental appointment. Alida Mccord RN documented in this encounterKet[facility]12-23-2024 Patient's home Note* CARE COORDINATION - Alida Mccord RN - 09/14/2024 9:04 AM EST Medication review completed. No ineffective drug therapy, significant side effects, significant drug interactions, duplicate drug therapy, or noncompliance with drug therapy noted. SOC clinician reported the following Patient not taking Colace or Miralax. Patient did not have Amoxicillin in home. Office states patient will need to reach out for a refill when he plans to go to dental appointment. Alida Mccord RN [facility] Work Phone: [phone]) 572-976712-23-2024 Miscellaneous Notes* PT ROUTINE/REASSESSMENT/RECERT/CASE Carlene Oakes PT - 09/14/2024 8:31 AM EST SITUATION: only patient present during today's visit. patient reports the following since the last homecare visit: medications/allergies--no changes, no fall. patient reports I am really struggling with sleep, i am so uncomfortable . Reports he is trying to cut back on the pain meds but i encouraged him to continue to take 2 at night as he is not sleeping much at all BACKGROUND: Diagnoses (reason for Home Care): L TKR 09/07 Weight Bearing/Precaution Changes: no changes Advance Directives: Patient does not have advance directives. Patient/Caregiver declined Advance Directive information. ASSESSMENT: Focus of visit review of supine TKR HEP . gait with WW ROM A- 64 Dressing removal - Incision clean , dry and well approxiamted. Woth pt permission a photo was uploaded to the chart for the mD to review Plan of care, goals, and visit frequency reviewed and agreed upon with patient and/or caregiver. Current Discharge Plan: outpatient rehab Anticipate discharge by 09/26/23 RECOMMENDATION: Next visit to focus on assess tolerance to ther ex, giat ROm See intervention summary for intervention/education details. documented in this encounterK[facility]12-23-2024 Patient's home Note* PT ROUTINE/REASSESSMENT/RECERT/CASE Carlene Oakes PT - 09/14/2024 8:31 AM EST SITUATION: only patient present during today's visit. patient reports the following since the last homecare visit: medications/allergies--no changes, no fall. patient reports I am really struggling with sleep, i am so uncomfortable . Reports he is trying to cut back on the pain meds but i encouraged him to continue to take 2 at night as he is not sleeping much at all BACKGROUND: Diagnoses (reason for Home Care): L TKR 09/07 Weight Bearing/Precaution Changes: no changes Advance Directives: Patient does not have advance directives. Patient/Caregiver declined Advance Directive information. ASSESSMENT: Focus of visit review of supine TKR HEP . gait with WW ROM A- 64 Dressing removal - Incision clean , dry and well approxiamted. Woth pt permission a photo was uploaded to the chart for the mD to review Plan of care, goals, and visit frequency reviewed and agreed upon with patient and/or caregiver. Current Discharge Plan: outpatient rehab Anticipate discharge by 09/26/23 RECOMMENDATION: Next visit to focus on assess tolerance to ther ex, giat ROm See intervention summary for intervention/education details. [facility] Work Phone: [phone]) 886-684412-19-2024 Miscellaneous Notes* PT ROUTINE/REASSESSMENT/RECERT/CASE MGMT - Carlene Platt, PT - 09/10/2024 8:41 AM EST SITUATION: only patient present during today's visit. patient reports the following since the last homecare visit: medications/allergies--no changes, no fall. patient reports i think i really over did it on Saturday and i did not sleep at all Saturday night. iIt was terrible . BACKGROUND: Diagnoses (reason for Home Care): L TKR 09/07 Weight Bearing/Precaution Changes: no changes Advance Directives: Patient does not have advance directives. Patient/Caregiver declined Advance Directive information. ASSESSMENT: Focus of visit review of supine TKR HEP . gait with WW ROM A- 50 Plan of care, goals, and visit frequency reviewed and agreed upon with patient and/or caregiver. Current Discharge Plan: outpatient rehab Anticipate discharge by 09/26/23 RECOMMENDATION: Next visit to focus on assess tolerance to ther ex, giat ROm See intervention summary for intervention/education details. documented in this encounterK[facility]12-19-2024 Patient's home Note* PT ROUTINE/REASSESSMENT/RECERT/CASE MGMT - Carlene Platt, PT - 09/10/2024 8:41 AM EST SITUATION: only patient present during today's visit. patient reports the following since the last homecare visit: medications/allergies--no changes, no fall. patient reports i think i really over did it on Saturday and i did not sleep at all Saturday night. iIt was terrible . BACKGROUND: Diagnoses (reason for Home Care): L TKR 09/07 Weight Bearing/Precaution Changes: no changes Advance Directives: Patient does not have advance directives. Patient/Caregiver declined Advance Directive information. ASSESSMENT: Focus of visit review of supine TKR HEP . gait with WW ROM A- 50 Plan of care, goals, and visit frequency reviewed and agreed upon with patient and/or caregiver. Current Discharge Plan: outpatient rehab Anticipate discharge by 09/26/23 RECOMMENDATION: Next visit to focus on assess tolerance to ther ex, giat ROm See intervention summary for intervention/education details. [facility] Work Phone: [phone]) 866-779012-18-2024 Telephone encounter Note* Telephone Encounter - Jose Oakes, PT - 09/09/2024 10:[address] Hoff and Team, Home health PT start of care completed yesterday 09/08/24. Med issues I wanted to make you aware of: Patient/ report patient is not taking colace or miralax- using herbal tea. Patient states he no longer has the amoxicillin 500mg 4Q1H before dental appts- so if he may need this refilled for future use, if needed Please let me know if you have any questions or concerns Thank you, Jose PT [facility] Work Phone: [phone] Miscellaneous Notes* Telephone Encounter - Jose Oakes, PT - 09/09/2024 10:[address] Hoff and Team, Home health PT start of care completed yesterday 09/08/24. Med issues I wanted to make you aware of: Patient/ report patient is not taking colace or miralax- using herbal tea. Patient states he no longer has the amoxicillin 500mg 4Q1H before dental appts- so if he may need this refilled for future use, if needed Please let me know if you have any questions or concerns Thank you, Jose PT documented in this encounterK[facility]12-18-2024 Telephone encounter Note * Telephone Encounter - Amarilys Conley RN - 09/09/2024 4:28 PM EST Spoke with Yony. His pain has gotten better since he called. Explained to take 1-2 tablets every 4 hours for 24 hours. Then go back to every 6 hours. He can send a refill request on Saturday. [facility]12-18-2024 Miscellaneous Notes* Telephone Encounter - Amarilys Conley RN - 09/09/2024 4:28 PM EST Spoke with Yony. His pain has gotten better since he called. Explained to take 1-2 tablets every 4 hours for 24 hours. Then go back to every 6 hours. He can send a refill request on Saturday. * Telephone Encounter - Sarah Cervantes - 09/09/2024 1:20 PM EST Patient is S/P L TKA from Saturday. He had a PT session yesterday and feels he may have worked his PTsession a little to much and fell behind his pain. He took 2 of the pain pills at 6 am, 2 more at 10 am, 1 at 10:30 am and 1,000 mg of Tylenol. He was having trouble getting ahead of the pain. He seems like he may be making some progress. Moving forward he though he would like to talk with someone on how much he should be taking and how much is allowed to be taking etc. He can be reached at [phone]. Sarah Duran [facility] Telephone encounter Note * Telephone Encounter - Sarah Cervantes - 09/09/2024 1:20 PM EST Patient is S/P L TKA from Saturday. He had a PT session yesterday and feels he may have worked his PTsession a little to much and fell behind his pain. He took 2 of the pain pills at 6 am, 2 more at 10 am, 1 at 10:30 am and 1,000 mg of Tylenol. He was having trouble getting ahead of the pain. He seems like he may be making some progress. Moving forward he though he would like to talk with someone on how much he should be taking and how much is allowed to be taking etc. He can be reached at [phone]. Sarah Duran [facility]12-17-2024 Miscellaneous Notes* PT SOC/JEN/FOLLOW UP/OTHER - Jose Oakes, PT - 09/08/2024 11:50 AM EST SITUATION: spouse present during today's visit. patient reports wants to utilize [facility] outpatient PT BACKGROUND: Diagnoses (reason for Home Care): 59 y.o. male s/p L TKA by Dr. Hoff on 09/07/24 Advance Directives: Patient does not have advance directives. Patient/Caregiver declined Advance Directive information. Past Medical History: SVT with ablation, s/p R TKA (2021) s/p L KASSIE (2021) Patient denies falls Weight Bearing or Surgical Precautions: Remove dressing POD 7-10 (09/14-); if remains drainagefree, leave open to air, if drainage present, contact the office; do not submerge under water x6wks(no baths/hot tubs/pool); no driving until f/u appt Weight Bearing Status: As tolerated. Progression to cane at therapist discretion. Exercises: AROM: yes, encouraged AAROM: yes PROM: yes, aggressive as tolerated Contract/Relax: yes Resistive: yes at 3-4 weeks but prefer closed chain functional exercises (hams 10 pound limit, quads 10-15 pound limit) Closed Chain: yes Raised Seat Stationary Bike: yes at 3-4 weeks as tolerated Prone lying to promote extension: yes Standing exercises: yes Additional Information: Patellar Mobilization: yes Scar Mobilization: yes, okay at 4-6 weeks postop CPM: only with contractures or manipulations Rolling: as tolerated, operative and non-operative side Neuro Muscular E-Stim Quads: yes, after 4 weeks postop, prn ASSESSMENT: Patient evaluated by [facility] physical therapy. Reviewed and explained homecare services. Plan of care, goals, and visit frequency developed, reviewed, and agreed upon with patient and/or caregiver. Patient Goal: establish HEP to get ROM Patient will benefit from continued physical therapy to address the following deficits: strength, balance, gait, L knee joint ROM, transfers and stair negotiation. Current Discharge Plan: outpatient rehab. Anticipate discharge by 09/26/24. RECOMMENDATION: Next visit to focus on HEP review, gait training, L knee ROM, stair negotiation Agreeable to PT. See intervention summary for intervention/education details. documented in this [facility] Patient's home Note* PT SOC/JEN/FOLLOW UP/OTHER - Jose Oakes PT - 09/08/2024 11:50 AM EST SITUATION: spouse present during today's visit. patient reports wants to utilize [facility] outpatient PT BACKGROUND: Diagnoses (reason for Home Care): 59 y.o. male s/p L TKA by Dr. Hoff on 09/07/24 Advance Directives: Patient does not have advance directives. Patient/Caregiver declined Advance Directive information. Past Medical History: SVT with ablation, s/p R TKA (2021) s/p L KASSIE (2021) Patient denies falls Weight Bearing or Surgical Precautions: Remove dressing POD 7-10 (09/14-); if remains drainagefree, leave open to air, if drainage present, contact the office; do not submerge under water x6wks(no baths/hot tubs/pool); no driving until f/u appt Weight Bearing Status: As tolerated. Progression to cane at therapist discretion. Exercises: AROM: yes, encouraged AAROM: yes PROM: yes, aggressive as tolerated Contract/Relax: yes Resistive: yes at 3-4 weeks but prefer closed chain functional exercises (hams 10 pound limit, quads 10-15 pound limit) Closed Chain: yes Raised Seat Stationary Bike: yes at 3-4 weeks as tolerated Prone lying to promote extension: yes Standing exercises: yes Additional Information: Patellar Mobilization: yes Scar Mobilization: yes, okay at 4-6 weeks postop CPM: only with contractures or manipulations Rolling: as tolerated, operative and non-operative side Neuro Muscular E-Stim Quads: yes, after 4 weeks postop, prn ASSESSMENT: Patient evaluated by [facility] therapy. Reviewed and explained homecare services. Plan of care, goals, and visit frequency developed, reviewed, and agreed upon with patient and/or caregiver. Patient Goal: establish HEP to get ROM Patient will benefit from continued physical therapy to address the following deficits: strength, balance, gait, L knee joint ROM, transfers and stair negotiation. Current Discharge Plan: outpatient rehab. Anticipate discharge by 09/26/24. RECOMMENDATION: Next visit to focus on HEP review, gait training, L knee ROM, stair negotiation Agreeable to PT. See intervention summary for intervention/education details. [facility] Work Phone: [phone]) 169-196612-17-2024 Telephone encounter Note* Telephone Encounter - Jaswant Song - 09/08/2024 10:17 AM EST VM left offering a visit today(09/08) for the PT SOC. [facility]12-17-2024 Miscellaneous Notes* Telephone Encounter - Jaswant Song - 09/08/2024 10:17 AM EST VM left offering a visit today(09/08) for the PT SOC. documented in this encounterK[facility]12[facility]16-[facility]24 Telephone encounter Note * Telephone Encounter - Staci Uriarte PSS - 09/07/2024 3:01 PM EST Date/Time: 09/07/2024 3:01 PM Spoke with Nataliya Robertson (Spouse) @ phone #: - Preferred # for contact: Have you received help from a home care company in the last 60 days? NO Are you agreeable to [facility] services? YES What address will we be seeing you at? [facility] [address] [facility] [address] Do you have any upcoming appointments or things we need to schedule around? NO Do you have a teachable CG or can you manage your care independently? YES Who? Nataliya Robertson (Spouse) Have you received the flu shot? NO If so, when and where? NA [facility]12-16-2024 Miscellaneous Notes* Telephone Encounter - Staci Uriarte PSS - 09/07/2024 3:01 PM EST Date/Time: 09/07/2024 3:01 PM Spoke with Nataliya Robertson (Spouse) @ phone #: - Preferred # for contact: Have you received help from a home care company in the last 60 days? NO Are you agreeable to [facility] services? YES What address will we be seeing you at? [address] [place] [address] Do you have any upcoming appointments or things we need to schedule around? NO Do you have a teachable CG or can you manage your care independently? YES Who? Nataliya Robertson (Spouse) Have you received the flu shot? NO If so, when and where? NA documented in this encounterK[facility]12-16-[facility]24 NoteHNO ID: [id number] Author: YE CUMMINGS MD Service: Anesthesiology Author Type: Anesthesiologist Type: Anesthesia Procedure Notes Filed: 09/07/2024 11:20 Note Text: ANESTHESIOLOGY PROCEDURE NOTE Peripheral Nerve Block General Information Procedure Start Time/Medication Administration: 09/07/2024 11:15 AM Procedure End time: 09/07/2024 11:17 AM Patient location during procedure: induction room Timeout Performed Pre-procedure: timeout performed Consent Obtained: Yes Patient identity confirmed: arm band and patient Reason for block: post-op pain management/at surgeon's request Staffing Anesthesiologist: Ye Cummings MD Performed by: anesthesiologist Preparation Sterility Preparation: hand hygiene performed prior to procedure, sterile gloves, drapes, and procedure tray, surgical cap used, mask used, sterile drape used during line insertion, skin prep agent completely dried prior to procedure Site Prep: Chloraprep Pre-Procedure Neuro Exam Location: LLE Sensory: intact Motor: intact Procedure Details Patient Position: supine Monitoring: Pulse OX, EKG and NIBP Block Type Lower Extremity: distal femoral (adductor canal) Laterality: left Injection Technique: single-shot Ultrasound Guided: Yes Image in Chart: yes Local Infiltration: Yes Needle Needle Gauge: 22 G Needle Length: 83 mm Needle Localization: ultrasound Assessment Injection assessment: negative aspiration, no paresthesia on injection, incremental injection and local visualized surrounding nerve on ultrasound Paresthesia: none Post-Procedure Neuro Exam Expected Regional Anesthesia: Yes Medications Administered dexamethasone sodium phosphate injection (DECADRON) - peripheral nerve block 10 mg - 09/07/2024 11:15:00 AM ropivacaine (PF) 5 mg/mL (0.5 %) injection (NAROPIN) - peripheral nerve block 30 mL - 09/07/2024 11:15:00 AM SIGNATURE: Ye Cummings MD PATIENT NAME: Yony Robertson DATE: September 07, 2024 TIME: 11:20 AM CSN: [id number] NoteHNO ID: [id number] Author: ZOHREH LOPEZ APRN.ALL SOURCE COLLECTION MANAGER Service: Anesthesiology Author Type: Nurse Legal Word Processor Type: Anesthesia Procedure Notes Filed: 09/07/2024 10:24 Note Text: ANESTHESIOLOGY PROCEDURE NOTE Airway General Information Procedure Start Time/Medication Administration: 09/07/2024 9:50 AM Procedure End Time: 09/07/2024 9:58 AM Patient location during procedure: OR Timeout Performed Pre-procedure: timeout performed Consent Obtained: Yes Patient identity confirmed: arm band and patient Staffing ALL SOURCE COLLECTION MANAGER: Zohreh Lopez APRN.ALL SOURCE COLLECTION MANAGER Performed by: BRIDGETTE Indications and Patient Condition Indications for airway management: anesthesia Preoxygenated: yes anesthesia circuit Patient position: sniffing Method: asleep Difficult Mask: No Final Airway Details Final airway type: endotracheal airway Final Endotracheal Airway: ETT Cuffed: yes Successful intubation technique: video laryngoscopy Devices used: EduRise Endotracheal tube insertion site: oral Blade size: #4 ETT size (mm): 7.5 Measured from: lips Measurement (cm): 23 Placement verified by: chest auscultation and capnometry Cormack-Lehane Classification: grade IIa - partial view of glottis Number of attempts at approach: 1 Airway not difficult Comments Plan was for LMA. #5 LMA not seated, no etcO2, removed, easy mask ventilation, decision to intubate. SIGNATURE: Zohreh Lopez APRN.ALL SOURCE COLLECTION MANAGER PATIENT NAME: Yony Robertson DATE: September 07, 2024 TIME: 10:22 AM CSN: [id number] History and physical note * Minal Og APRN.DEYANIRA - 08/28/2024 3:43 PM EST Images from the original note were not included. [facility] HISTORY AND PHYSICAL EXAMINATION SERVICE DATE: 08/28/2024 SERVICE TIME: 2:56 PM PRIMARY CARE PHYSICIAN: Cristian Robertson MD Assessment Patient has the following medical conditions which may affect ethel-operative course: SVT (supraventricular tachycardia) (HCC) Assessment: remote hx, s/p ablation in 2011 with resolution of symptoms Status post right knee replacement Assessment: hx BMI 36.0-36.9,adult Assessment: Body mass index is 36.3 kg/m . Hope Activity Status Index: METS: Climb a flight of stairs or walk up a hill (5.50 METs) DASI Score: 5.5 Patient denies any chest pain or undue shortness of breath with the above physical activity. Clinical Frailty Scale: 3. Well, with treated comorbid disease STOP-Bang Score: Snores loudly BMI greater than 35 kg/m^2 Has a large neck Male patient Denies feeling tired, fatigued, or sleepy during the daytime Has not been observed to stop breathing or choking/gasping during sleep Denies having high blood pressure Patient 50 years old or younger STOP-Bang Score: 4 [id number] Score: Age: <65 Sex: male CHF history: No Hypertension history: No Stroke/TIA/thromboembolism history: No Vascular disease history: No Diabetes history: No [id number] Score: 0 ARISCAT Score: Age: 51-80 Preoperative SpO2: >=96% Respiratory infection in the last month: No Preoperative anemia: No Surgical incision: peripheral Duration of surgery: 2-3 hrs Emergency procedure: No ARISCAT Score: 19 ANESTHESIA FINDINGS: Intubation History: No history of difficult intubation Significant Anesthesia Considerations: none Airway History: No history of difficult airway I - PHYSICAL EVALUATION AIRWAY Patient intubated: No. Tracheostomy tube not present Mallampati: II. TM distance: >3 FB. Neck ROM: full ROM without neurological symptoms. Mouth opening: adequate. Short neck: no. Thick neck: yes Stout present: yes Lip Bite Test: I Microretrognathia/Micronagthia/Recessed Chin: No DENTAL Dental findings: teeth intact. Additional comments: +crowns/implants/back. II - ANESTHESIA PLAN Anesthetic Plan: other Beta Anny Monitoring Plan Post Procedure Analgesic Plan Prepared for Surgery: optimally prepared for surgery. Labs and EKG reviewed, okay to proceed-JL CONSULTS: Patient does not require consults for optimization at this time Planned Anesthetic: other anesthesia choice The Following Tests/Procedures Have Been Initiated: Orders Placed This Encounter >CBC + AUTO DIFF Standing Status: Future Number of Occurrences: 1 Standing Expiration Date: 11/27/2024 >CMP Standing Status: Future Number of Occurrences: 1 Standing Expiration Date: 11/27/2024 mupirocin (BACTROBAN) 2 % ointment Sig: Apply 0.5 inch with cotton swab (Q-tip) to each nostril in the morning and evening for 5 days prior to and including day of surgery. Dispense: 22 g Refill: 0 ECG COMPLETE Order Comments: Ordered by an unspecified provider REASON FOR VISIT: Yony Robertson is a 59 year old male who is scheduled for Procedure(s): POSSIBLE SAME DAY ROBOTIC ASSISTED TOTAL KNEE ARTHROPLASTY (Left) at the request of Dr. Netta Hoff for consultation. My final recommendation will be communicated back to the requesting physician byway of shared medical record or letter. Subjective The patient has the following: COVID-19 Immunization Status Overdue - Covid-19 Vaccine ( season) Never done No completion, postpone, frequency change, or communication history exists for this topic. CHIEF COMPLAINT: Pre-op exam HPI: Yony Robertson is a 59 year old seen for PAC due to scheduled above surgery because of OA left knee. 06/11/24, Hubert Fuentes CNP Yony Robertson is a 59 year old patient here for evaluation and management of left knee pain. Patienthas had progressive problems with the knee(s) constantly over the past 5 year(s) interfering with activities which include exercise, doing creative strategist, participating in family activities, enjoying hobbies, walking, and climbing stairs. The problem began limiting activities 3+ years ago. Currently the pain in the joint is rated at 8 out of 10 with minimal activity. The pain is chronic and is located along the inside aspect and in the front. The pain is described as aching, radiating,soreness, and stiffness. Relieving factors include no relieving factors. There is no specific incident that brought about this pain. Patient has no additional complaints. REVIEW OF SYSTEMS: General: No weight loss, malaise or fevers. Neurological: No history of TIA's, stroke, KILN HEAD HOUSE OPERATOR tumor, impaired sensorium, hemiplegia, paraplegia orquadraplegia. No neurological symptoms or problems. Respiratory: No history of current cough or dyspnea, or pneumonia in the past 6 weeks. No history of respiratory/pulmonary symptoms or problems. Cardiovascular: Positive for: arrhythmia (sVT s/p ablation) Negative for: abdominal aortic aneurysm, AICD/PPM, angina, anticoagulation therapy, atrial fibrillation, CAD, chest pain, CHF, congenital heart defect, DVT/PE, hyperlipidemia, hypertension, recent PA, murmur/valvular heart disease, PTCA, PVD, open heart surgery and valve surgery. GI: No history of GI symptoms or problems. No history of esophageal varices, recent ascites, or ETOH greater than 2 drinks per day. : Positive for: nephrolithiasis (hx, following urology). Negative for: BPH, urinary incontinence, renal failure and urinary tract infection. Endocrine: No history of diabetes. Has not taken steroids within the past 30 days. No history of endocrinological symptoms or problems. Hematology: No history of bleeding or clotting disorder. Patient is not taking anti-coagulation or platelet medications. No history of hematological symptoms or problems. Oncology: No history of CA metastasis, chemo within 30 days, or radiotherapy within 90 days. No history of oncological symptoms or problems. Psych: No history of psychiatric symptoms or problems. Musculoskeletal: See HPI. +hx right TKA Skin: Negative for lesions, rash and itching. Implanted Devices: No implanted devices. PAST MEDICAL HISTORY Diagnosis Date Rapid heartbeat [...] SURGICAL HISTORY OF left shoulder arthroscopy TOTAL HIP REPLACEMENT Left 06/25/2022 TOTAL KNEE REPLACEMENT Right 11/2021 FAMILY HISTORY Problem Relation Age of Onset No Known Problems Mother Alcohol/Drug Father No Known Problems Maternal Grandmother No Known Problems Maternal Grandfather No Known Problems Paternal Grandmother No Known Problems Paternal Grandfather Social History Tobacco Use Smoking status: Never Smokeless tobacco: Never Vaping Use Vaping status: Never Used Substance Use Topics Alcohol use: Yes Comment: socially/ occasional beer/wine in the evening Drug use: No Prior to Admission medications as of 08/28/24 1548 Medication Sig Last Dose Taking amoxicillin (POLYMOX, AMOXIL) 500 mg capsule Take 4 capsules by mouth one hour prior to dental cleaning/procedure Taking Yes MEDICATION, NON-DATABASE Take 1 capsule by mouth once daily. doTerra MicroPlex VMz Taking Yes MEDICATION, NON-DATABASE Take 1 capsule by mouth once daily. doTerra Alpha CRS+ Taking Yes MEDICATION, NON-DATABASE Take 1 capsule by mouth once daily. doTerra xEo Terrence Taking Yes MEDICATION, NON-DATABASE Take 1 capsule by mouth twice daily. Kidney C.O.P.- Calcium Oxalate Protector Taking Yes MEDICATION, NON-DATABASE Take 1 capsule by mouth once daily as needed (any illness). Elderberry Vitamin C + Zinc Taking Yes melatonin 10 mg tab Take 10 mg by mouth every evening. Taking Yes MEDICATION, NON-DATABASE Take 1 capsule by mouth every evening. Valarian Root Taking Yes MEDICATION, NON-DATABASE Take 1 capsule by mouth every evening. doTerra Deep Blue Taking Yes VITAMIN B COMPLEX ORAL Take 1 capsule by mouth once daily. Taking Yes mupirocin (BACTROBAN) 2 % ointment Apply 0.5 inch with cotton swab (Q-tip) to each nostril in the morning and evening for 5 days prior to and including day of surgery. No medication comments found. ALLERGIES No Known Allergies Objective PHYSICAL EXAM: General: alert and oriented (x3), healthy appearance and obese. Pertinent negatives noted - not distressed. Skin: [...] sensory deficit. PAIN ASSESSMENT: Pain Pain Level: 3 (walking 8/9) Pain Location: Knee-Left Description: Sharp Duration Units: Years Frequency: Intermittent Intervention/Comfort measure: Medication VITALS: BP 134/84 Pulse 94 Temp (Src) 97.4 (Temporal) Resp 14 Ht 5' 10 (1.78m) Wt 253 lb (114.8kg) SpO2 98% BMI 36.30 kg/(m^2). Diagnostic tests reviewed for today's visit: Lab Value Units Date High Low HB 15.6 g/dL 08/28/2024 17.0 13.0 HCT 45.5 % 08/28/2024 51.0 39.0 WBC 7.06 k/uL 08/28/2024 11.00 3.70 PLT 235 k/uL 08/28/2024 400 150 NA 142 mmol/L 08/28/2024 144 136 K 4.1 mmol/L 08/28/2024 5.1 3.7 GLUC 79 mg/dL 08/28/2024 99 74 BUN 24 mg/dL 08/28/2024 24 9 CREAT 1.12 mg/dL 08/28/2024 1.22 0.73 PTSEC No results within date range. INR No results within date range. APTT No results within date range. ALT 21 U/L 08/28/2024 54 10 AST 26 U/L 08/28/2024 40 14 TBILI 1.0 mg/dL 08/28/2024 1.3 0.2 TSH No results within date range. Lab [...] past 8760 hour(s)) ECG COMPLETE Collection Time: 08/28/24 4:58 PM Result Value Ventricular Rate 89 Atrial Rate 89 P-R Interval 164 QRS Duration 96 QT Interval 366 QTC Calculation (Bazett) 445 Calculated P [place] 42 Calculated R [place] 27 Calculated T [place] 19 Impression NORMAL SINUS RHYTHM POSSIBLE LEFT ATRIAL ENLARGEMENT BORDERLINE ECG Confirmed by MD LORENA, ML () on 08/31/2024 9:17:00 AM No results found for this or any previous visit (from the past 95434 hour(s)). Instructions Given to Patient: Instructions located in the after visit summary. Patient given verbal and written preop instructions and voices comprehension and compliance. SIGNATURE: Minal Og APRN.CNP PATIENT NAME: Yony Robertson DATE: August 28, 2024 TIME: 3:43 PM PAGER/CONTACT #: [facility]12-06-2024 History and physical note* Minal Og APRN.CNP - 08/28/2024 3:43 PM EST Images from the original note were not included. [facility] HISTORY AND PHYSICAL EXAMINATION SERVICE DATE: 08/28/2024 SERVICE TIME: 2:56 PM PRIMARY CARE PHYSICIAN: Cristian Robertson MD Assessment Patient has the following medical conditions which may affect ethel-operative course: SVT (supraventricular tachycardia) (HCC) Assessment: remote hx, s/p ablation in 2011 with resolution of symptoms Status post right knee replacement Assessment: hx BMI 36.0-36.9,adult Assessment: Body mass index is 36.3 kg/m . Hope Activity Status Index: METS: Climb a flight of stairs or walk up a hill (5.50 METs) DASI Score: 5.5 Patient denies any chest pain or undue shortness of breath with the above physical activity. Clinical Frailty Scale: 3. Well, with treated comorbid disease STOP-Bang Score: Snores loudly BMI greater than 35 kg/m^2 Has a large neck Male patient Denies feeling tired, fatigued, or sleepy during the daytime Has not been observed to stop breathing or choking/gasping during sleep Denies having high blood pressure Patient 50 years old or younger STOP-Bang Score: 4 [id number] Score: Age: <65 Sex: male CHF history: No Hypertension history: No Stroke/TIA/thromboembolism history: No Vascular disease history: No Diabetes history: No [id number] Score: 0 ARISCAT Score: Age: 51-80 Preoperative SpO2: >=96% Respiratory infection in the last month: No Preoperative anemia: No Surgical incision: peripheral Duration of surgery: 2-3 hrs Emergency procedure: No ARISCAT Score: 19 ANESTHESIA FINDINGS: Intubation History: No history of difficult intubation Significant Anesthesia Considerations: none Airway History: No history of difficult airway I - PHYSICAL EVALUATION AIRWAY Patient intubated: No. Tracheostomy tube not present Mallampati: II. TM distance: >3 FB. Neck ROM: full ROM without neurological symptoms. Mouth opening: adequate. Short neck: no. Thick neck: yes Stout present: yes Lip Bite Test: I Microretrognathia/Micronagthia/Recessed Chin: No DENTAL Dental findings: teeth intact. Additional comments: +crowns/implants/back. II - ANESTHESIA PLAN Anesthetic Plan: other Beta Anny Monitoring Plan Post Procedure Analgesic Plan Prepared for Surgery: optimally prepared for surgery. Labs and EKG reviewed, okay to proceed-JL CONSULTS: Patient does not require consults for optimization at this time Planned Anesthetic: other anesthesia choice The Following Tests/Procedures Have Been Initiated: Orders Placed This Encounter >CBC + AUTO DIFF Standing Status: Future Number of Occurrences: 1 Standing Expiration Date: 11/27/2024 >CMP Standing Status: Future Number of Occurrences: 1 Standing Expiration Date: 11/27/2024 mupirocin (BACTROBAN) 2 % ointment Sig: Apply 0.5 inch with cotton swab (Q-tip) to each nostril in the morning and evening for 5 days prior to and including day of surgery. Dispense: 22 g Refill: 0 ECG COMPLETE Order Comments: Ordered by an unspecified provider REASON FOR VISIT: Yony Robertson is a 59 year old male who is scheduled for Procedure(s): POSSIBLE SAME DAY ROBOTIC ASSISTED TOTAL KNEE ARTHROPLASTY (Left) at the request of Dr. Netta Hoff for consultation. My final recommendation will be communicated back to the requesting physician byway of shared medical record or letter. Subjective The patient has the following: COVID-19 Immunization Status Overdue - Covid-19 Vaccine ( season) Never done No completion, postpone, frequency change, or communication history exists for this topic. CHIEF COMPLAINT: Pre-op exam HPI: Yony Robertson is a 59 year old seen for PAC due to scheduled above surgery because of OA left knee. 06/11/24, Hubert Fuentes CNP Yony Robertson is a 59 year old patient here for evaluation and management of left knee pain. Patienthas had progressive problems with the knee(s) constantly over the past 5 year(s) interfering with activities which include exercise, doing creative strategist, participating in family activities, enjoying hobbies, walking, and climbing stairs. The problem began limiting activities 3+ years ago. Currently the pain in the joint is rated at 8 out of 10 with minimal activity. The pain is chronic and is located along the inside aspect and in the front. The pain is described as aching, radiating,soreness, and stiffness. Relieving factors include no relieving factors. There is no specific incident that brought about this pain. Patient has no additional complaints. REVIEW OF SYSTEMS: General: No weight loss, malaise or fevers. Neurological: No history of TIA's, stroke, KILN HEAD HOUSE OPERATOR tumor, impaired sensorium, hemiplegia, paraplegia orquadraplegia. No neurological symptoms or problems. Respiratory: No history of current cough or dyspnea, or pneumonia in the past 6 weeks. No history of respiratory/pulmonary symptoms or problems. Cardiovascular: Positive for: arrhythmia (sVT s/p ablation) Negative for: abdominal aortic aneurysm, AICD/PPM, angina, anticoagulation therapy, atrial fibrillation, CAD, chest pain, CHF, congenital heart defect, DVT/PE, hyperlipidemia, hypertension, recent PA, murmur/valvular heart disease, PTCA, PVD, open heart surgery and valve surgery. GI: No history of GI symptoms or problems. No history of esophageal varices, recent ascites, or ETOH greater than 2 drinks per day. : Positive for: nephrolithiasis (hx, following urology). Negative for: BPH, urinary incontinence, renal failure and urinary tract infection. Endocrine: No history of diabetes. Has not taken steroids within the past 30 days. No history of endocrinological symptoms or problems. Hematology: No history of bleeding or clotting disorder. Patient is not taking anti-coagulation or platelet medications. No history of hematological symptoms or problems. Oncology: No history of CA metastasis, chemo within 30 days, or radiotherapy within 90 days. No history of oncological symptoms or problems. Psych: No history of psychiatric symptoms or problems. Musculoskeletal: See HPI. +hx right TKA Skin: Negative for lesions, rash and itching. Implanted Devices: No implanted devices. PAST MEDICAL HISTORY Diagnosis Date Rapid heartbeat PAST SURGICAL HISTORY Procedure Laterality Date APPENDECTOMY HX 1985 COLONOSCOPY FLX DX W/COLLJ SPEC WHEN PFRMD 04/27/2014 normal colonoscopy EGD TRANSORAL BIOPSY SINGLE/MULTIPLE 04/27/2014 H pylori duodenitis, small hiatal hernia KNEE ARTHROSCOPY left PAST SURGICAL HISTORY OF 09/23/2011 heart ablation PAST SURGICAL HISTORY OF 09/23/1990 Right ACL Reconstruction PAST SURGICAL HISTORY OF Right 09/23/2005 Repair torn labrium PAST SURGICAL HISTORY OF N/A Kidney stones PAST SURGICAL HISTORY OF left shoulder arthroscopy TOTAL HIP REPLACEMENT Left 06/25/2022 TOTAL KNEE REPLACEMENT Right 11/2021 FAMILY HISTORY Problem Relation Age of Onset No Known Problems Mother Alcohol/Drug Father No Known Problems Maternal Grandmother No Known Problems Maternal Grandfather No Known Problems Paternal Grandmother No Known Problems Paternal Grandfather Social History Tobacco Use Smoking status: Never Smokeless tobacco: Never Vaping Use Vaping status: Never Used Substance Use Topics Alcohol use: Yes Comment: socially/ occasional beer/wine in the evening Drug use: No Prior to Admission medications as of 08/28/24 1545 Medication Sig Last Dose Taking amoxicillin (POLYMOX, AMOXIL) 500 mg capsule Take 4 capsules by mouth one hour prior to dental cleaning/procedure Taking Yes MEDICATION, NON-DATABASE Take 1 capsule by mouth once daily. doTerra MicroPlex VMz Taking Yes MEDICATION, NON-DATABASE Take 1 capsule by mouth once daily. doTerra Alpha CRS+ Taking Yes MEDICATION, NON-DATABASE Take 1 capsule by mouth once daily. doTerra xEo Terrence Taking Yes MEDICATION, NON-DATABASE Take 1 capsule by mouth twice daily. Kidney C.O.P.- Calcium Oxalate Protector Taking Yes MEDICATION, NON-DATABASE Take 1 capsule by mouth once daily as needed (any illness). Elderberry Vitamin C + Zinc Taking Yes melatonin 10 mg tab Take 10 mg by mouth every evening. Taking Yes MEDICATION, NON-DATABASE Take 1 capsule by mouth every evening. Valarian Root Taking Yes MEDICATION, NON-DATABASE Take 1 capsule by mouth every evening. doTerra Deep Blue Taking Yes VITAMIN B COMPLEX ORAL Take 1 capsule by mouth once daily. Taking Yes mupirocin (BACTROBAN) 2 % ointment Apply 0.5 inch with cotton swab (Q-tip) to each nostril in the morning and evening for 5 days prior to and including day of surgery. No medication comments found. ALLERGIES No Known Allergies Objective PHYSICAL EXAM: General: alert and oriented (x3), healthy appearance and obese. Pertinent negatives noted - not distressed. Skin: [...] sensory deficit. PAIN ASSESSMENT: Pain Pain Level: 3 (walking 8/9) Pain Location: Knee-Left Description: Sharp Duration Units: Years Frequency: Intermittent Intervention/Comfort measure: Medication VITALS: BP 134/84 Pulse 94 Temp (Src) 97.4 (Temporal) Resp 14 Ht 5' 10 (1.78m) Wt 253 lb (114.8kg) SpO2 98% BMI 36.30 kg/(m^2). Diagnostic tests reviewed for today's visit: Lab Value Units Date High Low HB 15.6 g/dL 08/28/2024 17.0 13.0 HCT 45.5 % 08/28/2024 51.0 39.0 WBC 7.06 k/uL 08/28/2024 11.00 3.70 PLT 235 k/uL 08/28/2024 400 150 NA 142 mmol/L 08/28/2024 144 136 K 4.1 mmol/L 08/28/2024 5.1 3.7 GLUC 79 mg/dL 08/28/2024 99 74 BUN 24 mg/dL 08/28/2024 24 9 CREAT 1.12 mg/dL 08/28/2024 1.22 0.73 PTSEC No results within date range. INR No results within date range. APTT No results within date range. ALT 21 U/L 08/28/2024 54 10 AST 26 U/L 08/28/2024 40 14 TBILI 1.0 mg/dL 08/28/2024 1.3 0.2 TSH No results within date range. Lab [...] past 8760 hour(s)) ECG COMPLETE Collection Time: 08/28/24 4:58 PM Result Value Ventricular Rate 89 Atrial Rate 89 P-R Interval 164 QRS Duration 96 QT Interval 366 QTC Calculation (Bazett) 445 Calculated P [place] 42 Calculated R [place] 27 Calculated T [place] 19 Impression NORMAL SINUS RHYTHM POSSIBLE LEFT ATRIAL ENLARGEMENT BORDERLINE ECG Confirmed by MD CARRILLO GREGORY () on 08/31/2024 9:17:00 AM No results found for this or any previous visit (from the past 70438 hour(s)). Instructions Given to Patient: Instructions located in the after visit summary. Patient given verbal and written preop instructions and voices comprehension and compliance. SIGNATURE: Minal Og APRN.CNP PATIENT NAME: Yony Robertson DATE: August 28, 2024 TIME: 3:43 PM PAGER/CONTACT #: documented in this encounterK[facility] Instructions* Patient Instructions* Minal Og APRN.CNP - 08/28/2024 3:43 PM EST PATIENT PREOPERATIVE INSTRUCTIONS Netta Hoff MD has scheduled you for your procedure at this surgery center: [facility]: [phone] -- [address] [address]. Please read below carefully for your personalized instructions. Dietary Restrictions: - No solid food after midnight. - You may have 12 ounces of clear liquids (water, clear juices such as apple juice or gatorade, carbonated beverages, clear tea, black coffee, jello) until 2 hours before scheduled arrival at facility. No red/purple coloring and no creamer/sugar Medications: Unless instructed differently below, stay on all of your medications until your surgery. Approved medications to take the morning of surgery with a sip of water: NONE If you take any medications for erectile dysfunction-Cialis (Tadalafil), Levitra, Staxyn (Vardenafil) Viagra (Sildenenafil please do not take these for 48 hours before surgery. If you start any new medications after today's visit, please contact the surgeon's office. Blood Thinning Medications: - Stop NSAIDS (Ibuprofen, Advil, Aleve, Motrin, Celebrex, Mobic, etc.) 7 days before surgery, as directed by your surgeon. - Stop Aspirin 7 days before surgery, as directed by your surgeon. - Stop ALL multi-vitamins, herbals and dietary supplements 7 days before surgery. - You may take Tylenol (Acetaminophen) or any of your pain medications that do not contain aspirin or NSAIDS as needed. Important Reminders: - Candy, mints, and tobacco products are [...] Procedures: - YOU MUST HAVE A RESPONSIBLE LIBRARIAN HEAD TAKE YOU HOME. A LUMP RECEIVER OR WORKERS COMPENSATION CLAIMS SUPERVISOR CANNOT BE MADE A RESPONSIBLE LIBRARIAN HEAD. - We recommend that a responsible person stays with you overnight to take care of you. - You cannot stay in a hotel alone after outpatient surgery. You will not be permitted to have yoursurgery, if you do not have someone to [...] Advance Directive, please fax a copy to [phone] or email to for it to be added to your chart. If you do not have an Advance Directive, you can find the appropriate form and more information at [email or web address]. We recommend that youcomplete the Advance Directive form found on the website and bring it with you the day of your surgery. It can be witnessed and scanned into your chart that day. Minal Og APRN.CUTTER TENDER documented in this encounterK[facility]12-03-2024 Miscellaneous Notes* [facility] - Kristen Tracy CT - 08/25/2024 7:15 AM EST Radiology Service Progress Note PATIENT NAME: Yony Robertson DATE OF SERVICE: August 25, 2024 TIME: 7:48 AM PATIENT IDENTITY VERIFICATION COMPLETED USING TWO (2) IDENTIFIERS: Name and Date of confirmedby patient verbally and Name and Date of confirmed by identification band. FALL SCREENING: Has the patient had 2 falls in the last year or 1 fall with injury or currently using an Ambulatory Assistive Device (Walker, Cane, Wheelchair, Crutches, etc.)? No PATIENT GENDER DATA: Male PATIENT RELEVANT IMPLANT DATA REVIEWED: Yes PATIENT PRESENTS WITH AN IMPLANTABLE OR ATTACHED BAKERY PASTRY INTERNSHIP: No RADIOLOGY DEPARTMENT: CT; Exam(s) Completed: lt morgan knee PERIPHERAL IV DATA: Not applicable SIGNED BY: KAILA Fisher August 25, 2024 7:48 AM documented in this encounterK[facility]12-03-2024 Progress note* [facility] - Kristen Tracy CT - 08/25/2024 7:15 AM EST Radiology Service Progress Note PATIENT NAME: Yony Robertson DATE OF SERVICE: August 25, 2024 TIME: 7:48 AM PATIENT IDENTITY VERIFICATION COMPLETED USING TWO (2) IDENTIFIERS: Name and Date of confirmedby patient verbally and Name and Date of confirmed by identification band. FALL SCREENING: Has the patient had 2 falls in the last year or 1 fall with injury or currently using an Ambulatory Assistive Device (Walker, Cane, Wheelchair, Crutches, etc.)? No PATIENT GENDER DATA: Male PATIENT RELEVANT IMPLANT DATA REVIEWED: Yes PATIENT PRESENTS WITH AN IMPLANTABLE OR ATTACHED BAKERY PASTRY INTERNSHIP: No RADIOLOGY DEPARTMENT: CT; Exam(s) Completed: lt morgan knee PERIPHERAL IV DATA: Not applicable SIGNED BY: KAILA Fisher August 25, 2024 7:48 AM [facility]11-20-[facility] Telephone encounter Note* Telephone Encounter - Corinna Joseph - 08/12/2024 10:40 AM EST LVM for patient to return call to reschedule CT [facility]11-20-2024 Miscellaneous Notes* Telephone Encounter - Corinna Joseph - 08/12/2024 10:40 AM EST LVM for patient to return call to reschedule CT * Telephone Encounter - Sarah Cervantes - 08/12/2024 9:04 AM EST Can we give this patient a call and reschedule his CT scan. It has not been authorized. We need to give it another couple weeks. Maybe the first week of August if at all possible. Thanks. Sarah Duran documented in this encounterK[facility]11-20-2024 Telephone encounter Note * Telephone Encounter - Sarah Cervantes - 08/12/2024 9:04 AM EST Can we give this patient a call and reschedule his CT scan. It has not been authorized. We need to give it another couple weeks. Maybe the first week of August if at all possible. Thanks. Sarah Duran [facility]11-19-2024 Telephone encounter Note* Telephone Encounter - Cris Quick PSS - 08/11/2024 2:54 PM EST TOTAL JOINT COMPLETE CARE PROGRAM PRE-OPERATIVE TEACHING Service Date: 08/11/2024 Service Time: 2:54 PM Date of : 1965 Gender: male Date of Surgery: 09/07/24 Procedure: Left Total Knee Replacement SAME DAY DISCHARGE Complete Care Program was discussed with the patient: Refined Syrup Operator Identification: Patient identified a care transition manager to help when discharged to home: Home Environment: Home Layout: 2 story, Entry Steps: 3 no rail, Bedroom Location: 1st floor, Bathroom Location: 1st floor, and tub shower. Pt owns walker, crutches, cane. Discussed with patient importance of attending joint education class and provided date and times ofclass: YES Patient declined. Prior TKA and KASSIE Patient received Joint Education Binder: Yes Plans discharge home with [facility]. SIGNATURE: BETH Lisa PATIENT NAME: Yony Robertson DATE: August 11, 2024 TIME: 2:54 PM [facility]-19-[facility] Miscellaneous Notes* Telephone Encounter - Cris Quick PSS - 08/11/2024 2:54 PM EST TOTAL JOINT COMPLETE CARE PROGRAM PRE-OPERATIVE TEACHING Service Date: 08/11/2024 Service Time: 2:54 PM Date of : 1965 Gender: male Date of Surgery: 09/07/24 Procedure: Left Total Knee Replacement SAME DAY DISCHARGE Complete Care Program was discussed with the patient: Refined Syrup Operator Identification: Patient identified a care transition manager to help when discharged to home: Home Environment: Home Layout: 2 story, Entry Steps: 3 no rail, Bedroom Location: 1st floor, Bathroom Location: 1st floor, and tub shower. Pt owns walker, crutches, cane. Discussed with patient importance of attending joint education class and provided date and times ofclass: YES Patient declined. Prior TKA and KASSIE Patient received Joint Education Binder: Yes Plans discharge home with [facility]. SIGNATURE: BETH Lisa PATIENT NAME: Yony Robertson DATE: August 11, 2024 TIME: 2:54 PM documented in this encounterK[facility]11-11-2024 Telephone encounter Note * Telephone Encounter - LisaSarah Delgado - 08/03/2024 3:01 PM EST Patient scheduled. Sarah Gonzalezkarl Duran [facility]11-11-2024 Miscellaneous Notes* Telephone Encounter - Sarah Cervantes - 08/03/2024 3:01 PM EST Patient scheduled. Sarah Gonzalezkarl Duran * Telephone Encounter - Sarah Cervantes - 07/28/2024 9:09 AM EST Please reach and schedule this patient for a pre-op CT scan for MORGAN. Patient is having surgery 09-07-2024. Thank you. Sarah Guerrero Aaron Duran documented in this encounterK[facility]11-05-2024 Telephone encounter Note * Telephone Encounter - Sarah Cervantes - 07/28/2024 9:09 AM EST Please reach and schedule this patient for a pre-op CT scan for MORGAN. Patient is having surgery 09-07-2024. Thank you. Sarah Yolanda Duran [facility]10-[facility] Telephone encounter Note* Telephone Encounter - Sarah Cervantes - 07/07/2024 3:55 PM EDT Form completed and faxed. Copy of completed form scanned into patient's chart. Sarah Gonzalezkarl Duran [facility]10-15-2024 Miscellaneous Notes* Telephone Encounter - Sarah Cervantes - 07/07/2024 3:55 PM EDT Form completed and faxed. Copy of completed form scanned into patient's chart. Sarah Duran documented in this encounterKet[facility]10-07-2024 NoteHNO ID: [id number] Author: MATT BRUNER PT Service: ? Author Type: Physical Therapist Type: Progress Notes Filed: 06/29/2024 10:35 Note Text: Episode Visit Count: 1 Therapist That Will Accept/Oversee The Plan Of Care: Mtat Bruner PT Start of Care Date: 06/29/24 Onset Date: 06/29/21 Patient Identified by Name and Date of : Yes REHABILITATION AND SPORTS THERAPY PHYSICAL THERAPY EVALUATION PLAN OF CARE: Assessment: Yony Robertson presents with diagnosis of L knee OA and future TKA that interferes with . The patient presents with impairments in independence in exercise and overall function. Patient did not complete the PROMIS? (Patient Reported Outcome Measures Information System). Prognosis for therapy is Good due to: current objective clinical presentation . The patient will benefit from skilled therapy services to meet the goals established for this plan of care as noted below. Goals for Episode of Care: established 06/29/24 Patient will report good understanding of bed mobility and DO's and DONT'S (MET) Patient will demonstrate proper sit to stand transfer technique with front wheeled walker. (met) Patient will demonstrate proper gait sequence with front wheeled walker or most appropriate assistive device. (met) Pt will report good understanding of stair mobility and use of AD's during this ADL's (MET) Patient will demonstrate knowledge of ice and elevation and all applicable precautions. (met) Time Frame for Goals and Treatment : 06/29/24 Planned Interventions, Frequency, and Duration: Current Frequency: 1 visit Duration: 1 visit Total Number of Visits Planned: 0 Planned Treatment Interventions: Therapeutic activities (90488), Self-snf management (61074), Gait Training (36343) PLAN FOR NEXT VISIT: Pt may return for an evaluation post L TKA Patient demonstrates good understanding of plan of care and treatment. The above goals and plan of care were discussed and agreed upon by patient/family. SUBJECTIVE: Having a L knee replacement soon. Had Home PT after his last surgery. After about 4 weeks he then went to outpatient. The procedure for the L knee will be september 07. Prior Level of Function: Independent without limitations Home Environment Patient Lives With: Family, Spouse Assistance Available: 24-Hour Home Type: Multi-Level with First Floor Set-Up Entry To Home: Stairs, With Rail Number Of Stairs Into Home: 3 Number Of Stairs To Bed/Bath: 13 Tub/Shower Type: tub/shower first floor; walk in shower second floor Laundry: main level Equipment Owned: Walker- Wheeled, Crutch(es), Elevated Toilet Seat Transportation: Truck, SUV Intake Information: Prescription present Pain: Pain Pain Level: 1 Pain Location: Knee - Left PROMIS Scales 06/10/2024 03/04/2022 02/03/2022 Higher is Better Phys Func - Score 40 (mild dysfunction) 41 (mild dysfunction) 39 (moderate dysfunction) Phys Func - Percentile 16 18 14 Self-Eff Symptom - Score 35 (Low) 48 (Average) Self-Eff Symptom - Percentile 7 42 T-scores: mean of general population = 50. 5 points is clinically meaningfully difference Percentiles provide an indication of how the patient's score ranks in relation to the general population. Higher percentile rankings indicate better function/quality of life. 50th percentile is the average of the general population and indicates half of respondents had a worse score. OBJECTIVE MEASURES WITH LEVEL OF FUNCTION: LE AROM L Knee Extension: 0 Degrees L Knee Flexion: 130 Degrees LE Strength L Knee Extension (L3): 5/5 Gait Gait Observation: WNL Education: Education Learning Preferences: Demonstration, Explanation, Performance, Printed Materials Barriers: None Learning/educational needs: Home exercise program, Plan of Care, Changes in Plan of Care Education Provided: Yes, see treatment interventions for education provided Education Provided To: Patient Education Mode/Type: Demonstration, Explanation/Discussion, Literature/Printed Materials, Performance Response to Education/Teach Back: States/Identifies, Return Demonstration TREATMENT: PT Treatment Interventions: Self-Group Home Management, Gait Training, Therapeutic Activity Evaluation Self-Group Home Management Skilled intervention included patient education regarding: -Role of PT/OT before and after surgery, in the hospital, home, and outpatient setting -Role of personal ?assistant baseball coach? in total joint recovery - discussed the need for patient self-reflection on post-surgical needs and instructed patient to identify who will be helping them. Reinforced that home is best, and not having help at home does not qualify people to receive skilled therapy in a SNF setting. -Total joint precautions and potential weight bearing status/restrictions with need for assistive device and possible adaptive equipment for dressing -Benefits and need for ice, elevation and positioning, d (more content not included)...[facility]10-07-[facility] History of Present illness Narrative* Matt Bruner, PT - 06/29/2024 10:03 AM EDT Images from the original note were not included. Episode Visit Count: 1 Therapist That Will Accept/Oversee The Plan Of Care: Matt Bruner PT Start of Care Date: 06/29/24 Onset Date: 06/29/21 Patient Identified by Name and Date of : Yes REHABILITATION AND SPORTS THERAPY PHYSICAL THERAPY EVALUATION PLAN OF CARE: Assessment: Yony Robertson presents with diagnosis of L knee OA and future TKA that interferes with .The patient presents with impairments in independence in exercise and overall function. Patient didnot complete the PROMIS (Patient Reported Outcome Measures Information System). Prognosis for therapy is Good due to: current objective clinical presentation . The patient will benefit from skilled therapy services to meet the goals established for this plan of care as noted below. Goals for Episode of Care: established 06/29/24 Patient will report good understanding of bed mobility and DO's and DONT'S (MET) Patient will demonstrate proper sit to stand transfer technique with front wheeled walker. (met) Patient will demonstrate proper gait sequence with front wheeled walker or most appropriate assistive device. (met) Pt will report good understanding of stair mobility and use of AD's during this ADL's (MET) Patient will demonstrate knowledge of ice and elevation and all applicable precautions. (met) Time Frame for Goals and Treatment : 06/29/24 Planned Interventions, Frequency, and Duration: Current Frequency: 1 visit Duration: 1 visit Total Number of Visits Planned: 0 Planned Treatment Interventions: Therapeutic activities (33855), Self-snf management (83126),Gait Training (62688) PLAN FOR NEXT VISIT: Pt may return for an evaluation post L TKA Patient demonstrates good understanding of plan of care and treatment. The above goals and plan of care were discussed and agreed upon by patient/family. SUBJECTIVE: Having a L knee replacement soon. Had Home PT after his last surgery. After about 4 weeks he then went to outpatient. The procedure for the L knee will be september 07. Prior Level of Function: Independent without limitations Home Environment Patient Lives With: Family, Spouse Assistance Available: 24-Hour Home Type: Multi-Level with First Floor Set-Up Entry To Home: Stairs, With Rail Number Of Stairs Into Home: 3 Number Of Stairs To Bed/Bath: 13 Tub/Shower Type: tub/shower first floor; walk in shower second floor Laundry: main level Equipment Owned: Walker- Wheeled, Crutch(es), Elevated Toilet Seat Transportation: Truck, SUV Intake Information: Prescription present Pain: Pain Pain Level: 1 Pain Location: Knee - Left PROMIS Scales 06/10/2024 03/04/2022 02/03/2022 Higher is Better Phys Func - Score 40 (mild dysfunction) 41 (mild dysfunction) 39 (moderate dysfunction) Phys Func - Percentile 16 18 14 Self-Eff Symptom - Score 35 (Low) 48 (Average) Self-Eff Symptom - Percentile 7 42 T-scores: mean of general population = 50. 5 points is clinically meaningfully difference Percentiles provide an indication of how the patient's score ranks in relation to the general population. Higher percentile rankings indicate better function/quality of life. 50th percentile is the average of the general population and indicates half of respondents had a worse score. OBJECTIVE MEASURES WITH LEVEL OF FUNCTION: LE AROM L Knee Extension: 0 Degrees L Knee Flexion: 130 Degrees LE Strength L Knee Extension (L3): 5/5 Gait Gait Observation: WNL Education: Education Learning Preferences: Demonstration, Explanation, Performance, Printed Materials Barriers: None Learning/educational needs: Home exercise program, Plan of Care, Changes in Plan of Care Education Provided: Yes, see treatment interventions for education provided Education Provided To: Patient Education Mode/Type: Demonstration, Explanation/Discussion, Literature/Printed Materials, Performance Response to Education/Teach Back: States/Identifies, Return Demonstration TREATMENT: PT Treatment Interventions: Self-Group Home Management, Gait Training, Therapeutic Activity Evaluation Self-Group Home Management Skilled intervention included patient education regarding: -Role of PT/OT before and after surgery, in the hospital, home, and outpatient setting -Role of personal banking assistant in total joint recovery - discussed the need for patient self-reflection onpost-surgical needs and instructed patient to identify who will be helping them. Reinforced that home is best, and not having help at home does not qualify people to receive skilled therapy in a SNF setting. -Total joint precautions and potential weight bearing status/restrictions with need for assistive device and possible adaptive equipment for dressing -Benefits and need for ice, elevation and positioning, discussion with patient about the proper protocol to contact physician with surgery specific concerns after surgery. -Instructed patient in use of adaptive equipment that may be needed after total joint replacement. Therapeutic Activity Skilled Intervention: -Instructed patient in sit-stand transfers from chair protecting surgical leg to walker. Patient demonstrated good understanding of technique. -Instructed patient in bed mobility with appropriate technique for total joint replacement. -Instructed patient in total joint replacement exercises found in the total joint booklet and additional functional strengthening exercises. Issued a handout for home program. Gait Training Skilled Intervention: -Instructed patient in gait pattern with wheeled walker and single point cane simulating total joint replacement. Patient demonstrated adequate performance of use of assistive device. -Instructed patient in stair mobility simulating total joint replacement surgery, weight bearing astolerated for surgical leg in a simulated home environment. Patient demonstrated excellent understanding of technique for safely ascending and descending the stairs. Overall assessment at the end of the pre-surgical visit is that the patient demonstrated excellent management of basic mobility simulating total joint replacement surgery. Billing * Evaluation Low Complexity: 1 Unit Therapeutic Activity Treatment Minutes: 5 Self-Care/Home Management Treatment Minutes: 7 Gait Training Treatment Minutes: 5 Skilled Treatment Time Minutes (timed and untimed codes): 27 Total Session Time (minutes): 27 Session Start Time : 1003 Session Stop Time : 1030 Matt Bruner PT [facility] NoteHNO ID: [id number] Author: DEMETRA TONEY OTR/Markie Service: ? Author Type: Occupational Therapist Type: Progress Notes Filed: 06/19/2024 13:54 Note Text: Summary: OT prehab evaluation Episode Visit Count: 1 Therapist That Will Accept/Oversee The Plan Of Care: Demetra Toney Start of Care Date: 06/19/24 Onset Date: 06/19/14 Patient Identified by Name and Date of : Yes [facility] OCCUPATIONAL THERAPY EVALUATION PLAN OF CARE: Assessment: Yony Robertson presents with diagnosis of schedule L TKA that interferes with walking, standing, rising from a chair, bending, physical activities, recreational activities, lifting . The patient presents with impairments in joint mobility and overall function. PROMIS? (Patient-Reported Outcomes Measurement Information System) scores were reviewed and identified as a rehabilitation concern. Prognosis for therapy is Good due to: current objective clinical presentation . The patient will benefit from skilled therapy services to meet the goals established for this plan of care as noted below. Goals for Episode of Care: established 06/19/24 ALLGO GOALS MET 1. Patient will verbalize understanding of use of adaptive equipment for lower body dressing/ bathing. 2. Patient will identify and fix safety hazards in home prior to surgery. 3. Patient will verbalize good understanding of toilet and shower transfers. 4. Patient will verbalize importance of obtaining durable medical equipment for transfer safety . 5. Patient will verbalize good understanding of hip precautions Patient Goals: Gain knowledge for surgery Planned Interventions, Frequency, and Duration: Current Frequency: 1 visit Duration: 1 visit Total Number of Visits Planned: 1 Planned Treatment Interventions: Self-snf management (25298) PLAN FOR NEXT VISIT: Patient demonstrates good understanding of plan of care and treatment. The above goals and plan of care were discussed and agreed upon by patient/family. SUBJECTIVE: OT initial evaluation; Pt schedule for TKA; here for consult for pre-hab visit. Surgery scheduled for August. Has PT appointment scheduled. 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; 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[employer] Recreation / Current Exercise: works out at [employer] 4x/week cardio and weights Hobbies / Interests: homestead Home Environment Patient Lives With: Family, Spouse Assistance Available: 24-Hour Home Type: Multi-Level with First Floor Set-Up (first floor set up available; full bath first floor; main bed/bath 2nd floor) Entry To Home: Stairs, Without Rail, With Rail Number Of Stairs Into Home: 3 (handrail to R side) Tub/Shower Type: tub/shower first floor; walk in shower second floor Laundry: main level Equipment Owned: Walker- Wheeled, Cane, Commode- Raised, Grab Bars- Toilet, Crutch(es), ADL Kit Transportation: SUV Pain: Pain Pain Level: 1 Pain Location: Knee - Left Description: Aching Additional Pain Information : Comments Additional Pain Information Comments: varies pending on activity Post Treatment Pain Post Treatment Pain Level: No Change PROMIS Scales 06/10/2024 03/04/2022 02/03/2022 Higher is Better Phys Func - Score 40 (mild dysfunction) 41 (mild dysfunction) 39 (moderate dysfunction) Phys Func - Percentile 16 18 14 Self-Eff Symptom - Score 35 (Low) 48 (Average) Self-Eff Symptom - Percentile 7 42 T-scores: mean of general population = 50. 5 points is clinically meaningfully difference Percentiles provide an indication of how the patient's score ranks in relation to the general population. Higher percentile rankings indicate better function/quality of life. 50th percentile is the average of the general population and indicates half of respondents had a worse score. OBJECTIVE MEASURES WITH LEVEL OF FUNCTION: Body Systems Range of Motion: ROM Limitation Comments Range Of Motion: Within Functional Limits Except Current Activities Of Daily Living Current Activities Of Daily Living: Grooming, Bathing Lower Body, Dressing Upper Body, Dressing Lower Body, Toileting Grooming: Modified Independent (more content not included)...[facility]09-27-2024 History of Present illness Narrative* Demetra Toney, OTR/L - 06/19/2024 1:48 PM EDT Summary: OT prehab evaluation Images from the original note were not included. Episode Visit Count: 1 Therapist That Will Accept/Oversee The Plan Of Care: Demetra Edwin Start of Care Date: 06/19/24 Onset Date: 06/19/14 Patient Identified by Name and Date of : Yes [facility] OCCUPATIONAL THERAPY EVALUATION PLAN OF CARE: Assessment: Yony Robertson presents with diagnosis of schedule L TKA that interferes with walking, standing, rising from a chair, bending, physical activities, recreational activities, lifting . The patient presents with impairments in joint mobility and overall function. PROMIS (Patient-Reported Outcomes Measurement Information System) scores were reviewed and identified as a rehabilitation concern. Prognosis for therapy is Good due to: current objective clinical presentation . The patient will benefit from skilled therapy services to meet the goals established for this plan of care as noted below. Goals for Episode of Care: established 06/19/24 ALLGO GOALS MET 1. Patient will verbalize understanding of use of adaptive equipment for lower body dressing/ bathing. 2. Patient will identify and fix safety hazards in home prior to surgery. 3. Patient will verbalize good understanding of toilet and shower transfers. 4. Patient will verbalize importance of obtaining durable medical equipment for transfer safety . 5. Patient will verbalize good understanding of hip precautions Patient Goals: Gain knowledge for surgery Planned Interventions, Frequency, and Duration: Current Frequency: 1 visit Duration: 1 visit Total Number of Visits Planned: 1 Planned Treatment Interventions: Self-snf management (28250) PLAN FOR NEXT VISIT: Patient demonstrates good understanding of plan of care and treatment. The above goals and plan of care were discussed and agreed upon by patient/family. SUBJECTIVE: OT initial evaluation; Pt schedule for TKA; here for consult for pre-hab visit. Surgery scheduled for August. Has PT appointment scheduled. 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; [employer]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 [employer] Recreation / Current Exercise: works out at [employer] 4x/week cardio and weights Hobbies / Interests: homestead Home Environment Patient Lives With: Family, Spouse Assistance Available: 24-Hour Home Type: Multi-Level with First Floor Set-Up (first floor set up available; full bath first floor; main bed/bath 2nd floor) Entry To Home: Stairs, Without Rail, With Rail Number Of Stairs Into Home: 3 (handrail to R side) Tub/Shower Type: tub/shower first floor; walk in shower second floor Laundry: main level Equipment Owned: Walker- Wheeled, Cane, Commode- Raised, Grab Bars- Toilet, Crutch(es), ADL Kit Transportation: SUV Pain: Pain Pain Level: 1 Pain Location: Knee - Left Description: Aching Additional Pain Information : Comments Additional Pain Information Comments: varies pending on activity Post Treatment Pain Post Treatment Pain Level: No Change PROMIS Scales 06/10/2024 03/04/2022 02/03/2022 Higher is Better Phys Func - Score 40 (mild dysfunction) 41 (mild dysfunction) 39 (moderate dysfunction) Phys Func - Percentile 16 18 14 Self-Eff Symptom - Score 35 (Low) 48 (Average) Self-Eff Symptom - Percentile 7 42 T-scores: mean of general population = 50. 5 points is clinically meaningfully difference Percentiles provide an indication of how the patient's score ranks in relation to the general population. Higher percentile rankings indicate better function/quality of life. 50th percentile is the average of the general population and indicates half of respondents had a worse score. OBJECTIVE MEASURES WITH LEVEL OF FUNCTION: Body Systems Range of Motion: ROM Limitation Comments Range Of Motion: Within Functional Limits Except Current Activities Of Daily Living Current Activities Of Daily Living: Grooming, Bathing Lower Body, Dressing Upper Body, Dressing Lower Body, Toileting Grooming: Modified Independent Bathing Lower Body: Modified Independent Dressing Upper Body: Modified Independent Dressing Lower Body : Modified Independent Instrumental Activities of Daily Living Difficulty noted with: Meal/Beverage Prep, Cooking, Cleaning, Laundry, Shopping, Additional Instrumental Activities of Daily Living Meal/Beverage Prep: Modified Independent Cooking: Modified Independent Cleaning: Modified Independent Laundry: Modified Independent Shopping: Modified Independent Current Functional Mobility Functional Mobility: Sit <-> Stand, Functional Mobility Education: Education Learning Preferences: Demonstration, Explanation, Performance, Printed Materials Barriers: None Learning/educational needs: Procedure / Surgery Education Provided: Yes, see treatment interventions for education provided Education Provided To: Patient Education Mode/Type: Demonstration, Explanation/Discussion, Literature/Printed Materials, Performance Response to Education/Teach Back: States/Identifies, Return Demonstration, Requires Review/Additional Education TREATMENT: OT Treatment Interventions : Self-Group Home Management Evaluation Evaluation Self-Group Home Management: 1: Education regarding precautions s/p TKR including no twisting/no crossing legs; handouts given; pt verbalizing understanding 2: Education for safe transfers including chair, shower, commode, and car; handouts given pt verbalizing understanding 3: Education for self-care regarding sequencing, adaptive equipment and expected level of assist; handouts given pt verbalizing understanding 4: Education for likely assist level regarding IADLs including laundry, cooking, cleaning, and transportation; handouts given pt verbalizing understanding Skilled Intervention: Skilled judgment in the selection of proper modification for activity of daily living/home management based on clinical presentation, deficits, and needs. Provided written instruction for activities of daily living techniques to facilitate proper performance and compliance. Reviewed patient specific diagnosis in relation to activities of daily living/home management. Billing * Evaluation Low Complexity: 1 Unit Self-Care/Home Management Treatment Minutes: 15 Skilled Treatment Time Minutes (timed and untimed codes): 15 Total Session Time (minutes): 25 Session Start Time : 1320 Session Stop Time : 1345 TODD Mosqueda documented in this encounterK[facility]-19-[facility] NoteHNO ID: [id number] Author: HUBERT FUENTES APRN.DEYANIRA Service: ? Author Type: Nurse Practitioner Type: Progress Notes Filed: 06/11/2024 08:35 Note Text: Established Patient Ortho Knee Consult Note ASSESSMENT AND PLAN Impression: Left Knee Severe Degenerative Osteoarthritis, Primary Yony is a very pleasant 59-year-old male presents today for left knee pain. He is known to me having undergone a right total hip arthroplasty and right total knee arthroplasty with Dr. Hoff. He had previously been indicated for left total knee arthroplasty by Dr. Hoff roughly a year ago. He was scheduled for surgery but unfortunately he had to cancel due to his 's health issues. Reports she is doing well now at this point and he would like to proceed with scheduling again. X-rays demonstrate severe medial and patellofemoral osteoarthritis. He continues to complain of daily pain and has exhausted conservative management. I do believe he is an appropriate candidate to proceed. We had a lengthy discussion regarding risk versus benefits and he understands these well. Will plan to do this robotically here in the [place]. He has a same-day surgery candidate. I have ordered preoperative physical therapy and Occupational Therapy. All questions have been answered. Yony Robertson has radiograph and physical exam evidence of degenerative joint disease and wishes to pursue surgery. This patient appears to have sufficient symptoms to warrant surgical intervention and is an appropriate candidate for left Primary Total Knee Arthroplasty as evidenced by six months of unsuccessful non-operative treatment as outlined in the HPI below and progressive symptoms. Progressive Symptoms Include: Pain impacting sleep or causing fatigue Pain impacting work Pain worsened by weight bearing Pain limiting ability to stay fit and healthy. This patient has the following risk factors: None We had a lengthy discussion regarding the risk and benefit of surgery, the alternatives, limitations and personnel involved. These included but were not limited to infection, persistent pain, instability, nerve injury, blood clots, and medical complications. We also discussed the pre-operative course, surgery itself and rehabilitation. Ethel-operative blood management and transfusion issues were discussed, and options clearly outlined. The patient has elected to schedule surgery at this time or intends to call the office with a surgical date. Shared decision making occurred while obtaining informed consent. The patient will be scheduled for a pre-operative education class at which time they will have their nasal swab completed and will be given CHG cloths along with the verbal and written instructions for their use. Patient has been instructed and has been scheduled or will call to schedule attendence in one of the total joint perioperative classes offered prior to proceeding with TKA. The patient has been ordered: Pre-operative PT, OT CT scan left knee for robotically assisted TKA CONSULTS: Patient does not require consults for optimization at this time. ACTIVE PROBLEM LIST Primary Osteoarthritis of Both Knees Svt (Supraventricular Tachycardia) (Hcc) Bmi 39.0-39.9,Adult Stiffness of Right Knee Status Post Right Knee Replacement SUBJECTIVE CHIEF COMPLAINT: Knee Pain HPI: Yony Robertson is a 59 year old patient here for evaluation and management of left knee pain. Patient has had progressive problems with the knee(s) constantly over the past 5 year(s) interfering with activities which include exercise, doing creative strategist, participating in family activities, enjoying hobbies, walking, and climbing stairs. The problem began limiting activities 3+ years ago. Currently the pain in the joint is rated at 8 out of 10 with minimal activity. The pain is chronic and is located along the inside aspect and in the front. The pain is described as aching, radiating, soreness, and stiffness. Relieving factors include no relieving factors. There is no specific incident that brought about this pain. Patient has no additional complaints. Total Joint Arthroplasty: Risk Calculator Yony Robertson has a 1.96% chance of NOT returning home at discharge for a Primary total Knee replacement. Yony's estimated Length of Stay is 1 day (Outpatient candidate). Yony's 30 day chance of readmission is 1.39%. Readmission Probability 1.39 % (within 30 days following surgery) Estimated LOS 1 day Discharge Disposition Probability D/C to Home 98.04 % D/C to SNF 1.96 % These calculations are based on the following factors: - 59 years of age - sex is male - BMI of 34.9 kg/m2 - [facility] score of 70 - 0 hospitalizations in the last 12 months - no history of heart disease - no history of diabetes - no history of COPD - no history of anemia - preoperative ambulation: independent community distances - 2 step(s) to enter home - b (more content not included)...[facility]09-19-2024 History of Present illness Narrative* Hubert Fuentes APRN.CUTTER TENDER - 06/11/2024 8:26 AM EDT Established Patient Ortho Knee Consult Note ASSESSMENT AND PLAN Impression: Left Knee Severe Degenerative Osteoarthritis, Primary Yony is a very pleasant 59-year-old male presents today for left knee pain. He is known to me having undergone a right total hip arthroplasty and right total knee arthroplasty with Dr. Hoff. He hadpreviously been indicated for left total knee arthroplasty by Dr. Hoff roughly a year ago. He wasscheduled for surgery but unfortunately he had to cancel due to his 's health issues. Reports she is doing well now at this point and he would like to proceed with scheduling again. X-rays demonstrate severe medial and patellofemoral osteoarthritis. He continues to complain of daily pain and has exhausted conservative management. I do believe he is an appropriate candidate to proceed. We had a lengthy discussion regarding risk versus benefits and he understands these well. Will plan to do this robotically here in the [place]. He has a same- day surgery candidate. I have ordered preoperativephysical therapy and Occupational Therapy. All questions have been answered. Yony Robertson has radiograph and physical exam evidence of degenerative joint disease and wishes to pursue surgery. This patient appears to have sufficient symptoms to warrant surgical intervention and is an appropriate candidate for left Primary Total Knee Arthroplasty as evidenced by six months ofunsuccessful non-operative treatment as outlined in the HPI below and progressive symptoms. Progressive Symptoms Include: Pain impacting sleep or causing fatigue Pain impacting work Pain worsened by weight bearing Pain limiting ability to stay fit and healthy. This patient has the following risk factors: None We had a lengthy discussion regarding the risk and benefit of surgery, the alternatives, limitations and personnel involved. These included but were not limited to infection, persistent pain, instability, nerve injury, blood clots, and medical complications. We also discussed the pre-operative course, surgery itself and rehabilitation. Ethel-operative blood management and transfusion issues were discussed, and options clearly outlined. The patient has elected to schedule surgery at this time or intends to call the office with a surgical date. Shared decision making occurred while obtaining informed consent. The patient will be scheduled for a pre-operative education class at which time they will have their nasal swab completed and will be given CHG cloths along with the verbal and written instructions for their use. Patient has been instructed and has been scheduled or will call to schedule attendence in one of the total joint perioperative classes offered prior to proceeding with TKA. The patient has been ordered: Pre-operative PT, OT CT scan left knee for robotically assisted TKA CONSULTS: Patient does not require consults for optimization at this time. ACTIVE PROBLEM LIST Primary Osteoarthritis of Both Knees Svt (Supraventricular Tachycardia) (Hcc) Bmi 39.0-39.9,Adult Stiffness of Right Knee Status Post Right Knee Replacement SUBJECTIVE CHIEF COMPLAINT: Knee Pain HPI: Yony Robertson is a 59 year old patient here for evaluation and management of left knee pain. Patienthas had progressive problems with the knee(s) constantly over the past 5 year(s) interfering with activities which include exercise, doing creative strategist, participating in family activities, enjoying hobbies, walking, and climbing stairs. The problem began limiting activities 3+ years ago. Currently the pain in the joint is rated at 8 out of 10 with minimal activity. The pain is chronic and is located along the inside aspect and in the front. The pain is described as aching, radiating,soreness, and stiffness. Relieving factors include no relieving factors. There is no specific incident that brought about this pain. Patient has no additional complaints. Total Joint Arthroplasty: Risk Calculator Yony Robertson has a 1.96% chance of NOT returning home at discharge for a Primary total Knee replacement. Yony's estimated Length of Stay is 1 day (Outpatient candidate). Yony's 30 day chance of readmission is 1.39%. Readmission Probability 1.39 % (within 30 days following surgery) Estimated LOS 1 day Discharge Disposition Probability D/C to Home 98.04 % D/C to SNF 1.96 % These calculations are based on the following factors: - 59 years of age - sex is male - BMI of 34.9 kg/m2 - NarxCare score of 70 - 0 hospitalizations in the last 12 months - no history of heart disease - no history of diabetes - no history of COPD - no history of anemia - preoperative ambulation: independent community distances - 2 step(s) to enter home - bed location is NOT on the first floor - bath location is on the first floor - caregiver is consistent - home is not more than 150 miles away - PROMIS-10 Mental Health T score 50+ - Marital status: PREVIOUS TREATMENTS: Medical Treatments: OTC NSAIDS for 3 Months or Greater (Ibuprofen and Tylenol), Steroid Injections Left Knee Risk Factors for Total Joint Arthroplasty (TJA) Obesity Unknown Risk High: BMI > 40 Moderate: BMI 30-40 Normal: BMI < 30 Diabetes normal High: A1C > 8 Moderate: A1C 7-8 Normal: A1C < 7 Smoking normal High: Current smoker Normal: Non smoker Anemia normal High: Hgb < 13 (men) N/A: Hgb >= 13 (men) Nutritional Status normal High: Alb<3.4, or prealb<15, or serum transferrin<200, or total lymphocyte count<1500 Normal: normal labs COPD normal High: dx of COPD Normal: no dx of COPD MRSA normal High: dx of MRSA or positive lab test Normal: no MRSA CKD normal High: eGFR<60 Moderate: eGFR 60-89 Normal: eGFR>90 Hx of DVT / PE normal High: dx of DVT / PE Normal: no dx of DVT / PE Narcotics Use normal High:NarxCare >=300 Moderate: 100-299 Normal: 0-99 MERLE normal High: dx of MERLE N/A: no dx of MERLE Coagulation normal High:PT Sec>13, or PT INR>1.3, or APTT>32.4, or Plt ct<150k Moderate: on anticoag but none of the above Normal: none Obesity: height and/or weight are out of date (There is no height and/or weight reading in the [id number] days, so the below BMI readings may be inaccurate) BMI Readings from Last 3 Encounters: 05/02/23 : 34.87 kg/m 07/10/22 : 38.99 kg/m 06/25/22 : 38.22 kg/m Other Risk Factors None PHYSICAL EXAM: There were no vitals taken for this visit. All other systems deferred. GENERAL: Appears healthy, well-nourished, no deformities. HABITUS: Obese GAIT: Normal, the patient did not have trouble getting onto the exam table. KNEE EXAM: Left: Alignment: Varus deformity, Partially Correctable Range of motion is 0 degrees in extension and 120 degrees of flexion. Pain with ROM: Yes Effusion: Slight Tender to the palpation of Medial femoral condyle and Medial joint line Pain with patellar compression: Yes Stability: Anterior/Posterior stable and Varus/Valgus stable Hip Exam: flexion to 100+ degrees, full extension, internal/external rotation adequate, and no painwith log roll Neurovascular Status: Sensation Intact, Moves foot and ankle up & down, and 2+ dorsalis pedis DATA: Diagnostic tests reviewed for today's visit: Left knee X-Ray: Patellofemoral joint noted to have severe degenerative changes, Osteophyte formation in the patellofemoral joint space(s), and Bone on bone contact of the medial joint space(s) SIGNATURE: Hubert Fuentes APRN.CNP PATIENT NAME: Yony Robertson DATE: June 11, 2024 TIME: 8:26 AM documented in this encounterKettering [facility]09-19-2024 History of Present illness Narrative* Amarilys Lemus Tech - 06/11/2024 7:40 AM EDT Radiology Service Progress Note PATIENT NAME: Yony Robertson DATE OF SERVICE: June 11, 2024 TIME: 8:02 AM PATIENT IDENTITY VERIFICATION COMPLETED USING TWO (2) IDENTIFIERS: Name and Date of confirmedby patient verbally. FALL SCREENING: Has the patient had 2 falls in the last year or 1 fall with injury or currently using an Ambulatory Assistive Device (Walker, Cane, Wheelchair, Crutches, etc.)? No PATIENT GENDER DATA: Male PATIENT RELEVANT IMPLANT DATA REVIEWED: Not Applicable PATIENT PRESENTS WITH AN IMPLANTABLE OR ATTACHED BAKERY PASTRY INTERNSHIP: No RADIOLOGY DEPARTMENT: General X-ray: Exam(s) Completed: Lower Extremity X- Ray(s): Knee, AP / Lat / Tunne / Merchant Left and Wt. Bearing PERIPHERAL IV DATA: Not applicable SIGNED BY: Nevin Kowalski June 11, 2024 8:02 AM documented in this encounterKettering Health [facility] Campus09-19-2024 NoteHNO ID: [id number] Author: AMARILYS LEMUS Tech Service: ? Author Type: Truck Switcher Type: Progress Notes Filed: 06/11/2024 08:02 Note Text: Radiology Service Progress Note PATIENT NAME: Yony Robertson DATE OF SERVICE: June 11, 2024 TIME: 8:02 AM PATIENT IDENTITY VERIFICATION COMPLETED USING TWO (2) IDENTIFIERS: Name and Date of confirmed by patient verbally. FALL SCREENING: Has the patient had 2 falls in the last year or 1 fall with injury or currently using an Ambulatory Assistive Device (Walker, Cane, Wheelchair, Crutches, etc.)? No PATIENT GENDER DATA: Male PATIENT RELEVANT IMPLANT DATA REVIEWED: Not Applicable PATIENT PRESENTS WITH AN IMPLANTABLE OR ATTACHED BAKERY PASTRY INTERNSHIP: No RADIOLOGY DEPARTMENT: General X-ray: Exam(s) Completed: Lower Extremity X-Ray(s): Knee, AP / Lat / Tunne / Merchant Left and Wt. Bearing PERIPHERAL IV DATA: Not applicable SIGNED BY: Nevin Kowalski June 11, 2024 8:02 [id number] Telephone encounter Note* Telephone Encounter - Corinna Joseph - 06/08/2024 12:24 PM EDT Spoke with patient and scheduled for pre op with Dr Hoff on 07/09/2024 [facility] Miscellaneous Notes* Telephone Encounter - Corinna Joseph - 06/08/2024 12:24 PM EDT Spoke with patient and scheduled for pre op with Dr Hoff on 07/09/2024 * Telephone Encounter - Sarah Cervantes - 06/05/2024 2:25 PM EDT Patient would like to schedule surgery for a left total knee replacement. He hasn't been seen in over a year. He needs an appointment with Dr. Hoff prior to any surgery being scheduled. Please reach out to patient and offer to schedule an appointment with either alistair or Beto. Patient can be reached at [phone]. Sarah Duran documented in this encounterKettering [facility]09-13-2024 Telephone encounter Note * Telephone Encounter - Sarah Cervantes - 06/05/2024 2:25 PM EDT Patient would like to schedule surgery for a left total knee replacement. He hasn't been seen in over a year. He needs an appointment with Dr. Hoff prior to any surgery being scheduled. Please reach out to patient and offer to schedule an appointment with either him or Beto. Patient can be reached at [phone]. Sarah Duran [facility]04-19-2024 Miscellaneous Notes* Telephone Encounter - Osbaldo Posey MA - 01/10/2024 3:56 PM EDT Faxed as requested. Osbaldo Posey MA * Telephone Encounter - Madelyn Mancini - 01/10/2024 10:53 AM EDT Evangelina from PCP office is calling asking to fax Colonoscopy report from 04/27/2014 to their office at [phone] documented in this encounterKettering [facility]09-14-2023 Miscellaneous Notes* Telephone Encounter - Sharri Madera MA - 06/06/2023 7:56 AM EDT Last OV 05/02/2023- [facility] Next OV none scheduled Patient electronically sent a request for the following prescription(s) Requested Prescriptions Pending Prescriptions Disp Refills gabapentin (NEURONTIN) 300 mg capsule 60 capsule 0 Sig: Take 1 capsule by mouth twice daily for 30 days. Patient aware RX will be sent to pharmacy. No need to notify patient. Please review. Sharri Madera MA documented in this encounterKettering Health [facility] Campus08-28-2023 NoteHNO ID: [id number] Author: Yony Paz RT(R) Service: ? Author Type: Technologist Type: Progress Notes Filed: 05/20/2023 4:57 PM Note Text: Radiology Service Progress Note PATIENT NAME: Yony Robertson DATE OF SERVICE: May 20, 2023 [...] IV DATA: Not applicable SIGNED BY: RT Dinote(R) May 20, 2023 4:56 [facility]08-28-2023 History of Present illness Narrative* Yony Paz RT(R) - 05/20/2023 5:00 PM EDT Radiology Service Progress Note PATIENT NAME: Yony Robertson DATE OF SERVICE: May 20, 2023 TIME: 4:56 PM PATIENT IDENTITY VERIFICATION COMPLETED USING TWO (2) IDENTIFIERS: Name and Date of confirmedby patient verbally. FALL SCREENING: Has the patient [...] 20, 2023 4:56 PM documented in this encounterKettering Health [facility]08-10-2023 History of Present illness Narrative* Netta Hoff MD - 05/02/2023 11:12 AM EDT Orthopaedic Office Note: May 02, 2023 11:12 AM Yony Robertson 58 year old History: Yony is a 58-year-old man who I previously did a left total hip replacement on approximately 10 months ago. He has been having some ongoing issues with thigh pain. This happens about 60% of the time when he is walking. He is particularly active. He has been doing a lot of weight lifting in the gym.He is here for discussion of this. It does not start up pain. There is no particular activity otherthan walking that bothers it. He denies any [...] Assessment and Plan: The long discussion with Yony about his left hip today. It is very plausible that his pain is secondary to the high levels of activity, exercise, as well as the bony remodeling which certainly is notcomplete at this point. However, based on his symptoms, I do believe we need to rule out a stress fracture at the tip of the stem. For this reason I have ordered an MRI. I will follow-up with him afterwards via telephone I spent a total of approximately 15 minutes on the date of the service which included preparing to see the patient, [id number] patient care, completing clinical documentation, obtaining and/or reviewing separately obtained history, performing a medically appropriate examination, counseling and educating the patient/family/caregiver, and care coordination (not separately reported). Netta Hoff MD Orthopaedic Surgery documented in this encounterKettering [facility]08-10-2023 History of Present illness Narrative* Coretta Dixon Tech - 05/02/2023 9:20 AM EDT Radiology Service Progress Note PATIENT NAME: Yony Robertson DATE OF SERVICE: May 02, 2023 TIME: 9:32 AM PATIENT IDENTITY VERIFICATION COMPLETED USING TWO (2) IDENTIFIERS: Name and Date of confirmedby patient verbally. FALL SCREENING: Has the patient [...] Nevin Godwin May 02, 2023 9:32 AM documented in this encounterKettering [facility]03-30-2023 Miscellaneous Notes* Telephone Encounter - Audra Hua RN - 12/20/2022 12:39 PM EDT Spoke with pt He has 1 refill left and will call Mar[facility] to ghada refilled documented in this encounterKettering Health [facility] Campus11-15-2022 Miscellaneous Notes* Telephone Encounter - Tammy Oneil - 08/07/2022 12:[address] order is in, called and scheduled patient. * Telephone Encounter - Leydi Basurto - 08/07/2022 12:11 PM EST Please watch for order for Morgan CT scan and call patient to schedule documented in this encounterKettering Health [facility] Campus11-15-2022 History of Present illness Narrative* Netta Hoff MD - 08/07/2022 11:51 AM EST Post-op Office Visit Yony Robertson 57 year old August 07, 2022 11:51 AM Surgery Date: 06/25/22 History: Yony Robertson Is now 6 weeks out from [...] slight limp Incision well-approximated, no drainage, normal ethel-incisional erythema Arcs of motion at hip are [...] Xrays: No new today Assessment and Plan: Yony Robertson Is here for a second post-op [...] Hoff MD Orthopaedic Surgery documented in this encounterKettering [facility]10-24-2022 Miscellaneous Notes* Addendum Note - Hubert Fuentes APRN.CNP - 07/16/2022 2:43 PM EDTAddended by: HUBERT FUENTES on: 07/16/2022 02:43 PM Modules accepted: Orders documented in this encounterKettering [facility] Campus10-21-2022 Miscellaneous Notes* PT DISCHARGE - Carlene Platt, PT - 07/13/2022 2:41 PM EDT SITUATION: only patient present during today's visit. [...] summary for intervention/education details. documented in this encounterKettering Health [facility] Campus10-19-2022 Miscellaneous Notes* PT ROUTINE/REASSESSMENT/RECERT/CASE MGMT - Victorina Knapp PTA - 07/11/2022 2:30 PM EDT SITUATION: only patient present during today's visit. [...] summary for intervention/education details. documented in this encounterKettering [facility]10-18-2022 Miscellaneous Notes* Telephone Encounter - Hubert Fuentes APRN.DEYANIRA - 07/10/2022 3:30 PM EDTMessage from [facility]: SHARMILA Sun Jul 10, 2022 3:27 PM ----- Message ----- From: Yony Robertson Sent: 07/10/2022 3:19 PM EDT To: Beverley Scott Renew Rx Subject: Medication Renewal Request Refills have been requested for the following medications: oxyCODONE IR (ROXICODONE) 5 mg immediate release tablet [Hubert Fuentes] Patient Comment: Checked when I got home and am almost out. Preferred pharmacy: [facility] [address] [place] [phone] - [address] - [phone] Delivery method: Pickup documented in this encounterKettering [facility]10-18-2022 History of Present illness Narrative* Hubert Fuentes APRN.CNP - 07/10/2022 12:47 PM EDT Post-op Office Visit Yony Robertson 57 year old July 10, 2022 12:47 PM Surgery Date:06/25/22 History: Yony Robertson Is now 2 weeks and 1 [...] with walker Incision well-approximated, no drainage, normal ethel-incisional erythema Full ROM not tested do to early post-operative period, but smaller arcs of motion fluid and comfortable Distally DP/PT palpable Distally S/S/SP/DP/T intact at baseline Distally DF/EHL/PF intact at baseline Negative marlin/calf tenderness Xrays: Well aligned total hip replacement in appropriate position with no evidence of loosening Assessment and Plan: Yony Robertson Is here for a first post-op [...] new swelling, drainage, shortness of breath Hubert Fuentes APRN.CUTTER TENDER Orthopaedic Surgery documented in this encounterKettering [facility] Campus10-18-2022 History of Present illness Narrative* KAILA Esposito - 07/10/2022 12:40 PM EDT Radiology Service Progress Note PATIENT NAME: Yony Robertson DATE OF SERVICE: July 10, 2022 TIME: 1:26 PM PATIENT IDENTITY VERIFICATION COMPLETED USING TWO (2) IDENTIFIERS: Name and Date of confirmedby patient verbally. FALL SCREENING: Has the patient had 2 falls in the last year or 1 fall with injury or currently using an Ambulatory Assistive Device (Walker, Cane, Wheelchair, Crutches, etc.)? Yes, Patient High Riskfor Falls What interventions were put in place to prevent falls during this visit? Offered Assistance with Transfers/Clothing and Increased Observations by Caregivers PATIENT GENDER DATA: Male PATIENT RELEVANT IMPLANT DATA REVIEWED: Not Applicable RADIOLOGY DEPARTMENT: General X-ray: Exam(s) Completed: Pelvis X-Ray: Pelvis with Hip Left PERIPHERAL IV DATA: Not applicable SIGNED BY: KAILA Esposito July 10, 2022 1:26 PM documented in this encounterKettering [facility] Campus10-14-2022 Miscellaneous Notes* PT ROUTINE/REASSESSMENT/RECERT/CASE MGMT - Victorina Knapp PTA - 07/06/2022 8:30 AM EDT SITUATION: son present during today's visit. patient [...] summary for intervention/education details. documented in this encounterKettering [facility] Campus10-12-2022 Miscellaneous Notes* PT ROUTINE/REASSESSMENT/RECERT/CASE MGMT - Carlene Platt PT - 07/04/2022 12:06 PM EDT SITUATION: no one present during today's visit. patient reports the following since the last homecare visit: medications/allergies--no changes, no fall. patient reports he was ok when he woke up thismorning but he sat in on a zoom [...] summary for intervention/education details. documented in this encounterKettering [facility] Campus10-10-2022 Miscellaneous Notes* Telephone Encounter - Victorina Knapp PTA - 07/02/2022 5:12 PM EDT Removed surgical bandage today. No concerns. Picture obtained and uploaded to chart. Thanks documented in this encounterKettering Health [facility] Campus10-10-2022 Miscellaneous Notes* PT ROUTINE/REASSESSMENT/RECERT/CASE MGMT - Victorina Knapp PTA - 07/02/2022 8:30 AM EDT SITUATION: son present during today's visit. patient [...] summary for intervention/education details. documented in this encounterKettering Health [facility] Campus10-10-2022 Miscellaneous Notes* Telephone Encounter - Hubert Fuentes APRN.CNP - 07/02/2022 7:55 AM EDT OARRS reviewed. Patient has been compliant and taking medication appropriately without evidence of suspicious activity. Will refill rx. Hubert Fuentes APRN.CNP July 02, 2022 7:55 AM * Telephone Encounter - Audra Hua RN - 07/02/2022 7:40 AM EDTMessage from [facility]: Refills have been requested for the following medications: oxyCODONE IR (ROXICODONE) 5 mg immediate release tablet [Brennon Bacon] Preferred pharmacy: [facility] [address] [place] [phone] - [address] - [phone] Delivery method: Pickup documented in this encounterKettering [facility] Campus10-05-2022 Miscellaneous Notes* PT SOC/JEN/FOLLOW UP/OTHER - Carlene Platt, PT - 06/27/2022 9:31 AM EDT SITUATION: spouse present during today's visit. patient [...] 7 ( 07/04) ASSESSMENT: [facility]. Reviewed and explained homecare [...] summary for intervention/education details. documented in this encounterKettering [facility] Campus10-04-2022 Miscellaneous Notes* Telephone Encounter - BETH Hollingsworth - 06/26/2022 10:59 AM EDT Welcome Home Call: a. Date and Time: 10:59 AM 06/26/2022 b. Contact name/relationship: patient c. Have you been active with any Home Care company in the last 60 days(such as help with bathing, filling medications, checking your blood pressure) ? No. d. Was patient given Flu shot this Season (After May,): No: Patient refused e. [facility] will be providing your care, [...] maintain a safe environment for our caregivers, [facility] requires anyanimals or weapons present in the home be located in a secured location. Our clinicians will call you the night before or the morning of the appointment. Their # may come up restricted but they'll leave a VM for you. In case you have any questions or concerns in the meantime, our # is [phone], option 1 Thank you for your time and have a great day. - Patient states No travel or COVID contact and has all DME already BETH Hollingsworth documented in this encounterKettering Health [facility]09-16-2022 Miscellaneous Notes* [facility] - SHAVON Borden) - 06/08/2022 3:30 PM EDT Radiology Service Progress Note PATIENT NAME: Yony Robertson DATE OF SERVICE: June 08, 2022 TIME: 3:26 PM PATIENT IDENTITY VERIFICATION COMPLETED USING TWO (2) IDENTIFIERS: Name and Date of confirmedby patient verbally and Name and Date of confirmed by identification band. FALL SCREENING: Has the patient had 2 falls in the last year or 1 fall with injury or currently using an Ambulatory Assistive Device (Walker, Cane, Wheelchair, Crutches, etc.)? No PATIENT GENDER DATA: Male PATIENT RELEVANT IMPLANT DATA REVIEWED: Not Applicable RADIOLOGY DEPARTMENT: CT; Exam(s) Completed: MORGAN HIP PERIPHERAL IV DATA: Not applicable SIGNED BY: RT Suha(Nanci) June 08, 2022 3:26 PM documented in this encounterKettering Health [facility] Campus09-14-2022 Instructions* Patient Instructions* Minal Og APRN.DEYANIRA - 06/06/2022 3:23 PM EDT PATIENT PREOPERATIVE INSTRUCTIONS Netta Hoff MD has scheduled you for your procedure at this surgery center: [facility]: [phone] -- [address] [facility] [address]. Please read below carefully for your personalized [...] Procedures: - YOU MUST HAVE A RESPONSIBLE LIBRARIAN HEAD TAKE YOU HOME. A LUMP RECEIVER OR WORKERS COMPENSATION CLAIMS SUPERVISOR CANNOT BE MADE A RESPONSIBLE LIBRARIAN HEAD. - We recommend that a responsible person stays with you overnight to take care of you. - You cannot stay in a hotel alone after outpatient surgery. You will not be permitted to have yoursurgery, if you do not have someone to [...] Advance Directive, please fax a copy to [phone] or email to for it to be added to your chart. If you do not have an Advance Directive, you can find the appropriate form and more information at [email or web address]. We recommend that youcomplete the Advance Directive form found on the website and bring it with you the day of your surgery. It can be witnessed and scanned into your chart that day. Minal Og APRN.CNP documented in this encounterKettering Health [facility] Campus09-14-2022 History and physical note * Minal Og APRN.CNP - 06/06/2022 3:22 PM EDT Images from the original note were not included. HISTORY AND PHYSICAL EXAMINATION SERVICE DATE: 06/06/2022 SERVICE TIME: 3:22 PM PRIMARY CARE PHYSICIAN: Cristian Robertson MD, MD REASON FOR VISIT: Yony Robertson is a 57 year old male who is scheduled for Procedure(s): ROBOTIC ASSISTED TOTAL HIP ARTHROPLASTY (Left) at the request of Dr. Netta Hoff for consultation.My final recommendation will be communicated back to [...] this topic. CHIEF COMPLAINT: Pre-op exam HPI: JS is a 57 yo seen for PAC [...] within 6 weeks, tobacco use, URI < 2weeks and obstructive sleep apnea. Cardiovascular: Positive for: arrhythmia (h/o SVT s/p ablation 2011) Negative for: anticoagulation therapy, atrial fibrillation, CAD, chest pain, CHF, congenital heart defect, DVT/PE, hyperlipidemia, hypertension, recent PA, murmur/valvular heart disease, open heart surgery and [...] Take 1 capsule by mouth once daily. doTerra MicroPlex VMz Taking Yes MEDICATION, NON-DATABASE Take 1 capsule by mouth once daily. doTerra Alpha CRS+ Taking Yes MEDICATION, NON-DATABASE Take 1 capsule by mouth once daily. doTerra xEo Terrence Taking Yes MEDICATION, NON-DATABASE Take [...] Take 1 capsule by mouth every evening. doTerra Deep Blue Taking Yes VITAMIN B COMPLEX [...] 372 QTC Calculation (Bazett) 442 Calculated P [place] 38 Calculated R [place] 12 Calculated T [place] 14 Impression NORMAL SINUS RHYTHM POSSIBLE LEFT ATRIAL ENLARGEMENT BORDERLINE ECG No results found for this or any previous visit (from the past 48037 hour(s)). Assessment SVT (supraventricular tachycardia) (HCC) Assessment: [...] have a large neck STOP-Bang Score: 3 [id number] Score: Age: <65 Sex: male CHF history: No Hypertension history: No Stroke/TIA/thromboembolism history: No Vascular disease history: No Diabetes history: No [id number] Score: 0 ARISCAT Score: Age: 51-80 ARISCAT [...] and consent discussed: yes. Patient / Responsible Green Party agrees to proceed: yes Patient / Surrogate [...] and voices comprehension and compliance. SIGNATURE: Minal Og APRN.CNP PATIENT NAME: Yony Robertson DATE: June 06, 2022 TIME: 3:22 PM PAGER/CONTACT #: documented in this encounterKettering Health [facility] Campus09-13-2022 Miscellaneous Notes* Telephone Encounter - Tammy Oneil - 06/05/2022 11:16 AM EDT Called and scheduled patient for CT. Thanks * Telephone Encounter - Sarah Walker Sedc - 06/05/2022 10:41 AM EDT Patient is scheduled for a L KASSIE on 06-25-2022. Please call patient and schedule for a CT scan for MORGAN. Thank you. Sarah Walker Sedc documented in this encounterKettering Health [facility] Campus09-13-2022 Miscellaneous Notes* Telephone Encounter - BETH Lisa - 06/05/2022 10:03 AM EDT TOTAL JOINT COMPLETE CARE PROGRAM PRE-OPERATIVE TEACHING Service Date: 06/05/2022 Service Time: 10:04 AM Date of : 1965 Gender: male Date of Surgery: 06/25/22 Procedure: Left Total Hip Replacement Complete Care Program was discussed with the patient: Refined Syrup Operator Identification: Patient identified a care transition manager to help when discharged to home: Home Environment: Home Layout: 2 story, Entry Steps: 3 no rails, Bedroom Location: 1st floor, Bathroom Location: 1st floor, and tub shower. Pt owns walker, crutches. Discussed equipment. Discussed with patient importance of attending joint education class and provided date and times ofclass: YES paper copy. Patient received Joint Education Binder: Yes Patient plans discharge home with [facility]. SIGNATURE: BETH Lisa PATIENT NAME: Yony Robertson DATE: June 05, 2022 TIME: 10:04 AM documented in this encounterK[facility]-30-2022 Miscellaneous Notes* Telephone Encounter - Sarah Guerrero Aaron Owensc - 05/22/2022 2:54 PM EDT Spoke to patient. We will schedule him for Saturday, July 11, 2022. I offered him earlier but he couldn't do that date. This will be for a L KASSIE. Sarah Gonzalezkarl Owens documented in this encounterK[facility]08-10-2022 Miscellaneous Notes* Telephone Encounter - Hubert Fuentes APRN.CNP - 05/02/2022 3:46 PM EDT Rx e-scripted Hubert Fuentes APRN.CNP May 02, 2022 3:46 PM documented in this encounterK[facility]08-08-2022 History of Present illness Narrative* Candy Kaur RT(Nanci) - 04/30/2022 7:30 AM EDT Radiology Service Progress Note PATIENT NAME: Yony Robertson DATE OF SERVICE: April 30, 2022 TIME: 7:29 AM PATIENT IDENTITY VERIFICATION COMPLETED USING TWO (2) IDENTIFIERS: Name and Date of confirmedby patient verbally. FALL SCREENING: Has the patient had 2 falls in the last year or 1 fall with injury or currently using an Ambulatory Assistive Device (Walker, Cane, Wheelchair, Crutches, etc.)? PATIENT GENDER DATA: Male PATIENT RELEVANT IMPLANT DATA REVIEWED: Yes RADIOLOGY DEPARTMENT: MR; Exam(s) Completed: Lower MSK: Hip, left PERIPHERAL IV DATA: Not applicable SIGNED BY: RT Idalia(Nanci) April 30, 2022 7:29 AM documented in this encounterK[facility]07-26-2022 History of Present illness Narrative* Netta Hoff MD - 04/17/2022 1:12 PM EDT Orthopaedic Office Note: April 17, 2022 1:12 PM Yony Robertson 57 year old History: Mr. Robertson [...] which included preparing to see the patient, [id number] patient care, completing clinical documentation, obtaining and/or reviewing separately obtained history, performing a medically appropriate examination, counseling and educating the pat ient/family/caregiver, ordering medications, tests, or procedures and communicating results to the patient/family/caregiver. Netta Hoff MD Orthopaedic Surgery documented in this encounterK[facility]07-26-2022 Miscellaneous Notes* Allied Health - RT Aurelio(R) - 04/17/2022 10:50 AM EDT Radiology Service Progress Note PATIENT NAME: Yony Robertson DATE OF SERVICE: April 17, 2022 TIME: 10:53 AM PATIENT IDENTITY VERIFICATION COMPLETED USING TWO (2) IDENTIFIERS: Name and Date of confirmedby patient verbally. FALL SCREENING: Has the patient had 2 falls in the last year or 1 fall with injury or currently using an Ambulatory Assistive Device (Walker, Cane, Wheelchair, Crutches, etc.)? No PATIENT GENDER DATA: Male PATIENT RELEVANT IMPLANT DATA REVIEWED: Not Applicable RADIOLOGY DEPARTMENT: General X-ray: Exam(s) Completed: Lower Extremity X- Ray(s): Knee, AP / Lat / Tunne / Merchant Left PERIPHERAL IV DATA: Not applicable SIGNED BY: Ameena Butler RT(R) April 17, 2022 10:53 AM documented in this encounterKettering [facility]05-18-2022 History of Present illness Narrative* Angelo Balbuena, PT - 02/07/2022 12:28 PM EDT Episode Visit Count: 9 Therapist That Will Oversee The Plan Of Care: Angelo Balbuena Start of Care Date: 12/11/21 REHABILITATION AND SPORTS THERAPY PHYSICAL THERAPY PROGRESS REPORT PLAN OF CARE UPDATE: Assessment: Yony Robertson demonstrates significant improvement in rising from a chair, standing, walking, stair negotiation, bending, physical activities and recreational activities . He hasprogressedtoward goals. Patient continues to present with impairments in overall function and range of motionthat interfere with lifting;physical activities;recreational activities;kneeling;heavy exertion . [...] of Care: created on 12/11/21 through 03/13/22 Bates in home exercise program. - Currently Met, [...] to demonstrate decreased risk of falling and Bates.- MET Patient will improve 5 time sit to stand duration to demonstrate improvement in functional lower extremity strength. - MET Normal gait. - Met Reciprocal stair negotiation. - Met Patient will complete ascending and descending of 10-12 stairs with reciprocal pattern mechanics on6 inch steps. Met Strength symmetry testin% symmetry [...] Patient to be seen for Therapeutic exercise (39981);Neuromuscular re-education (15702);Manual therapy (62744);Therapeutic activities (43243);Self-snf management (53788);Gait Training (01017);Patient/Family/Caregiver Education;Body Mechanics Training PLAN FOR NEXT VISIT: [...] 40 Angelo Balbuena PT documented in this encounterK[facility]05-17-2022 History of Present illness Narrative* Hubert Fuentes APRN.CUTTER TENDER - 02/06/2022 2:40 PM EDT Post-op Office Visit Yony Robertson 56 year old February 06, 2022 2:40 PM Surgery Date: 11/22/21 History: Yony Robertson Is now 10 weeks out from [...] with none Incision well-approximated, no drainage, normal ethel-incisional erythema ROM 0 - 105 Distally DP/PT palpable Distally S/S/SP/DP/T intact at baseline Distally DF/EHL/PF intact at baseline Negative marlin/calf tenderness Xrays: No new today Assessment and Plan: Yony Robertson Is here for a second post-op [...] knee arthroplasty. Follow up sooner as needed Hubetr Fuentes APRN.CNP February 06, 2022 2:43 PM documented in this encounterK[facility]05-11-2022 History of Present illness Narrative* Angelo Balbuena, PT - 01/31/2022 2:15 PM EDT Episode Visit Count: 8 Therapist That Will Oversee The Plan Of Care: Angelo Balbuena Start of Care Date: 12/11/21 REHABILITATION AND SPORTS THERAPY PHYSICAL THERAPY TREATMENT NOTE ASSESSMENT: Yony Robertson tolerated the session with fatigue and expected muscle soreness. He demonstrated improvements in exercise tolerance. The patient will continue to benefit from ongoing skilledphysical therapy to progress toward set goals. PLAN [...] 42 Angelo Balbuena PT documented in this encounterK[facility]tering [facility]05-03-2022 History of Present illness Narrative* Angelo Balbuena PT - 01/23/2022 5:10 PM EDT Episode Visit Count: 7 Therapist That Will Oversee The Plan Of Care: Angelo Balbuena Start of Care Date: 12/11/21 REHABILITATION AND SPORTS THERAPY PHYSICAL THERAPY TREATMENT NOTE ASSESSMENT: Yony Robertson tolerated the session with fatigue. He [...] pain turning to get out of his trucklast week. Rechecked by surgeon and everything looks [...] 40 Angelo Balbuena PT documented in this encounterK[facility]04-28-2022 Miscellaneous Notes* Addendum Note - Hubert Fuentes APRN.CNP - 01/18/2022 12:29 PM EDT Addended by: HUBERT FUENTES on: 01/18/2022 12:29 PM Modules accepted: Orders documented in this encounterKettering [facility]04-28-2022 History of Present illness Narrative* Hubert Fuentes APRN.CNP - 01/18/2022 12:17 PM EDT Post-op Office Visit Yony Robertson 56 year old January 18, 2022 12:17 PM Surgery Date: 11/22/21 History: Yony Robertson Is now 8 weeks out from [...] with walker Incision well-approximated, no drainage, normal ethel-incisional erythema ROM 0 - 95 TTP over LCL Distally DP/PT palpable Distally S/S/SP/DP/T intact at baseline Distally DF/EHL/PF intact at baseline Negative marlin/calf tenderness Xrays: X-rays today right total knee arthroplasty in satisfactory position without evidence for loosening or osteolysis. No fractures Assessment and Plan: Yony Robertson Is here for a second post-op [...] Will see back in 2-3 weeks Hubert Fuentes APRN.CNP January 18, 2022 12:25 PM documented in this encounterK[facility]04-28-2022 Miscellaneous Notes* Allied Health - SHAVON Carey) - 01/18/2022 10:40 AM EDT Radiology Service Progress Note PATIENT NAME: Yony Robertson DATE OF SERVICE: January 18, 2022 TIME: 10:55 AM PATIENT IDENTITY VERIFICATION COMPLETED USING TWO (2) IDENTIFIERS: Name and Date of confirmedby patient verbally. FALL SCREENING: Has the patient had 2 falls in the last year or 1 fall with injury or currently using an Ambulatory Assistive Device (Walker, Cane, Wheelchair, Crutches, etc.)? No PATIENT GENDER DATA: Male PATIENT RELEVANT IMPLANT DATA REVIEWED: Not Applicable RADIOLOGY DEPARTMENT: General X-ray: Exam(s) Completed: Lower Extremity X- Ray(s): Knee, AP / Lat / Merchant Right PERIPHERAL IV DATA: Not applicable SIGNED BY: RT Aurelio(Nanci) January 18, 2022 10:55 AM documented in this encounterKettering [facility]04-27-2022 History of Present illness Narrative* Angelo Balbuena PT - 01/17/2022 10:35 AM EDT Episode Visit Count: 6 Therapist That Will Oversee The Plan Of Care: Angeol Balbuena Start of Care Date: 12/11/21 REHABILITATION AND SPORTS THERAPY PHYSICAL THERAPY TREATMENT NOTE ASSESSMENT: Yony Robertson tolerated the session with decreased pain [...] 40 Angelo Balbuena PT documented in this encounterK[facility]04-12-2022 History of Present illness Narrative* Angelo Balbuena PT - 01/02/2022 4:10 PM EDT Episode Visit Count: 4 Therapist That Will Oversee The Plan Of Care: Angelo Sree Start of Care Date: 12/11/21 REHABILITATION AND SPORTS THERAPY PHYSICAL THERAPY TREATMENT NOTE ASSESSMENT: Yony Robertson tolerated the session with fatigue, expected muscle soreness and no issues. He demonstrated improvements in knee ROM during initial set progressions. The patient will continue to benefit from ongoing skilled physical therapy to progress toward set goals and to continue withpost-operative protocol . PLAN FOR NEXT VISIT: SC [...] 44 Total Treatment Time Minutes (timed/untimed): 44 Justin Sebastian, OG Supervising therapist was present and guided the care of the patient for the entire session on thisdate. All documentation was reviewed and agreed upon. Angelo Balbuena PT documented in this encounterK[facility]04-07-2022 Miscellaneous Notes* Telephone Encounter - Hubert Fuentes APRN.CNP - 12/28/2021 3:36 PM EDT OARRS reviewed. Patient has been compliant and taking medication appropriately without evidence of suspicious activity. Will refill rx. Hubert Fuentes APRN.CNP December 28, 2021 3:36 PM documented in this encounterKet[facility]10-08-2021 History of Present illness Narrative* Michell Tabor DO - 06/30/2021 10:28 AM EDT Reason for Visit/Chief Complaint Yony Robertson is a 56 year old male who presents today for a new evaluation of following complaint: Patient presents with: Left Hand - Established Patient, Pain History of Present Illness: PAIN EVALUATION 06/30/2021 1010 Pain Level: 9 Pain Location: L Hand Description: Dull;Sharp Duration Amount of Time: 4 Duration Units: Weeks Frequency: Intermittent Intervention/Comfort measure: Reposition;Relaxation HPI: Yony Robertson is a 56 year old male presenting today with Left hand pain. Pain history is notedas above. Denies calf pain, numbness, tingling, fever, [...] intolerance, new onset joint pain or swelling, newonset extremity weakness or numbness, new onset auditory or visual disturbances, lightheadedness, dizziness, partial loss of consciousness or full loss of consciousness. Current Outpatient Medications on File Prior to Visit Medication Sig aspirin 81 mg chewable tablet Take 81 mg by mouth once daily. Omeprazole (PRILOSEC) 40 mg capsule Take 1 capsule by mouth once daily. (Patient not taking: Reported on 06/30/2021 ) Pryfbakpr-Tfvejiqdd-Ghetyrufk (PREVPAC) 500-500-30 mg combo pack Follow package [...] thumb basilar joint arthrosis with subtle spurring. Cloth Bleaching Range Operator Chief: LESLIE ... Complete Results Assessment and Plan: Impression: Encounter Diagnosis ICD-10-CM 1. Pain of left hand M79.642 CONSULT TO AGENT TICK[facility]ING GATE 2. Left wrist tendinitis M77.8 3. CMC arthritis M19.049 Last XR Hand/Finger - Impression Only XR HAND GENERAL 3V PA/LAT/OBL LT Exam End: 06/30/2021 9:59 AM (Final result) Impression: IMPRESSION: No acute bony abnormality. 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 Cloth Bleaching Range Operator Chief: LESLIE Mcfadden.Bogdan Complete Results Plan: Ice otc sleeve/ vs [...] discussed. Michell Tabor DO documented in this encounterK[facility]Eval[facility] [place] [facility]* Diagnosis Right knee pain, unspecified chronicity- Primary documented [facility] encounter [facility]* Diagnosis Pain of left hand- Primary Pain in limb Left wrist tendinitis CMC arthritis Unspecified arthropathy, hand documented in [facility] encounter [facility]* Diagnosis Status post right knee replacement Primary osteoarthritis of both knees Primary localized osteoarthrosis, lower leg documented [facility]* Diagnosis Status post right knee replacement- Primary Stiffness of right knee [facility] Diagnosis Status post right knee replacement- Primary Stiffness of right knee documented [facility]* Diagnosis Chronic pain of right knee- Primary [facility] Diagnosis Status post right knee replacement- Primary Sprain of lateral collateral ligament of right knee, initial encounter [facility] Diagnosis Status post right knee replacement- Primary Stiffness of right knee [facility] Diagnosis Status post right knee replacement- Primary Stiffness of right knee [facility] Diagnosis Status post right knee replacement- Primary [facility] Diagnosis Status post right knee replacement- Primary Stiffness of right knee [facility] Diagnosis Status post right knee replacement Primary osteoarthritis of both knees Primary localized osteoarthrosis, lower leg [facility] Diagnosis Pain- Primary Generalized pain [facility]* Diagnosis Primary osteoarthritis of left hip- Primary Primary localized osteoarthrosis, pelvic region and thigh Pain in hip Pain in joint, pelvic region and thigh [facility]* Diagnosis Pain Generalized pain documented [facility]* Diagnosis Pain in left hip- Primary Pain in joint, pelvic region and thigh [facility] Diagnosis Primary osteoarthritis of left hip- Primary Primary localized osteoarthrosis, pelvic region and thigh Pain in left hip Pain in joint, pelvic region and thigh [facility] Diagnosis Pre-operative examination- Primary Preoperative examination, unspecified SVT (supraventricular tachycardia) ([facility]) Other specified cardiac dysrhythmias Status post right knee replacement Primary osteoarthritis of both knees Primary localized osteoarthrosis, lower leg Primary osteoarthritis of left hip Primary localized osteoarthrosis, pelvic region and thigh Pain in left hip Pain in joint, pelvic region and thigh [facility] Diagnosis Presence of left artificial hip joint Hip joint replacement by other means Preop examination Preoperative examination, unspecified Primary osteoarthritis of left hip Primary localized osteoarthrosis, pelvic region and thigh Pain in left hip Pain in joint, pelvic region and thigh documented [facility]* Diagnosis S/P total left hip arthroplasty [facility]* Diagnosis Pain in left hip- Primary Pain in joint, pelvic region and thigh documented [facility]* Diagnosis Status post left hip replacement- Primary Hip joint replacement by other means documented in this encounter [facility] note* Diagnosis S/P total left hip arthroplasty documented in this encounter [facility] note* Diagnosis Pain in left hip Pain in joint, pelvic region and thigh [facility]* Diagnosis Neuropathy- Primary Mononeuritis of unspecified site documented in this encounter [facility] note* Diagnosis Chronic pain of left knee- Primary Pain in joint, lower leg documented in this encounter [facility] note* Diagnosis Primary osteoarthritis of left knee- Primary Primary localized osteoarthrosis, lower leg Encounter for screening for COVID-19 Primary osteoarthritis of left knee Primary localized osteoarthrosis, lower leg documented in this encounter [facility] note* Diagnosis Neuropathy Mononeuritis of unspecified site Encounter for screening for COVID-19 Primary osteoarthritis of left knee Primary localized osteoarthrosis, lower leg [facility]* Diagnosis Neuropathy Mononeuritis of unspecified site [facility]* Diagnosis Neuropathy Mononeuritis of unspecified site [facility]* Diagnosis Neuropathy Mononeuritis of unspecified site [facility]* Diagnosis Left knee pain, unspecified chronicity- Primary Pain in left hip Pain in joint, pelvic region and thigh [facility]* Diagnosis Encounter for observation for other suspected diseases and conditions ruled out- Primary Pain of left thigh Pain in limb [facility]* Diagnosis Neuropathy Mononeuritis of unspecified site [facility]* Diagnosis Encounter for observation for other suspected diseases and conditions ruled out documented [facility]* Diagnosis Neuropathy Mononeuritis of unspecified site [facility]* Diagnosis Neuropathy Mononeuritis of unspecified site [facility]* Diagnosis Neuropathy Mononeuritis of unspecified site documented [facility] noteNo assessment information availableWMedina Hospital Work Phone: Evaluation note* Diagnosis Pre-op evaluation- Primary Preoperative examination, unspecified Primary osteoarthritis of right knee Primary localized osteoarthrosis, lower leg SVT (supraventricular tachycardia) (HCC) Other specified cardiac dysrhythmias BMI 39.0-39.9,adult Body Mass Index 39.0-39.9, adult Pre-operative examination- Primary Preoperative examination, unspecified SVT (supraventricular tachycardia) (HCC) Other specified cardiac dysrhythmias Status post right knee replacement Primary osteoarthritis of both knees Primary localized osteoarthrosis, lower leg Chronic pain of left knee- Primary Pain in joint, lower leg [facility]* Diagnosis Pre-op evaluation- Primary Preoperative examination, unspecified Primary osteoarthritis of right knee Primary localized osteoarthrosis, lower leg SVT (supraventricular tachycardia) (HCC) Other specified cardiac dysrhythmias BMI 39.0-39.9,adult Body Mass Index 39.0-39.9, adult Pre-operative examination- Primary Preoperative examination, unspecified SVT (supraventricular tachycardia) (HCC) Other specified cardiac dysrhythmias Status post right knee replacement Primary osteoarthritis of both knees Primary localized osteoarthrosis, lower leg Pain in left hip Pain in joint, pelvic region and thigh Left knee pain, unspecified chronicity [facility]* Diagnosis Pre-op evaluation- Primary Preoperative examination, unspecified Primary osteoarthritis of right knee Primary localized osteoarthrosis, lower leg SVT (supraventricular tachycardia) (HCC) Other specified cardiac dysrhythmias BMI 39.0-39.9,adult Body Mass Index 39.0-39.9, adult Pre-operative examination- Primary Preoperative examination, unspecified SVT (supraventricular tachycardia) (HCC) Other specified cardiac dysrhythmias Status post right knee replacement Primary osteoarthritis of both knees Primary localized osteoarthrosis, lower leg Primary osteoarthritis of left knee- Primary Primary localized osteoarthrosis, lower leg [facility]* Diagnosis Pre-op evaluation- Primary Preoperative examination, unspecified Primary osteoarthritis of right knee Primary localized osteoarthrosis, lower leg SVT (supraventricular tachycardia) (HCC) Other specified cardiac dysrhythmias BMI 39.0-39.9,adult Body Mass Index 39.0-39.9, adult Pre-operative examination- Primary Preoperative examination, unspecified SVT (supraventricular tachycardia) (HCC) Other specified cardiac dysrhythmias Status post right knee replacement Primary osteoarthritis of both knees Primary localized osteoarthrosis, lower leg Chronic pain of left knee Pain in joint, lower leg [facility]* Diagnosis Pre-op evaluation- Primary Preoperative examination, unspecified Primary osteoarthritis of right knee Primary localized osteoarthrosis, lower leg SVT (supraventricular tachycardia) (HCC) Other specified cardiac dysrhythmias BMI 39.0-39.9,adult Body Mass Index 39.0-39.9, adult Pain in hip Pain in joint, pelvic region and thigh Pre-operative examination- Primary Preoperative examination, unspecified SVT (supraventricular tachycardia) (HCC) Other specified cardiac dysrhythmias Status post right knee replacement Primary osteoarthritis of both knees Primary localized osteoarthrosis, lower leg [facility]* Diagnosis Pre-op evaluation- Primary Preoperative examination, unspecified Primary osteoarthritis of right knee Primary localized osteoarthrosis, lower leg SVT (supraventricular tachycardia) (HCC) Other specified cardiac dysrhythmias BMI 39.0-39.9,adult Body Mass Index 39.0-39.9, adult Pre-operative examination- Primary Preoperative examination, unspecified SVT (supraventricular tachycardia) (HCC) Other specified cardiac dysrhythmias Status post right knee replacement Primary osteoarthritis of both knees Primary localized osteoarthrosis, lower leg Primary osteoarthritis of left knee Primary localized osteoarthrosis, lower leg documented in this encounter [facility] note* Diagnosis Pre-op evaluation- Primary Preoperative examination, unspecified Primary osteoarthritis of right knee Primary localized osteoarthrosis, lower leg SVT (supraventricular tachycardia) (HCC) Other specified cardiac dysrhythmias BMI 39.0-39.9,adult Body Mass Index 39.0-39.9, adult Pre-operative examination- Primary Preoperative examination, unspecified SVT (supraventricular tachycardia) (HCC) Other specified cardiac dysrhythmias Status post right knee replacement Primary osteoarthritis of both knees Primary localized osteoarthrosis, lower leg Primary osteoarthritis of left knee Primary localized osteoarthrosis, lower leg documented in this encounter [facility] note* Diagnosis Pre-op evaluation- Primary Preoperative examination, unspecified Primary osteoarthritis of right knee Primary localized osteoarthrosis, lower leg SVT (supraventricular tachycardia) (HCC) Other specified cardiac dysrhythmias BMI 39.0-39.9,adult Body Mass Index 39.0-39.9, adult Pre-operative examination- Primary Preoperative examination, unspecified SVT (supraventricular tachycardia) (HCC) Other specified cardiac dysrhythmias Status post right knee replacement Primary osteoarthritis of both knees Primary localized osteoarthrosis, lower leg Primary osteoarthritis of left knee- Primary Primary localized osteoarthrosis, lower leg Chronic pain of left knee Pain in joint, lower leg Primary osteoarthritis of left knee Primary localized osteoarthrosis, lower leg Chronic pain of left knee Pain in joint, lower leg documented in this encounter [facility] note* Diagnosis Pre-op evaluation- Primary Preoperative examination, unspecified Primary osteoarthritis of right knee Primary localized osteoarthrosis, lower leg SVT (supraventricular tachycardia) (HCC) Other specified cardiac dysrhythmias BMI 39.0-39.9,adult Body Mass Index 39.0-39.9, adult Pre-operative examination- Primary Preoperative examination, unspecified SVT (supraventricular tachycardia) (HCC) Other specified cardiac dysrhythmias Status post right knee replacement Primary osteoarthritis of both knees Primary localized osteoarthrosis, lower leg Primary osteoarthritis of left knee Primary localized osteoarthrosis, lower leg Primary osteoarthritis of left knee Primary localized osteoarthrosis, lower leg Chronic pain of left knee Pain in joint, lower leg documented in this encounter [facility] note* Diagnosis Pre-op evaluation- Primary Preoperative examination, unspecified Primary osteoarthritis of right knee Primary localized osteoarthrosis, lower leg SVT (supraventricular tachycardia) (HCC) Other specified cardiac dysrhythmias BMI 39.0-39.9,adult Body Mass Index 39.0-39.9, adult Pre-operative examination- Primary Preoperative examination, unspecified SVT (supraventricular tachycardia) (HCC) Other specified cardiac dysrhythmias Status post right knee replacement Primary osteoarthritis of both knees Primary localized osteoarthrosis, lower leg Pre-operative examination- Primary Preoperative examination, unspecified SVT (supraventricular tachycardia) (HCC) Other specified cardiac dysrhythmias Status post right knee replacement BMI 36.0-36.9,adult Body Mass Index 36.0-36.9, adult Primary osteoarthritis of left knee Primary localized osteoarthrosis, lower leg Chronic pain of left knee Pain in joint, lower leg * Assessment & Plan Note - Minal Og APRN.CUTTER TENDER - 09/01/2024 2:56 PM EST Associated Problem(s): BMI 36.0-36.9,adult Assessment: Body mass index is 36.3 kg/m . * Assessment & Plan Note - Minal Og APRN.CNP - 09/01/2024 2:56 PM EST Associated Problem(s): Status post right knee replacement Assessment: hx * Assessment & Plan Note - Minal Og APRN.CNP - 09/01/2024 2:55 PM EST Associated Problem(s): SVT (supraventricular tachycardia) (HCC) Assessment: remote hx, s/p ablation in 2011 with resolution of symptoms [facility] Diagnosis Pre-op evaluation- Primary Preoperative examination, unspecified Primary osteoarthritis of right knee Primary localized osteoarthrosis, lower leg SVT (supraventricular tachycardia) (HCC) Other specified cardiac dysrhythmias BMI 39.0-39.9,adult Body Mass Index 39.0-39.9, adult Pre-operative examination- Primary Preoperative examination, unspecified SVT (supraventricular tachycardia) (HCC) Other specified cardiac dysrhythmias Status post right knee replacement Primary osteoarthritis of both knees Primary localized osteoarthrosis, lower leg Pre-operative examination- Primary Preoperative examination, unspecified SVT (supraventricular tachycardia) (HCC) Other specified cardiac dysrhythmias Status post right knee replacement BMI 36.0-36.9,adult Body Mass Index 36.0-36.9, adult Primary osteoarthritis of left knee- Primary Primary localized osteoarthrosis, lower leg Left knee pain, unspecified chronicity documented in this encounter [facility] note* Diagnosis Pre-op evaluation- Primary Preoperative examination, unspecified Primary osteoarthritis of right knee Primary localized osteoarthrosis, lower leg SVT (supraventricular tachycardia) (HCC) Other specified cardiac dysrhythmias BMI 39.0-39.9,adult Body Mass Index 39.0-39.9, adult Pre-operative examination- Primary Preoperative examination, unspecified SVT (supraventricular tachycardia) (HCC) Other specified cardiac dysrhythmias Status post right knee replacement Primary osteoarthritis of both knees Primary localized osteoarthrosis, lower leg Pre-operative examination- Primary Preoperative examination, unspecified SVT (supraventricular tachycardia) (HCC) Other specified cardiac dysrhythmias Status post right knee replacement BMI 36.0-36.9,adult Body Mass Index 36.0-36.9, adult Status post left knee replacement- Primary S/P total knee arthroplasty, left documented in this encounter [facility] note* Diagnosis Pre-op evaluation- Primary Preoperative examination, unspecified Primary osteoarthritis of right knee Primary localized osteoarthrosis, lower leg SVT (supraventricular tachycardia) (HCC) Other specified cardiac dysrhythmias BMI 39.0-39.9,adult Body Mass Index 39.0-39.9, adult Pre-operative examination- Primary Preoperative examination, unspecified SVT (supraventricular tachycardia) (HCC) Other specified cardiac dysrhythmias Status post right knee replacement Primary osteoarthritis of both knees Primary localized osteoarthrosis, lower leg Pre-operative examination- Primary Preoperative examination, unspecified SVT (supraventricular tachycardia) (HCC) Other specified cardiac dysrhythmias Status post right knee replacement BMI 36.0-36.9,adult Body Mass Index 36.0-36.9, adult Left knee pain, unspecified chronicity documented in this encounter [facility] note* Diagnosis Pre-op evaluation- Primary Preoperative examination, unspecified Primary osteoarthritis of right knee Primary localized osteoarthrosis, lower leg SVT (supraventricular tachycardia) (HCC) Other specified cardiac dysrhythmias BMI 39.0-39.9,adult Body Mass Index 39.0-39.9, adult Pre-operative examination- Primary Preoperative examination, unspecified SVT (supraventricular tachycardia) (HCC) Other specified cardiac dysrhythmias Status post right knee replacement Primary osteoarthritis of both knees Primary localized osteoarthrosis, lower leg Pre-operative examination- Primary Preoperative examination, unspecified SVT (supraventricular tachycardia) (HCC) Other specified cardiac dysrhythmias Status post right knee replacement BMI 36.0-36.9,adult Body Mass Index 36.0-36.9, adult S/P total knee arthroplasty, left [facility] Pre-op evaluation- Primary Preoperative examination, unspecified Primary osteoarthritis of right knee Primary localized osteoarthrosis, lower leg SVT (supraventricular tachycardia) (HCC) Other specified cardiac dysrhythmias BMI 39.0-39.9,adult Body Mass Index 39.0-39.9, adult Pre-operative examination- Primary Preoperative examination, unspecified SVT (supraventricular tachycardia) (HCC) Other specified cardiac dysrhythmias Status post right knee replacement Primary osteoarthritis of both knees Primary localized osteoarthrosis, lower leg Pre-operative examination- Primary Preoperative examination, unspecified SVT (supraventricular tachycardia) (HCC) Other specified cardiac dysrhythmias Status post right knee replacement BMI 36.0-36.9,adult Body Mass Index 36.0-36.9, adult S/P total knee arthroplasty, left- Primary [facility] Visit Details [...] home exercise program. 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 -Physical Therapy Problems Problem Description [...] of sepsis Completed SPO2 Description: Notify Dr. hfof if pulse ox is <92% at rest. [...] home exercise program. [facility] Visit Details [...] and pain management. 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 -Physical Therapy Problems Problem Description [...] home exercise program. documented in this encounter [facility] Plan of care note* Visit Details Visit Type -THREADING MACHINE OPERATOR ROUTINE Discipline -Physical Therapy Problems Problem Description [...] home exercise program. [facility] Visit Details [...] include: verbal cues. [facility] Visit Details Visit Type -PT ROUTINE Discipline -Physical Therapy Problems Problem Description Start Date Status Goals Interve ntions Sepsis Disciplines: Skilled Services 09/08/2024 Active 1 goal linked to scheduled/document ed intervention 1 goal intervention scheduled/document ed in this visit Physician Specific Parameters Disciplines: Skilled Services 09/08/2024 Active 1 goal linked to scheduled/document ed intervention 1 goal intervention scheduled/document ed in this visit Risk for Falls Disciplines: Skilled Services 09/08/2024 Active 1 goal linked to scheduled/document ed intervention 1 goal intervention scheduled/document ed in this visit PT Impaired muscle performance and/or ROM Disciplines: PT 09/08/2024 Active 1 goal linked to scheduled/document ed intervention 1 goal intervention scheduled/document ed in this visit PT Impaired mobility Disciplines: PT 09/08/2024 Active 1 goal linked to scheduled/document ed intervention 1 goal intervention scheduled/document ed in this visit PT Impaired gait Disciplines: PT 09/08/2024 Active 1 goal linked to scheduled/document ed intervention 1 goal intervention scheduled/document ed in this visit PT Orthopedic Condition Disciplines: PT 09/08/2024 Active 1 goal linked to scheduled/document ed intervention 3 goal interventions scheduled/document ed in this visit PT Learning Assessment Disciplines: PT 09/08/2024 Active 1 goal linked to scheduled/document ed intervention 1 goal intervention scheduled/document ed in this visit Goals Goal Associated Problem Outcome Goal Met? Visit Notes Patient/caregiver will be able to identify and report symptoms of sepsis Description: Patient/caregiver will be able to identify signs/symptoms of sepsis infection and will verbalize actions to take if suspected by 09/26/24. Sepsis No Patient to maintain parameters within physician-specified ranges throughout certification period Physician Specific Parameters No Manage Risk for falls Description: Patient/caregiver will verbalize knowledge of individualized fall prevention strategies by 09/26/24. Risk for Falls No Improved Muscle Performance and/or ROM Description: LTG: Patient and/or caregiver will verbalize/demonstrate independence with home exercise program, to improve functional mobility, to be achieved by 09/26/24. LTG: Patient will demonstrate improved left knee active range of motion to 0-90 degrees, to meet functional goals, to be achieved by 09/26/24. PT Impaired muscle performance and/or ROM No Improved Transfers Description: STG: Patient will demonstrate safe transfers to/from bed, chair, toilet, couch, shower/tub and car independently, to be achieved by 09/19/24. PT Impaired mobility No Improved Gait Description: STG: Patient will demonstrate improved gait ability as evidenced by ambulation 350 feet with front wheeled walker independently, in order to increase independence within home and attend ortho appt, to be achieved by 09/19/24. LTG: Patient will demonstrate improved gait ability as evidenced by ambulation 350 feet with single point cane independently, to return to safe household and community ambulation, in order to transition to outpatient PT, to be achieved by 09/26/24. PT Impaired gait No Manage Orthopedic Condition Description: Improve patient and/or caregiver understanding of post surgical and/or non-surgical orthopedic intervention management as evidenced by patient and/or caregiver able to verbalize, demonstrate, and teach back instruction, to be achieved by 09/26/24. PT Orthopedic Condition No Demonstrate understanding of education Description: Patient and/or caregiver will understand educational instruction to be achieved by 09/26/24. PT Learning Assessment No Interventions Intervention Associated Problem/Goal Status Variance Visit Notes Risk of Sepsis Description: Patient is at risk for sepsis. Monitor closely for s/s of sepsis. Problem:Sepsis Goal:Patient/caregiver will be able to identify and report symptoms of sepsis Completed SPO2 Description: Notify Dr. Hoff if pulse ox is <92% at rest. Problem:Physician Specific Parameters Goal:Patient to maintain parameters within physician-specified ranges throughout certification period Completed Instruct on individual fall risk factors and strategies to prevent falls and injuries caused by falls. Problem:Risk for Falls Goal:Manage Risk for falls Completed PT: Patient instructed on Eliminating Environmental Hazards: Keep pathways clear, Remove unsafe rugs, Move furniture from pathways, Keep rooms and walkways well lit, Install hand rails/grab bars and Wear supportive shoes or non-skid socks Managing Impaired Functional Mobility: Use assistive device(s): front wheeled walker Managing Pain Physical Therapy Therapeutic Exercises Problem:PT Impaired muscle performance and/or ROM Goal:Improved Muscle Performance and/or ROM Completed patient instructed on strengthening and range of motion exercises including Supine : GS,QS,, HIPADD, HIP ABD, HEEL SLIDES, SAQ, X 10 supien passive knee ext x 3 1/2 min with verbal, tactile and written cues for technique. patient instructed to perform home exercise program twice a day which included hourly ambulatioon. Physical Therapy Transfer Training Problem:PT Impaired mobility Goal:Improved Transfers Completed Transfer training and instruction to patient on safe transfers to and from bed and chair with contact guard assist and verbal cues for technique . Physical Therapy Gait Training Problem:PT Impaired gait Goal:Improved Gait Completed Gait training and instruction to patient on safe ambulation with front wheeled walker for 40'x 2 , 60' x 1 feet with supervision, with verbal cues for corrections of gait deviations including increasing wt on the surgical leg . Instruct on orthopedic precautions and weight bearing restrictions Description: Orthopedic precautions including [id number] total knee: no knee flexed over pillow at rest. Weight bearing restrictions include: WBAT of involved extremity. Problem:PT Orthopedic Condition Goal:Manage Orthopedic Condition Completed patient instructed on orthopedic precautions. Instruct on management of edema Problem:PT Orthopedic Condition Goal:Manage Orthopedic Condition Completed Instruct patient on management of edema including elevation of LLE above the level of the heart and ice. Instruct on self-management of post surgical and/or non-surgical orthopedic intervention Problem:PT Orthopedic Condition Goal:Manage Orthopedic Condition Completed patient instructed on managagement of orthopedic condition, measures to avoid skin breakdown, staying well hydrated, eating foods with high protein, signs and symptoms of infection and signs and symptoms of DVT/PE. Instruct and educate on knowledge deficits Problem:PT Learning Assessment Goal:Demonstrate understanding of education Completed patient verbalize and/or demonstrate understanding of physical therapy education including orthopedic condition management, weight bearing precautions, surgical precautions, pain management, fall prevention strategies, home safety, functional activity and home exercise program. Education methods include: verbal cues and written instructions. Further education required to improve knowledge and compliance with orthopedic condition management, weight bearing precautions, surgical precautions, pain management, fall prevention strategies, home safety, functional activity and home exercise program. documented in this encounter [facility] Plan of care note* Visit Details Visit Type -PT SOC Discipline -Physical Therapy Problems Problem Description Start Date Status Goals Interve ntions Medication Education Disciplines: Skilled Services 09/08/2024 Active 1 goal linked to scheduled/document ed intervention 1 goal intervention scheduled/document ed in this visit Sepsis Disciplines: Skilled Services 09/08/2024 Active 1 goal linked to scheduled/document ed intervention 1 goal intervention scheduled/document ed in this visit Physician Specific Parameters Disciplines: Skilled Services 09/08/2024 Active 1 goal linked to scheduled/document ed intervention 1 goal intervention scheduled/document ed in this visit Risk for Falls Disciplines: Skilled Services 09/08/2024 Active 1 goal linked to scheduled/document ed intervention 1 goal intervention scheduled/document ed in this visit Pain Disciplines: Skilled Services 09/08/2024 Active 1 goal linked to scheduled/document ed intervention 1 goal intervention scheduled/document ed in this visit High Risk Medications Disciplines: Skilled Services 09/08/2024 Active 1 goal linked to scheduled/document ed intervention 3 goal interventions scheduled/document ed in this visit Discharge Disciplines: Skilled Services 09/08/2024 Active 1 goal linked to scheduled/document ed intervention 2 goal interventions scheduled/document ed in this visit PT Impaired muscle performance and/or ROM Disciplines: PT 09/08/2024 Active 1 goal linked to scheduled/document ed intervention 1 goal intervention scheduled/document ed in this visit PT Impaired mobility Disciplines: PT 09/08/2024 Active 1 goal linked to scheduled/document ed intervention 1 goal intervention scheduled/document ed in this visit PT Impaired gait Disciplines: PT 09/08/2024 Active 1 goal linked to scheduled/document ed intervention 1 goal intervention scheduled/document ed in this visit PT Orthopedic Condition Disciplines: PT 09/08/2024 Active 1 goal linked to scheduled/document ed intervention 3 goal interventions scheduled/document ed in this visit PT Learning Assessment Disciplines: PT 09/08/2024 Active 1 goal linked to scheduled/document ed [...] home, and adhere to medication schedule by 09/26/24. Medication Education No Patient/caregiver will be able to identify and report symptoms of sepsis Description: Patient/caregiver will be able to identify signs/symptoms of sepsis infection and will verbalize actions to take if suspected by 09/26/24. Sepsis No Patient to maintain parameters within physician-specified ranges throughout certification period Physician Specific Parameters No Manage Risk for falls Description: Patient/caregiver will verbalize knowledge of individualized fall prevention strategies by 09/26/24. Risk for Falls No Manage Pain Description: Patient/caregiver will verbalize knowledge and understanding of appropriate techniques to control pain, including pain medication and non-pharmacological techniques. Patient will verbalize or demonstrate an acceptable level of pain as evidenced by a pain score of <2/10 L knee and improvement in ability to perform activities of daily living to be achieved by 09/26/24. Pain No Patient/caregiver will teach back high risk medication side effect and precaution education Description: Patient/caregiver will verbalize understanding of high risk medication side effects and precautions to be achieved by 09/26/24. High Risk Medications No Manage discharge planning Description: Patient/caregiver will verbalize understanding of ongoing discharge plan provided related to disease management, arrangements for outpatient and/or community services, obtaining medications, supplies, and DME, as needed throughout certification period. Discharge No Improved Muscle Performance and/or ROM Description: LTG: Patient and/or caregiver will verbalize/demonstrate independence with home exercise program, to improve functional mobility, to be achieved by 09/26/24. LTG: Patient will demonstrate improved left knee active range of motion to 0-90 degrees, to meet functional goals, to be achieved by 09/26/24. PT Impaired muscle performance and/or ROM No Improved Transfers Description: STG: Patient will demonstrate safe transfers to/from bed, chair, toilet, couch, shower/tub and car independently, to be achieved by 09/19/24. PT Impaired mobility No Improved Gait Description: STG: Patient will demonstrate improved gait ability as evidenced by ambulation 350 feet with front wheeled walker independently, in order to increase independence within home and attend ortho appt, to be achieved by 09/19/24. LTG: Patient will demonstrate improved gait ability as evidenced by ambulation 350 feet with single point cane independently, to return to safe household and community ambulation, in order to transition to outpatient PT, to be achieved by 09/26/24. PT Impaired gait No Manage Orthopedic Condition Description: Improve patient and/or caregiver understanding of post surgical and/or non-surgical orthopedic intervention management as evidenced by patient and/or caregiver able to verbalize, demonstrate, and teach back instruction, to be achieved by 09/26/24. PT Orthopedic Condition No Demonstrate understanding of education Description: Patient and/or caregiver will understand educational instruction to be achieved by 09/26/24. PT Learning Assessment No Interventions Intervention Associated [...] of sepsis Completed SPO2 Description: Notify Dr. Hoff if pulse ox is <92% at rest. Problem:Physician Specific Parameters Goal:Patient to maintain parameters within physician-specified ranges throughout certification period Completed Instruct on individual fall risk factors and strategies to prevent falls and injuries caused by falls. Problem:Risk for Falls Goal:Manage Risk for falls Completed PT: Patient instructed on Eliminating Environmental Hazards: Keep pathways clear, Keep pets out of pathways and Keep rooms and walkways well lit Managing Impaired Functional Mobility: Use assistive device(s): front wheeled walker Managing Pain Instruct on pain and instruct on strategies to control pain Problem:Pain Goal:Manage Pain Completed patient instructed on techniques to control pain including Pharmacological measures and Non-Pharmacological measures; rest, positioning/elevation, mobility/therapeutic exercise, use of DME/assistive devices and use of thermal modalities, apply ice to affected area for the following prescribed frequency: using ice machine. Opioids- educated on high risk medication Problem:High Risk Medications Goal:Patient/caregive r will teach back high risk medication side effect and precaution education Completed patient educated on taking medication(s) as prescribed by provider. Do not stop medication or alter doses without speaking with your provider. Discuss medication effectiveness or side effect concerns with your provider and home care team. Only take opioids as prescribed, do not share your medications, and take proper precautions in storing and properly disposing of opioids once no longer needed. Possible side effects of opioid medication including sedation, decreased rate of breathing, and constipation. Report over sedation to prescribing provider and practice deep breathing techniques every hour while awake. Prevent constipation by increasing water and fiber intake, increasing activity as tolerated, and use stool softener(s) as prescribed. Antiplatelet- educated on high risk medication Problem:High Risk Medications Goal:Patient/caregive r will teach back high risk medication side effect and precaution education Completed patient educated on taking medication(s) as prescribed by provider. Do not stop medication or alter doses without speaking with your provider. Discuss medication effectiveness or side effect concerns with your provider and home care team. Discuss all medications you are taking, even [id number] medicines, with your provider and pharmacist since many drugs can interact with antiplatelet medications. If you forget to take a dose, DO NOT take a double dose. Take the missed dose as soon as possible on the same day. DO NOT take a double dose the next day to make up for the missed dose. Watch for signs of abnormal or excessive bleeding and bruising (refer to Bleeding Precautions education). Call your health care provider right away if you suspect something is wrong. Antibiotic- educated on high risk medication Problem:High Risk Medications Goal:Patient/caregive r will teach back high risk medication side effect and precaution education Completed patient educated on taking medication(s) as prescribed by provider. Do not stop medication or alter doses without speaking with your provider. Discuss medication effectiveness or side effect concerns with your provider and home care team. Take the full dispensed amount even if you start feeling better, as bacteria can become resistant to antibiotic treatment if you do not finish your prescription. Common side effects are upset stomach and diarrhea. Take your antibiotics with food unless otherwise indicated to help with indigestion. Call your provider immediately if you develop rashes or hives as this could be a delayed allergic reaction. Seek emergency treatment if you develop severe allergic reaction symptoms such as mouth or tongue swelling. Instruct on ongoing discharge plan Problem:Discharge Goal:Manage discharge planning Completed Ongoing Discharge plan: Discharge plan discussed with patient including frequency and duration for home PT and plan for transition to: outpatient therapy. Instruct on importance of follow-up appts and continued monitoring with medical provider &/or chronic care clinic Problem:Discharge Goal:Manage discharge planning Completed Education provided on importance of compliance with follow-up appointment(s). ortho followup appt on 09/22/24 Physical Therapy Therapeutic Exercises Problem:PT Impaired muscle performance and/or ROM Goal:Improved Muscle Performance and/or ROM Completed patient instructed on range of motion and strengthening exercises including Supine AAROM heel slides x10, supine Quad sets x10 with verbal, tactile and written cues for correct muscle activation and positioning. patient instructed to perform home exercise program three times a day which included above plus written handout. Physical Therapy Transfer Training Problem:PT Impaired mobility Goal:Improved Transfers Completed Transfer training and instruction to patient on safe transfers to and from bed and chair with supervision and verbal cues for safety awareness. Physical Therapy Gait Training Problem:PT Impaired gait Goal:Improved Gait Completed Gait training and instruction to patient on safe ambulation with front wheeled walker for [id number] and [id number] with stand by assist, with verbal and visual cues for corrections of gait deviations including L heel strike. Instruct on orthopedic precautions and weight bearing restrictions Description: Orthopedic precautions including [id number] total knee: no knee flexed over pillow at rest. Weight bearing restrictions include: WBAT of involved extremity. Problem:PT Orthopedic Condition Goal:Manage [...] managagement of orthopedic condition, staying well hydrated, eating foods with high protein, instructed on when to call provider and instructed on when to call 911. Instruct and educate on knowledge deficits Problem:PT Learning Assessment Goal:Demonstrate understanding of education Completed patient verbalize and/or demonstrate understanding of physical therapy education including orthopedic condition management, weight bearing/precautions, pain management, fall prevention strategies, home safety, functional activity and home exercise program. Education methods include: verbal cues, tactile cues, written instructions and visual cues. Further education required to improve knowledge and compliance with orthopedic condition management, pain management, fall prevention strategies, home safety, integumentary and incision/wound care management, functional activity and home exercise program. [facility] Visit Details Visit Type -PT ROUTINE Discipline -Physical Therapy Problems Problem Description Start Date Status Goals Interve ntions Sepsis Disciplines: Skilled Services 09/08/2024 Active 1 goal linked to scheduled/document ed intervention 1 goal intervention scheduled/document ed in this visit Physician Specific Parameters Disciplines: Skilled Services 09/08/2024 Active 1 goal linked to scheduled/document ed intervention 1 goal intervention scheduled/document ed in this visit Risk for Falls Disciplines: Skilled Services 09/08/2024 Active 1 goal linked to scheduled/document ed intervention 1 goal intervention scheduled/document ed in this visit Pain Disciplines: Skilled Services 09/08/2024 Active 1 goal linked to scheduled/document ed intervention 1 goal intervention scheduled/document ed in this visit PT Impaired muscle performance and/or ROM Disciplines: PT 09/08/2024 Active 1 goal linked to scheduled/document ed intervention 1 goal intervention scheduled/document ed in this visit PT Impaired mobility Disciplines: PT 09/08/2024 Active 1 goal linked to scheduled/document ed intervention 1 goal intervention scheduled/document ed in this visit PT Impaired gait Disciplines: PT 09/08/2024 Active 1 goal linked to scheduled/document ed intervention 1 goal intervention scheduled/document ed in this visit PT Orthopedic Condition Disciplines: PT 09/08/2024 Active 1 goal linked to scheduled/document ed intervention 4 goal interventions scheduled/document ed in this visit PT Learning Assessment Disciplines: PT 09/08/2024 Active 1 goal linked to scheduled/document ed intervention 1 goal intervention scheduled/document ed in this visit Goals Goal Associated Problem Outcome Goal Met? Visit Notes Patient/caregiver will be able to identify and report symptoms of sepsis Description: Patient/caregiver will be able to identify signs/symptoms of sepsis infection and will verbalize actions to take if suspected by 09/26/24. Sepsis No Patient to maintain parameters within physician-specified ranges throughout certification period Physician Specific Parameters No Manage Risk for falls Description: Patient/caregiver will verbalize knowledge of individualized fall prevention strategies by 09/26/24. Risk for Falls No Manage Pain Description: Patient/caregiver will verbalize knowledge and understanding of appropriate techniques to control pain, including pain medication and non-pharmacological techniques. Patient will verbalize or demonstrate an acceptable level of pain as evidenced by a pain score of <2/10 L knee and improvement in ability to perform activities of daily living to be achieved by 09/26/24. Pain No Improved Muscle Performance and/or ROM Description: LTG: Patient and/or caregiver will verbalize/demonstrate independence with home exercise program, to improve functional mobility, to be achieved by 09/26/24. LTG: Patient will demonstrate improved left knee active range of motion to 0-90 degrees, to meet functional goals, to be achieved by 09/26/24. PT Impaired muscle performance and/or ROM No Improved Transfers Description: STG: Patient will demonstrate safe transfers to/from bed, chair, toilet, couch, shower/tub and car independently, to be achieved by 09/19/24. PT Impaired mobility No Improved Gait Description: STG: Patient will demonstrate improved gait ability as evidenced by ambulation 350 feet with front wheeled walker independently, in order to increase independence within home and attend ortho appt, to be achieved by 09/19/24. LTG: Patient will demonstrate improved gait ability as evidenced by ambulation 350 feet with single point cane independently, to return to safe household and community ambulation, in order to transition to outpatient PT, to be achieved by 09/26/24. PT Impaired gait No Manage Orthopedic Condition Description: Improve patient and/or caregiver understanding of post surgical and/or non-surgical orthopedic intervention management as evidenced by patient and/or caregiver able to verbalize, demonstrate, and teach back instruction, to be achieved by 09/26/24. PT Orthopedic Condition No Demonstrate understanding of education Description: Patient and/or caregiver will understand educational instruction to be achieved by 09/26/24. PT Learning Assessment No Interventions Intervention Associated Problem/Goal Status Variance Visit Notes Risk of Sepsis Description: Patient is at risk for sepsis. Monitor closely for s/s of sepsis. Problem:Sepsis Goal:Patient/caregive r will be able to identify and report symptoms of sepsis Completed SPO2 Description: Notify Dr. Hoff if pulse ox is <92% at rest. [...] pathways, Remove unsafe rugs, Move furniture from pathways, Keep rooms and walkways well lit, Install hand rails/grab bars and Wear supportive shoes or non-skid socks Managing Impaired Functional Mobility: Use assistive device(s): front wheeled walker Managing Pain Instruct on pain and instruct on strategies to control pain Problem:Pain Goal:Manage Pain Completed patient instructed on techniques to control pain including Pharmacological measures and Non-Pharmacological measures; rest, positioning/elevation, mobility/therapeutic exercise and use of thermal modalities, apply ice to affected area . Physical Therapy Therapeutic Exercises Problem:PT Impaired muscle performance and/or ROM Goal:Improved Muscle Performance and/or ROM Completed patient instructed on strengthening and range of motion exercises including Supine : GS,QS,, HIPADD, HIP ABD, HEEL SLIDES, SAQ, X 10 supien passive knee ext x 3 1/2 min seated knee flexion to 64 with verbal, tactile and written cues for technique. patient instructed to perform home exercise program twice a day which included hourly ambulatioon. Physical Therapy Transfer Training Problem:PT Impaired mobility Goal:Improved Transfers Completed Transfer training and instruction to patient on safe transfers to and from bed and chair with supervision and verbal cues for technique . Physical Therapy Gait Training Problem:PT Impaired gait Goal:Improved Gait Completed Gait training and instruction to patient on safe ambulation with front wheeled walker for 40' x 3 feet with supervision, with verbal cues for corrections of gait deviations including development of recip heel toe pattern . Instruct on orthopedic precautions and weight bearing restrictions Description: Orthopedic precautions including [id number] total knee: no knee flexed over pillow at rest. Weight bearing restrictions include: WBAT of involved extremity. Problem:PT Orthopedic Condition Goal:Manage Orthopedic Condition Completed patient instructed on orthopedic precautions. Instruct on management of edema Problem:PT Orthopedic Condition Goal:Manage Orthopedic Condition Completed Instruct patient on management of edema including elevation of LLE above the level of the heart and ice. Physical therapy to perform surgical incision/wound management Description: Removal of post-op dressing on POD 7-10 (09/14-). If no drainage is present, leave open to air; if drainage is present, cover with clean dressing and contact provider and PT watch case polisher. Problem:PT Orthopedic Condition Goal:Manage Orthopedic Condition Completed Intervention completed this date. Instruct on self-management of post surgical and/or non-surgical orthopedic intervention Problem:PT Orthopedic Condition Goal:Manage Orthopedic Condition Completed patient instructed on managagement of orthopedic condition, staying well hydrated, eating foods with high protein, signs and symptoms of infection, signs and symptoms of DVT/PE and instructed on when to call provider. Instruct and educate on knowledge deficits Problem:PT Learning Assessment Goal:Demonstrate understanding of education Completed patient verbalize and/or demonstrate understanding of physical therapy education including orthopedic condition management, surgical precautions, pain management, fall prevention strategies, home safety, functional activity and home exercise program. Education methods include: verbal cues and written instructions. Further education required to improve knowledge and compliance with fall prevention strategies, home safety, functional activity and home exercise program. [facility] Visit Details Visit Type -PT ROUTINE Discipline -Physical Therapy Problems Problem Description Start Date Status Goals Interve ntions Sepsis Disciplines: Skilled Services 09/08/2024 Active 1 goal linked to scheduled/document ed intervention 1 goal intervention scheduled/document ed in this visit Physician Specific Parameters Disciplines: Skilled Services 09/08/2024 Active 1 goal linked to scheduled/document ed intervention 1 goal intervention scheduled/document ed in this visit Risk for Falls Disciplines: Skilled Services 09/08/2024 Active 1 goal linked to scheduled/document ed intervention 1 goal intervention scheduled/document ed in this visit Pain Disciplines: Skilled Services 09/08/2024 Active 1 goal linked to scheduled/document ed intervention 1 goal intervention scheduled/document ed in this visit Discharge Disciplines: Skilled Services 09/08/2024 Active 1 goal linked to scheduled/document ed intervention 1 goal intervention scheduled/document ed in this visit PT Impaired muscle performance and/or ROM Disciplines: PT 09/08/2024 Active 1 goal linked to scheduled/document ed intervention 1 goal intervention scheduled/document ed in this visit PT Impaired mobility Disciplines: PT 09/08/2024 Active 1 goal linked to scheduled/document ed intervention 1 goal intervention scheduled/document ed in this visit PT Impaired gait Disciplines: PT 09/08/2024 Active 1 goal linked to scheduled/document ed intervention 1 goal intervention scheduled/document ed in this visit PT Orthopedic Condition Disciplines: PT 09/08/2024 Active 1 goal linked to scheduled/document ed intervention 3 goal interventions scheduled/document ed in this visit PT Learning Assessment Disciplines: PT 09/08/2024 Active 1 goal linked to scheduled/document ed intervention 1 goal intervention scheduled/document ed in this visit Goals Goal Associated Problem Outcome Goal Met? Visit Notes Patient/caregiver will be able to identify and report symptoms of sepsis Description: Patient/caregiver will be able to identify signs/symptoms of sepsis infection and will verbalize actions to take if suspected by 09/26/24. Sepsis No Patient to maintain parameters within physician-specified ranges throughout certification period Physician Specific Parameters No Manage Risk for falls Description: Patient/caregiver will verbalize knowledge of individualized fall prevention strategies by 09/26/24. Risk for Falls No Manage Pain Description: Patient/caregiver will verbalize knowledge and understanding of appropriate techniques to control pain, including pain medication and non-pharmacological techniques. Patient will verbalize or demonstrate an acceptable level of pain as evidenced by a pain score of <2/10 L knee and improvement in ability to perform activities of daily living to be achieved by 09/26/24. Pain No Manage discharge planning Description: Patient/caregiver will verbalize understanding of ongoing discharge plan provided related to disease management, arrangements for outpatient and/or community services, obtaining medications, supplies, and DME, as needed throughout certification period. Discharge No Improved Muscle Performance and/or ROM Description: LTG: Patient and/or caregiver will verbalize/demonstrate independence with home exercise program, to improve functional mobility, to be achieved by 09/26/24. LTG: Patient will demonstrate improved left knee active range of motion to 0-90 degrees, to meet functional goals, to be achieved by 09/26/24. PT Impaired muscle performance and/or ROM No Improved Transfers Description: STG: Patient will demonstrate safe transfers to/from bed, chair, toilet, couch, shower/tub and car independently, to be achieved by 09/19/24. PT Impaired mobility No Improved Gait Description: STG: Patient will demonstrate improved gait ability as evidenced by ambulation 350 feet with front wheeled walker independently, in order to increase independence within home and attend ortho appt, to be achieved by 09/19/24. LTG: Patient will demonstrate improved gait ability as evidenced by ambulation 350 feet with single point cane independently, to return to safe household and community ambulation, in order to transition to outpatient PT, to be achieved by 09/26/24. PT Impaired gait No Manage Orthopedic Condition Description: Improve patient and/or caregiver understanding of post surgical and/or non-surgical orthopedic intervention management as evidenced by patient and/or caregiver able to verbalize, demonstrate, and teach back instruction, to be achieved by 09/26/24. PT Orthopedic Condition No Demonstrate understanding of education Description: Patient and/or caregiver will understand educational instruction to be achieved by 09/26/24. PT Learning Assessment No Interventions Intervention Associated Problem/Goal Status Variance Visit Notes Risk of Sepsis Description: Patient is at risk for sepsis. Monitor closely for s/s of sepsis. Problem:Sepsis Goal:Patient/caregive r will be able to identify and report symptoms of sepsis Completed SPO2 Description: Notify Dr. Hoff if pulse ox is <92% at rest. Problem:Physician Specific Parameters Goal:Patient to maintain parameters within physician-specified ranges throughout certification period Completed Instruct on individual fall risk factors and strategies to prevent falls and injuries caused by falls. Problem:Risk for Falls Goal:Manage Risk for falls Completed PT: Patient instructed on Eliminating Environmental Hazards: Keep pathways clear, Remove unsafe rugs, Move furniture from pathways, Keep rooms and walkways well lit, Install hand rails/grab bars and Wear supportive shoes or non-skid socks Managing Impaired Functional Mobility: Use assistive device(s): front wheeled walker Managing Pain Instruct on pain and instruct on strategies to control pain Problem:Pain Goal:Manage Pain Completed patient instructed on techniques to control pain including Pharmacological measures and Non-Pharmacological measures; rest, positioning/elevation, mobility/therapeutic exercise and use of thermal modalities, apply ice to affected area . Instruct on ongoing discharge plan Problem:Discharge Goal:Manage discharge planning Completed Ongoing Discharge plan: Discharge plan discussed with patient including frequency and duration for home PT and plan for transition to: outpatient therapy. Physical Therapy Therapeutic Exercises Problem:PT Impaired muscle performance and/or ROM Goal:Improved Muscle Performance and/or ROM Completed patient instructed on strengthening and range of motion exercises including Supine : GS,QS,, HIPADD, HIP ABD, HEEL SLIDES, SAQ, X 15 Standing - Heel raises, toe raises, Left- knee flexion , hip flexion supien passive knee ext x 5 min AAROM- 68 PROM 75 with verbal, tactile and written cues for technique. patient instructed to perform home exercise program twice a day which included hourly ambulatioon. Physical Therapy Transfer Training Problem:PT Impaired mobility Goal:Improved Transfers Completed Transfer training and instruction to patient on safe transfers to and from bed and chair with supervision and verbal cues for technique . Physical Therapy Gait Training Problem:PT Impaired gait Goal:Improved Gait Completed Gait training and instruction to patient on safe ambulation with front wheeled walker for 40' x 3 feet with supervision, with verbal cues for corrections of gait deviations including development of recip heel toe pattern . Instruct on orthopedic precautions and weight bearing restrictions Description: Orthopedic precautions including [id number] total knee: no knee flexed over pillow at rest. Weight bearing restrictions include: WBAT of involved extremity. Problem:PT Orthopedic Condition Goal:Manage Orthopedic Condition Completed patient instructed on orthopedic precautions. Instruct on management of edema Problem:PT Orthopedic Condition Goal:Manage Orthopedic Condition Completed Instruct patient on management of edema including elevation of LLE above the level of the heart and ice. Instruct on self-management of post surgical and/or non-surgical orthopedic intervention Problem:PT Orthopedic Condition Goal:Manage Orthopedic Condition Completed patient instructed on managagement of orthopedic condition, measures to avoid skin breakdown, staying well hydrated, eating foods with high protein, signs and symptoms of infection and signs and symptoms of DVT/PE. Instruct and educate on knowledge deficits Problem:PT Learning Assessment Goal:Demonstrate understanding of education Completed patient verbalize and/or demonstrate understanding of physical therapy education including fall prevention strategies, home safety, functional activity and home exercise program. Education methods include: verbal cues and written instructions. Further education required to improve knowledge and compliance with fall prevention strategies, home safety, functional activity and home exercise program. 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 -Physical Therapy Problems Problem Description Start Date Status Goals Interve ntions Medication Education Disciplines: Skilled Services 09/08/2024 Active 1 goal linked to scheduled/document ed intervention 1 goal intervention scheduled/document ed in this visit Sepsis Disciplines: Skilled Services 09/08/2024 Active 1 goal linked to scheduled/document ed intervention 1 goal intervention scheduled/document ed in this visit Physician Specific Parameters Disciplines: Skilled Services 09/08/2024 Active 1 goal linked to scheduled/document ed intervention 1 goal intervention scheduled/document ed in this visit Risk for Falls Disciplines: Skilled Services 09/08/2024 Active 1 goal linked to scheduled/document ed intervention 1 goal intervention scheduled/document ed in this visit Pain Disciplines: Skilled Services 09/08/2024 Active 1 goal linked to scheduled/document ed intervention 1 goal intervention scheduled/document ed in this visit Discharge Disciplines: Skilled Services 09/08/2024 Active 1 goal linked to scheduled/document ed intervention 1 goal intervention scheduled/document ed in this visit PT Impaired muscle performance and/or ROM Disciplines: PT 09/08/2024 Active 1 goal linked to scheduled/document ed intervention 1 goal intervention scheduled/document ed in this visit PT Impaired gait Disciplines: PT 09/08/2024 Active 2 goals linked to scheduled/document ed interventions 2 goal interventions scheduled/document ed in this visit PT Impaired balance Disciplines: PT 09/08/2024 Active 1 goal linked to scheduled/document ed intervention 1 goal intervention scheduled/document ed in this visit PT Orthopedic Condition Disciplines: PT 09/08/2024 Active 1 goal linked to scheduled/document ed intervention 1 goal intervention scheduled/document ed in this visit PT Learning Assessment Disciplines: PT 09/08/2024 Active 1 goal linked to scheduled/document ed [...] home, and adhere to medication schedule by 09/26/24. Medication Education No Patient/caregiver will be able to identify and report symptoms of sepsis Description: Patient/caregiver will be able to identify signs/symptoms of sepsis infection and will verbalize actions to take if suspected by 09/26/24. Sepsis No Patient to maintain parameters within physician-specified ranges throughout certification period Physician Specific Parameters No Manage Risk for falls Description: Patient/caregiver will verbalize knowledge of individualized fall prevention strategies by 09/26/24. Risk for Falls No Manage Pain Description: Patient/caregiver will verbalize knowledge and understanding of appropriate techniques to control pain, including pain medication and non-pharmacological techniques. Patient will verbalize or demonstrate an acceptable level of pain as evidenced by a pain score of <2/10 L knee and improvement in ability to perform activities of daily living to be achieved by 09/26/24. Pain No Manage discharge planning Description: Patient/caregiver will verbalize understanding of ongoing discharge plan provided related to disease management, arrangements for outpatient and/or community services, obtaining medications, supplies, and DME, as needed throughout certification period. Discharge No Improved Muscle Performance and/or ROM Description: LTG: Patient and/or caregiver will verbalize/demonstrate independence with home exercise program, to improve functional mobility, to be achieved by 09/26/24. LTG: Patient will demonstrate improved left knee active range of motion to 0-90 degrees, to meet functional goals, to be achieved by 09/26/24. PT Impaired muscle performance and/or ROM No Improved Stair Climbing Description: LTG: Patient will demonstrate improved stair negotiation as evidenced by ascend/descend 12 steps with railing independently, to safely access all areas of the home, access community and exit home, to be achieved by 09/27/23. PT Impaired gait No Improved Gait Description: STG: Patient will demonstrate improved gait ability as evidenced by ambulation 350 feet with front wheeled walker independently, in order to increase independence within home and attend ortho appt, to be achieved by 09/19/24. LTG: Patient will demonstrate improved gait ability as evidenced by ambulation 350 feet with single point cane independently, to return to safe household and community ambulation, in order to transition to outpatient PT, to be achieved by 09/26/24. PT Impaired gait No Improved Balance Description: LTG: Patient will demonstrate improved standing balance to meet functional goals as evidenced by TUG score of <14 seconds to be achieved by 09/26/24. PT Impaired balance No Manage Orthopedic Condition Description: Improve patient and/or caregiver understanding of post surgical and/or non-surgical orthopedic intervention management as evidenced by patient and/or caregiver able to verbalize, demonstrate, and teach back instruction, to be achieved by 09/26/24. PT Orthopedic Condition No Demonstrate understanding of education Description: Patient and/or caregiver will understand educational instruction to be achieved by 09/26/24. PT Learning Assessment No Interventions Intervention Associated [...] of sepsis Completed SPO2 Description: Notify Dr. Hoff if pulse ox is <92% at rest. Problem:Physician Specific Parameters Goal:Patient to maintain parameters within physician-specified ranges throughout certification period Completed Instruct on individual fall risk factors and strategies to prevent falls and injuries caused by falls. Problem:Risk for Falls Goal:Manage Risk for falls Completed PT: Patient instructed on Eliminating Environmental Hazards: Keep pathways clear Instruct on pain and instruct on strategies to control pain Problem:Pain Goal:Manage Pain Completed patient instructed on techniques to control pain including Pharmacological measures and Non-Pharmacological measures; positioning/elevation and use of thermal modalities, apply ice to affected area for the following prescribed frequency: prn. Instruct on ongoing discharge plan Problem:Discharge Goal:Manage discharge planning Completed Ongoing Discharge plan: Discharge plan discussed with patient including frequency and duration for home PT and plan for transition to: outpatient therapy. Physical Therapy Therapeutic Exercises Problem:PT Impaired muscle performance and/or ROM Goal:Improved Muscle Performance and/or ROM Completed patient instructed on strengthening and range of motion exercises including ap,qs,gs, saq, heel slides, hi abd and add x's 10 ,supine ext hang x'5min. standing heel raises, hams curls, hip abd and flexion, 1/4 squats x's 10, step flexion stretch and seated heel slides x's 10 with verbal and visual cues for progressions. patient instructed to perform home exercise program twice a day which included above ex. Physical Therapy Stair Training Problem:PT Impaired gait Goal:Improved Stair Climbing Completed Stair training and instruction to patient on safe stair climbing, ascend/descend 3 steps, with railing and with cane with supervision and verbal cues for safety. Physical Therapy Gait Training Problem:PT Impaired gait Goal:Improved Gait Completed Gait training and instruction to patient on safe ambulation with single point cane for 4x'50 feet with supervision, with verbal cues for corrections of gait deviations including pace and safety. Physical Therapy Balance Training Problem:PT Impaired balance Goal:Improved Balance Completed Developed, implemented, and instructed patient on standing balance exercises including stabnding ex and cane training. Instruct on self-management of post surgical and/or [...] demonstrate understanding of physical therapy education including functional activity and home exercise program. Education methods include: verbal cues and visual cues. Further education required to improve knowledge and compliance with home exercise program. [facility] Visit Details Visit Type -PT AGENCY DC W V ISIT Discipline -Physical Therapy Problems Problem Description Start Date Status Goals Interve ntions Medication Education Disciplines: Skilled Services 09/08/2024 Resolved on 09/24/2024 1 goal linked to scheduled/document ed intervention Sepsis Disciplines: Skilled Services 09/08/2024 Resolved on 09/24/2024 1 goal linked to scheduled/document ed intervention 1 goal intervention scheduled/document ed in this visit Physician Specific Parameters Disciplines: Skilled Services 09/08/2024 Resolved on 09/24/2024 1 goal linked to scheduled/document ed intervention 1 goal intervention scheduled/document ed in this visit Risk for Falls Disciplines: Skilled Services 09/08/2024 Resolved on 09/24/2024 1 goal linked to scheduled/document ed intervention 1 goal intervention scheduled/document ed in this visit Pain Disciplines: Skilled Services 09/08/2024 Resolved on 09/24/2024 1 goal linked to scheduled/document ed intervention 1 goal intervention scheduled/document ed in this visit High Risk Medications Disciplines: Skilled Services 09/08/2024 Resolved on 09/24/2024 1 goal linked to scheduled/document ed intervention Discharge Disciplines: Skilled Services 09/08/2024 Resolved on 09/24/2024 1 goal linked to scheduled/document ed intervention PT Impaired muscle performance and/or ROM Disciplines: PT 09/08/2024 Resolved on 09/24/2024 1 goal linked to scheduled/document ed intervention 1 goal intervention scheduled/document ed in this visit PT Impaired mobility Disciplines: PT 09/08/2024 Resolved on 09/24/2024 1 goal linked to scheduled/document ed intervention 1 goal intervention scheduled/document ed in this visit PT Impaired gait Disciplines: PT 09/08/2024 Resolved on 09/24/2024 2 goals linked to scheduled/document ed interventions 2 goal interventions scheduled/document ed in this visit PT Impaired balance Disciplines: PT 09/08/2024 Resolved on 09/24/2024 1 goal linked to scheduled/document ed intervention 1 goal intervention scheduled/document ed in this visit PT Orthopedic Condition Disciplines: PT 09/08/2024 Resolved on 09/24/2024 1 goal linked to scheduled/document ed intervention 3 goal interventions scheduled/document ed in this visit PT Learning Assessment Disciplines: PT 09/08/2024 Resolved on 09/24/2024 1 goal linked to scheduled/document ed intervention [...] home, and adhere to medication schedule by 09/26/24. Medication Education Completed Yes Patient/caregiver will be able to identify and report symptoms of sepsis Description: Patient/caregiver will be able to identify signs/symptoms of sepsis infection and will verbalize actions to take if suspected by 09/26/24. Sepsis Completed Yes Patient to maintain parameters within physician-specified ranges throughout certification period Physician Specific Parameters Completed Yes Manage Risk for falls Description: Patient/caregiver will verbalize knowledge of individualized fall prevention strategies by 09/26/24. Risk for Falls Completed Yes Manage Pain Description: Patient/caregiver will verbalize knowledge and understanding of appropriate techniques to control pain, including pain medication and non-pharmacological techniques. Patient will verbalize or demonstrate an acceptable level of pain as evidenced by a pain score of <2/10 L knee and improvement in ability to perform activities of daily living to be achieved by 09/26/24. Pain Completed Yes Patient/caregiver will teach back high risk medication side effect and precaution education Description: Patient/caregiver will verbalize understanding of high risk medication side effects and precautions to be achieved by 09/26/24. High Risk Medications Completed Yes Manage discharge planning Description: Patient/caregiver will verbalize understanding of ongoing discharge plan provided related to disease management, arrangements for outpatient and/or community services, obtaining medications, supplies, and DME, as needed throughout certification period. Discharge Completed Yes Improved Muscle Performance and/or ROM Description: LTG: Patient and/or caregiver will verbalize/demonstrate independence with home exercise program, to improve functional mobility, to be achieved by 09/26/24. LTG: Patient will demonstrate improved left knee active range of motion to 0-90 degrees, to meet functional goals, to be achieved by 09/26/24. PT Impaired muscle performance and/or ROM Completed Yes Improved Transfers Description: STG: Patient will demonstrate safe transfers to/from bed, chair, toilet, couch, shower/tub and car independently, to be achieved by 09/19/24. PT Impaired mobility Completed Yes Improved Stair Climbing Description: LTG: Patient will demonstrate improved stair negotiation as evidenced by ascend/descend 12 steps with railing independently, to safely access all areas of the home, access community and exit home, to be achieved by 09/27/23. PT Impaired gait Completed Yes Improved Gait Description: STG: Patient will demonstrate improved gait ability as evidenced by ambulation 350 feet with front wheeled walker independently, in order to increase independence within home and attend ortho appt, to be achieved by 09/19/24. LTG: Patient will demonstrate improved gait ability as evidenced by ambulation 350 feet with single point cane independently, to return to safe household and community ambulation, in order to transition to outpatient PT, to be achieved by 09/26/24. PT Impaired gait Completed Yes Improved Balance Description: LTG: Patient will demonstrate improved standing balance to meet functional goals as evidenced by TUG score of <14 seconds to be achieved by 09/26/24. PT Impaired balance Completed Yes Manage Orthopedic Condition Description: Improve patient and/or caregiver understanding of post surgical and/or non-surgical orthopedic intervention management as evidenced by patient and/or caregiver able to verbalize, demonstrate, and teach back instruction, to be achieved by 09/26/24. PT Orthopedic Condition Completed Yes Demonstrate understanding of education Description: Patient and/or caregiver will understand educational instruction to be achieved by 09/26/24. PT Learning Assessment Completed Yes Interventions Intervention Associated Problem/Goal Status Variance Visit Notes Risk of Sepsis Description: Patient is at risk for sepsis. Monitor closely for s/s of sepsis. Problem:Sepsis Goal:Patient/caregive r will be able to identify and report symptoms of sepsis Completed SPO2 Description: Notify Dr. Hoff if pulse ox is <92% at rest. [...] pathways, Remove unsafe rugs, Move furniture from pathways, Keep rooms and walkways well lit, Install hand rails/grab bars and Wear supportive shoes or non-skid socks Managing Impaired Functional Mobility: Use assistive device(s): single point cane Managing Pain Instruct on pain and instruct on strategies to control pain Problem:Pain Goal:Manage Pain Completed patient instructed on techniques to control pain including Pharmacological measures and Non-Pharmacological measures; rest, positioning/elevation and use of thermal modalities, apply ice to affected area . Physical Therapy Therapeutic Exercises Problem:PT Impaired muscle performance and/or ROM Goal:Improved Muscle Performance and/or ROM Completed patient instructed on strengthening and range of motion exercises including ap,qs,gs, saq, heel slides, hi abd and add x's 15 ,supine ext hang x'5min. standing heel raises, hams curls, hip abd and flexion, 1/4 squats x's 10, step flexion stretch and seated heel slides x's 10 with verbal and visual cues for progressions. patient instructed to perform home exercise program twice a day which included above ex. Physical Therapy Transfer Training Problem:PT Impaired mobility Goal:Improved Transfers Completed indep transfers with safe/proper technique Physical Therapy Stair Training Problem:PT Impaired gait Goal:Improved Stair Climbing Completed up and down with 12 steps with rail + cane step together sequence Physical Therapy Gait Training Problem:PT Impaired gait Goal:Improved Gait Completed Indep amb with st cane with steady recip pattern x 150 Physical Therapy Balance Training Problem:PT Impaired balance Goal:Improved Balance Completed pt demonstrates improved dynamic standing balance as evidenced by a tug of 16 Instruct on orthopedic precautions and weight bearing restrictions Description: Orthopedic precautions including [id number] total knee: no knee flexed over pillow at rest. Weight bearing restrictions include: WBAT of involved extremity. Problem:PT Orthopedic Condition Goal:Manage Orthopedic Condition Completed patient instructed on orthopedic precautions and weight bearing restrictions. Instruct on management of edema Problem:PT Orthopedic Condition Goal:Manage Orthopedic Condition Completed Instruct patient on management of edema including elevation ofLLE above the level of the heart and ice. Instruct on self-management of post surgical and/or non-surgical orthopedic intervention Problem:PT Orthopedic Condition Goal:Manage Orthopedic Condition Completed patient instructed on managagement of orthopedic condition, staying well hydrated, eating foods with high protein, signs and symptoms of infection, signs and symptoms of DVT/PE, follow provider guidance for showering and instructed on when to call 911. Instruct and educate on knowledge deficits Problem:PT Learning Assessment Goal:Demonstrate understanding of education Completed patient verbalize and/or demonstrate understanding of physical therapy education including orthopedic condition management, weight bearing precautions, surgical precautions, pain management, fall prevention strategies, home safety, functional activity and home exercise program. Education methods include: verbal cues and written instructions. documented in this encounter [facility] for referral (narrative)* Diagnostic Procedure Only (Routine) Status Reason Specialty Diagnoses / Procedures Referred By Contact Referred To Contact Pending Review Auto-Generated Referral XR IMAGING Diagnoses Right knee pain, unspecified chronicity Procedures XR KNEE GENERAL 4V AP BOTH/PA BOTH/LAT/MERC RT KNEE AP-WGT/LAT/MERCHA NT Hubert Fuentes APRN.CUTTER TENDER [address] [place] [address] Xr Imaging [facility] for referral (narrative)* Diagnostic Procedure Only (Routine) - Closed Specialty Diagnoses / Procedures Referred By Contac t Referred To Contact XR IMAGING Diagnoses Chronic pain of right knee Procedures XR KNEE POST OP 3V AP/LAT/MERCHANT RIGHT RADIOLOGIC EXAMINATION KNEE 3 VIEWS Hubert Fuentes APRN.CNP [address] [place] [address] Xr Imaging Referral ID Status Reason Start Date Expiration Date V isits Requested Visits Authorized [id number] Closed Auto-Generate d Referral 01/18/2022 02/17/2023 1 1 [facility] for referral (narrative)* Diagnostic Procedure Only (Routine) - Pending Review Specialty Diagnoses / Procedures Referred By Contac t Referred To Contact XR IMAGING Diagnoses Pain Procedures XR KNEE GENERAL 4V AP BOTH/PA BOTH/LAT/MERC LEFT RADIOLOGIC EXAM KNEE COMPLETE 4/MORE VIEWS Hubert Fuentes APRN.CUTTER T[employer]ER [address] [place] [address] Xr Imaging Referral ID Status Reason Start Date Expiration Date Visits Requested Visits Authorized [id number] Pending Review Auto-Generat ed Referral 03/29/2022 04/27/2023 1 1 [facility] for referral (narrative)* Diagnostic Procedure Only (Routine) - Closed Specialty Diagnoses / Procedures Referred By Contac t Referred To Contact XR IMAGING Diagnoses Pain Procedures XR KNEE GENERAL 4V AP BOTH/PA BOTH/LAT/MERC LEFT RADIOLOGIC EXAM KNEE COMPLETE 4/MORE VIEWS Hubert Fuentes APRN.CUTTER TENDER [address] [place] [address] Xr Imaging Referral ID Status Reason Start Date Expiration Date V isits Requested Visits Authorized [id number] Closed Auto-Generate d Referral 03/29/2022 04/27/2023 1 1 [facility] for referral (narrative)* Diagnostic Procedure Only (Routine) - Pending Review Specialty Diagnoses / Procedures Referred By Contac t Referred To Contact XR IMAGING Diagnoses Pain in left hip Procedures XR PELVIS 1V AP RADIOLOGIC EXAMINATION PELVIS 1/2 VIEWS Hubert Fuentes APRN.CNP [address] [place] [address] Xr Imaging Referral ID Status Reason Start Date Expiration Date Visits Requested Visits Authorized [id number] Pending Review Auto-Generat ed Referral 05/15/2022 06/14/2023 1 1 [facility] for referral (narrative)* Diagnostic Procedure Only (Routine) - Pending Review Specialty Diagnoses / Procedures Referred By Contac t Referred To Contact XR IMAGING Diagnoses Pain in left hip Procedures XR HIP 2V AP/LAT LEFT (AK,FL,ME) RADEX HIP UNILATERAL WITH PELVIS 2-3 VIEWS Hubert Fuentes APRN.CUTTER TENDER [address] [place] [address] Xr Imaging Referral ID Status Reason Start Date Expiration Date Visits Requested Visits Authorized [id number] Pending Review Auto-Generat ed Referral 08/01/2023 1 1 [facility] for referral (narrative)* Diagnostic Procedure Only (Routine) - Closed Specialty Diagnoses / Procedures Referred By Contac t Referred To Contact XR IMAGING Diagnoses Pain in left hip Procedures XR HIP 2V AP/LAT LEFT (AK,FL,ME) RADEX HIP UNILATERAL WITH PELVIS 2-3 VIEWS Hubert Fuentes APRN.CUTTER TENDER [address] [place] [address] Xr Imaging Referral ID Status Reason Start Date Expiration Date V isits Requested Visits Authorized [id number] Closed Auto-Generate d Referral 07/02/2022 08/01/2023 1 1 [facility] for referral (narrative)* Diagnostic Procedure Only (Routine) - Pending Review Specialty Diagnoses / Procedures Referred By Contac t Referred To Contact XR IMAGING Diagnoses Left knee pain, unspecified chronicity Procedures XR KNEE GENERAL 4V AP BOTH/PA BOTH/LAT/MERC LEFT RADIOLOGIC EXAM KNEE COMPLETE 4/MORE VIEWS Hubert Fuentes APRN.CNP [address] [address] Xr Imaging Referral ID Status Reason Start Date Expiration Date Visits Requested Visits Authorized [id number] Pending Review Auto-Generat ed Referral 04/11/2023 05/09/2024 1 1 * Diagnostic Procedure Only (Routine) - Pending Review Specialty Diagnoses / Procedures Referred By Contac t Referred To Contact XR IMAGING Diagnoses Pain in left hip Procedures XR HIP 2V AP/LAT LEFT (AK,FL,ME) RADEX HIP UNILATERAL WITH PELVIS 2-3 VIEWS Hubert Fuentes APRN.CNP [address] [place] [address] Xr Imaging Referral ID Status Reason Start Date Expiration Date Visits Requested Visits Authorized [id number] Pending Review Auto-Generat ed Referral 04/11/2023 05/09/2024 1 1 [facility] for referral (narrative)* Diagnostic Procedure Only (Routine) - Authorized Specialty Diagnoses / Procedures Referred By Contac t Referred To Contact XR IMAGING Diagnoses Chronic pain of left knee Procedures XR KNEE GENERAL 4V AP BOTH/PA BOTH/LAT/MERC LEFT RADIOLOGIC EXAM KNEE COMPLETE 4/MORE VIEWS Hubert Fuentes APRN.CUTTER TENDER [address] [place] [address] [place] [address] Referral ID Status Reason Start Date Expiration Date Visits Requested Visits Authorized [id number] Authorized Auto-Generat ed Referral 06/09/2024 07/08/2025 1 1 [facility] for referral (narrative)* Diagnostic Procedure Only (Routine) - Closed Specialty Diagnoses / Procedures Referred By Contac t Referred To Contact XR IMAGING Diagnoses Left knee pain, unspecified chronicity Procedures XR KNEE GENERAL 4V AP BOTH/PA BOTH/LAT/MERC LEFT RADIOLOGIC EXAM KNEE COMPLETE 4/MORE VIEWS Hubert Fuentes APRN.CNP [address] [address] [place] [address] Referral ID Status Reason Start Date Expiration Date V isits Requested Visits Authorized [id number] Closed Auto-Generate d Referral 04/11/2023 05/09/2024 1 1 * Diagnostic Procedure Only (Routine) - Closed Specialty Diagnoses / Procedures Referred By Contac t Referred To Contact XR IMAGING Diagnoses Pain in left hip Procedures XR HIP 2V AP/LAT LEFT (AK,FL,ME) RADEX HIP UNILATERAL WITH PELVIS 2-3 VIEWS Hubert Fuentes APRN.CUTTER TENDER [address] [place] [address] [place] [address] Referral ID Status Reason Start Date Expiration Date V isits Requested Visits Authorized [id number] Closed Auto-Generate d Referral 04/11/2023 05/09/2024 1 1 [facility] for referral (narrative)* Diagnostic Procedure Only (Routine) - Authorized Specialty Diagnoses / Procedures Referred By Contac t Referred To Contact XR IMAGING Diagnoses Left knee pain, unspecified chronicity Procedures XR KNEE POST OP 3V AP/LAT/MERCHANT LEFT RADIOLOGIC EXAMINATION KNEE 3 VIEWS Hubert Fuentes APRN.CUTTER TENDER [address] [place] [address] [place] [address] Referral ID Status Reason Start Date Expiration Date Visits Requested Visits Authorized [id number] Authorized Auto-Generat ed Referral 10/18/2025 1 1 * Physical Therapy (Routine) - Pending Review Specialty Diagnoses / Procedures Referred By Contac t Referred To Contact [facility] Diagnoses Primary osteoarthritis of left knee Procedures CONSULT TO PHYSICAL THERAPY PHYSICAL THERAPY EVALUATION HIGH COMPLEX 45 MINS Hubert Fuentes APRN.CUTTER TENDER [address] [place] [address] [facility] [address] [place] [id number] Referral ID Status Reason Start Date Expiration Date Visits Requested Visits Authorized [id number] Pending Review Auto-Generat ed Referral 09/18/2025 1 1 [facility] for referral (narrative)* Diagnostic Procedure Only (Routine) - Closed Specialty Diagnoses / Procedures Referred By Contac t Referred To Contact XR IMAGING Diagnoses Left knee pain, unspecified chronicity Procedures XR KNEE POST OP 3V AP/LAT/MERCHANT LEFT RADIOLOGIC EXAMINATION KNEE 3 VIEWS Hubert Fuentes APRN.CNP [address] [place] [address] [place] [address] Referral ID Status Reason Start Date Expiration Date V isits Requested Visits Authorized [id number] Closed Auto-Generate d Referral 09/18/2024 10/18/2025 1 1 [facility] for referral (narrative)No reason for referral information [facility] Diagnostic Procedure Only (Routine) - Closed Specialty Diagnoses / Procedures Referred By Contac t Referred To Contact XR IMAGING Diagnoses Chronic pain of right knee Procedures XR KNEE POST OP 3V AP/LAT/MERCHANT RIGHT RADIOLOGIC EXAMINATION KNEE 3 VIEWS Hubert Fuentes APRN.CUTTER TENDER [address] [address] Xr Imaging Referral ID Status Reason Start Date Expiration Date V isits Requested Visits Authorized [id number] Closed Auto-Generate d Referral 01/18/2022 02/17/2023 1 1 [facility] for visit Narrative* Diagnostic Procedure Only (Routine) - Closed Specialty Diagnoses / Procedures Referred By Contac t Referred To Contact XR IMAGING Diagnoses Pain Procedures XR KNEE GENERAL 4V AP BOTH/PA BOTH/LAT/MERC LEFT RADIOLOGIC EXAM KNEE COMPLETE 4/MORE VIEWS Hubert Fuentes APRN.CUTTER TENDER [address] [place] [address] Xr Imaging Referral ID Status Reason Start Date Expiration Date V isits Requested Visits Authorized [id number] Closed Auto-Generate d Referral 03/29/2022 04/27/2023 1 1 [facility] for visit Narrative* Diagnostic Procedure Only (Routine) - Closed Specialty Diagnoses / Procedures Referred By Contac t Referred To Contact XR IMAGING Diagnoses Pain in left hip Procedures XR HIP 2V AP/LAT LEFT ([place]) RADEX HIP UNILATERAL WITH PELVIS 2-3 VIEWS Hubert Fuentes APRN.CUTTER TENDER [address] [address] Xr Imaging Referral ID Status Reason Start Date Expiration Date V isits Requested Visits Authorized [id number] Closed Auto-Generate d Referral 07/02/2022 08/01/2023 1 1 [facility] for visit Narrative* Diagnostic Procedure Only (Routine) - Closed Specialty Diagnoses / Procedures Referred By Contac t Referred To Contact XR IMAGING Diagnoses Left knee pain, unspecified chronicity Procedures XR KNEE GENERAL 4V AP BOTH/PA BOTH/LAT/MERC LEFT RADIOLOGIC EXAM KNEE COMPLETE 4/MORE VIEWS Hubert Fuentes APRN.CUTTER TENDER [address] [address] [place] [address] Referral ID Status Reason Start Date Expiration Date V isits Requested Visits Authorized [id number] Closed Auto-Generate d Referral 04/11/2023 05/09/2024 1 1 [facility] for visit Narrative* Diagnostic Procedure Only (Routine) - Closed Specialty Diagnoses / Procedures Referred By Contac t Referred To Contact XR IMAGING Diagnoses Chronic pain of left knee Procedures XR KNEE GENERAL 4V AP BOTH/PA BOTH/LAT/MERC LEFT RADIOLOGIC EXAM KNEE COMPLETE 4/MORE VIEWS Hubert Fuentes APRN.CUTTER TENDER [address] [place] [address] [place] [address] Referral ID Status Reason Start Date Expiration Date V isits Requested Visits Authorized [id number] Closed Auto-Generate d Referral 06/09/2024 07/08/2025 [facility] Procedure Only (Routine) - Closed Specialty Diagnoses / Procedures Referred By Contac t Referred To Contact XR IMAGING Diagnoses Left knee pain, unspecified chronicity Procedures XR KNEE POST OP 3V AP/LAT/MERCHANT LEFT RADIOLOGIC EXAMINATION KNEE 3 VIEWS Hubert Fuentes, BRODY.CUTTER TENDER [address] [place] [address] [place] [address] Referral ID Status Reason Start Date Expiration Date V isits Requested Visits Authorized [id number] Closed Auto-Generate d Referral 09/18/2024 10/18/2025 1 1 [facility] Reason for Referral Status Reason Specialty Diagnoses / Procedures Referred By Contact Referred To Contact Pending Review Auto-Generate d Referral [facility] Diagnoses Pain of left hand Procedures CONSULT TO AGENT TICKETING GATE OCCUPATIONAL THERAPY EVAL HIGH COMPLEX 60 MINS Michlel Tabor DO [address] [place] [address] [facility] [place] [id number] Specialty Diagnoses / Procedures Referred By Contac t Referred To Contact [facility] Diagnoses Stiffness of right knee Status post right knee replacement Procedures PT REHAB FOLLOW UP ORDER THERAPEUTIC EXERCISES RE, EA 15 MIN. Angelo Balbuena, PT [address] [place] [address] [facility] [place] [address] [place] [address] Referral ID Status Reason Start Date Expiration Date V isits Requested Visits Authorized [id number] Closed PCP Requested Referral Auto-Generated Referral 02/06/2022 05/07/2022 0 0 Specialty Diagnoses / Procedures Referred By Contac t Referred To Contact MR IMAGING Diagnoses Pain in hip Procedures MRI HIP WO IVCON LT MRI ANY JT LOWER EXTREM W/O CONTRAST MATRL Netta Hoff MD [address] [address] Mr Imaging Referral ID Status Reason Start Date Expiration Date Visits Requested Visits Authorized [id number] Additional Clinical Info Needed Auto-Generat ed Referral 04/17/2022 05/17/2023 1 1 Specialty Diagnoses / Procedures Referred By Albaac t Referred To Contact CT IMAGING Diagnoses Presence of left artificial hip joint Preop examination Procedures CT HIP WO IVCON LT CT LOWER EXTREMITY W/O CONTRAST MATERIAL Hubert Fuentes APRN.CUTTER TENDER [address] [place] [address] Ct Imaging Referral ID Status Reason Start Date Expiration Date V isits Requested Visits Authorized [id number] Closed Auto-Generate d Referral 06/04/2022 07/04/2022 1 1 Specialty Diagnoses / Procedures Referred By Albaac t Referred To Contact CT IMAGING Diagnoses Chronic pain of left knee Procedures CT KNEE WO IVCON LT CT LOWER EXTREMITY W/O CONTRAST MATERIAL Netta Hoff MD [address] [place] [address] Ct Imaging Referral ID Status Reason Start Date Expiration Date Visits Requested Visits Authorized [id number] Pending Review Auto-Generat ed Referral 09/06/2023 1 1 Specialty Diagnoses / Procedures Referred By Contac t Referred To Contact MR IMAGING Diagnoses Encounter for observation for other suspected diseases and conditions ruled out Procedures MRI UPPER LEG WO IVCON LEFT MRI LOWER EXTREM OTH/THN JT W/O CONTR MATRL Netta Hoff MD [address] [place] [address] Mr Imaging Referral ID Status Reason Start Date Expiration Date Visits Requested Visits Authorized [id number] Authorized Auto-Generat ed Referral 05/02/2023 05/31/2024 1 1 Specialty Diagnoses / Procedures Referred By Contac t Referred To Contact [facility] Diagnoses Primary osteoarthritis of left knee Procedures CONSULT TO AGENT TICKETING GATE OCCUPATIONAL THERAPY EVAL HIGH COMPLEX 60 MINS Hubert Fuentes, BRODY.CUTTER TENDER [address] [place] [address] [facility] [address] [address] Referral ID Status Reason Start Date Expiration Date Visits Requested Visits Authorized [id number] Pending Review Auto-Generat ed Referral 06/11/2024 06/11/2025 1 1 Specialty Diagnoses / Procedures Referred By Contac t Referred To Contact [facility] Diagnoses Primary osteoarthritis of left knee Procedures CONSULT TO PHYSICAL THERAPY PHYSICAL THERAPY EVALUATION HIGH COMPLEX 45 MINS Hubert Fuentes APRN.CUTTER TENDER [address] [place] [address] [facility] [address] [address] Referral ID Status Reason Start Date Expiration Date Visits Requested Visits Authorized [id number] Pending Review Auto-Generat ed Referral 06/11/2024 06/11/2025 1 1 Specialty Diagnoses / Procedures Referred By Contac t Referred To Contact CT IMAGING Diagnoses Primary osteoarthritis of left knee Procedures CT KNEE WO IVCON LEFT CT LOWER EXTREMITY W/O CONTRAST MATERIAL Hubert Fuentes APRN.CUTTER TENDER [address] [place] [address] [place] [address] Referral ID Status Reason Start Date Expiration Date Visits Requested Visits Authorized [id number] New Request Auto-Generat ed Referral 06/11/2024 07/11/2025 1 1 Specialty Diagnoses / Procedures Referred By Contac t Referred To Contact MR IMAGING Diagnoses Pain in hip Procedures MRI HIP WO IVCON LT MRI ANY JT LOWER EXTREM W/O CONTRAST Netta Fiore MD [address] [address] [place] [address] Referral ID Status Reason Start Date Expiration Date V isits Requested Visits Authorized [id number] Closed Auto-Generate d Referral 04/17/2022 05/17/2022 1 1 Referral ID Status Reason Start Date Expiration Date V isits Requested Visits Authorized [id number] Denied Auto-Generat ed Referral Clearance Not Met - Admin/Chairm an/Director Advise to Postpone/Res chedule or Not Proceed 06/11/2024 07/11/2025 1 0 Advance Directives No Advanced Directives Records Found Date Activated Date Inactivated Comments 06/27/2022 2:53 PM 09/07/2024 9:00 AM Date Activated Date Inactivated Comments 11/24/2021 4:59 PM 06/25/2022 9:12 AM Documents on File Type Date Recorded 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 Advance Directive(s) 11/22/2021 7:09 AM Advance Directive(s) 10/25/2021 3:27 PM Latest Code Status on File Code Status Date Activated Date Inactivated Comments Full Code 11/24/2021 4:59 PM Documents on File Type Date Recorded 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 Advance Directive(s) 11/22/2021 7:09 AM [...] Code 11/24/2021 4:59 PM 06/25/2022 9:12 AM Advance Directive Response Recorded Date/ Time Advance Directives No March 07 8:15am Living Will No May 25 2:03pm Power of Cob Sawyer No May 25, 2020 2:03pm Date Activated Date Inactivated Comments 06/27/2022 2:53 PM Advance Directive Response Recorded Date/ Time Advance Directives No March 07 9:15am Living Will No May 25, 020 3:03pm Power of [place] Sawyer No May 25, 2020 3:03pm Date Activated Date Inactivated Comments 06/27/2022 2:53 PM Date Activated Date Inactivated Comments 11/24/2021 4:59 PM 06/25/2022 9:12 AM Date Activated Date Inactivated Comments 09/08/2024 1:41 PM Date Activated Date Inactivated Comments 06/27/2022 2:53 PM 09/07/2024 9:00 AM Date Activated Date Inactivated Comments 11/24/2021 4:59 PM 06/25/2022 9:12 AM Date Activated Date Inactivated Comments 09/08/2024 1:41 PM Date Activated Date Inactivated Comments 06/27/2022 2:53 PM 09/07/2024 9:00 AM Date Activated Date Inactivated Comments 11/24/2021 4:59 PM 06/25/2022 9:12 AM Advance Directive Response Recorded Date/ Time Advance Directives No March 07 9:15am Health Concerns Infection Onset Date Last Indicated Resolved Time COVID-19 Rule-Out 11/27/2022 11/27/2022 Summary Purpose Family History No Family History Records FoundNo Family History Records FoundNo Family History Records FoundNo Family History Records FoundNo Family History Records Found Chief Complaint and Reason for Visit Chief Complaint PSA Chief Complaint Admit Date Markie NOLASCO DR TO FAX November 06, 2024 7:00am Additional Source Comments Source Comments (unrecognize d section and content) In the event this informatio n is protected by the Federal Confidentiality of Alcohol and Drug Abuse Patient Records regulations: The Federal rules restrict any use of the information to criminally investigate or prosecute any alcohol or drug abuse patient.[facility] the event this information is protected by the Federal Confidentiality of Alcohol and Drug Abuse Patient Records regulations: The Federal rules restrict any use of the information to criminally investigate or prosecute any alcohol or drug abuse patient.[facility] the event this information is protected by the Federal Confidentiality of Alcohol and Drug Abuse Patient Records regulations: The Federal rules restrict any use of the information to criminally investigate or prosecute any alcohol or drug abuse patient.[facility] the event this information is protected by the Federal Confidentiality of Alcohol and Drug Abuse Patient Records regulations: The Federal rules restrict any use of the information to criminally investigate or prosecute any alcohol or drug abuse patient.[facility] the event this information is protected by the Federal Confidentiality of Alcohol and Drug Abuse Patient Records regulations: The Federal rules restrict any use of the information to criminally investigate or prosecute any alcohol or drug abuse patient.[facility] the event this information is protected by the Federal Confidentiality of Alcohol and Drug Abuse Patient Records regulations: The Federal rules restrict any use of the information to criminally investigate or prosecute any alcohol or drug abuse patient.[facility] the event this information is protected by the Federal Confidentiality of Alcohol and Drug Abuse Patient Records regulations: The Federal rules restrict any use of the information to criminally investigate or prosecute any alcohol or drug abuse patient.[facility] the event this information is protected by the Federal Confidentiality of Alcohol and Drug Abuse Patient Records regulations: The Federal rules restrict any use of the information to criminally investigate or prosecute any alcohol or drug abuse patient.[facility] Campus[facility] the event this information is protected by [...] or prosecute any alcohol or drug abuse patient.[facility] the event this information is protected by the Federal Confidentiality of Alcohol and Drug Abuse Patient Records regulations: The Federal rules restrict any use of the information to criminally investigate or prosecute any alcohol or drug abuse patient.[facility] the event this information is protected by the Federal Confidentiality of Alcohol and Drug Abuse Patient Records regulations: The Federal rules restrict any use of the information to criminally investigate or prosecute any alcohol or drug abuse patient.[facility] the event this information is protected by the Federal Confidentiality of Alcohol and Drug Abuse Patient Records regulations: The Federal rules restrict any use of the information to criminally investigate or prosecute any alcohol or drug abuse patient.[facility] the event this information is protected by the Federal Confidentiality of Alcohol and Drug Abuse Patient Records regulations: The Federal rules restrict any use of the information to criminally investigate or prosecute any alcohol or drug abuse patient.[facility] the event this information is protected by the Federal Confidentiality of Alcohol and Drug Abuse Patient Records regulations: The Federal rules restrict any use of the information to criminally investigate or prosecute any alcohol or drug abuse patient.[facility] the event this information is protected by the Federal Confidentiality of Alcohol and Drug Abuse Patient Records regulations: The Federal rules restrict any use of the information to criminally investigate or prosecute any alcohol or drug abuse patient.[facility] the event this information is protected by the Federal Confidentiality of Alcohol and Drug Abuse Patient Records regulations: The Federal rules restrict any use of the information to criminally investigate or prosecute any alcohol or drug abuse patient.[facility] the event this information is protected by the Federal Confidentiality of Alcohol and Drug Abuse Patient Records regulations: The Federal rules restrict any use of the information to criminally investigate or prosecute any alcohol or drug abuse patient.[facility] Campus[facility] the event this information is protected by the Federal Confidentiality of Alcohol and Drug Abuse Patient Records regulations: The Federal rules restrict any use of the information to criminally investigate or prosecute any alcohol or drug abuse patient.[facility] the event this information is protected by the Federal Confidentiality of Alcohol and Drug Abuse Patient Records regulations: The Federal rules restrict any use of the information to criminally investigate or prosecute any alcohol or drug abuse patient.[facility] Campus[facility] the event this information is protected by the Federal Confidentiality of Alcohol and Drug Abuse Patient Records regulations: The Federal rules restrict any use of the information to criminally investigate or prosecute any alcohol or drug abuse patient.[facility] the event this information is protected by the Federal Confidentiality of Alcohol and Drug Abuse Patient Records regulations: The Federal rules restrict any use of the information to criminally investigate or prosecute any alcohol or drug abuse patient.[facility] the event this information is protected by the Federal Confidentiality of Alcohol and Drug Abuse Patient Records regulations: The Federal rules restrict any use of the information to criminally investigate or prosecute any alcohol or drug abuse patient.[facility] Campus[facility] the event this information is protected by the Federal Confidentiality of Alcohol and Drug Abuse Patient Records regulations: The Federal rules restrict any use of the information to criminally investigate or prosecute any alcohol or drug abuse patient.[facility] the event this information is protected by the Federal Confidentiality of Alcohol and Drug Abuse Patient Records regulations: The Federal rules restrict any use of the information to criminally investigate or prosecute any alcohol or drug abuse patient.[facility] Campus[facility] the event this information is protected by the Federal Confidentiality of Alcohol and Drug Abuse Patient Records regulations: The Federal rules restrict any use of the information to criminally investigate or prosecute any alcohol or drug abuse patient.[facility] the event this information is protected by the Federal Confidentiality of Alcohol and Drug Abuse Patient Records regulations: The Federal rules restrict any use of the information to criminally investigate or prosecute any alcohol or drug abuse patient.[facility] the event this information is protected by the Federal Confidentiality of Alcohol and Drug Abuse Patient Records regulations: The Federal rules restrict any use of the information to criminally investigate or prosecute any alcohol or drug abuse patient.[facility] the event this information is protected by the Federal Confidentiality of Alcohol and Drug Abuse Patient Records regulations: The Federal rules restrict any use of the information to criminally investigate or prosecute any alcohol or drug abuse patient.[facility] the event this information is protected by the Federal Confidentiality of Alcohol and Drug Abuse Patient Records regulations: The Federal rules restrict any use of the information to criminally investigate or prosecute any alcohol or drug abuse patient.[facility] CampusIn the event this information is protected by the Federal Confidentiality of Alcohol and Drug Abuse Patient Records regulations: The Federal rules restrict any use of the information to criminally investigate or prosecute any alcohol or drug abuse patient.[facility]In the event this information is protected by the Federal Confidentiality of Alcohol and Drug Abuse Patient Records regulations: The Federal rules restrict any use of the information to criminally investigate or prosecute any alcohol or drug abuse patient.[facility] CampusIn the event this information is protected by the Federal Confidentiality of Alcohol and Drug Abuse Patient Records regulations: The Federal rules restrict any use of the information to criminally investigate or prosecute any alcohol or drug abuse patient.[facility]In the event this information is protected by the Federal Confidentiality of Alcohol and Drug Abuse Patient Records regulations: The Federal rules restrict any use of the information to criminally investigate or prosecute any alcohol or drug abuse patient.[facility]In the event this information is protected by the Federal Confidentiality of Alcohol and Drug Abuse Patient Records regulations: The Federal rules restrict any use of the information to criminally investigate or prosecute any alcohol or drug abuse patient.[facility]In the event this information is protected by the Federal Confidentiality of Alcohol and Drug Abuse Patient Records regulations: The Federal rules restrict any use of the information to criminally investigate or prosecute any alcohol or drug abuse patient.[facility]In the event this information is protected by the Federal Confidentiality of Alcohol and Drug Abuse Patient Records regulations: The Federal rules restrict any use of the information to criminally investigate or prosecute any alcohol or drug abuse patient.[facility]In the event this information is protected by the Federal Confidentiality of Alcohol and Drug Abuse Patient Records regulations: The Federal rules restrict any use of the information to criminally investigate or prosecute any alcohol or drug abuse patient.[facility]In the event this information is protected by the Federal Confidentiality of Alcohol and Drug Abuse Patient Records regulations: The Federal rules restrict any use of the information to criminally investigate or prosecute any alcohol or drug abuse patient.[facility]In the event this information is protected by the Federal Confidentiality of Alcohol and Drug Abuse Patient Records regulations: The Federal rules restrict any use of the information to criminally investigate or prosecute any alcohol or drug abuse patient.[facility]In the event this information is protected by the Federal Confidentiality of Alcohol and Drug Abuse Patient Records regulations: The Federal rules restrict any use of the information to criminally investigate or prosecute any alcohol or drug abuse patient.[facility]In the event this information is protected by the Federal Confidentiality of Alcohol and Drug Abuse Patient Records regulations: The Federal rules restrict any use of the information to criminally investigate or prosecute any alcohol or drug abuse patient.[facility]In the event this information is protected by the Federal Confidentiality of Alcohol and Drug Abuse Patient Records regulations: The Federal rules restrict any use of the information to criminally investigate or prosecute any alcohol or drug abuse patient.[facility]In the event this information is protected by the Federal Confidentiality of Alcohol and Drug Abuse Patient Records regulations: The Federal rules restrict any use of the information to criminally investigate or prosecute any alcohol or drug abuse patient.[facility]In the event this information is protected by the Federal Confidentiality of Alcohol and Drug Abuse Patient Records regulations: The Federal rules restrict any use of the information to criminally investigate or prosecute any alcohol or drug abuse patient.[facility]In the event this information is protected by the Federal Confidentiality of Alcohol and Drug Abuse Patient Records regulations: The Federal rules restrict any use of the information to criminally investigate or prosecute any alcohol or drug abuse patient.[facility]In the event this information is protected by the Federal Confidentiality of Alcohol and Drug Abuse Patient Records regulations: The Federal rules restrict any use of the information to criminally investigate or prosecute any alcohol or drug abuse patient.[facility]In the event this information is protected by the Federal Confidentiality of Alcohol and Drug Abuse Patient Records regulations: The Federal rules restrict any use of the information to criminally investigate or prosecute any alcohol or drug abuse patient.[facility]In the event this information is protected by the Federal Confidentiality of Alcohol and Drug Abuse Patient Records regulations: The Federal rules restrict any use of the information to criminally investigate or prosecute any alcohol or drug abuse patient.[facility]In the event this information is protected by the Federal Confidentiality of Alcohol and Drug Abuse Patient Records regulations: The Federal rules restrict any use of the information to criminally investigate or prosecute any alcohol or drug abuse patient.[facility] CampusIn the event this information is protected by the Federal Confidentiality of Alcohol and Drug Abuse Patient Records regulations: The Federal rules restrict any use of the information to criminally investigate or prosecute any alcohol or drug abuse patient.[facility] CampusIn the event this information is protected by the Federal Confidentiality of Alcohol and Drug Abuse Patient Records regulations: The Federal rules restrict any use of the information to criminally investigate or prosecute any alcohol or drug abuse patient.[facility] CampusIn the event this information is protected by the Federal Confidentiality of Alcohol and Drug Abuse Patient Records regulations: The Federal rules restrict any use of the information to criminally investigate or prosecute any alcohol or drug abuse patient.[facility] CampusIn the event this information is protected by the Federal Confidentiality of Alcohol and Drug Abuse Patient Records regulations: The Federal rules restrict any use of the information to criminally investigate or prosecute any alcohol or drug abuse patient.[facility] CampusIn the event this information is protected by the Federal Confidentiality of Alcohol and Drug Abuse Patient Records regulations: The Federal rules restrict any use of the information to criminally investigate or prosecute any alcohol or drug abuse patient.[facility] CampusIn the event this information is protected by the Federal Confidentiality of Alcohol and Drug Abuse Patient Records regulations: The Federal rules restrict any use of the information to criminally investigate or prosecute any alcohol or drug abuse patient.[facility] CampusIn the event this information is protected by the Federal Confidentiality of Alcohol and Drug Abuse Patient Records regulations: The Federal rules restrict any use of the information to criminally investigate or prosecute any alcohol or drug abuse patient.[facility] CampusIn the event this information is protected by the Federal Confidentiality of Alcohol and Drug Abuse Patient Records regulations: The Federal rules restrict any use of the information to criminally investigate or prosecute any alcohol or drug abuse patient.[facility] CampusIn the event this information is protected by [...] or prosecute any alcohol or drug abuse patient.[facility] CampusIn the event this information is protected by the Federal Confidentiality of Alcohol and Drug Abuse Patient Records regulations: The Federal rules restrict any use of the information to criminally investigate or prosecute any alcohol or drug abuse patient.[facility] CampusIn the event this information is protected by the Federal Confidentiality of Alcohol and Drug Abuse Patient Records regulations: The Federal rules restrict any use of the information to criminally investigate or prosecute any alcohol or drug abuse patient.[facility] CampusIn the event this information is protected by the Federal Confidentiality of Alcohol and Drug Abuse Patient Records regulations: The Federal rules restrict any use of the information to criminally investigate or prosecute any alcohol or drug abuse patient.[facility] CampusIn the event this information is protected by the Federal Confidentiality of Alcohol and Drug Abuse Patient Records regulations: The Federal rules restrict any use of the information to criminally investigate or prosecute any alcohol or drug abuse patient.[facility] CampusIn the event this information is protected by the Federal Confidentiality of Alcohol and Drug Abuse Patient Records regulations: The Federal rules restrict any use of the information to criminally investigate or prosecute any alcohol or drug abuse patient.[facility] CampusIn the event this information is protected by the Federal Confidentiality of Alcohol and Drug Abuse Patient Records regulations: The Federal rules restrict any use of the information to criminally investigate or prosecute any alcohol or drug abuse patient.[facility] CampusIn the event this information is protected by the Federal Confidentiality of Alcohol and Drug Abuse Patient Records regulations: The Federal rules restrict any use of the information to criminally investigate or prosecute any alcohol or drug abuse patient.[facility] CampusIn the event this information is protected by the Federal Confidentiality of Alcohol and Drug Abuse Patient Records regulations: The Federal rules restrict any use of the information to criminally investigate or prosecute any alcohol or drug abuse patient.[facility] CampusIn the event this information is protected by the Federal Confidentiality of Alcohol and Drug Abuse Patient Records regulations: The Federal rules restrict any use of the information to criminally investigate or prosecute any alcohol or drug abuse patient.[facility] CampusIn the event this information is protected by the Federal Confidentiality of Alcohol and Drug Abuse Patient Records regulations: The Federal rules restrict any use of the information to criminally investigate or prosecute any alcohol or drug abuse patient.[facility] CampusIn the event this information is protected by the Federal Confidentiality of Alcohol and Drug Abuse Patient Records regulations: The Federal rules restrict any use of the information to criminally investigate or prosecute any alcohol or drug abuse patient.[facility] CampusIn the event this information is protected by the Federal Confidentiality of Alcohol and Drug Abuse Patient Records regulations: The Federal rules restrict any use of the information to criminally investigate or prosecute any alcohol or drug abuse patient.[facility] CampusIn the event this information is protected by the Federal Confidentiality of Alcohol and Drug Abuse Patient Records regulations: The Federal rules restrict any use of the information to criminally investigate or prosecute any alcohol or drug abuse patient.[facility] CampusIn the event this information is protected by the Federal Confidentiality of Alcohol and Drug Abuse Patient Records regulations: The Federal rules restrict any use of the information to criminally investigate or prosecute any alcohol or drug abuse patient.[facility] CampusIn the event this information is protected by the Federal Confidentiality of Alcohol and Drug Abuse Patient Records regulations: The Federal rules restrict any use of the information to criminally investigate or prosecute any alcohol or drug abuse patient.[facility] CampusIn the event this information is protected by the Federal Confidentiality of Alcohol and Drug Abuse Patient Records regulations: The Federal rules restrict any use of the information to criminally investigate or prosecute any alcohol or drug abuse patient.[facility] CampusIn the event this information is protected by the Federal Confidentiality of Alcohol and Drug Abuse Patient Records regulations: The Federal rules restrict any use of the information to criminally investigate or prosecute any alcohol or drug abuse patient.[facility] CampusIn the event this information is protected by the Federal Confidentiality of Alcohol and Drug Abuse Patient Records regulations: The Federal rules restrict any use of the information to criminally investigate or prosecute any alcohol or drug abuse patient.[facility] CampusIn the event this information is protected by the Federal Confidentiality of Alcohol and Drug Abuse Patient Records regulations: The Federal rules restrict any use of the information to criminally investigate or prosecute any alcohol or drug abuse patient.[facility] CampusIn the event this information is protected by the Federal Confidentiality of Alcohol and Drug Abuse Patient Records regulations: The Federal rules restrict any use of the information to criminally investigate or prosecute any alcohol or drug abuse patient.[facility] CampusIn the event this information is protected by the Federal Confidentiality of Alcohol and Drug Abuse Patient Records regulations: The Federal rules restrict any use of the information to criminally investigate or prosecute any alcohol or drug abuse patient.[facility] CampusIn the event this information is protected by the Federal Confidentiality of Alcohol and Drug Abuse Patient Records regulations: The Federal rules restrict any use of the information to criminally investigate or prosecute any alcohol or drug abuse patient.[facility] CampusIn the event this information is protected by the Federal Confidentiality of Alcohol and Drug Abuse Patient Records regulations: The Federal rules restrict any use of the information to criminally investigate or prosecute any alcohol or drug abuse patient.[facility] CampusIn the event this information is protected by the Federal Confidentiality of Alcohol and Drug Abuse Patient Records regulations: The Federal rules restrict any use of the information to criminally investigate or prosecute any alcohol or drug abuse patient.[facility] CampusIn the event this information is protected by the Federal Confidentiality of Alcohol and Drug Abuse Patient Records regulations: The Federal rules restrict any use of the information to criminally investigate or prosecute any alcohol or drug abuse patient.[facility] CampusIn the event this information is protected by the Federal Confidentiality of Alcohol and Drug Abuse Patient Records regulations: The Federal rules restrict any use of the information to criminally investigate or prosecute any alcohol or drug abuse patient.[facility] CampusIn the event this information is protected by the Federal Confidentiality of Alcohol and Drug Abuse Patient Records regulations: The Federal rules restrict any use of the information to criminally investigate or prosecute any alcohol or drug abuse patient.[facility] CampusIn the event this information is protected by the Federal Confidentiality of Alcohol and Drug Abuse Patient Records regulations: The Federal rules restrict any use of the information to criminally investigate or prosecute any alcohol or drug abuse patient.[facility] CampusIn the event this information is protected by the Federal Confidentiality of Alcohol and Drug Abuse Patient Records regulations: The Federal rules restrict any use of the information to criminally investigate or prosecute any alcohol or drug abuse patient.[facility] CampusIn the event this information is protected by the Federal Confidentiality of Alcohol and Drug Abuse Patient Records regulations: The Federal rules restrict any use of the information to criminally investigate or prosecute any alcohol or drug abuse patient.[facility] CampusIn the event this information is protected by the Federal Confidentiality of Alcohol and Drug Abuse Patient Records regulations: The Federal rules restrict any use of the information to criminally investigate or prosecute any alcohol or drug abuse patient.[facility] CampusIn the event this information is protected by the Federal Confidentiality of Alcohol and Drug Abuse Patient Records regulations: The Federal rules restrict any use of the information to criminally investigate or prosecute any alcohol or drug abuse patient.[facility] CampusIn the event this information is protected by the Federal Confidentiality of Alcohol and Drug Abuse Patient Records regulations: The Federal rules restrict any use of the information to criminally investigate or prosecute any alcohol or drug abuse patient.[facility] CampusIn the event this information is protected by the Federal Confidentiality of Alcohol and Drug Abuse Patient Records regulations: The Federal rules restrict any use of the information to criminally investigate or prosecute any alcohol or drug abuse patient.[facility] CampusIn the event this information is protected by the Federal Confidentiality of Alcohol and Drug Abuse Patient Records regulations: The Federal rules restrict any use of the information to criminally investigate or prosecute any alcohol or drug abuse patient.[facility] CampusIn the event this information is protected by the Federal Confidentiality of Alcohol and Drug Abuse Patient Records regulations: The Federal rules restrict any use of the information to criminally investigate or prosecute any alcohol or drug abuse patient.[facility] CampusIn the event this information is protected by the Federal Confidentiality of Alcohol and Drug Abuse Patient Records regulations: The Federal rules restrict any use of the information to criminally investigate or prosecute any alcohol or drug abuse patient.[facility] CampusIn the event this information is protected by the Federal Confidentiality of Alcohol and Drug Abuse Patient Records regulations: The Federal rules restrict any use of the information to criminally investigate or prosecute any alcohol or drug abuse patient.[facility] CampusIn the event this information is protected by the Federal Confidentiality of Alcohol and Drug Abuse Patient Records regulations: The Federal rules restrict any use of the information to criminally investigate or prosecute any alcohol or drug abuse patient.[facility] Reason for Visit (unrecogniz ed section and content) Reason Comments Established Patient Pain Reason Comments Refill Request Reason Comments Physical Therapy Specialty Diagnoses / Procedures Referred By Mai whaley Referred To Contact PHYSICAL THERAPY Diagnoses Status post right knee replacement Stiffness of right knee Procedures CONSULT TO PHYSICAL THERAPY PHYSICAL THERAPY EVALUATION HIGH COMPLEX 45 MINS THERAPEUTIC EXERCISES RE, EA 15 MIN. Hubert Fuentes APRN.[address] [address] [facility] [address] [place] [address] Referral ID Status Reason Start Date Expiration Date Visits Requested Visits Authorized [id number] Authorized Auto-Generat ed Referral 09/23/2021 09/22/2022 20 20 Reason Comments Knee Pain DOS:11/22/21 Established Patient DOS:11/22/21 Post Op DOS:11/22/21 Knee Replacement DOS:11/22/21 Follow Up DOS:11/22/21 Reason Comments Established Patient DOS:11/22/21 Follow Up DOS:11/22/21 Post Op DOS:11/22/21 Knee Replacement DOS:11/22/21 Reason Comments Physical Therapy Specialty Diagnoses / Procedures Referred By Mai whaley Referred To Contact PHYSICAL THERAPY Diagnoses Status post right knee replacement Stiffness of right knee Procedures CONSULT TO PHYSICAL THERAPY PHYSICAL THERAPY EVALUATION HIGH COMPLEX 45 MINS THERAPEUTIC EXERCISES RE, EA 15 MIN. Hubert Fuentes APRN.CUTTER TENDER [address] [place] [address] [facility] [address] [place] [address] Reason Comments Follow Up Knee Replacement Pre-Op Visit Reason Comments Appointment Reason Comments Pre-Op Teaching Reason Comments Appointment Pre-op CT scan for r obotic surgery Reason Comments Consult Specialty Diagnoses / Procedures Referred By Mai whaley Referred To Contact CT IMAGING Diagnoses Presence of left artificial hip joint Preop examination Procedures CT HIP WO IVCON LT CT LOWER EXTREMITY W/O CONTRAST MATERIAL Hubert Fuentes APRN.CUTTER TENDER [address] [address] [address] [facility] Referral ID Status Reason Start Date Expiration Date V isits Requested Visits Authorized [id number] Closed Auto-Generate d Referral 06/04/2022 07/04/2022 1 1 Reason Comments Home Care Confirmation Call Reason Onset Date Comments Refill Request 06/29/2022 Specialty Diagnoses / Procedures Referred By Mai whaley Referred To Contact [facility] Home Care [address] [place] [address] Referral ID Status Reason Start Date Expiration Date Visits Re quested Visits Authorized [id number] 1 1 Reason Comments Home Care Bandage [...] 05/09/2023 Specialty Diagnoses / Procedures Referred By Contac t Referred To Contact MR IMAGING Diagnoses Encounter for observation for other suspected diseases and conditions ruled out Procedures MRI UPPER LEG WO IVCON LEFT MRI LOWER EXTREM OTH/THN JT W/O CONTR Netta Fiore MD [address] [address] [place] [address] Referral ID Status Reason Start Date Expiration Date V isits Requested Visits Authorized [id number] Closed Auto-Generate d Referral 05/02/2023 05/31/2024 1 1 Reason Onset Date Comments Refill Request 06/06/2023 Reason Onset Date Comments Refill Request 08/09/2023 Reason Onset Date Comments Refill Request 08/26/2023 Reason Onset Date Comments Refill Request 08/23/2023 Reason Comments Results Reason Onset Date Comments Refill Request 01/17/2024 Reason Comments Established Patient Follow Up Pre-Op Visit Knee Replacement Reason Comments Radiology MRI Specialty Diagnoses / Procedures Referred By Contac t Referred To Contact MR IMAGING Diagnoses Pain in hip Procedures MRI HIP WO IVCON LT MRI ANY JT LOWER EXTREM W/O CONTRAST Netta Fiore MD [address] [address] [place] [address] Referral ID Status Reason Start Date Expiration Date V isits Requested Visits Authorized [id number] Closed Auto-Generate d Referral 04/17/2022 05/17/2022 1 1 Reason Comments OT EVAL OT Discharge Specialty Diagnoses / Procedures Referred By Contac t Referred To Contact OCCUPATIONAL THERAPY Diagnoses Primary osteoarthritis of left knee Procedures CONSULT TO AGENT TICKETING GATE OCCUPATIONAL THERAPY EVAL HIGH COMPLEX 60 MINS Hubert Fuentes, LUMBER PRESS OPERATOR.CUTTER TENDER [address] [place] [address] Demetra Toney OTR/[address] [place] [address] Referral ID Status Reason Start Date Expiration Date Visits Requested Visits Authorized [id number] Authorized Auto-Generat ed Referral 06/11/2024 09/22/2024 30 30 Reason Comments PT Eval Specialty Diagnoses / Procedures Referred By Contac t Referred To Contact [facility] Diagnoses Primary osteoarthritis of left knee Procedures CONSULT TO PHYSICAL THERAPY PHYSICAL THERAPY EVALUATION HIGH COMPLEX 45 MINS Hubert Fuentes, BRODY.CUTTER TENDER [address] [place] [address] [facility] [address] [place] [address] Referral ID Status Reason Start Date Expiration Date Visits Requested Visits Authorized [id number] Authorized Auto-Generat ed Referral 09/23/2023 09/22/2024 30 30 Reason Comments Appointment Pre-op CT Scan for M AKO Reason Comments Appointment Reschedule Scan CT Specialty Diagnoses / Procedures Referred By Mai whaley Referred To Contact Radiology / RADIO CT SCAN [facility] Diagnoses Primary osteoarthritis of left knee [M17.12] Comments [facility] [employer] total knee replacement [facility] CT 1mm slices, include 80-100m of distal femur and proximal tibia Dx code Z01.818 (preoperative planning Procedures CT WO MSK 400 Hubert Fuentes, BRODY.CUTTER TENDER [address] Scan [facility] [address] [place] [address] Referral ID Status Reason Start Date Expiration Date V isits Requested Visits Authorized [id number] Closed Patient Cleared - Admin/Chairm an/Director advise to proceed or did not respond 08/25/2024 11/23/2024 1 1 Reason Comments Home Care CONFIRMATION CALL Reason Comments Home Care Reason Comments Medication Problem Increased pain Reason Comments Home Care Dressing removal Reason Comments Knee Replacement Post Op Reason Onset Date Comments Refill Request 09/22/2024 Reason Comments Post Op Reason Onset Date Comments Refill Request 10/08/2024 Reason Comments Post Op Knee Replacement Reason Onset Date Comments Refill Request 12/24/2024 Care Teams (unrecognized sec tion and content) Nursing Director Relationship Specialty Start Date End Date Cristian Robertson MD PCP - General Family Practice 03/25/14 Cris Quick [facility] [address] [place] [address] Specialty Research Manufacturing Operator Orthopedics 09/12/21 12/31/21 Nursing Director Relationship Specialty Start Date End Date Cristian Robertson MD PCP - General Family Practice 03/25/14 Cris Quick [facility] [address] [place] [address] Specialty Research Manufacturing Operator Orthopedics 09/12/21 12/31/21 Netta Hoff MD [address] [address] Home Care Physician Orthopedics 11/23/21 Hubert Fuentes, LUMBER PRESS OPERATOR.CUTTER TENDER [address] [place] [address] Referring Orthopedics 11/23/21 Nursing Director Relationship Specialty Start Date End Date Cristian Robertson MD PCP - General Family Practice 03/25/14 Netta Hoff MD [address] [address] Home Care Physician Orthopedics 11/23/21 Hubert Fuentes, LUMBER PRESS OPERATOR.CUTTER TENDER [address] [address] Referring Orthopedics 11/23/21 Nursing Director Relationship Specialty Start Date End Date Cristian Robertson MD PCP - General Family Practice 03/25/14 Netta Hoff MD [address] [address] Home Care Physician Orthopedics 11/23/21 Hubert Fuentes, LUMBER PRESS OPERATOR.CUTTER TENDER [address] [address] Referring Orthopedics 11/23/21 Nursing Director Relationship Specialty Start Date End Date Cristian Robertson MD PCP - General Family Practice 03/25/14 Netta Hoff MD [address] [place] [address] Home Care Physician Orthopedics 11/23/21 Hubert Fuentes, LUMBER PRESS OPERATOR.[address] [address] Referring Orthopedics 11/23/21 Nursing Director Relationship Specialty Start Date End Date Cristian Robertson MD PCP - General Family Practice 03/25/14 Netta Hoff MD [address] [place] [address] Home Care Physician Orthopedics 11/23/21 Hubert Fuentes, LUMBER PRESS OPERATOR.CUTTER TENDER [address] [place] [address] Referring Orthopedics 11/23/21 Nursing Director Relationship Specialty Start Date End Date Cristian Robertson MD PCP - General Family Practice 03/25/14 Netta Hoff MD [address] [place] [address] Home Care Physician Orthopedics 11/23/21 Hubert Fuentes, LUMBER PRESS OPERATOR.CUTTER TENDER [address] [place] [address] Referring Orthopedics 11/23/21 Nursing Director Relationship Specialty Start Date End Date Cristian Robertson MD PCP - General Family Practice 03/25/14 Netta Hoff MD [address] [place] [address] Home Care Physician Orthopedics 11/23/21 Hubert Fuentes, LUMBER PRESS OPERATOR.[address] [address] Referring Orthopedics 11/23/21 Nursing Director Relationship Specialty Start Date End Date Cristian Robertson MD PCP - General Family Practice 03/25/14 Netta Hoff MD [address] [place] [address] Home Care Physician Orthopedics 11/23/21 Hubert Fuentes, LUMBER PRESS OPERATOR.[address] [address] Referring Orthopedics 11/23/21 Nursing Director Relationship Specialty Start Date End Date Cristian Robertson MD PCP - General Family Practice 03/25/14 Netta Hoff MD [address] [place] [address] Home Care Physician Orthopedics 11/23/21 Hubert Fuentes, LUMBER PRESS OPERATOR.[address] [address] Referring Orthopedics 11/23/21 Nursing Director Relationship Specialty Start Date End Date Cristian Robertson MD PCP - General Family Practice 03/25/14 Netta Hoff MD [address] [place] [address] Home Care Physician Orthopedics 11/23/21 Hubert Fuentes, LUMBER PRESS OPERATOR.[address] [address] Referring Orthopedics 11/23/21 Nursing Director Relationship Specialty Start Date End Date Cristian Robertson MD PCP - General Family Practice 03/25/14 Netta Hoff MD [address] [place] [address] Home Care Physician Orthopedics 11/23/21 Hubert Fuentes, LUMBER PRESS OPERATOR.CUTTER TENDER [address] [place] [address] Referring Orthopedics 11/23/21 Nursing Director Relationship Specialty Start Date End Date Cristian Robertson MD PCP - General Family Practice 03/25/14 Netta Hoff MD [address] [place] [address] Home Care Physician Orthopedics 11/23/21 Hubert uFentes, LUMBER PRESS OPERATOR.CUTTER TENDER [address] [place] [address] Referring Orthopedics 11/23/21 Nursing Director Relationship Specialty Start Date End Date Cristian Robertson MD PCP - General Family Practice 03/25/14 Netta Hoff MD [address] [place] [address] 43876 Home Care Physician Orthopedics 11/23/21 Hubert Fuentes, LUMBER PRESS OPERATOR.CUTTER TENDER [address] [place] [address] 17523 Referring Orthopedics 11/23/21 Nursing Director Relationship Specialty Start Date End Date Cristian Robertson MD PCP - General Family Practice 03/25/14 Netta Hoff MD [address] [address] Home Care Physician Orthopedics 11/23/21 Hubert Fuentes, BRODY.CUTTER TENDER [address] [address] Referring Orthopedics 11/23/21 Nursing Director Relationship Specialty Start Date End Date Cristian Robertson MD PCP - General Family Practice 03/25/14 Cris Quick, [facility] [address] [place] [address] Specialty Research Manufacturing Operator Orthopedics 09/12/21 08/07/22 Netta Hoff MD [address] [place] [address] 66523 Home Care Physician Orthopedics 11/23/21 Hubert Fuentes, BRODY.CUTTER TENDER [address] [address] Referring Orthopedics 11/23/21 Nursing Director Relationship Specialty Start Date End Date Cristian Robertson MD PCP - General Family Practice 03/25/14 Cris Quick, [facility] [address] [place] [address] Specialty Research Manufacturing Operator Orthopedics 09/12/21 08/07/22 Netta Hoff MD [address] [address] Home Care Physician Orthopedics 11/23/21 Hubert Fuentes, BRODY.CUTTER TENDER [address] [address] Referring Orthopedics 11/23/21 Nursing Director Relationship Specialty Start Date End Date Cristian Robertson MD PCP - General Family Practice 03/25/14 Cris Quick, [facility] [address] [place] [address] Specialty Research Manufacturing Operator Orthopedics 09/12/21 08/07/22 Netta Hoff MD [address] [address] Home Care Provider Orthopedics 11/23/21 Hubert Fuentes APRN.CUTTER TENDER [address] [address] Referring Orthopedics 11/23/21 Nursing Director Relationship Specialty Start Date End Date Cristian Robertson MD PCP - General Family Practice 03/25/14 Cris Quick, [facility] [address] [place] [address] Specialty Research Manufacturing Operator Orthopedics 09/12/21 08/07/22 Netta Hoff MD [address] [address] Home Care Provider Orthopedics 11/23/21 Hubert Fuentes APRN.CUTTER TENDER [address] [address] Referring Orthopedics 11/23/21 Nursing Director Relationship Specialty Start Date End Date Cristian Robertson MD PCP - General Family Medicine 03/25/14 Cris Quick, [facility] [address] [place] [address] Specialty Research Manufacturing Operator Orthopedics 09/12/21 08/07/22 Netta Hoff MD [address] [address] Home Care Provider Orthopedics 06/26/22 Hubert Fuentes, LUMBER PRESS OPERATOR.CUTTER TENDER [address] [address] Referring Orthopedics 06/26/22 Nursing Director Relationship Specialty Start Date End Date Cristian Robertson MD PCP - General Family Medicine 03/25/14 Cris Quick, [facility] [address] [place] [address] Specialty Research Manufacturing Operator Orthopedics 09/12/21 08/07/22 Netta Hoff MD [address] [address] Home Care Provider Orthopedics 06/26/22 Hubert Fuentes, LUMBER PRESS OPERATOR.CUTTER TENDER [address] [address] Referring Orthopedics 06/26/22 Carlene Platt, PT [address] [place] [address] Junior Automation Engineer Post Acute Care 06/26/22 Nursing Director Relationship Specialty Start Date End Date Cristian Robertson MD PCP - General Family Medicine 03/25/14 Cris Quick, [facility] [address] [place] [address] Specialty Research Manufacturing Operator Orthopedics 09/12/21 08/07/22 Netta Hoff MD [address] [address] Home Care Provider Orthopedics 06/26/22 Hubert Fuetnes, LUMBER PRESS OPERATOR.CUTTER TENDER [address] [address] Referring Orthopedics 06/26/22 Carlene Platt, PT [address] [place] [address] Junior Automation Engineer Post Acute Care 06/26/22 Nursing Director Relationship Specialty Start Date End Date Cristian Robertson MD PCP - General Family Medicine 03/25/14 Cris Quick, [facility] [address] [place] [address] Specialty Research Manufacturing Operator Orthopedics 09/12/21 08/07/22 Netta Hoff MD [address] [address] Home Care Provider Orthopedics 06/26/22 Hubert Fuentes, LUMBER PRESS OPERATOR.CUTTER TENDER [address] [address] Referring Orthopedics 06/26/22 Carlene Platt, PT [address] [place] [address] Junior Automation Engineer Post Acute Care 06/26/22 Nursing Director Relationship Specialty Start Date End Date Cristian Robertson MD PCP - General Family Medicine 03/25/14 Cris Quick, [facility] [address] [place] [address] Specialty Research Manufacturing Operator Orthopedics 09/12/21 08/07/22 Netta Hoff MD [address] [address] Home Care Provider Orthopedics 06/26/22 Hubert Fuentes, LUMBER PRESS OPERATOR.CUTTER TENDER [address] [address] Referring Orthopedics 06/26/22 Carlene Platt, PT [address] [place] [address] Junior Automation Engineer Post Acute Care 06/26/22 Nursing Director Relationship Specialty Start Date End Date Cristian Robertson MD PCP - General Family Medicine 03/25/14 Cris Quick, [facility] [address] [place] [address] Specialty Research Manufacturing Operator Orthopedics 09/12/21 08/07/22 Netta Hoff MD [address] [address] Home Care Provider Orthopedics 06/26/22 Hubert Fuentes APRN.CUTTER TENDER [address] [address] Referring Orthopedics 06/26/22 Carlene Platt, PT 6801 [facility] [place] [address] Junior Automation Engineer Post Acute Care 06/26/22 Nursing Director Relationship Specialty Start Date End Date Cristian Robertson MD PCP - General Family Medicine 03/25/14 Cris Quick, [facility] [address] [place] [address] Specialty Research Manufacturing Operator Orthopedics 09/12/21 08/07/22 Netta Hoff MD [address] [address] Home Care Provider Orthopedics 06/26/22 Hubert Fuentes APRN.CUTTER TENDER [address] [address] Referring Orthopedics 06/26/22 Carlene Platt, PT 6801 [facility] [place] [address] Junior Automation Engineer Post Acute Care 06/26/22 Nursing Director Relationship Specialty Start Date End Date Cristian Robertson MD PCP - General Family Medicine 03/25/14 Cris Quick, [facility] [address] [place] [address] Specialty Research Manufacturing Operator Orthopedics 09/12/21 08/07/22 Netta Hoff MD [address] [address] Home Care Provider Orthopedics 06/26/22 Hubert Fuentes APRN.CUTTER TENDER [address] [address] Referring Orthopedics 06/26/22 Carlene Platt, PT [address] [place] [address] Junior Automation Engineer Post Acute Care 06/26/22 Nursing Director Relationship Specialty Start Date End Date Cristian Robertson MD PCP - General Family Medicine 03/25/14 Cris Quick, [facility] [address] [place] [address] Specialty Research Manufacturing Operator Orthopedics 09/12/21 08/07/22 Netta Hoff MD [address] [address] Home Care Provider Orthopedics 06/26/22 Hubert Fuentes, LUMBER PRESS OPERATOR.CUTTER TENDER [address] [address] Referring Orthopedics 06/26/22 Carlene Platt, PT [address] [place] [address] Junior Automation Engineer Post Acute Care 06/26/22 Nursing Director Relationship Specialty Start Date End Date Cristian Robertson MD PCP - General Family Medicine 03/25/14 Cris Quick, [facility] [address] [place] [address] Specialty Research Manufacturing Operator Orthopedics 09/12/21 08/07/22 Netta Hoff MD [address] [address] Home Care Provider Orthopedics 06/26/22 Hubert Fuentes, LUMBER PRESS OPERATOR.CUTTER TENDER [address] [address] Referring Orthopedics 06/26/22 Carlene Platt, PT 6801 [facility] [place] [address] Junior Automation Engineer Post Acute Care 06/26/22 Nursing Director Relationship Specialty Start Date End Date Cristian Robertson MD PCP - General Family Medicine 03/25/14 Cris Quick, [facility] [address] [place] [address] Specialty Research Manufacturing Operator Orthopedics 09/12/21 08/07/22 Netta Hoff MD [address] [address] Home Care Provider Orthopedics 06/26/22 Hubert Fuentes, BRODY.CUTTER TENDER [address] [address] Referring Orthopedics 06/26/22 Carlene Platt, PT 5431 [facility] [place] [address] Junior Automation Engineer Post Acute Care 06/26/22 Nursing Director Relationship Specialty Start Date End Date Cristian Robertson MD PCP - General Family Medicine 03/25/14 Cris Quick, [facility] [address] [place] [address] Specialty Research Manufacturing Operator Orthopedics 09/12/21 08/07/22 Netta Hoff MD [address] [address] Home Care Provider Orthopedics 06/26/22 Hubert Fuentes, LUMBER PRESS OPERATOR.CUTTER TENDER [address] [address] Referring Orthopedics 06/26/22 Carlene Platt, PT 4521 [facility] [place] [address] Junior Automation Engineer Post Acute Care 06/26/22 Nursing Director Relationship Specialty Start Date End Date Cristian Robertson MD PCP - General Family Medicine 03/25/14 Cris Quick, [facility] [address] [place] [address] Specialty Research Manufacturing Operator Orthopedics 09/12/21 08/07/22 Netta Hoff MD [address] [address] Home Care Provider Orthopedics 06/26/22 Hubert Fuentes, BRODY.CUTTER TENDER [address] [address] Referring Orthopedics 06/26/22 Carlene Platt, PT [address] [place] [address] Junior Automation Engineer Post Acute Care 06/26/22 Nursing Director Relationship Specialty Start Date End Date Cristian Robertson MD PCP - General Family Medicine 03/25/14 Cris Quick, [facility] [address] [place] [address] Specialty Research Manufacturing Operator Orthopedics 09/12/21 12/15/22 Netta Hoff MD [address] [address] Home Care Provider Orthopedics 06/26/22 Hubert Fuentes, LUMBER PRESS OPERATOR.CUTTER TENDER [address] [address] Referring Orthopedics 06/26/22 Carlene Platt, PT [address] [place] [address] Junior Automation Engineer Post Acute Care 06/26/22 Nursing Director Relationship Specialty Start Date End Date Cristian Robertson MD PCP - General Family Medicine 03/25/14 Cris Quick, [facility] [address] [place] [address] Specialty Research Manufacturing Operator Orthopedics 09/12/21 12/15/22 Netta Hoff MD [address] [address] Home Care Provider Orthopedics 06/26/22 Hubert Fuentes, LUMBER PRESS OPERATOR.CUTTER TENDER [address] [address] Referring Orthopedics 06/26/22 Carlene Platt, PT [address] [place] [address] Junior Automation Engineer Post Acute Care 06/26/22 Nursing Director Relationship Specialty Start Date End Date Cristian Robertson MD PCP - General Family Medicine 03/25/14 Cris Quick, [facility] [address] [place] [address] Specialty Research Manufacturing Operator Orthopedics 09/12/21 12/15/22 Netta Hoff MD [address] [address] Home Care Provider Orthopedics 06/26/22 Hubert Fuentes, LUMBER PRESS OPERATOR.CUTTER TENDER [address] [address] Referring Orthopedics 06/26/22 Carlene Platt, PT [address] [place] [address] Junior Automation Engineer Post Acute Care 06/26/22 Nursing Director Relationship Specialty Start Date End Date Cristian Robertson MD PCP - General Family Medicine 03/25/14 Cris Quick, [facility] [address] [place] [address] Specialty Research Manufacturing Operator Orthopedics 09/12/21 12/15/22 Netta Hoff MD [address] [address] Home Care Provider Orthopedics 06/26/22 Hubert Fuentes, BRODY.[address] [address] Referring Orthopedics 06/26/22 Carlene Platt, PT 6801 [facility] [place] [address] Junior Automation Engineer Post Acute Care 06/26/22 Nursing Director Relationship Specialty Start Date End Date Cristian Robertson MD PCP - General Family Medicine 03/25/14 Netta Hoff MD [address] [place] [address] Home Care Provider Orthopedics 06/26/22 Hubert Fuentes, LUMBER PRESS OPERATOR.[address] [address] Referring Orthopedics 06/26/22 Carlene Platt, PT 2421 [facility] [place] [address] Junior Automation Engineer Post Acute Care 06/26/22 Nursing Director Relationship Specialty Start Date End Date Cristian Robertson MD PCP - General Family Medicine 03/25/14 Netta Hoff MD [address] [place] [address]281 Home Care Provider Orthopedics 06/26/22 Hubert Fuentes, LUMBER PRESS OPERATOR.[address] [address] Referring Orthopedics 06/26/22 Carlene Platt, PT 6801 [facility] [place] [address] Junior Automation Engineer Post Acute Care 06/26/22 Nursing Director Relationship Specialty Start Date End Date Cristian Robertson MD PCP - General Family Medicine 03/25/14 Netta Hoff MD [address] [address] Home Care Provider Orthopedics 06/26/22 Hubert Fuentes, LUMBER PRESS OPERATOR.CUTTER TENDER [address] [address] Referring Orthopedics 06/26/22 Carlene Platt, PT [address] [place] [address] Junior Automation Engineer Post Acute Care 06/26/22 Nursing Director Relationship Specialty Start Date End Date Cristian Robertson MD PCP - General Family Medicine 03/25/14 Netta Hoff MD [address] [place] [address] 11914 Home Care Provider Orthopedics 06/26/22 Hubert Fuentes, LUMBER PRESS OPERATOR.CUTTER TENDER [address] [place] [address] Referring Orthopedics 06/26/22 Carlene Platt, PT [address] [place] [address] Junior Automation Engineer Post Acute Care 06/26/22 Nursing Director Relationship Specialty Start Date End Date Cristian Robertson MD PCP - General Family Medicine 03/25/14 Netta Hoff MD [address] [place] [address] 82784 Home Care Provider Orthopedics 06/26/22 Hubert Fuentes APRN.CUTTER TENDER [address] [place] [address] 41327 Referring Orthopedics 06/26/22 Carlene Platt, PT [address] [place] [address] Junior Automation Engineer Post Acute Care 06/26/22 Nursing Director Relationship Specialty Start Date End Date Cristian Robertson MD PCP - General Family Medicine 03/25/14 Netta Hoff MD [address] [place] [address] 25859 Home Care Provider Orthopedics 06/26/22 Hubert Fuentes APRN.CUTTER TENDER [address] [place] [address] 67471 Referring Orthopedics 06/26/22 Carlene Platt, PT 68[address] [facility] [place] [address] Junior Automation Engineer Post Acute Care 06/26/22 Nursing Director Relationship Specialty Start Date End Date Cristian Robertson MD PCP - General Family Medicine 03/25/14 Netta Hoff MD [address] [place] [address] [phone] Home Care Provider Orthopedics 06/26/22 Hubert Fuentes APRN.CUTTER TENDER [address] [place] [address]34 Referring Orthopedics 06/26/22 Nursing Director Relationship Specialty Start Date End Date Cristian Robertson MD PCP - General Family Medicine 03/25/14 Netta Hoff MD [address] [place] [address] 02261 Home Care Provider Orthopedics 06/26/22 Hubert Fuentes, LUMBER PRESS OPERATOR.CUTTER TENDER [address] [place] [address]280 Referring Orthopedics 06/26/22 Nursing Director Relationship Specialty Start Date End Date Cristian Robertson MD PCP - General Family Medicine 03/25/14 Netta Hoff MD [address] [place] [address] 93025 Home Care Provider Orthopedics 06/26/22 Hubert Fuentes, LUMBER PRESS OPERATOR.CUTTER TENDER [address] [place] [address] 07206 Referring Orthopedics 06/26/22 Nursing Director Relationship Specialty Start Date End Date Cristian Robertson MD PCP - General Family Medicine 03/25/14 Netta Hoff MD [address] [place] [address] 47760 Home Care Provider Orthopedics 06/26/22 Hubert Fuentes, LUMBER PRESS OPERATOR.CUTTER TENDER [address] [place] [address] 74742 Referring Orthopedics 06/26/22 Nursing Director Relationship Specialty Start Date End Date Cristian Robertson MD PCP - General Family Medicine 03/25/14 Netta Hoff MD [address] [place] [address] 52558 Home Care Provider Orthopedics 06/26/22 Hubert Fuentes APRN.CUTTER TENDER [address] [place] [address]128 Referring Orthopedics 06/26/22 Nursing Director Relationship Specialty Start Date End Date Cristian Robertson MD PCP - General Family Medicine 03/25/14 Netta Hoff MD [address] [place] [address] 09094 Home Care Provider Orthopedics 06/26/22 Hubert Fuentes APRN.CUTTER TENDER [address] [place] [address] 55629 Referring Orthopedics 06/26/22 Team Status: Active Member Role Status Dates Dr. Cristian Robertson MD Family Provider Active Dr. Cristian Robertson MD Primary Care Provider Active Team Status: Inactive Member Role Status Dates Dr. Cristian Robertson MD Primary Care Provider Active Demetra Zimmerman Attending Provider, Referring Provide r Active Nursing Director Relationship Specialty Start Date End Date Cristian Robertson MD PCP - General Family Medicine 03/25/14 Netta Hoff MD [address] [place] [address] 03312 Home Care Provider Orthopedics 06/26/22 Hubert Fuentes, LUMBER PRESS OPERATOR.CUTTER TENDER [address] [place] [address] [phone] Referring Orthopedics 06/26/22 Team Status: Inactive Member Role Status Dates Dr. Cristian Robertson MD Primary Care Provider, Attending Debi russo Active Nursing Director Relationship Specialty Start Date End Date Cristian Robertson MD PCP - General Family Medicine 03/25/14 Netta Hoff MD [address] [place] [address] 53712 Home Care Provider Orthopedics 06/26/22 Hubert Fuentes, LUMBER PRESS OPERATOR.CUTTER TENDER [address] [place] [address] 17613 Referring Orthopedics 06/26/22 Nursing Director Relationship Specialty Start Date End Date Cristian Robertson MD PCP - General Family Medicine 03/25/14 Netta Hoff MD [address] [place] [address] 25725 Home Care Provider Orthopedics 06/26/22 Hubert Fuentes, LUMBER PRESS OPERATOR.CUTTER TENDER [address] [place] [address] 19536 Referring Orthopedics 06/26/22 Nursing Director Relationship Specialty Start Date End Date Cristian Robertson MD PCP - General Family Medicine 03/25/14 Netta Hoff MD [address] [place] [address] 11857 Home Care Provider Orthopedics 06/26/22 Hubert Fuentes APRN.CUTTER TENDER [address] [place] [address] 01718 Referring Orthopedics 06/26/22 Nursing Director Relationship Specialty Start Date End Date Cristian Robertson MD PCP - General Family Medicine 03/25/14 Netta Hoff MD [address] [place] [address] 59696 Home Care Provider Orthopedics 06/26/22 Hubert Fuentes APRN.CUTTER TENDER [address] [place] [address] 03114 Referring Orthopedics 06/26/22 Carlene Platt, PT [address] [place] [address] Junior Automation Engineer Post Acute Care 06/26/22 05/02/23 Nursing Director Relationship Specialty Start Date End Date Cristian Robertson MD PCP - General Family Medicine 03/25/14 Netta Hoff MD [address] [place] [address] 41771 Home Care Provider Orthopedics 06/26/22 Hubert Fuentes APRN.CUTTER TENDER [address] [place] [address] 26523 Referring Orthopedics 06/26/22 Nursing Director Relationship Specialty Start Date End Date Cristian Robertson MD PCP - General Family Medicine 03/25/14 Netta Hoff MD [address] [place] [address] 10687 Home Care Provider Orthopedics 06/26/22 Hubert Fuentes APRN.CUTTER TENDER [address] [place] [address] 75207 Referring Orthopedics 06/26/22 Nursing Director Relationship Specialty Start Date End Date Cristian Robertson MD PCP - General Family Medicine 03/25/14 Cris Quick, [facility] [address] [place] [address] Specialty Research Manufacturing Operator Orthopedics 09/12/21 12/15/22 Netta Hoff MD [address] [place] [address] 90417 Home Care Provider Orthopedics 11/23/21 06/25/22 Hubert Fuentes APRN.CUTTER TENDER [address] [place] [address] 32519 Referring Orthopedics 11/23/21 06/25/22 Nursing Director Relationship Specialty Start Date End Date Cristian Robertson MD PCP - General Family Medicine 03/25/14 Netta Hoff MD [address] [place] [address] 15639 Home Care Provider Orthopedics 06/26/22 Hubert Fuentes APRN.CUTTER TENDER [address] [place] [address] 66101 Referring Orthopedics 06/26/22 Nursing Director Relationship Specialty Start Date End Date Cristian Robertson MD PCP - General Family Medicine 03/25/14 Netta Hoff MD [address] [place] [address] 29903 Home Care Provider Orthopedics 06/26/22 Hubert Fuentes, LUMBER PRESS OPERATOR.CUTTER TENDER [address] [place] [address] 18395 Referring Orthopedics 06/26/22 Nursing Director Relationship Specialty Start Date End Date Cristian Robertson MD PCP - General Family Medicine 03/25/14 Cris Quick, [facility] [address] [place] [address] Specialty Research Manufacturing Operator Orthopedics 09/12/21 10/17/24 Netta Hoff MD [address] [place] [address] 95667 Home Care Provider Orthopedics 06/26/22 Hubert Fuentes, LUMBER PRESS OPERATOR.CUTTER TENDER [address] [place] [address] 42488 Referring Orthopedics 06/26/22 Nursing Director Relationship Specialty Start Date End Date Cristian Robertson MD PCP - General Family Medicine 03/25/14 Cris Quick, [facility] [address] [place] [address] Specialty Research Manufacturing Operator Orthopedics 09/12/21 10/17/24 Netta Hoff MD [address] [place] [address] 40188 Home Care Provider Orthopedics 06/26/22 Hubert Fuentes APRN.CUTTER TENDER [address] [place] [address] 67717 Referring Orthopedics 06/26/22 Nursing Director Relationship Specialty Start Date End Date Cristian Robertson MD PCP - General Family Medicine 03/25/14 Cris Quick, [facility] [address] [place] [address] Specialty Research Manufacturing Operator Orthopedics 09/12/21 10/17/24 Netta Hoff MD [address] [place] [address] 02398 Home Care Provider Orthopedics 06/26/22 Hubert Fuentes APRN.CUTTER TENDER [address] [place] [address] 51152 Referring Orthopedics 06/26/22 Nursing Director Relationship Specialty Start Date End Date Cristian Robertson MD PCP - General Family Medicine 03/25/14 Cris Quick, [facility] [address] [place] [address] Specialty Research Manufacturing Operator Orthopedics 09/12/21 10/17/24 Netta Hoff MD [address] [place] [address] 54195 Home Care Provider Orthopedics 06/26/22 Hubert Fuentes APRN.CUTTER TENDER [address] [place] [address] 83392 Referring Orthopedics 06/26/22 Nursing Director Relationship Specialty Start Date End Date Cristian Robertson MD PCP - General Family Medicine 03/25/14 Cris Quick, [facility] [address] [place] [address] Specialty Research Manufacturing Operator Orthopedics 09/12/21 10/17/24 Netta Hoff MD [address] [place] [address] 67127 Home Care Provider Orthopedics 06/26/22 Hubert Fuentes APRN.CUTTER TENDER [address] [place] [address] 20924 Referring Orthopedics 06/26/22 Nursing Director Relationship Specialty Start Date End Date Cristian Robertson MD PCP - General Family Medicine 03/25/14 Cris Quick, [facility] [address] [place] [address] Specialty Research Manufacturing Operator Orthopedics 09/12/21 10/17/24 Netta Hoff MD [address] [place] [address] 20886 Home Care Provider Orthopedics 09/07/24 Hubert Fuentes APRN.CUTTER TENDER [address] [place] [address] [phone] Referring Orthopedics 09/07/24 Nursing Director Relationship Specialty Start Date End Date Cristian Robertson MD PCP - General Family Medicine 03/25/14 Cris Quick, [facility] [address] [place] [address] Specialty Research Manufacturing Operator Orthopedics 09/12/21 10/17/24 Netta Hoff MD [address] [place] [address] Home Care Provider Orthopedics 09/07/24 Hubert Fuentes APRN.CUTTER TENDER [address] [place] [phone] Referring Orthopedics 09/07/24 Carlene Platt, PT [address] [place] [address] Junior Automation Engineer Post Acute Care 09/08/24 Nursing Director Relationship Specialty Start Date End Date Cristian Robertson MD PCP - General Family Medicine 03/25/14 Cris Quick, [facility] [address] [place] [address] Specialty Research Manufacturing Operator Orthopedics 09/12/21 10/17/24 Netta Hoff MD [address] [place] [address] Home Care Provider Orthopedics 09/07/24 Hubert Fuentes APRN.CUTTER TENDER [address] [place] [phone] Referring Orthopedics 09/07/24 Carlene Platt, PT [address] [place] [address] Junior Automation Engineer Post Acute Care 09/08/24 Nursing Director Relationship Specialty Start Date End Date Cristian Robertson MD PCP - General Family Medicine 03/25/14 Cris Quick, PSS [facility] [address] [place] [address] Specialty Research Manufacturing Operator Orthopedics 09/12/21 10/17/24 Netta Hoff MD [address] [place] [address] Home Care Provider Orthopedics 09/07/24 Hubert Fuentes APRN.CUTTER TENDER [address] [place] [address] Referring Orthopedics 09/07/24 Carlene Platt, PT [address] [place] [address] Junior Automation Engineer Post Acute Care 09/08/24 Nursing Director Relationship Specialty Start Date End Date Cristian Robertson MD PCP - General Family Medicine 03/25/14 Cris Quick, PSS [facility] [address] [place] [address] Specialty Research Manufacturing Operator Orthopedics 09/12/21 10/17/24 Netta Hoff MD [address] [place] [address] Home Care Provider Orthopedics 09/07/24 Hubert Fuentes APRN.CUTTER TENDER [address] [place] [address] Referring Orthopedics 09/07/24 Carlene Platt, PT [address] [place] [address] Junior Automation Engineer Post Acute Care 09/08/24 Nursing Director Relationship Specialty Start Date End Date Cristian Robertson MD PCP - General Family Medicine 03/25/14 Cris Quick, PSS [facility] [address] [place] [address] Specialty Research Manufacturing Operator Orthopedics 09/12/21 10/17/24 Netta Hoff MD [address] [place] [address] Home Care Provider Orthopedics 09/07/24 Hubert Fuentes APRN.CUTTER TENDER [address] [place] [address] Referring Orthopedics 09/07/24 Carlene Platt, PT [address] [place] [address] Junior Automation Engineer Post Acute Care 09/08/24 Nursing Director Relationship Specialty Start Date End Date Cristian Robertson MD PCP - General Family Medicine 03/25/14 Cris Quick, PSS [facility] [address] [place] [address] Specialty Research Manufacturing Operator Orthopedics 09/12/21 10/17/24 Netta Hoff MD [address] [place] [address] Home Care Provider Orthopedics 09/07/24 Hubert Fuentes APRN.CUTTER TENDER [address] [place] [address] Referring Orthopedics 09/07/24 Carlene Platt, PT [address] [place] [address] Junior Automation Engineer Post Acute Care 09/08/24 Nursing Director Relationship Specialty Start Date End Date Cristian Robertson MD PCP - General Family Medicine 03/25/14 Cris Quick, PSS [facility] [address] [place] [address] Specialty Research Manufacturing Operator Orthopedics 09/12/21 10/17/24 Netta Hoff MD [address] [place] [address] Home Care Provider Orthopedics 09/07/24 Hubert Fuentes APRN.CUTTER TENDER [address] [place] [address] Referring Orthopedics 09/07/24 Carlene Platt, PT [address] [place] [address] Junior Automation Engineer Post Acute Care 09/08/24 Nursing Director Relationship Specialty Start Date End Date Cristian Robertson MD PCP - General Family Medicine 03/25/14 Cris Quick, PSS [facility] [address] [place] [address] Specialty Research Manufacturing Operator Orthopedics 09/12/21 10/17/24 Netta Hoff MD [address] [place] [address] Home Care Provider Orthopedics 09/07/24 Hubert Fuentes APRN.CUTTER TENDER [address] [place] [address] Referring Orthopedics 09/07/24 Carlene Platt, PT [address] [place] [address] Junior Automation Engineer Post Acute Care 09/08/24 Nursing Director Relationship Specialty Start Date End Date Cristian Robertson MD PCP - General Family Medicine 03/25/14 Cris Quick, PSS [facility] [address] [place] [address] Specialty Research Manufacturing Operator Orthopedics 09/12/21 10/17/24 Netta Hoff MD [address] [place] [address] Home Care Provider Orthopedics 09/07/24 Hubert Fuentes APRN.CUTTER TENDER [address] [place] [address] Referring Orthopedics 09/07/24 Carlene Platt, PT [address] [place] [address] Junior Automation Engineer Post Acute Care 09/08/24 Nursing Director Relationship Specialty Start Date End Date Cristian Robertson MD PCP - General Family Medicine 03/25/14 Cris Quick, PSS [facility] [address] [place] [address] Specialty Research Manufacturing Operator Orthopedics 09/12/21 10/17/24 Netta Hoff MD [address] [place] [address] Home Care Provider Orthopedics 09/07/24 Hubert Fuentes APRN.CUTTER TENDER [address] [place] [address] Referring Orthopedics 09/07/24 Nursing Director Relationship Specialty Start Date End Date Cristian Robertson MD PCP - General Family Medicine 03/25/14 Cris Quick, PSS [facility] [address] [place] [address] Specialty Research Manufacturing Operator Orthopedics 09/12/21 10/17/24 Netta Hoff MD [address] [place] [address] Home Care Provider Orthopedics 09/07/24 Hubert Fuentes APRN.CUTTER TENDER [address] [place] [phone] Referring Orthopedics 09/07/24 Nursing Director Relationship Specialty Start Date End Date Cristian Robertson MD PCP - General Family Medicine 03/25/14 Netta Hoff MD [address] [place], [place] [id number] Home Care Provider Orthopedics 09/07/24 Hubert Fuentes APRN.CUTTER TENDER [address] [place] [address] Referring Orthopedics 09/07/24 Nursing Director Relationship Specialty Start Date End Date Cristian Robertson MD PCP - General Family Medicine 03/25/14 Netta Hoff MD [address] [place] [address] Home Care Provider Orthopedics 09/07/24 Hubert Fuentes APRN.CUTTER TENDER [address] [place] [address] Referring Orthopedics 09/07/24 Team Status: Inactive Member Role Status Dates Dr. Cristian Robertson MD Primary Care Provider Active Start: November 06, 2024 End: November 06, 2024 Netta Hoff MD Attending Provider Active Star t: November 06, 2024 End: November 06, 2024 Netta Hoff MD Referring Provider Active Star t: November 06, 2024 End: November 06, 2024 (unrecognized sect ion and content) No Status Records FoundNo Status Records FoundNo Status Records FoundNo Status Records FoundNo Status Records Found INFORMATION SOURCE (unrecogn ized section and content) DATE CREATED AUTHOR 05/21/2023 [facility] DATE CREATED AUTHOR AUTHOR'S ORGANIZ ATION 06/20/2024 [facility] DATE CREATED AUTHOR AUTHOR'S ORGANIZ ATION 09/24/2024 [facility] DATE CREATED AUTHOR AUTHOR'S ORGANIZ ATION 11/07/2024 [facility] DATE CREATED AUTHOR AUTHOR'S ORGANIZ ATION 04/04/2025 [facility] Goals (unrecognized section and content) Goals may be documented in a n alternate sectionGoals may be documented in an alternate sectionGoals may be documented in an alternate section FOR RECORDS PERTAINING TO PATIENTS WHO ARE [...] BE BASED ON THE PRIMARY CLINICAL RECORDS. [employer] [facility] [employer] [facility]. provides no warranty or guarantee of the accuracy or completeness of information in this document.
[2025-06-08 01:24] LABS: Hematocrit 40.9 % (40-54); Hemoglobin 13.8 g/dL (13.0-16.5); Immature Granulocytes Count 0.020 X10^3/uL (0.0-0.0); Mean Corp Hgb Conc 33.7 g/dL (32-36); Mean Corpuscular Volume 91.9 fL (80-94); Mean Platelet Vol. 9.8 fl (6.2-12.0); NRBC Flagged by Analyzer 0 % (0-5); Platelet Count 192 K/mm3 (150-450); RBC Distribution Width CV 12.3 % (11.6-14.6); RBC Distribution Width SD 41.1 fl (35.1-43.9); Red Blood Count 4.45 M/mm3 (4.6-6.2); White Blood Count 5.2 K/mm3 (4.4-11.0)
--- NOTE | 2025-06-08 01:32 | RAD_ITS ---
PROCEDURE: CHEST PA AND LATERAL 06/08/2025 REASON FOR EXAM: CHEST PAIN TECHNIQUE: Procedure Code: RADCXR Modality: DX Procedure: CHEST PA AND LATERAL COMPARISON: 08/05/2020. FINDINGS: The lungs are expanded. There is no demonstrated parenchymal abnormality. There is no demonstrated pleural abnormality. Normal heart and pericardium. Normal mediastinum and wilmer. Normal visualized pulmonary arteries. Normal visualized aortic arch and descending thoracic aorta. Normal visualized thoracic spine. Normal visualized ribs, clavicles, and shoulders. There is no demonstrated abnormality of the visualized soft tissue structures of the upper abdomen. RAD/Chest PA and Lateral IMPRESSION: No evidence for acute abnormality. [facility]
[2025-06-08 01:44] VITALS: BP 128/81; PULSE 74; RESP 16; O2SAT 98
[2025-06-08 02:00] VITALS: BP 143/78; PULSE 78; RESP 18; O2SAT 96
[2025-06-08 02:13] LABS: Anion Gap 10 (5-15); BUN 27 mg/dL (4-19); BUN/Creat Ratio 25.9 RATIO (10-20); Calcium,Total 8.5 mg/dL (7.6-11.0); Carbon Dioxide 22.3 mmol/L (21.0-32.0); Chloride 107 mmol/L (98-108); Estimated Creatinine Clearance 96.00 ml/min (50-250); Glucose 113 mg/dL (70-99); Magnesium 2.2 mg/dL (1.5-2.2); Potassium 4.1 mmol/L (3.3-5.1); Troponin T High Sensitivity < 6 ng/L (<=22)
--- NOTE | 2025-06-08 02:34 | EX.ED.DYSGE1 ---
HPI History of Present Illness Chief Complaint: Chest Pain Informant: patient and spouse/S.O. Narrative Narrative: Patient is a 60-year-old male with reported history of SVT. He states he went to bed normally and then awoke with a sensation of pain which he described as a vague squeezing or pressure sensation in the mid region of his chest. He states that there was no real radiation of the pain and that it did not cause nausea vomiting or diaphoresis or shortness of breath. He states that the pain would wax and wane but never completely resolved. He states secondary to his recurrent nature he presents for evaluation. He denies any recent fevers or chills or sick symptoms. He states has been no recent trauma or excessive activity. He denies any recent travel surgery or history of DVT or PE and he denies any pleuritic component to the chest discomfort. However as it has been persistent he presents for evaluation [facility] Home Medications ?Medication ?Instructions ?Recorded ?Last Taken ?Type Valarian Root 06/03/20 Unknown History Vitamin D3/Vitamin K2 (Mk4) 06/03/20 Unknown History vitamin B complex 1 ea PO 06/03/20 Unknown History magnesium sulfate 100 mg capsule 100 mg PO DAILY 06/08/25 Unknown History Allergy/AdvReac Type Severity Reaction Status Date / Time No Known Allergies Allergy Verified 06/08/25 00:45 Surgical History (Updated 06/08/25 @ 00:47 by Jenny Cee) H/O knee surgery Hx of appendectomy Social History (Updated 08/16/20 @ 13:[address] Michell Tabor, DO) Smoking Status: Never smoker [facility] ED Constitutional Constitutional ED: Denies chills or fever(s) Eyes Eyes: Denies blurry vision or change in vision ENT ENT ED: Denies sore throat Cardiovascular Cardiovascular: Reports chest pain; Denies palpitations or racing heartbeat Respiratory/Chest Respiratory/Chest: Denies cough or dyspnea Gastrointestinal Gastrointestinal: Denies abdominal pain, diarrhea, nausea or vomiting Musculoskeletal Musculoskeletal: Denies back pain Integumentary Denies rash Neurologic Neurologic: Denies headache(s) Hematologic/Lymphatic Hematologic/Lymphatic: Denies easy bleeding or easy bruising EXAM Physical Exam Const Vital Signs: 06/08/25 00:44 06/08/25 00:44 06/08/25 01:44 Temperature 98.3 F Temperature Source Oral Pulse Rate 76 74 Respiratory Rate 18 16 Respiratory Effort Normal Non-Labored Blood Pressure 168/82 H 128/81 H Blood Pressure Mean 110 96 Pulse Ox 99 98 Oxygen Delivery Method Room Air Room Air 06/08/25 02:00 06/08/25 03:00 Temperature Temperature Source Pulse Rate 78 68 Respiratory Rate 18 16 Respiratory Effort Blood Pressure 143/78 H 133/85 H Blood Pressure Mean 99 101 Pulse Ox 96 96 Oxygen Delivery Method Room Air Room Air Positive well nourished and well developed General Appearance ED: well developed; Negative for pallor HEENT HEENT Narrative: Normocephalic atraumatic Eyes PERRL and EOMs intact bilaterally General Eye ED: Negative for scleral icterus Neck supple and no JVD Chest Wall palpation of chest normal Chest Narrative: No bony deformity or crepitance; No overlying soft tissue changes to suggest trauma or infection Resp normal respiratory effort and clear to auscultation bilaterally Cardio regular rate and regular rhythm Rate: other Other Details: Heart is regular rate and rhythm without murmurs rubs or gallop Radial and carotid pulses are equal and symmetric GI normal to inspection, nondistended, normoactive bowel sounds, non-tender, non-distended and no masses GI Narrative: No voluntary guarding or rigidity or pulsatile mass No pain in the midepigastric region to suggest pancreatitis Negative Gibson sign Auscultation: normoactive bowel sounds Palpation: soft Back/Spine no CVA tenderness Extremity normal to inspection Extremity Narrative: No asymmetric edema no pitting edema negative Homans' sign bilaterally Neuro oriented x3, CN's II-XII intact bilaterally and no sensory deficits noted Sensorium / Orientation: alert Motor Exam: strength 5/5 throughout Psych mental status grossly normal Skin no rashes or lesions noted and no wounds General Skin Exam: Negative for jaundice or pallor MDM MDM MDM Narrative Medical decision making narrative: Patient arrived to the ER mildly hypertensive but overall stable vitals. He reported a waxing and waning vague chest discomfort without nausea vomiting diaphoresis or shortness of breath. The patient is low risk for ACS but with potential acute coronary syndrome or vasospasm or abnormal heart rhythm I did like to perform a EKG and basic laboratory studies. As the patient did not have any reproducible pain in the upper abdomen nor did he report pain in that region while at home I have low concern that this is atypical presentation for pancreatitis or biliary colic. A chest x-ray was obtained to rule out lung pathology such as pneumonia pneumothorax or pleural effusion. X-ray revealed no acute findings. His mediastinum is not widened either going against dissection and his history of symptoms do not correlate with this. The initial troponin was less than 6. The 2-hour delta increased by a value of 2 to 8 which is not clinically significant. The patient did report reoccurrence of pain while in the ER and therefore repeat EKG was obtained that looked essentially the exact same as the first without abnormal heart rhythm or signs of ischemia or STEMI. Even though symptoms do not correlate with PE or dissection with the return of pain I did elect to perform a D-dimer. The D-dimer is normal going against these changes. On reevaluation the patient is resting comfortably his vitals are stable he states that the reoccurrence of the pain has since resolved without intervention. Therefore as his symptoms have improved his overall workup is negative and we have not noted any type of abnormal heart rhythm I do not feel there is need for further intervention in the ER and is otherwise safe for discharge History & Record Review Discussion w/independent historian: Patient and Significant other Lab Data Attestation: I reviewed the patient's lab results. Labs: Laboratory Results - last 24 hr 06/08/25 06/08/25 01:19 03:12 WBC 5.2 RBC 4.45 L Hgb 13.8 Hct 40.9 MCV 91.9 MCH 31.0 MCHC 33.7 RDW Std Deviation 41.1 RDW Coeff of Sara 12.3 Plt Count 192 MPV 9.8 Immature Gran % (Auto) 0.400 Neut % (Auto) 48.3 Lymph % (Auto) 38.4 [place] % (Auto) 7.5 Eos % (Auto) 4.6 Baso % (Auto) 0.8 Absolute Neuts (auto) 2.5 Absolute Lymphs (auto) 2.00 Nucleated RBC % 0 D-Dimer Quant (PE/DVT) < 0.27 L Sodium 140 Potassium 4.1 Chloride 107 Carbon Dioxide 22.3 Anion Gap 10 BUN 27 H Creatinine 1.03 Estim Creat Clear Calc 96.00 Est GFR (MDRD) Non-Af 83 BUN/Creatinine Ratio 25.9 H Glucose 113 H Calcium 8.5 Magnesium 2.2 Troponin T High Sens < 6 Troponin T Hi Sens 2 Hr 8 Radiography Diagnostic Testing: Clinical Impression(s) from Imaging Studies Chest X-Ray 06/08/25 01:32 IMPRESSION: No evidence for acute abnormality. Reading Location: [place] [address] Chest x-ray as interpreted by the emergency medicine physician reveals no acute infiltrate pneumothorax or pleural effusion or widened mediastinum Discharge Plan Triage Chief Complaint: Chest Pain ED Provider: Donny Mcmahan Dx/Rx/DC Orders Clinical Impression: Nonspecific chest pain Instructions: ED Chest Pain, Uncertain Cause Prescriptions: No Action vitamin B complex 1 EACH capsule 1 ea PO Vitamin D3/Vitamin K2 (Mk4) Valarian Root magnesium sulfate 100 mg capsule 100 mg PO DAILY Primary Care Provider: Mynor Robertson Referrals: Mynor Robertson MD [Primary Care Provider] - Activity Restrictions/Additional Instructions: Your workup revealed no signs of active heart damage or abnormal heart rhythm. With your normal D-dimer the chance for a pulmonary embolus/blood clot or aortic tear is extremely low. If your symptoms are recurrent you may want to discuss obtaining a outpatient stress test and/or echocardiogram from your family doctor. If they are worsening or you have any further concerns and please return to the ER for repeat evaluation Print Language: Kazakh Disposition Disposition: Home, Self Care
[2025-06-08 03:00] VITALS: BP 133/85; PULSE 68; RESP 16; O2SAT 96
--- NOTE | 2025-06-08 03:30 | EKG12_ITS ---
Test Reason : CP Blood Pressure : */* mmHG Vent. Rate : 80 BPM Atrial Rate : 80 BPM P-R Int : 166 ms QRS Dur : 100 ms QT Int : 392 ms P-R-T Axes : 41 8 14 degrees QTcB Int : 452 ms Normal sinus rhythm Normal ECG Confirmed by Jose Ballard ([id number]), greeting card editor DARY ARCOS ([id number]) on 06/08/2025 12:01:51 PM Referred By: VIRY Confirmed By: Jose Ballard
[2025-06-08 03:49] LABS: D-Dimer Quantitative (DVT/PE) < 0.27 FEU/ug/m (0.27-0.49)
[2025-06-08 03:52] LABS: Troponin T High Sens 2 HR 8 ng/L (<=22)
[2025-06-08 04:00] VITALS: BP 139/87; PULSE 77; RESP 18; TEMP 36.6; O2SAT 97
== END 2025-06-08 04:28 | disposition home or self-care (01) ==
PROVIDERS: Emergency Provider Emergency Medicine; PCP Family Medicine; Visit Provider Emergency Medicine
DX: R07.9 Chest pain, unspecified (principal)
CPT/HCPCS: 71046; 80048; 83735; 84484; 85025; 85379; 93005; 99284; A4216